=== PATIENT | male | born 1955 | race Caucasian/White ===

== ENCOUNTER 2018-11-25 01:20 | Inpatient (IN) | payer MEDICARE, OTHER ==
[2018-11-25] MEDS ORDERED: LORazepam 1 MG TAB PO STA (02:51)
[2018-11-25 03:05] LABS: Basophils # (A) 0.1 k/uL (0-0.2); Basophils % (A) 1 %; Eosinophils # (A) 0.4 k/uL (0-0.7); Eosinophils % (A) 5 %; HCT 40.2 % (39.0-53.0); HGB 12.8 gm/dL (13.0-17.5); Lymphocytes # (A) 1.9 k/uL (1.0-4.8); Lymphocytes % (A) 24 %; MCH 28.5 pg (25.0-35.0); MCHC 31.9 g/dL (31.0-37.0); MCV 89.5 fL (80.0-100.0); Mean Platelet Volume 6.7; Monocytes # (A) 0.9 k/uL (0-1.0); Monocytes % (A) 11 %; Neutrophils # (A) 4.4 k/uL (1.3-7.7); Neutrophils % (A) 56 %; Platelet Count 305 k/uL (150-450); WBC 7.8 k/uL (3.8-10.6)
[2018-11-25 03:10] LABS: African American GFR (CKD) >90 (>60 ml/min/1.73 sqM); Alcohol <10 mg/dL; Anion Gap 10 mmol/L; Blood Urea Nitrogen 13 mg/dL (9-20); Calcium 9.6 mg/dL (8.4-10.2); Carbon Dioxide 25 mmol/L (22-30); Chloride 86 mmol/L (98-107); Glucose 84 mg/dL (74-99); Potassium 4.3 mmol/L (3.5-5.1); Sodium 121 mmol/L (137-145)
[2018-11-25] MEDS ORDERED: HALOPERIDOL LACTATE 5 MG/ML 1 ML VIAL IM STA (03:24)
--- NOTE | 2018-11-25 04:11 | ED ---
General Adult HPI - General Chief complaint: Psychiatric Symptoms Stated complaint: Petit[place] Time Seen by Provider: 11/25/18 02:22 Source: patient, police, RN notes reviewed, old records reviewed Mode of arrival: ambulatory Limitations: altered mental status - History of Present Illness Initial comments: 63-year-old male patient past history of schizophrenia brought in by [place] [employer] [facility]. They report that patient was knocking on his neighbor's car window getting her breathing which. Patient reports he is not taking his psychiatric medications. Denies any suicidal or homicidal ideations at this time. Denies all other complaints. Systemic: Pt denies fatigue, fever/chills, rash. Pt denies weakness, night sweats, weight loss. Neuro: Pt denies headache, visual disturbances, syncope or pre-syncope. HEENT: Pt denies ocular discharge or irritation, otalgia, rhinorrhea, pharyngitis or notable lymphadenopathy. Cardiopulmonary: Pt denies chest pain, SOB, heart palpitations, dyspnea on exertion. Abdominal/GI: Pt denies abdominal pain, n/v/d. : Pt denies dysuria, burning w/ urination, frequency/urgency. Denies new onset urinary or bowel incontinence. MSK: Pt denies myalgia, loss of strength or function in extremities. Neuro: Pt denies new onset weakness, paresthesias. - Related Data Home Medications Medication Instructions Recorded Confirmed ARIPiprazole [Abilify Maintena] 300 mg IM Q30D 11/25/18 11/25/18 Atorvastatin [Lipitor] 10 mg PO DAILY 11/25/18 11/25/18 Divalproex Sodium [Depakote] 125 mg PO DAILY 11/25/18 11/25/18 Docusate Sodium [Dok] 100 mg PO BID 11/25/18 11/25/18 FLUoxetine HCL [PROzac] 20 mg PO DAILY 11/25/18 11/25/18 Lactulose [Cephulac] 20 gm PO TID 11/25/18 11/25/18 Nicotine 14Mg/24Hr Patch [Habitrol] 1 patch TRANSDERM DAILY 11/25/18 11/25/18 Polyethylene Glycol 3350 [Clearlax] 17 gram PO DAILY 11/25/18 11/25/18 QUEtiapine [SEROquel] 200 mg PO HS 11/25/18 11/25/18 Tamsulosin [Flomax] 0.4 mg PO DAILY 11/25/18 11/25/18 metFORMIN HCL [metFORMIN HCL ER 1,000 mg PO BID 11/25/18 11/25/18 Osmotic] Allergies Allergy/AdvReac Type Severity Reaction Status Date / Time No Known Allergies Allergy Verified 11/25/18 07:34 Review of Systems ROS Statement: Those systems with pertinent positive or pertinent negative responses have been documented in the HPI. ROS Other: All systems not noted in ROS Statement are negative. Past Medical History Past Medical History: Diabetes Mellitus History of Any Multi-Drug Resistant Organisms: None Reported Additional Past Surgical History / Comment(s): SCHIZOPHRENIA Past Psychological History: Bipolar, Schizophrenia Smoking Status: Current every day smoker Past Alcohol Use History: None Reported Past Drug Use History: None Reported General Exam - General Exam Comments Initial Comments: Constitutional: NAD, AOX3, Pt has pleasant affect. HEENT: NC/AT, trachea midline, neck supple, no lymphadenopathy. Posterior p harynx non erythematous, without exudates. External ears appear normal, without discharge. Mucous membranes moist. Eyes PERRLA, EOM intact. There is no scleral icterus. No pallor noted. Cardiopulmonary: RRR, no murmurs, rubs or gallops, no JVD noted. Lungs CTAB in anterior and posterior hui. No peripheral edema. Abdominal exam: Abdomen soft and non-distended. Abdomen non-tender to palpation in all 4 quadrants. Bowel sounds active in LLQ. No hepatosplenomegaly. No ecchymosis Neuro: CN II-XII grossly intact. No nuchal rigidity. No raccon eyes, no arenas sign, no hemotympanum. No cervical spinal tenderness. MSK: No posterior calf tenderness bilaterally, homans sign negative bilaterally. Posterior tibialis and radial pulse +2 bilaterally. Sensation intact in upper and lower extremities. Full active ROM in upper and lower extremities, 5/5 stregnth. Limitations: altered mental status Course Vital Signs 11/25/18 11/25/18 11/25/18 01:39 06:25 08:17 Temperature 98.1 F Pulse Rate 78 69 Respiratory 18 18 16 Rate Blood Pressure 123/82 106/58 O2 Sat by Pulse 99 100 97 Oximetry 11/25/18 11/25/18 11/25/18 08:20 09:00 09:30 Temperature Pulse Rate Respiratory 17 Rate Blood Pressure 123/69 116/70 132/71 O2 Sat by Pulse 98 98 Oximetry 11/25/18 11/25/18 11/25/18 10:00 10:30 13:14 Temperature Pulse Rate 70 77 Respiratory 18 18 Rate Blood Pressure 140/73 119/68 126/67 O2 Sat by Pulse 98 97 Oximetry 11/25/18 11/25/18 13:46 16:22 Temperature 98.1 F 97.9 F Pulse Rate 77 Respiratory 16 Rate Blood Pressure 122/74 O2 Sat by Pulse 97 Oximetry Medical Decision Making - Medical Decision Making 63-year-old male patient past history of schizophrenia brought in by [place] [employer] [facility]. They report that patient was knocking on his neighbor's car window accusing her of being a witch. Patient reports he is not taking his psychiatric medications. Denies any suicidal or homicidal ideations at this time. Denies all other complaints. Pt VSS, afebrile. Physical exam did not display acute pathology. Pt signed out to Dr. Muñiz pending EPS evaluation. - Lab Data Result diagrams: 11/25/18 02:04 11/25/18 02:04 Lab Results 11/25/18 11/25/18 11/25/18 Range/Units 02:04 02:04 02:04 WBC 7.8 (3.8-10.6) k/uL RBC 4.50 (4.30-5.90) m/uL Hgb 12.8 L (13.0-17.5) gm/dL Hct 40.2 (39.0-53.0) % MCV 89.5 (80.0-100.0) fL MCH 28.5 (25.0-35.0) pg MCHC 31.9 (31.0-37.0) g/dL RDW 15.0 (11.5-15.5) % Plt Count 305 (150-450) k/uL Neutrophils % 56 % Lymphocytes % 24 % Monocytes % 11 % Eosinophils % 5 % Basophils % 1 % Neutrophils # 4.4 (1.3-7.7) k/uL Lymphocytes # 1.9 (1.0-4.8) k/uL Monocytes # 0.9 (0-1.0) k/uL Eosinophils # 0.4 (0-0.7) k/uL Basophils # 0.1 (0-0.2) k/uL Sodium 121 L (137-145) mmol/L Potassium 4.3 (3.5-5.1) mmol/L Chloride 86 L (98-107) mmol/L Carbon Dioxide 25 (22-30) mmol/L Anion Gap 10 mmol/L BUN 13 (9-20) mg/dL Creatinine 0.42 L (0.66-1.25) mg/dL Est GFR (CKD-EPI)AfAm >90 (>60 ml/min/1.73 sqM) Est GFR (CKD-EPI)NonAf >90 (>60 ml/min/1.73 sqM) Glucose 84 (74-99) mg/dL Calcium 9.6 (8.4-10.2) mg/dL Urine Color Urine Appearance (Clear) Urine pH (5.0-8.0) Ur Specific [place] (1.001-1.035) Urine Protein (Negative) Urine Glucose (UA) (Negative) Urine Ketones (Negative) Urine Blood (Negative) Urine Nitrite (Negative) Urine Bilirubin (Negative) Urine Urobilinogen (<2.0) mg/dL Ur Leukocyte Esterase (Negative) Urine Opiates Screen (NotDetected) Ur Oxycodone Screen (NotDetected) Urine Methadone Screen (NotDetected) Ur Propoxyphene Screen (NotDetected) Ur Barbiturates Screen (NotDetected) Valproic Acid 79.9 ug/mL U Tricyclic Antidepress (NotDetected) Ur Phencyclidine Scrn (NotDetected) Ur Amphetamines Screen (NotDetected) U Methamphetamines Scrn (NotDetected) U Benzodiazepines Scrn (NotDetected) Urine Cocaine Screen (NotDetected) U Marijuana (THC) Screen (NotDetected) Serum Alcohol <10 mg/dL 11/25/18 11/25/18 Range/Units 06:25 06:25 WBC (3.8-10.6) k/uL RBC (4.30-5.90) m/uL Hgb (13.0-17.5) gm/dL Hct (39.0-53.0) % MCV (80.0-100.0) fL MCH (25.0-35.0) pg MCHC (31.0-37.0) g/dL RDW (11.5-15.5) % Plt Count (150-450) k/uL Neutrophils % % Lymphocytes % % Monocytes % % Eosinophils % % Basophils % % Neutrophils # (1.3-7.7) k/uL Lymphocytes # (1.0-4.8) k/uL Monocytes # (0-1.0) k/uL Eosinophils # (0-0.7) k/uL Basophils # (0-0.2) k/uL Sodium (137-145) mmol/L Potassium (3.5-5.1) mmol/L Chloride (98-107) mmol/L Carbon Dioxide (22-30) mmol/L Anion Gap mmol/L BUN (9-20) mg/dL Creatinine (0.66-1.25) mg/dL Est GFR (CKD-EPI)AfAm (>60 ml/min/1.73 sqM) Est GFR (CKD-EPI)NonAf (>60 ml/min/1.73 sqM) Glucose (74-99) mg/dL Calcium (8.4-10.2) mg/dL Urine Color Light Yellow Urine Appearance Clear (Clear) Urine pH 6.5 (5.0-8.0) Ur Specific [place] 1.005 (1.001-1.035) Urine Protein Negative (Negative) Urine Glucose (UA) Negative (Negative) Urine Ketones 1+ H (Negative) Urine Blood Negative (Negative) Urine Nitrite Negative (Negative) Urine Bilirubin Negative (Negative) Urine Urobilinogen <2.0 (<2.0) mg/dL Ur Leukocyte Esterase Negative (Negative) Urine Opiates Screen Not Detected (NotDetected) Ur Oxycodone Screen Not Detected (NotDetected) Urine Methadone Screen Not Detected (NotDetected) Ur Propoxyphene Screen Not Detected (NotDetected) Ur Barbiturates Screen Not Detected (NotDetected) Valproic Acid ug/mL U Tricyclic Antidepress Not Detected (NotDetected) Ur Phencyclidine Scrn Not Detected (NotDetected) Ur Amphetamines Screen Not Detected (NotDetected) U Methamphetamines Scrn Not Detected (NotDetected) U Benzodiazepines Scrn Not Detected (NotDetected) Urine Cocaine Screen Not Detected (NotDetected) U Marijuana (THC) Screen Not Detected (NotDetected) Serum Alcohol mg/dL Disposition Clinical Impression: Psychiatric disorder Disposition: ADMITTED IP TO THIS HOSP Condition: Serious Is patient prescribed a controlled substance at d/c from ED?: No
[2018-11-25 06:37] LABS: Appearance,Urine Clear (Clear); Bilirubin,Urine Negative (Negative); Blood,Urine Negative (Negative); Color,Urine Light Yellow; Glucose,Urine (UA) Negative (Negative); Ketones,Urine 1+ (Negative); Leukocyte Esterase,Urine Negative (Negative); Nitrite,Urine Negative (Negative); PH, Urine 6.5 (5.0-8.0); Protein,Urine Negative (Negative); Specific Gravity,Urine 1.005 (1.001-1.035); Urobilinogen,Urine <2.0 mg/dL (<2.0)
[2018-11-25 06:48] LABS: Amphetamine Screen,Urine Not Detected (NotDetected); Barbiturate Screen,Urine Not Detected (NotDetected); Benzodiazepines Screen,Urine Not Detected (NotDetected); Cocaine Screen,Urine Not Detected (NotDetected); Methadone Screen, Urine Not Detected (NotDetected); Opiate Screen,Urine Not Detected (NotDetected); Oxycodone Screen, Urine Not Detected (NotDetected); Phencyclidine Screen,Urine Not Detected (NotDetected); Tricyclic Antidepressant,Urine Not Detected (NotDetected); Urn Cannabinoid Scrn Not Detected (NotDetected)
[2018-11-25] MEDS ORDERED: SODIUM CHLORIDE 0.9% 500 ML 500 ML IV STA (08:23)
[2018-11-25] MEDS ORDERED: SODIUM CHLORIDE 0.9% 1,000 ML IV STA (08:23)
--- NOTE | 2018-11-25 09:00 | CT ---
EXAMINATION TYPE: CT brain wo con DATE OF EXAM: 11/25/2018 COMPARISON: None HISTORY: 63-year-old male confusion, Altered mental status TECHNIQUE: Examination was done in axial plane without intravenous contrast. Coronal and sagittal r econstructions performed. CT DLP: 1106.4 mGycm Automated exposure control for dose reduction was used. FINDINGS: There is no evidence of acute intracranial hemorrhage, acute ischemic changes, mass, mass-effect, or extra-axial fluid collection. There is no effacement of cerebral sulci or basal subarachnoid cister ns. There is no hydrocephalus. There is no midline shift. Yanez-white matter distinction is preserv ed. Mild age related cerebral cortical volume loss. Paranasal sinuses and mastoid air cells are pneumatized. IMPRESSION: No acute intracranial abnormality seen.
[2018-11-25] MEDS ORDERED: NALOXONE 0.4 MG/ML 1 ML VIAL IV PRN (10:29)
[2018-11-25] MEDS ORDERED: LORazepam 2 MG/ML INJ IV STA (14:52)
[2018-11-25 17:03] VITALS: BMI 21.1
[2018-11-25] MEDS ORDERED: HYDROcodone/APAP 5-325MG 1 EACH TAB PO PRN (18:05)
[2018-11-25] MEDS ORDERED: ACETAMINOPHEN TAB 325 MG TAB PO PRN (18:05)
[2018-11-25] MEDS ORDERED: HALOPERIDOL LACTATE 5 MG/ML 1 ML VIAL IM PRN (18:06)
--- NOTE | 2018-11-25 18:09 | P.HPIM ---
History of Present Illness H&P Date: 11/25/18 Chief Complaint: Psychotic event 63-year-old male with PMH of schizophrenia is brought in by [place] [employer]. Patient is currently sedated with Ativan that was given in the ED. Patient is not waking up in his unable to provide any history. Report is taken from ED note. Apparently, patient has been not taking his psychiatric medications. He denied any suicidal or homicidal ideations. He denied any headache, chest pain, shortness of breath, palpitations, changes in urination or bowel habits. He was brought to the ED for evaluation by EPS. In the ED, vital signs were stable. CBC was unremarkable. BMP showed a sodium of 121. UDS was negative. Urinalysis was negative as well. Patient is being admitted for hyponatremia, psychiatry consulted. Review of Systems Unable to obtain ROS unobtainable: due to endotracheal tube Past Medical History Past Medical History: Diabetes Mellitus, Hypertension History of Any Multi-Drug Resistant Organisms: None Reported Additional Past Surgical History / Comment(s): SCHIZOPHRENIA Past Anesthesia/Blood Transfusion Reactions: Unable to Obtain Past Psychological History: Bipolar, Schizophrenia Additional Psychological History / Comment(s): Schizophrenia Smoking Status: Current every day smoker Past Alcohol Use History: None Reported Past Drug Use History: None Reported Medications and Allergies Home Medications Medication Instructions Recorded Confirmed Type ARIPiprazole [Abilify Maintena] 300 mg IM Q30D 11/25/18 11/25/18 History Atorvastatin [Lipitor] 10 mg PO DAILY 11/25/18 11/25/18 History Divalproex Sodium [Depakote] 125 mg PO DAILY 11/25/18 11/25/18 History Docusate Sodium [Dok] 100 mg PO BID 11/25/18 11/25/18 History FLUoxetine HCL [PROzac] 20 mg PO DAILY 11/25/18 11/25/18 History Lactulose [Cephulac] 20 gm PO TID 11/25/18 11/25/18 History Nicotine 14Mg/24Hr Patch [Habitrol] 1 patch TRANSDERM DAILY 11/25/18 11/25/18 History Polyethylene Glycol 3350 [Clearlax] 17 gram PO DAILY 11/25/18 11/25/18 History QUEtiapine [SEROquel] 200 mg PO HS 11/25/18 11/25/18 History Tamsulosin [Flomax] 0.4 mg PO DAILY 11/25/18 11/25/18 History metFORMIN HCL [metFORMIN HCL ER 1,000 mg PO BID 11/25/18 11/25/18 History Osmotic] Allergies Allergy/AdvReac Type Severity Reaction Status Date / Time No Known Allergies Allergy Verified 11/25/18 07:34 Physical Exam Vitals: Vital Signs Temp Pulse Resp BP Pulse Ox 11/25/18 16:22 97.9 F 77 16 122/74 97 11/25/18 13:46 98.1 F 11/25/18 13:14 77 18 126/67 97 11/25/18 10:30 70 18 119/68 98 11/25/18 10:00 140/73 11/25/18 09:30 132/71 98 11/25/18 09:00 116/70 11/25/18 08:20 17 123/69 98 11/25/18 08:17 16 97 11/25/18 06:25 69 18 106/58 100 11/25/18 01:39 98.1 F 78 18 123/82 99 Intake and Output 11/25/18 11/25/18 11/25/18 06:59 14:59 22:59 Other: Voiding Method Urinal Weight 72.575 kg Unable to obtain as patient is heavily sedated. Results CBC & Chem 7: 11/25/18 02:04 11/25/18 02:04 Labs: Abnormal Lab Results - Last 24 Hours (Table) 11/25/18 11/25/18 11/25/18 Range/Units 02:04 02:04 06:25 Hgb 12.8 L (13.0-17.5) gm/dL Sodium 121 L (137-145) mmol/L Chloride 86 L (98-107) mmol/L Creatinine 0.42 L (0.66-1.25) mg/dL Urine Ketones 1+ H (Negative) Thrombosis Risk Factor Assmnt - Choose All That Apply Each Factor Represents 1 point: Medical pt on bed rest Each Risk Factor Represents 2 Points: Patient confined to bed Thrombosis Risk Factor Assessment Total Risk Factor Score: 3 Thrombosis Risk Factor Assessment Level: Moderate Risk Assessment and Plan Assessment: Assessment and Plan Hyponatremia Diabetes mellitus Acute psychotic event Sodium 121. Likely secondary to dehydration. Plans: Continue normal saline at 75 mL per hour. Repeat BMP in the morning. [id number] glucose 84. Plans: Insulin sliding scale. Regular Accu-Cheks. Hypoglycemic precautions. Plans: One-to-one sitter. Haldol and Ativan as needed for agitation or anxiety. Follow psychiatry consultation.
[2018-11-25 18:15] LABS: African American GFR (CKD) >90 (>60 ml/min/1.73 sqM); Anion Gap 7 mmol/L; Blood Urea Nitrogen 10 mg/dL (9-20); Carbon Dioxide 24 mmol/L (22-30); Chloride 96 mmol/L (98-107); Glucose 77 mg/dL (74-99); Potassium 4.6 mmol/L (3.5-5.1); Sodium 127 mmol/L (137-145)
[2018-11-25 20:39] LABS: Glucose,Whole Blood 77 mg/dL (75-99)
[2018-11-25] MEDS: LORazepam 2 MG/ML INJ IV PRN (23:25)
[2018-11-26] MEDS: LORazepam 2 MG/ML INJ IV PRN ×3 (05:07→21:21)
[2018-11-26 06:52] LABS: Glucose,Whole Blood 89 mg/dL (75-99)
[2018-11-26] MEDS: INSULIN ASPART (NovoLOG) 100 UNIT/ML VIAL SQ SCH ×3 (07:43→17:51)
--- NOTE | 2018-11-26 08:08 | P.PN ---
Subjective Progress Note Date: 11/26/18 Principal diagnosis: psychosis Patient was seen and examined. No acute events overnight. Patient more awake today and more communicative. Reports no issues. Is enjoying his breakfast. He denies any chest pain, shortness of breath or palpitations. No abdominal pain. No changes in urination or bowel habits. He denies any cough. States that he is ready to go home. Responding appropriately, but slowly, given Ativan around 5 AM. Objective - Vital Signs Vital signs: Vital Signs Temp 97.7 F 11/26/18 05:16 Pulse 76 11/26/18 05:16 Resp 15 11/26/18 05:16 BP 126/74 11/26/18 05:16 Pulse Ox 96 11/26/18 05:16 Intake & Output 11/25/18 11/26/18 11/26/18 18:59 06:59 18:59 Intake Total 600 Output Total 1200 Balance -600 Intake: Intake, IV Titration 600 Amount Sodium Chloride 0.9% 1, 600 000 ml @ 75 mls/hr IV . [id number] STA Rx#:[id number] Output: Urine 1200 Other: Voiding Method Urinal Urinal # Voids 2 - Exam General: [non toxic], [no distress], [appears at stated age] Derm: [warm], [dry] Head: [atraumatic], [normocephalic], [symmetric] Eyes: [EOMI], [no lid lag], [anicteric sclera] Mouth: [no lip lesion], [mucus membranes moist] Cardiovascular: [S1S2 reg], [no murmur], [positive posterior tibial pulse bilateral], Lungs: [CTA bilateral], [no rhonchi, no rales] , [no accessory muscle use] Abdominal: [soft], [ nontender to palpation], [no guarding], [no appreciable organomegaly] Ext: [no gross muscle atrophy], [no edema], [no contractures] Neuro: [ CN II-XI grossly intact], [no focal neuro deficits] Psych: [Alert], [oriented], [appropriate affect] Able to recall that the year 2018 and the president is Vicente Sow and that he is here at [facility] - Labs CBC & Chem 7: 11/25/18 02:04 11/25/18 17:41 Labs: Abnormal Lab Results - Last 24 Hours (Table) 11/25/18 Range/Units 17:41 Sodium 127 L (137-145) mmol/L Chloride 96 L (98-107) mmol/L Creatinine 0.43 L (0.66-1.25) mg/dL Assessment and Plan Assessment: Assessment and Plan Hyponatremia Diabetes mellitus Acute psychotic event Sodium 121-127, improving. Likely secondary to dehydration. Plans: Continue normal saline at 75 mL per hour. Repeat BMP in the morning. [id number]-go-[id number] glucose 89. Plans: Insulin sliding scale. Regular Accu-Cheks. Hypoglycemic precautions. Plans: One-to-one sitter. Haldol and Ativan as needed for agitation or anxiety. Follow psychiatry consultation.
[2018-11-26 10:13] LABS: African American GFR (CKD) >90 (>60 ml/min/1.73 sqM); Anion Gap 6 mmol/L; Blood Urea Nitrogen 11 mg/dL (9-20); Calcium 9.2 mg/dL (8.4-10.2); Carbon Dioxide 28 mmol/L (22-30); Chloride 96 mmol/L (98-107); Glucose 93 mg/dL (74-99); Potassium 4.5 mmol/L (3.5-5.1); Sodium 130 mmol/L (137-145)
[2018-11-26 11:18] LABS: Glucose,Whole Blood 94 mg/dL (75-99)
[2018-11-26] MEDS: NICOTINE 14MG/24HR PATCH TRANSDERM SCH (12:58)
[2018-11-26] MEDS ORDERED: FLUoxetine HCL 20 MG CAP PO SCH (14:45)
--- NOTE | 2018-11-26 15:46 | P.CN ---
Psychiatric Consult - . Consult date: 11/26/18 Consult:: 11/26/18 15:22 Identification: Patient is a 63-year-old male who was brought to the emergency room by the police when he was found knocking on car windows at his neighbors. Reason for Consult: Psychosis with a history of schizophrenia History of Present Illness: Patient's chart was reviewed, patient was seen and interviewed in his room no family members were present. Patient is classification case manager contacted his sister who did provide some historical information, the patient had recently been admitted to [facility] psychiatric unit for 7 weeks and was discharged 3 weeks ago, patient did follow up with his private psychiatrist and was seen once after discharge. Patient apparently 20 years ago walked from here to [place] is unclear to me if he has been hospitalized prior to the hospitalization 3 weeks ago and this 20 year span of time. Patient was a fair to poor historian requiring much verbal redirection to respond to questions. Patient states that he had gotten an injection of long-acting Abilify while he was in the hospital but could not afford to get it as an outpatient and stated that he been given a prescription for oral Abilify but is unclear if he hasn't started taking this or not. Patient states that he had been taking his Prozac 20 mg a day, Seroquel 200 mg at bedtime and Depakote 500 mg twice a day. Patient states that he saw his private psychiatrist once after he was released from [facility]. Patient states that he got enraged yesterday lost track of his emotions and got angry. States this is why he was banging on car windows. Patient states that he is getting messages that are good warnings, he reported that he has had paranoid thoughts in the past and has had manic episodes in the past but was unable to elaborate on this. He then stated that Dov Alexander at called him and they had a good conversation. He then discussed the fact that [facility] was important and at saying the rosary was important. Patient denied that he was currently feeling suicidal or homicidal. Past Psychiatric History: Patient states that he was admitted to [facility] at the age of 17, had 2 prior admissions to [facility], and was also admitted to [facility] one occasion. He thought that there were no admissions for a period of 20 years until his most recent one at [facility] where he was for 7 weeks per his sister and was recently released 3 weeks ago. Patient's home medications were as stated above and he has received and Abilify long-acting injection but states that he could not afford it and did not continue on either that or oral Abilify once he was discharged from the hospital. Patient sees a Dr. Cobos as an outpatient per his sister whose phone number is [phone]. Past Medical/Surgical History: Patient has a medical history diabetes, hypertension per his sister he had one episode of hyponatremia last summer that required hospitalization, patient states he's been treated for chlamydia and also has peripheral vascular disease and states he had a stent placed in one of his legs. He reports knee surgery as well in the past Family History: Per his sister bipolar disorder runs on the father's side of the family and schizophrenia runs on the maternal side Social History: Per patient's sister and her mother 2 years ago, he was 2 years ago but the patient states that he was 5 years ago and has only been once. He states he was born and raised here in [place] and has one brother and one sister. Patient states he has a daughter. 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 Patient is currently not working and lives on his own. Substance Use History: Patient denies any alcohol use for the last 18 years, states he tried cocaine once in the past and denies any other drug use history Mental status: Appearance/Attitude: Patient is dressed in a hospital gown, does not keep himself properly covered with a gown exposing himself during the i nterview, he is wearing adult diaper, patient is constantly moving twisting in the hospital bed, makes intermittent eye contact and was cooperative Behavior: Patient does not exhibit any psychomotor retardation but constantly moves during the interview in his bed Speech/Language: Patient's speech is rambling, tangential and he is coherent Thought Process: Patient is not goal-directed, he needs constant redirection to stay on topic Thought Content: Patient denies any auditory hallucinations but states he is getting messages which are good and warnings that are helpful to him. He says he has paranoid ideation but cannot elaborate further. Patient then told me that Dov Alexander called him and they had a good conversation, he mentioned that saying the rosabernabe was important and that [facility] was important. Patient was unable to report to me if he had been sleeping or eating well at home Suicidal/Homicidal Ideation: Patient denies any current suicidal or homicidal ideation Sensorium/Cognition: Patient required redirection to focus on questions, appeared at times to drift off and oriented to person he knew the date, knew the name of the hospital Mood/Affect: Patient's mood is labile and his affect is appropriate to his mood Insight/Judgment: Patient's insight and judgment are limited Assessment: Patient has a long history of psychiatric treatment with a diagnosis of either schizoaffective disorder bipolar type or manic depressive illness, he was most recently hospitalized at [facility] psychiatric unit for 7 weeks and released 3 weeks ago and apparently was placed on Abilify long-acting injectable which she was not able to afford as an outpatient and so it is questionable whether he received his second injection and he has not been taking any oral Abilify. Patient has been prescribed Prozac 20 mg a day, Seroquel 200 at bedtime and Depakote 500 twice a day and he states that he has been taking these medications, his Depakote level would confirm that the patient has been compliant with his Depakote. Patient states that he got enraged and lost track of his emotions and got angry prior to his admission. Patient was admitted and was discovered to have a low sodium which apparently he has also had last summer by his sister which required hospitalization and it is unclear how much of this is adding to his difficulty giving a accurate history and staying on task. Patient did express some grandiose ideation, stated is receiving messages so there is evidence of a psychotic process as well, patient has also been inappropriate with nursing staff. Diagnosis: Schizoaffective disorder, bipolar type rule out bipolar disorder type I Plan: Patient does require inpatient psychiatric hospitalization once his sodium level has been returned to normal. I would continue his Seroquel 200 mg at bedtime and Depakote 500 mg twice a day but would discontinue the Prozac as this can also cause low sodium and the patient has a history of manic episodes and there is no reason to use an antidepressant in this setting. Haldol and Ativan on an as-needed basis can also be continued for agitation. An ammonia level should also be checked as the patient is on Depakote. Once the patient is medically clear the patient should be admitted for inpatient psychiatric care. I would continue the sitter with the patient. 11/26/18 15:27 11/26/18 15:32 11/26/18 15:38
[2018-11-26] MEDS: DIVALPROEX SPRINKLE 125 MG CAP.SPRINK PO SCH (15:53)
[2018-11-26 17:27] LABS: Glucose,Whole Blood 80 mg/dL (75-99)
[2018-11-26 20:06] LABS: Glucose,Whole Blood 96 mg/dL (75-99)
[2018-11-26] MEDS ORDERED: QUEtiapine 200 MG TAB PO SCH (21:00)
[2018-11-27 07:20] LABS: Glucose,Whole Blood 88 mg/dL (75-99)
[2018-11-27] MEDS: INSULIN ASPART (NovoLOG) 100 UNIT/ML VIAL SQ SCH ×2 (08:39→12:14)
[2018-11-27] MEDS ORDERED: DIVALPROEX 250 MG TABLET.DR PO SCH (09:00)
[2018-11-27] MEDS ORDERED: FLUoxetine HCL 20 MG CAP PO SCH (09:00)
[2018-11-27] MEDS ORDERED: TAMSULOSIN 0.4 MG CAP.ER.24H PO SCH (09:00)
[2018-11-27] MEDS ORDERED: ATORVASTATIN 10 MG TAB PO SCH (09:00)
[2018-11-27 09:42] LABS: African American GFR (CKD) >90 (>60 ml/min/1.73 sqM); Anion Gap 6 mmol/L; Blood Urea Nitrogen 13 mg/dL (9-20); Calcium 9.6 mg/dL (8.4-10.2); Carbon Dioxide 29 mmol/L (22-30); Chloride 97 mmol/L (98-107); Glucose 168 mg/dL (74-99); Potassium 4.4 mmol/L (3.5-5.1); Sodium 132 mmol/L (137-145)
[2018-11-27] MEDS: NICOTINE 14MG/24HR PATCH TRANSDERM SCH (09:50)
[2018-11-27] MEDS: DIVALPROEX SPRINKLE 125 MG CAP.SPRINK PO SCH (09:50)
[2018-11-27] MEDS: LORazepam 2 MG/ML INJ IV PRN (10:21)
[2018-11-27 11:37] LABS: Glucose,Whole Blood 66 mg/dL (75-99)
--- NOTE | 2018-11-27 11:41 | P.PN ---
Subjective Progress Note Date: 11/27/18 Principal diagnosis: hyponatremia Patient was seen and examined. No acute events overnight. Patient reports no complaints today. He denies any chest pain, shortness of breath or palpitations. No nausea or vomiting. No fever or chills. Sitter is at bedside. Objective - Vital Signs Vital signs: Vital Signs Temp 98.1 F 11/27/18 05:00 Pulse 79 11/27/18 05:00 Resp 18 11/27/18 05:00 BP 125/75 11/27/18 05:00 Pulse Ox 97 11/27/18 05:00 Intake & Output 11/26/18 11/27/18 11/27/18 18:59 06:59 18:59 Intake Total 840 480 Balance 840 480 Intake: Intake, IV Titration 600 Amount Sodium Chloride 0.9% 1, 600 000 ml @ 75 mls/hr IV . [id number] STA Rx#:[id number] Oral 240 480 Other: Voiding Method Urinal Toilet Urinal # Voids 5 2 # Bowel Movements 1 - Exam General: [non toxic], [no distress], [appears at stated age] Derm: [warm], [dry] Head: [atraumatic], [normocephalic], [symmetric] Eyes: [EOMI], [no lid lag], [anicteric sclera] Mouth: [no lip lesion], [mucus membranes moist] Cardiovascular: [S1S2 reg], [no murmur], [positive posterior tibial pulse bilateral] Lungs: [CTA bilateral], [no rhonchi, no rales] , [no accessory muscle use] Abdominal: [soft], [ nontender to palpation], [no guarding], [no appreciable organomegaly] Ext: [no gross muscle atrophy], [no edema], [no contractures] Neuro: [no focal neuro deficits] Psych: [Alert], [oriented], [appropriate affect] - Labs CBC & Chem 7: 11/25/18 02:04 11/27/18 09:06 Labs: Abnormal Lab Results - Last 24 Hours (Table) 11/27/18 11/27/18 Range/Units 09:06 11:30 Sodium 132 L (137-145) mmol/L Chloride 97 L (98-107) mmol/L Creatinine 0.56 L (0.66-1.25) mg/dL Glucose 168 H (74-99) mg/dL POC Glucose (mg/dL) 66 L (75-99) mg/dL Assessment and Plan Assessment: Assessment and Plan Hyponatremia Diabetes mellitus Acute psychotic event Sodium 121-127-132, improving. Likely secondary to dehydration. Plans: Continue normal saline at 75 mL per hour. Repeat BMP in the morning. SSRI discontinued. Vlynr-bd-[id number] glucose 66. Plans: Insulin sliding scale. Regular Accu-Cheks. Hypoglycemic precautions. Plans: One-to-one sitter. Haldol and Ativan as needed for agitation or anxiety. Follow psychiatry consultation. Patient is medically cleared at this point. Would encourage hydration by mouth. DC to psych.
[2018-11-27 11:52] LABS: Glucose,Whole Blood 95 mg/dL (75-99)
[2018-11-27 14:33] VITALS: BP 138/66; PULSE 102; RESP 18; TEMP 98
== END 2018-11-27 15:43 | DRG 885 ==
LOC: EC 01:20 → 3NMEDONC 11:47
PROVIDERS: ADMIT Family Medicine; ATTEND Family Medicine
DX: F29 Unspecified psychosis not due to a substance or known physiological condition (principal); E87.1 Hypo-osmolality and hyponatremia; E11.9 Type 2 diabetes mellitus without complications; E86.0 Dehydration; F17.200 Nicotine dependence, unspecified, uncomplicated; F20.9 Schizophrenia, unspecified; F31.9 Bipolar disorder, unspecified; I10 Essential (primary) hypertension; Z79.899 Other long term (current) drug therapy; Z79.84 Long term (current) use of oral hypoglycemic drugs
CPT/HCPCS: 36415; 70450; 80048; 80164; 80306; 80320; 81003; 82140; 85025; 96361; 96372; 96374; 99285

== ENCOUNTER 2018-11-27 15:07 | Inpatient (IN) | payer MEDICARE ==
[2018-11-27] MEDS ORDERED: ARIPIPRAZOLE 300 MG IM SCH (15:30)
[2018-11-27 16:49] LABS: Glucose,Whole Blood 101 mg/dL (75-99)
[2018-11-27] MEDS: metFORMIN 500 MG TAB PO SCH (17:36)
[2018-11-27] MEDS: LORazepam 1 MG TAB PO PRN (17:36)
[2018-11-27] MEDS: QUEtiapine 100 MG TAB PO SCH (21:52)
[2018-11-28] MEDS: LORazepam 1 MG TAB PO PRN ×3 (04:59→20:19)
[2018-11-28 05:51] LABS: Cholesterol 160 mg/dL (<200); HDL Cholesterol 73 mg/dL (40-60); LDL Cholesterol,Calculated 73 mg/dL (0-99); Triglycerides 71 mg/dL (<150)
[2018-11-28] MEDS: ATORVASTATIN 10 MG TAB PO SCH (08:48)
[2018-11-28] MEDS: metFORMIN 500 MG TAB PO SCH ×2 (08:48→17:34)
[2018-11-28] MEDS: NICOTINE 14MG/24HR PATCH TRANSDERM SCH (08:48)
[2018-11-28] MEDS: TAMSULOSIN 0.4 MG CAP.ER.24H PO SCH (08:48)
[2018-11-28] MEDS ORDERED: DIVALPROEX SPRINKLE 125 MG CAP.SPRINK PO SCH (09:00)
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
[2018-11-28 13:21] LABS: Hemoglobin A1C 5.7 % (4.0-6.0)
--- NOTE | 2018-11-28 17:48 | P.MDCNMH ---
History of Present Illness H&P Date: 11/28/18 Chief Complaint: Delusional thoughts 63-year-old male with PMH of schizophrenia, diabetes mellitus and possible hypertension presents to the ED brought in by police for manic and psychotic symptoms. Patient was initially seen on the medical floors for hyponatremia. His sodium on admission was 121 which improved to 132 on discharge. His hyponatremia was thought to be secondary to dehydration and he was continued on normal saline at 75 mL per hour. Psychiatry was consulted at that time and recommended discontinuation of his SSRI. With his improving sodium, patient was discharged for inpatient psychiatry admission. [facility] physicians is being consulted for medical management of this patient. Patient was seen and examined. No acute events overnight. Patient appears to have racing thoughts and jumps from one thought to another. He has difficulty staying on topic. Patient denies any headache, lower extremity edema, nausea, vomiting, fever, cough, chest pain, shortness breath, changes in urination. No changes in appetite or weight. Patient does report that he had a bowel movement unintentionally while trying to shower this morning, states that this is happened in the past. He denies any bladder incontinence or saddle anesthesia. Patient denies any back pain. Review of Systems Pertinent positives and negatives as discussed in HPI, a complete review of systems was performed and all other systems are negative. Past Medical History Past Medical History: Diabetes Mellitus History of Any Multi-Drug Resistant Organisms: None Reported Additional Past Surgical History / Comment(s): SCHIZOPHRENIA Past Anesthesia/Blood Transfusion Reactions: Unable to Obtain Past Psychological History: Bipolar, Schizophrenia Smoking Status: Current every day smoker Past Alcohol Use History: None Reported Past Drug Use History: None Reported Medications and Allergies Home Medications Medication Instructions Recorded Confirmed Type ARIPiprazole [Abilify Maintena] 300 mg IM Q30D 11/25/18 11/27/18 History Atorvastatin [Lipitor] 10 mg PO DAILY 11/25/18 11/27/18 History Divalproex Sodium [Depakote] 125 mg PO DAILY 11/25/18 11/27/18 History Docusate Sodium [Dok] 100 mg PO BID 11/25/18 11/27/18 History Lactulose [Cephulac] 20 gm PO TID 11/25/18 11/27/18 History Nicotine 14Mg/24Hr Patch [Habitrol] 1 patch TRANSDERM DAILY 11/25/18 11/27/18 History Polyethylene Glycol 3350 [Clearlax] 17 gram PO DAILY 11/25/18 11/27/18 History QUEtiapine [SEROquel] 200 mg PO HS 11/25/18 11/27/18 History Tamsulosin [Flomax] 0.4 mg PO DAILY 11/25/18 11/27/18 History metFORMIN HCL [metFORMIN HCL ER 1,000 mg PO BID 11/25/18 11/27/18 History Osmotic] Allergies Allergy/AdvReac Type Severity Reaction Status Date / Time No Known Allergies Allergy Verified 11/27/18 15:14 Physical Exam Vitals: Vital Signs Pulse Resp BP 11/28/18 11:04 92 18 148/67 11/28/18 05:00 84 16 119/72 11/27/18 18:42 100 122/89 General: [non toxic], [no distress], [appears at stated age] Derm: [warm], [dry] Head: [atraumatic], [normocephalic], [symmetric] Eyes: [EOMI], [no lid lag], [anicteric sclera] Mouth: [no lip lesion], [mucus membranes moist] Cardiovascular: [S1S2 reg], [no murmur], [positive DP pulse bilateral] Lungs: [CTA bilateral], [no rhonchi, no rales] , [no accessory muscle use] Abdominal: [soft], [ nontender to palpation], [no guarding], [no appreciable organomegaly] Ext: [no gross muscle atrophy], [no edema], [no contractures] Neuro: [no focal neuro deficits] Psych: [Flight of ideas] Cranial Nerve Examination - Cranial Nerves Cranial Nerve II- Optic: Intact Cranial Nerve III- Oculomotor: Intact Cranial Nerve IV- Trochlear: Intact Cranial Nerve V- Trigeminal: Intact Cranial Nerve - Abducens: Intact Cranial Nerve VII- Facial: Intact Cranial Nerve VIII- Auditory: Intact Cranial Nerve IX- Glossopharyngeal: Intact Cranial Nerve X- Vagus: Intact Cranial Nerve XI- Accessory: Intact Cranial Nerve XII- Hypoglossal: Intact Results Labs: Abnormal Lab Results - Last 24 Hours (Table) 11/27/18 Range/Units 09:06 HDL Cholesterol 73 H (40-60) mg/dL Assessment and Plan Assessment: Assessment and Plan Hyponatremia Diabetes mellitus Acute psychotic event Sodium 121-127-132 on 11/27/2018, improving. Likely secondary to dehydration. Plans: Encourage hydration by mouth. SSRI discontinued. Menrv-yp-bafg glucose 101. Plans: Regular Accu-Cheks. Hypoglycemic precautions. Plans: Management as per psychiatry Thank you for this consult. Please call with any additional questions or concerns.
[2018-11-28] MEDS: DIVALPROEX 500 MG TABLET.DR PO SCH (20:20)
[2018-11-28] MEDS: PALIPERIDONE 3 MG TAB.ER.24 PO SCH (20:20)
[2018-11-28] MEDS: QUEtiapine 100 MG TAB PO SCH (20:20)
[2018-11-28] MEDS: ACETAMINOPHEN TAB 325 MG TAB PO PRN (21:43)
[2018-11-29] MEDS: TAMSULOSIN 0.4 MG CAP.ER.24H PO SCH (07:56)
[2018-11-29] MEDS: metFORMIN 500 MG TAB PO SCH ×2 (07:56→17:32)
[2018-11-29] MEDS: ATORVASTATIN 10 MG TAB PO SCH (07:56)
[2018-11-29] MEDS: DIVALPROEX 500 MG TABLET.DR PO SCH ×2 (07:56→21:21)
[2018-11-29] MEDS: NICOTINE 14MG/24HR PATCH TRANSDERM SCH (07:57)
--- NOTE | 2018-11-29 10:55 | P.PN ---
Progress Note - Text Interval history: The patient is found in the library he follows me to an interview room. He indicates his mood is fine. Staff reports he slept 2 hours he states he slept throughout the night. Appetite is stable. The patient continues to demonstrate ongoing mildly pressured speech. He jumps from topic to topic with little insight. He has to be interrupted several times to progress the session. Mental status exam: The patient is a thin male appearing older than his stated age. He is dressed in his own clothing he has a disheveled appearance. As noted above he continues to appear manic. Thought process includes loose associations and flight of ideas. He makes statements indicating that he is sexually preoccupied. He verbalizes a delusional thought content. Insight into his symptoms is poor judgment and subsequently impaired. He demonstrates no verbal or physical aggressiveness. Several attempts have to be made to have him leave the interview room. He demonstrates no involuntary repetitive movements. Plan: The patient will remain on his current psychotropic medications we will plan to titrate the invega further. We will monitor him for safety. Several days we will draw the Depakote level and recheck his sodium level. We will encourage participation in the milieu. We'll monitor by mouth intake. He requires continued psychiatric hospitalization.
[2018-11-29] MEDS: LORazepam 1 MG TAB PO PRN ×2 (12:21→21:21)
[2018-11-29] MEDS: QUEtiapine 100 MG TAB PO SCH (21:21)
[2018-11-29] MEDS: PALIPERIDONE 3 MG TAB.ER.24 PO SCH (21:21)
[2018-11-30] MEDS: ZIPRASIDONE 20 MG VIAL IM PRN ×2 (00:15→23:13)
[2018-11-30] MEDS: metFORMIN 500 MG TAB PO SCH ×2 (07:48→17:20)
[2018-11-30] MEDS: TAMSULOSIN 0.4 MG CAP.ER.24H PO SCH (09:03)
[2018-11-30] MEDS: ATORVASTATIN 10 MG TAB PO SCH (09:03)
[2018-11-30] MEDS: DIVALPROEX 500 MG TABLET.DR PO SCH ×2 (09:03→21:08)
--- NOTE | 2018-11-30 09:13 | P.PN ---
Progress Note - Text Interval history: The patient is found in the hallway he follows me to an interview room. He reports his mood is okay he states there was an incident last evening which caused him to get a Geodon injection. He speaks of a variety of topics that are unrelated. We reviewed his psychotropic medications he verbalizes no concerns. He is reporting no side effects. Staff report he continues to be hyperverbal and disorganized. Mental status exam: The patient is a male he is dressed in hospital gowns is a disheveled appearance. Eye contact is appropriate. He has constant ongoing speech. He has to be interrupted to ask a question. He struggles with providing direct answers. He demonstrates tangential thinking loose as sociations and flight of ideas at times. He demonstrates some delusional thought content. He is sexually preoccupied. He does not speak loudly he speaks in a quiet tone this morning. He is reporting no thoughts of self-harm or harm to others. He does not provide direct answers when asked about symptoms of psychosis. Insight and judgment are poor. He demonstrates no verbal or physical aggressiveness he demonstrates no involuntary dependent movements. Affect is constricted for this session. Plan: Continued symptoms of louise and psychosis, we will increase the Invega to 6 mg in the evening. Temporarily we are continuing the Seroquel. Continue Depakote as written. We will monitor him for safety and encourage participation in the milieu. Vital signs reviewed. Blood pressure mildly elevated we will follow that further. He requires continued psychiatric hospitalization due to his symptoms of louise and psychosis.
[2018-11-30] MEDS: ACETAMINOPHEN TAB 325 MG TAB PO PRN (09:23)
[2018-11-30] MEDS: LORazepam 1 MG TAB PO PRN ×2 (09:24→21:08)
[2018-11-30] MEDS: MAG HYDROX/AL HYDROX/SIMETH 30 ML CUP PO PRN (10:27)
[2018-11-30 12:53] LABS: Glucose,Whole Blood 91 mg/dL (75-99)
[2018-11-30] MEDS: PALIPERIDONE 6 MG TAB.ER.24 PO SCH (21:08)
[2018-11-30] MEDS: QUEtiapine 100 MG TAB PO SCH (23:13)
[2018-12-01] MEDS: metFORMIN 500 MG TAB PO SCH ×2 (07:38→17:15)
[2018-12-01] MEDS: DIVALPROEX 500 MG TABLET.DR PO SCH ×2 (09:00→20:13)
[2018-12-01] MEDS: ATORVASTATIN 10 MG TAB PO SCH (09:00)
[2018-12-01] MEDS: TAMSULOSIN 0.4 MG CAP.ER.24H PO SCH (09:01)
--- NOTE | 2018-12-01 11:17 | P.PN ---
Progress Note - Text Interval history: The patient is found in his room he follows me to an interview room. He reports that he was upset last evening. He cannot explain why. For the duration of session he speaks quietly but has an ongoing constant stream of speech. He demonstrates loose associations and flight of ideas. He becomes animated during the discussion but not aggressive. He indicates he slept 5 hours staff recorded he slept 3 hours. He remains intrusive on the unit with myself and others. He interrupts conversations he violates personal space. He has no insight into his current medications and subsequently has no questions. Mental status exam the patient is a thin male appearing older than his stated age. He has a disheveled appearance he is dressed in his own clothing. He is ambulating without ataxia. It addition to symptoms noted above he describes delusional thoughts that are paranoid in nature he describes ideas of reference. He described getting messages from music as well as believing helicopters will fly over his home to monitor him. He is demonstrating no verbal or physical aggressiveness during the session. Insight and judgment are poor. He demonstrates no involuntary repetitive movements. Plan: Continued louise and psychosis, we will continue his medications as written we have just titrated the invega. We will draw a comprehensive metabolic panel B12 folate and Depakote level tomorrow morning. We will continue to monitor him for safety he is encouraged to appropriately participate in the milieu. Reality orientation is provided when possible. Vital signs reviewed.
[2018-12-01] MEDS: LORazepam 1 MG TAB PO PRN ×2 (13:48→21:55)
[2018-12-01] MEDS: ACETAMINOPHEN TAB 325 MG TAB PO PRN (17:15)
[2018-12-01] MEDS: QUEtiapine 100 MG TAB PO SCH ×2 (20:13→21:54)
[2018-12-01] MEDS: PALIPERIDONE 6 MG TAB.ER.24 PO SCH (20:13)
[2018-12-02] MEDS: LORazepam 1 MG TAB PO PRN ×2 (06:53→15:07)
[2018-12-02] MEDS: metFORMIN 500 MG TAB PO SCH ×2 (08:26→17:50)
[2018-12-02] MEDS: ATORVASTATIN 10 MG TAB PO SCH (08:26)
[2018-12-02] MEDS: DIVALPROEX 500 MG TABLET.DR PO SCH ×2 (08:26→20:33)
[2018-12-02] MEDS: TAMSULOSIN 0.4 MG CAP.ER.24H PO SCH (08:27)
[2018-12-02 08:34] LABS: ALT 22 U/L (21-72); AST 20 U/L (17-59); African American GFR (CKD) >90 (>60 ml/min/1.73 sqM); Albumin 4.1 g/dL (3.5-5.0); Alkaline Phosphatase 47 U/L (38-126); Anion Gap 8 mmol/L; Blood Urea Nitrogen 20 mg/dL (9-20); Calcium 9.8 mg/dL (8.4-10.2); Carbon Dioxide 29 mmol/L (22-30); Chloride 97 mmol/L (98-107); Glucose 87 mg/dL (74-99); Potassium 4.7 mmol/L (3.5-5.1); Sodium 134 mmol/L (137-145); Total Bilirubin 0.4 mg/dL (0.2-1.3); Total Protein 6.9 g/dL (6.3-8.2)
--- NOTE | 2018-12-02 11:06 | P.PN ---
Progress Note - Text Interval history: The patient is found in the hallway he follows me to an interview room. Staff report that the patient's been more irritable today. He has been compliant with medication. Lab results reveal his Depakote level to be 72.9 his sodium was 134. He does have a history of hyponatremia. The patient continues to demonstrate loose associations flight of ideas. He has a constant stream of speech. He does need to be interrupted in order to ask a question. He is intrusive in terms of personal space and in conversation. Mental status exam: The patient is alert he has a disheveled appearance affect is mildly irritable. To some extent he is redirectable. He continues to demonstrate acute symptoms of louise and psychosis. Speech and thought process as above. He describes paranoid and persecutory delusions as well as grandiose delusions. He states he wants his millions of dollars donated to [facility]. He makes bizarre statements that are difficult to follow. Insight and judgment are poor. He reports no auditory or visual hallucinations. He demonstrates no verbal or physical aggressiveness. During the session he gets up from a seated position walks about the room then leans on the file cabinet. He was redirected back to his chair. He is oriented to person place is hospital and the current date. Plan: Continued louise and psychosis, continue psychotropic medications as written. His sister has shared that with higher doses of Depakote his sodium level would go much lower. He has had complications with lithium in the past. We will likely titrate Invega further when appropriate. We will monitor his vitals reality orientation is provided. We will monitor him for safety.
[2018-12-02] MEDS: ACETAMINOPHEN TAB 325 MG TAB PO PRN (18:09)
[2018-12-02] MEDS: PALIPERIDONE 6 MG TAB.ER.24 PO SCH (20:33)
[2018-12-02] MEDS: QUEtiapine 100 MG TAB PO SCH (20:33)
[2018-12-03] MEDS: LORazepam 1 MG TAB PO PRN ×3 (07:53→22:41)
[2018-12-03] MEDS: metFORMIN 500 MG TAB PO SCH ×2 (07:53→17:56)
[2018-12-03] MEDS: ATORVASTATIN 10 MG TAB PO SCH (09:04)
[2018-12-03] MEDS: DIVALPROEX 500 MG TABLET.DR PO SCH ×2 (09:04→21:14)
[2018-12-03] MEDS: TAMSULOSIN 0.4 MG CAP.ER.24H PO SCH (09:04)
--- NOTE | 2018-12-03 11:04 | P.PN ---
Progress Note - Text Interval history: The patient was found in his room with the light off wandering around with no pants on. He was directed to put pants on and he complied. He preferred to speak in his room today rather than an interview room. He was heard this morning yelling and appeared to be agitated due to a peer on the unit. During our interaction he continues to have constant speech demonstrating tangential thinking loose associations and flight of ideas. Staff report that he will get agitated in the evening and requires redirection. He will attempt some brief group interaction throughout the day. Social work has been in contact with the patient's sister in [place]. Mental status exam: The patient is a thin male appearing older than his stated age. He was wearing his underwear and a longsleeve button down shirt upon entering the room. He could be directed to put his pants on. Eye contact is intermittent. Speech and thought process as above. He endorses feelings of irritation directed at a male peer. Insight and judgment are poor. The patient verbalizes he thinks he is ready to be discharged. So far others been very little improvement in his condition. He demonstrates no involuntary repetitive movements. He demonstrates no verbal or physical aggressiveness during our interaction. Affect was labile during our discussion. Plan: Ongoing symptoms of louise and psychosis with little improvement to date, continue Depakote an invega but we will titrate Invega to 9 mg at bedtime. He requires continued psychiatric hospitalization for safety reasons. Vital signs reviewed. Lab work reviewed. We will provide reality orientation when possible. He has been requesting a snack in the evening hours. We will indulge his request to assist in calming some of his agitation.
[2018-12-03 16:39] LABS: Glucose,Whole Blood 89 mg/dL (75-99)
[2018-12-03] MEDS: PALIPERIDONE 3 MG TAB.ER.24 PO SCH (21:13)
[2018-12-03] MEDS: QUEtiapine 100 MG TAB PO SCH (21:14)
[2018-12-04] MEDS: metFORMIN 500 MG TAB PO SCH ×2 (07:47→17:26)
[2018-12-04] MEDS: TAMSULOSIN 0.4 MG CAP.ER.24H PO SCH (07:47)
[2018-12-04] MEDS: DIVALPROEX 500 MG TABLET.DR PO SCH ×2 (07:47→21:05)
[2018-12-04] MEDS: ATORVASTATIN 10 MG TAB PO SCH (07:47)
[2018-12-04] MEDS: ACETAMINOPHEN TAB 325 MG TAB PO PRN (07:50)
[2018-12-04] MEDS: LORazepam 1 MG TAB PO PRN ×2 (07:50→16:04)
--- NOTE | 2018-12-04 10:59 | P.PN ---
Progress Note - Text Interval history: The patient's found in the frontend engineer he follows me to an interview room. He indicates he slept all night estimating 7 hours. Staff reported he slept 4 hours. He had written a question and a series of statements on a piece of paper that he asked me to read. He indicated being angry with his sister his brother. It indicates his recruiting specialist told him not to sushant anyone. We discussed the patient's thought process and he was encouraged to exert as much control as he could in maintaining some linear thought. He had some insight into the fact that he was becoming tangential. He commented on knowing that he had made some sexually inappropriate comments to female staff. Staff reported he received no injections last evening there was no agitated behavior. Mental status exam: The patient is a tall thin male appearing older than his stated age. He has a disheveled appearance he is ambulating slowly. He is carrying numerous items with him as he walks throughout the hallway. He reports his mood is "great". Affect is constricted. He continues to have a constant stream of speech. Although still challenging it was easier to interrupt him today versus other days. He continues to demonstrate tangential thinking loose association of flight of ideas. When we discussed nonobjective thinking he defended his delusions. He states that the TV and the radio and Pool news listen to him. He described other paranoid persecutory thoughts. Insight and judgment overall are poor. He demonstrates no verbal or physical aggressiveness during our session. He demonstrates no involuntary repetitive movements. Plan: The patient continue on his current medications Invega has just been titrated. He requires continued psychiatric hospitalization for acute symptoms of psychosis and louise. Vital signs reviewed.
[2018-12-04] MEDS: PALIPERIDONE 3 MG TAB.ER.24 PO SCH (21:05)
[2018-12-04] MEDS: QUEtiapine 100 MG TAB PO SCH (21:05)
[2018-12-05] MEDS: LORazepam 1 MG TAB PO PRN ×3 (00:04→22:41)
[2018-12-05] MEDS: metFORMIN 500 MG TAB PO SCH ×2 (07:53→17:02)
[2018-12-05] MEDS: TAMSULOSIN 0.4 MG CAP.ER.24H PO SCH (07:53)
[2018-12-05] MEDS: DIVALPROEX 500 MG TABLET.DR PO SCH ×2 (07:53→20:59)
[2018-12-05] MEDS: ATORVASTATIN 10 MG TAB PO SCH (07:53)
--- NOTE | 2018-12-05 13:06 | P.PN ---
Progress Note - Text Progress Note Date: 12/05/18 Interval History: Patient is a 63-year-old male being seen in coverage over the weekend. Patient states that he fell last evening while going to the bathroom in the middle of the night when he was trying to pull his pants up he sat down hitting his old bowel and back. Patient today states that he did not hit his head. Patient states that he continues to take the Ativan for his panic attacks. Patient states that he wants a snack later at night because he thinks he may have AIDS and needs to eat before he goes to bed. Mental Status: Appearance/Attitude: Patient is dressed in casual clothing, appears disheveled, makes eye contact and is cooperative, he walks with a shuffling gait Behavior: Patient does not exhibit any psychomotor agitation or retardation Speech/Language: Patient's speech is garbled due to the lack of dentition, he is pressured and difficult to interrupt Thought Process: Patient exhibits flight of ideas Thought Content: Patient denies auditory or visual hallucinations, expresses that the cast member from the TV show the office contacted him recently because he watches [employer], he states that he is a pretty funny, when he's really manic, patient then stated that he wishes to have another snack later at night because he thinks he may have a period patient reports no side effects from the medication. Patient is eating, patient states that the Seroquel has helped with his sleep somewhat. Suicidal/Homicidal Ideation: Patient denies any current suicidal or homicidal ideation Sensorium/Cognition: Patient is alert and oriented to person, place and time Mood/Affect: Patient's mood is less irritable, affect is appropriate to his mood Insight/Judgment: Patient's insight and judgment are impaired Assessment: Patient continues to have pressured speech, exhibiting flight of ideas and delusional ideation. Patient slept for 4 hours last night and states he power naps during the day. Patient has been using the Ativan 3 times a day and fell last night we'll going to the bathroom, patient states he sat down hitting his back and elbow but did not hit his head. Patient is less irritable, speech remains garbled due to lack of dentition and he is attending groups and activities. Plan: Patient continue on his current medications of Depakote 500 mg twice a d ay, Invega 9 mg daily Seroquel 100 mg at bedtime. I decreased the patient's when necessary Ativan to 0.5 mg 3 times a day due to his fall last night. Patient continues to require hospitalization to further stabilize his mood.
[2018-12-05] MEDS: PALIPERIDONE 3 MG TAB.ER.24 PO SCH (20:58)
[2018-12-05] MEDS: QUEtiapine 100 MG TAB PO SCH (22:41)
[2018-12-06] MEDS: metFORMIN 500 MG TAB PO SCH ×2 (08:14→17:22)
[2018-12-06] MEDS: TAMSULOSIN 0.4 MG CAP.ER.24H PO SCH (08:14)
[2018-12-06] MEDS: LORazepam 1 MG TAB PO PRN ×2 (08:15→16:12)
[2018-12-06] MEDS: ATORVASTATIN 10 MG TAB PO SCH (08:15)
[2018-12-06] MEDS: DIVALPROEX 500 MG TABLET.DR PO SCH ×2 (08:15→21:01)
--- NOTE | 2018-12-06 13:00 | P.PN ---
Progress Note - Text Progress Note Date: 12/06/18 Interval History: Patient is a 63-year-old male who is being seen in coverage over the weekend. Patient came to the interview room and was carrying rosary. Patient states that he didn't want to discuss his mosque her political views with me and get into that. Patient states that he is always tangential and feels he is doing better and is ready to go home soon. He states he is planning to leave on December 09. Patient complained about his food this morning and not getting enough carbohydrates or protein. Patient states he slept about 4-5 hours last night. Mental Status: Appearance/Attitude: Patient is casually dressed, walks with a wide-based gait, made eye contact and was cooperative Behavior: Patient did not display any psychomotor agitation or retardation Speech/Language: Patient's speech was pressured, slightly garbled due to lack of dentition and he is coherent Thought Process: Patient exhibits flight of ideas and is tangential Thought Content: Patient denies auditory or visual hallucinations, talked about people not giving him things hear correctly and getting irritated with the lack of food that he had for breakfast, complained about not getting his metformin before he ate and stating that he feels he is ready to be discharged from the hospital. Patient remains grandiose, talking about politics and then stating that he wouldn't talk about politics or mu-ism with me. Suicidal/Homicidal Ideation: Patient denied any current suicidal or homicidal ideation Sensorium/Cognition: Patient is alert and oriented to person, place and time Mood/Affect: Patient's mood remains labile although he is less irritable and his affect is appropriate to his mood Insight/Judgment: Patient's insight and judgment are limited Assessment: Patient's speech remains pressured, he is less irritable however his mood does remain labile and at times he does become irritable. Patient is demanding, this morning became upset because he didn't get enough food, not enough carbohydrates or protein and states he ordered a double quantity but is starving. Patient remains grandiose talking about politics and his involvement in them and then stated he didn't want to speak about that with me or about mu-ism. Patient only slept for 3 hours last night and he states that he is always jumping from one topic to another. Patient states that he didn't feel unsteady on his feet when he got up in the middle of the night to use the bathroom. Plan: Patient will continue on his current medications, patient continues to require hospitalization to further stabilize his mood.
[2018-12-06] MEDS: QUEtiapine 100 MG TAB PO SCH (21:00)
[2018-12-06] MEDS: PALIPERIDONE 3 MG TAB.ER.24 PO SCH (21:00)
[2018-12-06] MEDS: MAGNESIUM HYDROXIDE 2,400 MG/10 ML CUP PO PRN (22:09)
[2018-12-06] MEDS: LORazepam 0.5 MG TAB PO PRN (23:55)
[2018-12-07] MEDS: ATORVASTATIN 10 MG TAB PO SCH (08:24)
[2018-12-07] MEDS: TAMSULOSIN 0.4 MG CAP.ER.24H PO SCH (08:24)
[2018-12-07] MEDS: metFORMIN 500 MG TAB PO SCH ×2 (08:24→17:44)
[2018-12-07] MEDS: DIVALPROEX 500 MG TABLET.DR PO SCH ×2 (08:24→21:05)
[2018-12-07] MEDS: LORazepam 0.5 MG TAB PO PRN ×2 (08:25→16:16)
--- NOTE | 2018-12-07 14:18 | P.PN ---
Progress Note - Text Progress Note Date: 12/07/18 Interval History: Patient is a 63-year-old male is being seen in coverage. He states that he got his menu items corrected today. Patient states that he slept well however this document he slept for 3 hours last night he states he slept for another 3 after that. Patient states that typically at home he goes to bed at 4 AM because the police change the curfew for him so that he can leave his apartment with the [place] dollar view and walk around the bean late at night. He states he doesn't want to brag about his apartment and states that he and his buddies go out to see the lights over the bean. Mental Status:Appearance/Attitude: Patient is casually dressed, makes eye contact and is cooperative Behavior: Patient does not exhibit any psychomotor agitation or retardation. Speech/Language: Patient's speech is pressured, he is coherent it is at times slightly garbled although clearer today than it has been on prior visits Thought Process: Patient is tangential Thought Content: Patient denies auditory or visual hallucination and continues to express grandiose ideas, today stating that the police change the curfew in the town he lives in to 4 AM for him so that he can go look at the bean, he talks about contacting [employer] regarding the food at the hospital to complement the [employer] because he has contacts there. Patient slept for 3 hours last night but states that he slept after he was checked on at 5 AM for another 3 hours. Patient states that he has gotten his menu items corrected. Suicidal/Homicidal Ideation: Patient denies any current suicidal or homicidal ideation Sensorium/Cognition: Patient is alert and oriented to person, place and time Mood/Affect: Patient's mood remains labile at times he is irritable and his affect is appropriate to his mood Insight/Judgment: Patient's insight and judgment are limited Assessment: Patient remains labile becoming irritable at times especially when he is making demands, patient continues to verbalize grandiose ideation today talking about the police changing the curfew specifically for him, having contacts at [employer] so that he can complement the Cook here at the hospital. Patient is sleeping about 3 hours a night going to bed very late. Patient has been compliant with his medication and does attend groups and activities. Plan: Patient continues on his current medications and continues to require hospitalization to further stabilize his mood.
[2018-12-07] MEDS: QUEtiapine 100 MG TAB PO SCH (21:05)
[2018-12-07] MEDS: PALIPERIDONE 3 MG TAB.ER.24 PO SCH (21:05)
[2018-12-08] MEDS: LORazepam 0.5 MG TAB PO PRN ×3 (00:01→16:03)
[2018-12-08] MEDS: metFORMIN 500 MG TAB PO SCH ×2 (07:41→17:39)
[2018-12-08] MEDS: DIVALPROEX 500 MG TABLET.DR PO SCH (07:41)
[2018-12-08] MEDS: ATORVASTATIN 10 MG TAB PO SCH (07:41)
[2018-12-08] MEDS: TAMSULOSIN 0.4 MG CAP.ER.24H PO SCH (07:41)
--- NOTE | 2018-12-08 11:19 | P.PN ---
Progress Note - Text Interval history: The patient is found in his room he follows me to an interview room. He indicates his mood is fine he states it's great and he wants to be discharged tomorrow. 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 Staff report that the patient continues to demonstrate symptoms of louise. He continues to be sexually preoccupied his sleep is poor in the evenings. He does seem to have more difficulty with mood symptoms during the day and feels provoked by other patients. Mental status exam: The patient is alert he is dressed in his own clothing is a disheveled appearance he does not have his upper dentures in. Speech is spontaneous mumbled at times and constant. He has to be interrupted in order to ask a question. He will often interrupt when I am speaking. He demonstrates tangential thinking loose associations. He endorses grandiose thinking. He is sexually preoccupied. Insight and judgment are poor. He fails to appreciate his current symptoms and how they impact his decision making. He is reporting no thoughts of harming himself or others. He demonstrates no verbal or physical aggressiveness however his affect does become irritable when discussing his continued hospitalization. Plan: The patient continues to demonstrate symptoms of louise and psychosis. Although there has been some mild improvement since time of admission he is not sufficiently stabilized to be discharged. We will request that the court appointment a temporary public guardian as the patient's only real support, his sister, is in [place]. He will continue on the invega I will titrate the Depakote to 500 mg in the morning 750 mg in the evening. The patient's requires continued psychiatric hospitalization and would be at an increased safety risk if discharged at this time. There is not a lesser level of care that would be appropriate for him currently.
[2018-12-08] MEDS: PALIPERIDONE 3 MG TAB.ER.24 PO SCH (21:02)
[2018-12-08] MEDS: QUEtiapine 100 MG TAB PO SCH (21:02)
[2018-12-08] MEDS: DIVALPROEX 250 MG TABLET.DR PO SCH (21:02)
[2018-12-09] MEDS: LORazepam 0.5 MG TAB PO PRN ×3 (00:02→16:00)
[2018-12-09] MEDS: ACETAMINOPHEN TAB 325 MG TAB PO PRN ×2 (06:44→13:23)
[2018-12-09] MEDS: metFORMIN 500 MG TAB PO SCH ×2 (07:56→17:36)
[2018-12-09] MEDS: ATORVASTATIN 10 MG TAB PO SCH (08:56)
[2018-12-09] MEDS: TAMSULOSIN 0.4 MG CAP.ER.24H PO SCH (08:56)
[2018-12-09] MEDS: DIVALPROEX 500 MG TABLET.DR PO SCH (08:56)
--- NOTE | 2018-12-09 09:52 | P.PN ---
Progress Note - Text Interval history: The patient's found in the hallway he follows me to an interview room. He reports his mood is good. He reports that he slept 6 hours last night. Staff recorded he slept 3-4 hours. He continues to be focused on discharge. He has no questions regarding his medications. He states he feels invega is working well. During team meeting yesterday we decided that he should have at least a temporary guardian appointed. He continues to speak almost nonstop during the session. Mental status exam: The patient is alert he is a thin male appearing older than his stated age. He is dressed in his own clothing. Grooming is improved today.. Speech is less mumbled today. It is difficult for him to speak without his top dentures however. He reports his mood is great. Affect is expansive. He has constant ongoing speech. He demonstrates tangential thinking and loose associations. He has poor insight into his current symptoms. This adversely affects his judgment. He reports no thoughts of harming himself or others. He demonstrates no verbal or physical aggressiveness. His affect appears more irritable when discussing his continued need for hospitalization. He demonstrated no abnormal involuntary movements. Plan: Ongoing symptoms of louise and psychosis. The patient will continue on his current medications as they have been just adjusted. We will draw a Depakote level and sodium level Friday. He does have a history of chronic hyponatremia. The patient requires continued psychiatric hospitalization due to his severe symptoms. We will continue to monitor him for safety and encourage full participation in the milieu. Vital signs reviewed.
[2018-12-09] MEDS: DIVALPROEX 250 MG TABLET.DR PO SCH (21:43)
[2018-12-09] MEDS: PALIPERIDONE 3 MG TAB.ER.24 PO SCH (21:44)
[2018-12-09] MEDS: QUEtiapine 100 MG TAB PO SCH (21:44)
[2018-12-10] MEDS: LORazepam 0.5 MG TAB PO PRN ×3 (00:11→16:35)
[2018-12-10] MEDS: DIVALPROEX 500 MG TABLET.DR PO SCH (08:02)
[2018-12-10] MEDS: TAMSULOSIN 0.4 MG CAP.ER.24H PO SCH (08:02)
[2018-12-10] MEDS: ATORVASTATIN 10 MG TAB PO SCH (08:02)
[2018-12-10] MEDS: metFORMIN 500 MG TAB PO SCH ×2 (08:02→17:42)
[2018-12-10] MEDS: ACETAMINOPHEN TAB 325 MG TAB PO PRN (10:28)
--- NOTE | 2018-12-10 13:07 | PN ---
PROGRESS NOTE DATE OF SERVICE: 12/10/2018. CHIEF COMPLAINT: The patient had manic and psychotic symptoms. He had disorganized thoughts and behavior. INTERVAL HISTORY: The patient has been doing fair. He had a fairly quiet evening last night. The night before he was noted to sleep about 3 hours intermittently, though the patient himself said that he slept 6 hours. Last night it was not documented the length of his sleep. The patient would only say today that he slept fairly well. It was noted that at 4:23 am in the morning, the nurse documented that the patient was uncooperative with completing an admission paperwork. Today, he has been up. He comes out in the day area. He wanders about the unit. He did not attend the 9:30 group though he did attend the 11 o'clock group. It is noted that yesterday he attended the 3:30 group. The following was documented, "patient was asked to stop disrupting group. The patient was unable to follow redirection and was asked to leave." He was noted to be intrusive with garbled, pressured and rapid speech. In today's 11 o'clock group, it was documented that the patient was compliant disorganized, intrusive. It was noted "the patient mumbling to self throughout group. Patient redirectable." Patient reported no problems with his medications. When I asked him about the option of possibly increasing his Seroquel, he said that he wanted to keep it at 100 mg a day as he did not like the higher dose. Noted that his Depakote level on 12/02 was 73. Sodium was 134. The patient tolerates his psychotropic medications. MENTAL STATUS: Patient was quite talkative during the interview. He was restless. He would talk at length sometimes with content that was appropriate, at other times with thoughts that were disorganized and hard to follow his train of thought. If I would ask him to be quiet, he would stop talking for a short period and then start talking again. He attended talking in a somewhat soft almost mumbled voice. He had an intense affect. At times, he would laugh, seemingly for no particular reason. He was cooperative. He pretty much talked continuously during the interview except when I would ask a question or ask him to stop talking. His mood was elevated. There was no indication of thought disorder. Cognition was clear. ASSESSMENT: I will continue the current diagnosis and treatment plan. The patient will continue Depakote 500 mg in the morning, 750 mg in the evening, Invega 9 mg a day and Seroquel 100 mg a day. I will check a BMP and Depakote level in the morning. The patient asked about discharge planning I reviewed behavioral issues that he has had and discussed how we need to monitor more stable behavior over the next several days in order to be clear about a discharge plan. I encouraged him to get to groups and to be conscious of his behavior as a step towards working towards discharge. SANDRA / TOPHER: [id number] /
[2018-12-10] MEDS: DIVALPROEX 250 MG TABLET.DR PO SCH (21:07)
[2018-12-10] MEDS: PALIPERIDONE 3 MG TAB.ER.24 PO SCH (21:07)
[2018-12-10] MEDS: QUEtiapine 100 MG TAB PO SCH (21:07)
[2018-12-11] MEDS: LORazepam 0.5 MG TAB PO PRN (00:37)
[2018-12-11] MEDS: ATORVASTATIN 10 MG TAB PO SCH (07:18)
[2018-12-11] MEDS: metFORMIN 500 MG TAB PO SCH ×2 (07:19→17:18)
[2018-12-11] MEDS: DIVALPROEX 500 MG TABLET.DR PO SCH (07:19)
[2018-12-11] MEDS: TAMSULOSIN 0.4 MG CAP.ER.24H PO SCH (07:19)
--- NOTE | 2018-12-11 10:46 | PN ---
PROGRESS NOTE DATE OF SERVICE: 12/11/2018 CHIEF COMPLAINT: The patient had manic and psychotic symptoms. He had disorganized thoughts and behavior. INTERVAL HISTORY: The patient has been doing fair. He continued to show hypomanic or manic symptoms. Last evening he wandered about the unit. He did attend some groups yesterday, though not others. He can be intense at times. He will have self talk when he interacts with staff. He tends to have pressured speech with disorganized thoughts. It was documented he slept 3 hours last night, today he has been up. He comes out in the day area. He continues with difficulty in communication. He does seem to be connected to issues in his treatment and seems to understand things in a reasonable way. He can tell me some specifics about his medications, though it is difficult to keep him on track in a conversation as he appears often makes various random comments. His mood seems to be a little more subdued today than yesterday. When I asked him about using Seroquel, he was quite opposed to the idea of titrating up on Seroquel. He was not clear of what the reason was. He did talk some about being on Xanax and Ativan in the past and recognizing that the previous physicians had tried taking him off those medications because he suggested that he may have abused them. He would not really provide any details. He appears to tolerate his psychotropic medications. MENTAL STATUS: Patient was restless. He answered questions with brief responses. Often his thoughts became tangential. He had pressured speech, flight of ideas and loose association. His affect was intense, his mood moderately elevated, it was difficult to assess if thought disorder was present. He was oriented and alert. ASSESSMENT: I will continue the current diagnosis and treatment plan. I discussed medication issues with the patient. At this point, I will discontinue Ativan. I will add Zyprexa 5 mg 3 times a day p.r.n. if the patient does feel he needs some additional medications. The purpose for adding Zyprexa is to utilize medications that have specific indication for bipolar louise. In addition, I will discontinue Seroquel and start the patient on Zyprexa 15 mg at bedtime. The purpose of the change is that the patient is willing to give a trial of Zyprexa and he will be started on a more therapeutic dose compared to the Seroquel that he was willing to take. He will continue Invega 9 mg a day and Depakote 1250 mg a day. Lab work was ordered for this morning. We will continue to focus on stabilization and discharge planning. MMMIGUEL / IJN: [id number] /
[2018-12-11] MEDS: OLANZapine 5 MG TAB PO PRN (11:49)
[2018-12-11] MEDS: ACETAMINOPHEN TAB 325 MG TAB PO PRN (11:50)
[2018-12-11] MEDS ORDERED: OLANZapine 5 MG TAB PO SCH (21:00)
[2018-12-11] MEDS: PALIPERIDONE 3 MG TAB.ER.24 PO SCH (21:05)
[2018-12-11] MEDS: DIVALPROEX 250 MG TABLET.DR PO SCH (21:05)
[2018-12-12] MEDS: DIVALPROEX 500 MG TABLET.DR PO SCH (07:27)
[2018-12-12] MEDS: ATORVASTATIN 10 MG TAB PO SCH (07:27)
[2018-12-12] MEDS: metFORMIN 500 MG TAB PO SCH ×2 (07:28→17:27)
[2018-12-12] MEDS: TAMSULOSIN 0.4 MG CAP.ER.24H PO SCH (07:28)
[2018-12-12 08:41] LABS: African American GFR (CKD) >90 (>60 ml/min/1.73 sqM); Anion Gap 9 mmol/L; Blood Urea Nitrogen 13 mg/dL (9-20); Calcium 10.1 mg/dL (8.4-10.2); Carbon Dioxide 27 mmol/L (22-30); Chloride 94 mmol/L (98-107); Glucose 97 mg/dL (74-99); Potassium 4.8 mmol/L (3.5-5.1); Sodium 130 mmol/L (137-145)
[2018-12-12] MEDS: ACETAMINOPHEN TAB 325 MG TAB PO PRN (08:44)
[2018-12-12] MEDS ORDERED: OLANZapine 10 MG TAB PO SCH (09:00)
[2018-12-12] MEDS ORDERED: OLANZapine 5 MG TAB PO ONE (15:15)
--- NOTE | 2018-12-12 17:47 | PN ---
PROGRESS NOTE DATE OF SERVICE: 12/12/2018 CHIEF COMPLAINT: The patient had manic and psychotic symptoms. He had disorganized thoughts and behavior. INTERVAL HISTORY: The patient has been doing fair. He had a quiet evening last night. He comes out on the unit. He wanders about. He will have some self-talk. He will engage with others. At times he makes random comments that do not seem to be connected to anything in his immediate view. Noted that yesterday when he walked about he would talk though on and off. He talked in a whispered voice as opposed to talking in the loud voices he had been. He continued to seem to have pressured speech, even though his style of speaking was quite different. He attended groups yesterday. Staff documented that he slept 3 hours last night as of 7 in the morning. Today the patient has been up. He made a comment early in the day that he felt the Zyprexa was helping him and felt that it seemed to calm him down. He has been out in the day area. He continues to attend groups today. Staff have noted in the groups that he sometimes makes statements and it is difficult to understand what he is saying; at times he will have some pressured speech. Today he will make random comments, though he overall seems to be a little more contained in his level of energy. He tolerates his psychotropic medications. MENTAL STATUS: Patient sat with some restlessness. He answered questions with direct responses. At times he would veer off and make tangential comments. His affect was somewhat intense, though overall it seemed a little more contained than yesterday. His mood was elevated, though again a little less so. He did not show signs of distress. ASSESSMENT: I will continue the current diagnosis and treatment plan. I will increase his Zyprexa to 15 mg twice a day. He will continue on Depakote 500 mg in the morning, 750 mg in the evening. Laboratory work from this morning included a BMP with a low sodium of 130. His Depakote level was 107. I will repeat his Depakote level in the morning. I reviewed medication issues with the patient, including indications for psychotropic medications, metabolic concerns relating to his antipsychotics, and blood levels regarding his Depakote. We will continue to focus on stabilization and discharge planning. MMODL / IJN: [id number] /
[2018-12-12] MEDS: DIVALPROEX 250 MG TABLET.DR PO SCH (21:07)
[2018-12-12] MEDS: PALIPERIDONE 3 MG TAB.ER.24 PO SCH (21:07)
[2018-12-12] MEDS: OLANZapine 5 MG TAB PO SCH (21:07)
[2018-12-13] MEDS: metFORMIN 500 MG TAB PO SCH ×2 (07:41→17:29)
[2018-12-13] MEDS: OLANZapine 5 MG TAB PO SCH ×2 (08:35→20:52)
[2018-12-13] MEDS: DIVALPROEX 500 MG TABLET.DR PO SCH (08:35)
[2018-12-13] MEDS: ATORVASTATIN 10 MG TAB PO SCH (08:35)
[2018-12-13] MEDS: TAMSULOSIN 0.4 MG CAP.ER.24H PO SCH (08:35)
--- NOTE | 2018-12-13 14:59 | PN ---
PROGRESS NOTE DATE OF SERVICE: 12/13/2018. CHIEF COMPLAINT: The patient had manic and psychotic symptoms. He had disorganized thoughts and behavior. INTERVAL HISTORY: The patient continues to do about the same. He was out on the unit yesterday afternoon and evening he can get intense at times. He will be intrusive. He can get loud and have various complaints. It is often difficult to be clear what he is trying to communicate. He does attend groups some of the time. Staff described him at groups as having rapid pressured speech with a bright mood. Staff indicated that he slept poorly last night. At one point, he got angry and was pounding on the desk. He had then returned to his room. He apparently kept coming back to the desk through the night. He was observed to be sleeping with the light off at 0500. Today he has been up. He did take a nap after morning medications though he was out for a while. He wandered about the unit. He did not attend any groups so far today. He had 1 or 2 periods where he got intense and loud though. Otherwise, he has been fairly quiet. He can be quite repetitive such as asking to see the doctor, though he is not clear what concerns he might have. He appears to tolerate his psychotropic medications. MENTAL STATUS: Patient was quite restless. He answered some questions appropriately. At times, he would make rambling statements that were hard to follow. His affect was intense. At times, he could have a calm manner. His mood was somewhat elevated though at times he would get distressed and have a slight angry tone. It is difficult to be clear to what extent he was responding to internal stimuli. He continued to appear manic. ASSESSMENT: I will continue the current diagnosis and treatment plan. We will continue psychotropic medications the same. It is noted that I started the patient on Zyprexa in exchange for the Seroquel which the patient said was not helping him. The patient also had declined going up to any higher dose on Seroquel. He did well with an initial dose of Zyprexa at bedtime and as such, I increased him to 15 mg twice a day in addition to his Invega primarily to address his continued manic symptoms. It is noted this morning that his Depakote level is down to 89.. Yesterday it was 106.9. His sodium continues to be down at 129. We will get a medical consultation. We will continue to focus on stabilization and discharge planning. MMODL / IJN: [id number] /
[2018-12-13] MEDS: OLANZapine 5 MG TAB PO PRN (18:46)
[2018-12-13] MEDS: PALIPERIDONE 3 MG TAB.ER.24 PO SCH (20:53)
[2018-12-13] MEDS: DIVALPROEX 250 MG TABLET.DR PO SCH (20:53)
[2018-12-14] MEDS: ZIPRASIDONE 20 MG VIAL IM PRN (00:54)
[2018-12-14] MEDS: DIVALPROEX 500 MG TABLET.DR PO SCH (07:53)
[2018-12-14] MEDS: TAMSULOSIN 0.4 MG CAP.ER.24H PO SCH (07:53)
[2018-12-14] MEDS: metFORMIN 500 MG TAB PO SCH ×2 (07:53→17:00)
[2018-12-14] MEDS: ATORVASTATIN 10 MG TAB PO SCH (07:53)
[2018-12-14] MEDS: OLANZapine 5 MG TAB PO SCH (07:53)
[2018-12-14 10:07] LABS: African American GFR (CKD) >90 (>60 ml/min/1.73 sqM); Anion Gap 12 mmol/L; Blood Urea Nitrogen 15 mg/dL (9-20); Calcium 9.9 mg/dL (8.4-10.2); Carbon Dioxide 26 mmol/L (22-30); Chloride 93 mmol/L (98-107); Glucose 170 mg/dL (74-99); Potassium 4.5 mmol/L (3.5-5.1); Sodium 131 mmol/L (137-145)
[2018-12-14] MEDS: OLANZapine 5 MG TAB PO PRN ×2 (11:24→15:36)
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
[2018-12-14] MEDS: LORazepam 0.5 MG TAB PO PRN (17:17)
--- NOTE | 2018-12-14 18:24 | CONS ---
CONSULTATION REASON FOR CONSULT: Hyponatremia. HISTORY OF PRESENT ILLNESS: The patient is a 63-year-old male who has a history of bipolar disorder and is currently admitted to the mental health unit. The reason for admission was delusional thoughts. Currently, patient is maintained on Depakote. Patient's serum sodium initially was 121 when he was admitted on 11/25/2018 after which he received normal saline after which his sodium improved to 134. In the mental health unit now his sodium has dropped to 129 yesterday and this morning it is at 131. The patient denied any lightheadedness or dizziness. He does not have any ongoing diarrhea. Random urine osmolality was 219 and random urine sodium was 28. The patient is not maintained on any diuretics. PAST MEDICAL HISTORY: Significant for bipolar disorder, type 2 diabetes and hyperlipidemia. SOCIAL HISTORY: Positive for smoking. No history of drug abuse or alcohol abuse. PAST HISTORY MEDICATIONS: Medications prior to admission included Lipitor, Depakote, nicotine patch, Seroquel, Flomax, metformin. ALLERGIES: None. REVIEW OF SYSTEMS: As per HPI. Other systems negative. PHYSICAL EXAMINATION: On examination, patient is currently comfortable not in any acute distress. Examination of the heart S1, S2. Examination of the lungs, bilateral breath sounds are heard. Abdomen is soft, nontender. Exam of lower extremities shows no evidence of edema. WHEEL TRUING MACHINE TENDER exam shows patient moving all 4 extremities. VITAL SIGNS: Blood pressure 134/90, heart rate 97 per minute. Patient is afebrile. LABS: Show sodium 131, potassium 4.5, BUN 15, serum creatinine 0.67. Urine sodium 28, urine osmolality 290. ASSESSMENT: 1. Hyponatremia, initially hypovolemic and improved with normal saline administration. Currently patient is not maintained on any IV fluids. His sodium had dropped to 129 and is back up to 131. I will maintain him on some degree of free fluid restriction. He is maintained on Depakote, which can cause SIADH. Urine osmolalities currently not significantly high. However, fluid restriction will help with the sodium. The patient is also encouraged to increase his oral protein intake. We will check a TSH level as well. 2. Bipolar disorder, maintained on Depakote. 3. Type 2 diabetes, currently on metformin. PLAN: Maintain patient on fluid restriction of 1.2 L and repeat labs in a.m. Check TSH levels. Encourage increased oral protein intake. MMODL / IJN: [id number] /
[2018-12-14] MEDS: OLANZapine 2.5 MG TAB PO SCH (20:49)
[2018-12-14] MEDS: PALIPERIDONE 3 MG TAB.ER.24 PO SCH (20:49)
[2018-12-14] MEDS: DIVALPROEX 250 MG TABLET.DR PO SCH (20:49)
[2018-12-15] MEDS: LORazepam 0.5 MG TAB PO PRN ×2 (05:23→12:46)
[2018-12-15] MEDS: metFORMIN 500 MG TAB PO SCH ×2 (07:46→17:14)
[2018-12-15] MEDS: OLANZapine 2.5 MG TAB PO SCH (08:24)
[2018-12-15] MEDS: TAMSULOSIN 0.4 MG CAP.ER.24H PO SCH (08:24)
[2018-12-15] MEDS: DIVALPROEX 500 MG TABLET.DR PO SCH ×2 (08:24→20:59)
[2018-12-15] MEDS: ATORVASTATIN 10 MG TAB PO SCH (08:24)
--- NOTE | 2018-12-15 11:21 | P.PN ---
Progress Note - Text Interval history: The patient is found in his room he refuses to speak in an interview room. The patient demands to be discharged upon seeing me. He makes as the man numerous times during our interaction. Indicates that he is calm he feels his medications are perfect and he wants transportation home. Staff report that the patient had been acutely agitated over the weekend and had done quite poorly. He required redirection several times. It appears Zyprexa was added to his medications. Lab results were reviewed. Depakote levels were reviewed his sodium did seem to decrease. This may be due to the increase in Depakote dose. Mental status exam: The patient is a thin male appearing older than his stated age. He is wearing his upper dentures today. He speaks quietly initially and then becomes more loud as he becomes agitated. He has a disheveled appearance. He continues to demonstrate tangential thinking with some loose associations. He appears to be paranoid he has persecutory thoughts. He is quickly agitated and his voice will become loud. He demonstrates psychomotor hyperactivity. He paces about the room he sits down he stands up several times. Insight into his symptoms is poor judgment and subsequently affected. Plan: Continued symptoms of louise and psychosis. We will titrate Invega to 12 mg at bedtime. The Zyprexa will be discontinued. I will reduce the Depakote back down to 500 mg twice daily. We will continue to follow sodium levels. He continues to be acutely symptomatic he is not appropriate for discharge to a lesser level of care at this time. Vital signs reviewed. We will continue to monitor him for safety.
[2018-12-15] MEDS: ZIPRASIDONE 20 MG VIAL IM PRN (13:59)
[2018-12-15] MEDS: PALIPERIDONE 6 MG TAB.ER.24 PO SCH (20:59)
[2018-12-16] MEDS: LORazepam 0.5 MG TAB PO PRN ×2 (03:05→14:55)
[2018-12-16] MEDS: TAMSULOSIN 0.4 MG CAP.ER.24H PO SCH (07:43)
[2018-12-16] MEDS: DIVALPROEX 500 MG TABLET.DR PO SCH ×2 (07:43→21:51)
[2018-12-16] MEDS: ATORVASTATIN 10 MG TAB PO SCH ×2 (07:43→08:08)
[2018-12-16] MEDS: metFORMIN 500 MG TAB PO SCH ×2 (07:43→17:43)
[2018-12-16] MEDS: ACETAMINOPHEN TAB 325 MG TAB PO PRN (10:24)
[2018-12-16 11:59] LABS: African American GFR (CKD) >90 (>60 ml/min/1.73 sqM); Anion Gap 8 mmol/L; Blood Urea Nitrogen 23 mg/dL (9-20); Carbon Dioxide 26 mmol/L (22-30); Chloride 102 mmol/L (98-107); Glucose 80 mg/dL (74-99); Potassium 4.6 mmol/L (3.5-5.1); Sodium 136 mmol/L (137-145)
--- NOTE | 2018-12-16 12:13 | P.PN ---
Progress Note - Text Interval history: The patient's found in his room. He states that he is doing great. He asked numerous times to be discharged. He has ongoing speech and is difficult to interrupt. He was apologetic for her behavior he displayed yesterday. Staff reported the patient has been intrusive with others easily agitated and they feel he demonstrates a disorganized thought process as well. He has no questions or concerns regarding his medications. Mental status exam: The patient is a thin male appearing older than his stated age. He has a disheveled appearance he is observed ambulating in the hallway earlier and about his room while we spoke. He reports feelings of frustration that he is still in the hospital. He lacks insight into why he is here and his judgment is subsequently impacted. Thought process is disorganized he demonstrates tangential thinking loose associations and flight of ideas at times. He describes paranoid persecutory themes. He has concerns about the antichrist he states that other patients and staff are unnecessarily observing him. He demonstrated no verbal or physical aggressiveness during our session. Plan: Ongoing symptoms of louise and psychosis, continue invega is written. We will give that medication more time to demonstrate efficacy as the dosage was just recently increased. We'll consider other augmentation strategies. The patient has demonstrated little to no improvement as his symptoms have been refractory. His sodium level appears improved at 136. Nephrology has offered the opinion that the Depakote could be causing SIADH. Vital signs reviewed.
[2018-12-16] MEDS: PALIPERIDONE 6 MG TAB.ER.24 PO SCH (21:51)
[2018-12-17] MEDS: ZIPRASIDONE 20 MG VIAL IM PRN (01:19)
[2018-12-17] MEDS: LORazepam 0.5 MG TAB PO PRN ×3 (06:31→20:56)
[2018-12-17] MEDS: ATORVASTATIN 10 MG TAB PO SCH (07:21)
[2018-12-17] MEDS: metFORMIN 500 MG TAB PO SCH ×2 (07:21→17:44)
[2018-12-17] MEDS: DIVALPROEX 500 MG TABLET.DR PO SCH ×2 (07:22→20:55)
[2018-12-17] MEDS: TAMSULOSIN 0.4 MG CAP.ER.24H PO SCH (07:22)
--- NOTE | 2018-12-17 16:02 | P.PN ---
Progress Note - Text Progress Note Date: 12/17/18 Interval History: Patient is a 63-year-old male who is being seen in coverage. 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 Patient states that he slept for an hour last night and hour after breakfast and lunch. Mental Status: Appearance/Attitude: Patient is casually dressed, makes intermittent eye contact and was cooperative Behavior: Patient does not exhibit any psychomotor retardation, he was less irritable and agitated today Speech/Language: Patient's speech remains pressured, he is coherent Thought Process: Patient exhibits flight of ideas Thought Content: Patient denies auditory or visual hallucinations, patient talked about being a great comic, that staff here are members of casts from [place] and he is hip to what's going on here, he complained about his brother being a child pedophile and wants nothing to do with them, stated that he needs to be discharged that he is sane, he doesn't want to play the Trampoline game, stated that he's sleeping well and not doesn't need more sleep than 3 hours a day. Patient also complained about a staff member from the evening shift that did something to his room and maintenance needed to be called. Patient discussed being bothered by another peer that is been discharged.Patient is eating well Suicidal/Homicidal Ideation: Patient denies any current suicidal or homicidal ideation Sensorium/Cognition: Patient is alert and oriented to person, place and time Mood/Affect: Patient's mood is labile however he is less irritable than he has been on prior interviews with me and his affect is appropriate to his mood Insight/Judgment: Patient's insight and judgment are limited Assessment: Patient continues with pressured speech although he appears to be less irritable than he has been and he appears tired. Patient has been noted to be sleeping on the unit periodically throughout the day he reports taking naps after meals. Patient slept for 1 hour last night. Patient continues to discuss paranoid thoughts about staff members messing with things in his room, grandiose ideation that he is a great comic, that staff are from [place] and involved in TV shows. Patient continues to request discharge stating that he doesn't need to be here and doesn't want to have to sushant to get out of the hospital. Plan: Patient will continue on his current medications, he required a Geodon injection last evening he is currently on Invega 12 mg which was recently increased and Depakote 500 twice a day. Patient continues to require hospitalization to further stabilize his mood.
[2018-12-17] MEDS: PALIPERIDONE 6 MG TAB.ER.24 PO SCH (20:55)
[2018-12-18] MEDS: LORazepam 0.5 MG TAB PO PRN ×2 (06:31→17:28)
[2018-12-18] MEDS: TAMSULOSIN 0.4 MG CAP.ER.24H PO SCH (07:46)
[2018-12-18] MEDS: metFORMIN 500 MG TAB PO SCH ×2 (07:46→17:28)
[2018-12-18] MEDS: DIVALPROEX 500 MG TABLET.DR PO SCH ×2 (07:47→19:43)
[2018-12-18] MEDS: ATORVASTATIN 10 MG TAB PO SCH (07:47)
--- NOTE | 2018-12-18 10:23 | P.PN ---
Progress Note - Text Interval history: The patient is found in his room he follows me to an interview room. He has been intrusive with me throughout the morning. He has been under the impression that one of the staff have told him he is going home today. He indicates he slept well last night however staff reported she slept 3 hours. He has no questions or concerns regarding medication. He states that he doesn't need a guardian he is able to return home now and live on his own. The patient's sister has requested a call from me again. I did call her as we have a signed consent. She basically just wanted an update regarding his condition and she had some questions regarding guardianship. Mental status exam: The patient is a thin male he is dressed in his own clothing he has a disheveled appearance. He appears tired but maintains his alertness. He reports initially a good mood and then states his heart is breaking because I will discharge him. He continues to demonstrate symptoms of louise. Affect is labile he will demonstrate bizarre inappropriate laughter. He will become agitated and loud verbally. He demonstrates loose associations and flight of ideas at times. Insight into his symptoms is poor and his judgment is subsequently impaired. He is reporting no suicidal or homicidal thoughts. He demonstrates no involuntary repetitive movements. Plan: Continued symptoms of louise and psychosis that have been refractory, we will continue his current psychotropic medications. I will consider alternatives for augmenting the invega. I have spoken with his sister again. A call has been placed to collaborate with his outpatient psychiatrist. We will continue to monitor him for safety and encourage appropriate participation in the milieu. Reality orientation is provided. Vital signs reviewed.
--- NOTE | 2018-12-18 13:01 | PN ---
PROGRESS NOTE Patient is seen for followup for hyponatremia which has been euvolemic and improved with fluid restriction. His serum sodium was as low as 129. It was up to 136 on 12/16/2018. Patient is seen in the psych unit as he is admitted here as inpatient for ongoing bipolar disorder. On examination, blood pressure this morning 127/78, heart rate 84 per minute. He is afebrile. Examination of the heart, S1, S2. Examination of the lungs, bilateral breath sounds are heard. Abdomen is soft, nontender. Examination of the lower extremities shows no evidence of edema. CLAIMS CONSULTANT exam shows patient is talking to himself and there are no motor deficits noted. LABS: Show sodium 136 on 12/16/2018, serum creatinine 0.48. ASSESSMENT: 1. Hyponatremia, euvolemic, improved with fluid restriction. Repeat labs in a.m. and may continue with the Depakote for now. 2. Bipolar disorder, maintained on Depakote, currently inpatient at the psych unit. 3. Dyslipidemia, maintained on Lipitor. 4. Hypertension. Blood pressure is currently controlled without medications. 5. BPH, maintained on Flomax. 6. Type 2 diabetes, currently on the metformin. PLAN: Repeat labs in a.m. Continue with fluid restriction. Monitor electrolytes periodically. MMODL / IJN: [id number] /
[2018-12-18] MEDS: PALIPERIDONE 6 MG TAB.ER.24 PO SCH (19:43)
[2018-12-18] MEDS: clonazePAM 1 MG TAB PO SCH (19:44)
[2018-12-19] MEDS: LORazepam 0.5 MG TAB PO PRN ×2 (05:51→15:00)
[2018-12-19] MEDS: metFORMIN 500 MG TAB PO SCH ×2 (07:46→17:27)
[2018-12-19] MEDS: ATORVASTATIN 10 MG TAB PO SCH (07:46)
[2018-12-19] MEDS: TAMSULOSIN 0.4 MG CAP.ER.24H PO SCH (07:46)
[2018-12-19] MEDS: DIVALPROEX 500 MG TABLET.DR PO SCH ×2 (07:46→20:24)
[2018-12-19 09:12] LABS: African American GFR (CKD) >90 (>60 ml/min/1.73 sqM); Anion Gap 8 mmol/L; Blood Urea Nitrogen 17 mg/dL (9-20); Calcium 9.8 mg/dL (8.4-10.2); Carbon Dioxide 26 mmol/L (22-30); Chloride 100 mmol/L (98-107); Glucose 89 mg/dL (74-99); Potassium 4.5 mmol/L (3.5-5.1); Sodium 134 mmol/L (137-145)
--- NOTE | 2018-12-19 12:28 | P.PN ---
Subjective Progress Note Date: 12/19/18 Principal diagnosis: This is a 63-year-old patient in the psych unit was being followed up because of SIADH. He is on fluid restriction. Sodium has been controlled with fluid res triction alone. Sodium was 136 on 12/16/2018 up from 129 previously. This morning the sodium is slightly low at 134. Patient is on a fluid restricted diet but he does have access to water In his room. He is eating fairly well but not greatly. No other complaints. He remains somewhat confused. No nausea vomiting diarrhea according to the nursing staff. Vital signs are stable Objective - Vital Signs Vital signs: Vital Signs Temp 97.7 F 12/18/18 07:10 Pulse 84 12/18/18 07:10 Resp 14 12/18/18 07:10 BP 127/78 12/18/18 07:10 Pulse Ox 98 12/12/18 11:37 On examination awake alert but talks excessively and sometimes is incomprehensible HEENT exam no JVP neck is supple no facial asymmetry Lungs are clear to auscultation good air entry bilaterally Heart sounds are unremarkable for any murmur rub gallop Abdomen soft nontender no masses felt Extremity exam was no edema Neurologically as stated above. No focal motor deficit. 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 Slight worsening of sodium from 136-134. Recommendations 1. Increased protein intake. 2. Ensure adequate fluid restriction is followed. 3. Repeat labs in 2 days' time
--- NOTE | 2018-12-19 14:34 | P.PN ---
Progress Note - Text Interval history: The patient is found in his room he follows me to an interview room. Staff reports that the patient did sleep throughout the morning. He had some difficulty sleeping last evening. He states he thinks he slept 11 hours. Appetite stable. He is more calm. He does however continue to have a disorganized thought process with ongoing rambling speech. He easily demonstrates loose associations and flight of ideas. He is very stimulus bound. Mental status exam: The patient is alert he is a disheveled appearance he is dressed in his own clothing. Affect is labile. He starts crying almost instantly after laughing. He demonstrated no irritability during this interaction. He does continue to verbalize wanting to go home. He denies having any suicidal or homicidal thoughts. He does continue to have paranoid persecutory thoughts as he discusses a variety of topics including family members. He demonstrates no involuntary repetitive movements. Insight and judgment remain impaired. Plan: The patient continues to demonstrate symptoms of louise and psychosis. We will continue his current medications we will continue the Klonopin at bedtime as that seemed to have some effect for his sleep. Recommendations from internal medicine and nephrology appreciated. Sodium level 134. We will continue to monitor him for safety and encourage participation in the milieu.
[2018-12-19] MEDS: PALIPERIDONE 6 MG TAB.ER.24 PO SCH (20:24)
[2018-12-19] MEDS: clonazePAM 1 MG TAB PO SCH (20:24)
[2018-12-20] MEDS: LORazepam 0.5 MG TAB PO PRN ×2 (04:39→16:40)
[2018-12-20] MEDS: DIVALPROEX 500 MG TABLET.DR PO SCH ×2 (08:05→20:46)
[2018-12-20] MEDS: TAMSULOSIN 0.4 MG CAP.ER.24H PO SCH (08:05)
[2018-12-20] MEDS: metFORMIN 500 MG TAB PO SCH ×2 (08:05→16:40)
[2018-12-20] MEDS: ATORVASTATIN 10 MG TAB PO SCH (08:05)
--- NOTE | 2018-12-20 13:15 | P.PN ---
Progress Note - Text Interval history: The patient is found in the hallway he follows me to an interview room. He continues to focus on when he can be discharged. Lacking insight he states he's stabilized and would be fine to go home and live on his own. In session he was less intrusive verbally but continues to demonstrate a disorganized thought process. There were a few moments where he was able to sit quietly or just speak in a slower tone. He has some awareness of when he becomes tangential. He describes some delusional thought. He states that the TVs have sensors in them to record what we say and do and that feeds back to [place]. He was particularly preoccupied with sabianism thinking during our session. Mental status exam: The patient is alert he is a disheveled appearance. He is dressed in his own clothing. Eye contact is appropriate. Speech is fluent mildly pressured he is verbose. He denies having any thoughts of self injury or harming others. Thought process ranges from tangential to loose associations today. He continues to verbalize paranoid delusional thought. Insight and judgment limited. He demonstrated no verbal or physical aggressiveness. Affect was labile. He would have exaggerated laughter that seemed inappropriate to the conversation. Plan: The patient will continue on his current medications. We will monitor him for safety and encourage participation in the milieu. Reality orientation is provided. Vital signs reviewed.
[2018-12-20] MEDS: ZIPRASIDONE 20 MG VIAL IM PRN (16:59)
[2018-12-20] MEDS: clonazePAM 1 MG TAB PO SCH (20:46)
[2018-12-20] MEDS: PALIPERIDONE 6 MG TAB.ER.24 PO SCH (20:46)
[2018-12-21] MEDS: LORazepam 0.5 MG TAB PO PRN ×2 (05:15→17:13)
[2018-12-21] MEDS: DIVALPROEX 500 MG TABLET.DR PO SCH ×2 (08:00→21:12)
[2018-12-21] MEDS: metFORMIN 500 MG TAB PO SCH ×2 (08:00→17:13)
[2018-12-21] MEDS: TAMSULOSIN 0.4 MG CAP.ER.24H PO SCH (08:00)
[2018-12-21] MEDS: ATORVASTATIN 10 MG TAB PO SCH (08:00)
[2018-12-21 11:02] LABS: African American GFR (CKD) >90 (>60 ml/min/1.73 sqM); Anion Gap 12 mmol/L; Blood Urea Nitrogen 18 mg/dL (9-20); Calcium 10.1 mg/dL (8.4-10.2); Carbon Dioxide 26 mmol/L (22-30); Chloride 98 mmol/L (98-107); Glucose 119 mg/dL (74-99); Potassium 4.8 mmol/L (3.5-5.1); Sodium 136 mmol/L (137-145)
--- NOTE | 2018-12-21 11:30 | P.PN ---
Progress Note - Text Interval history: The patient is found in group he follows me to an interview room. He indicates his mood is better. He states he slept 11 hours total. He continues to be focused on discharge. We reviewed his psychotropic medications. I did have the opportunity speak with his outpatient psychiatrist to discuss the patient's current status past medication trials etc. Staff report that the patient has demonstrated no agitated behavior lately. Mental status exam: The patient is alert he is cooperative. He is dressed in his own clothing. He ambulates slowly in the hallway. He follows me to an interview room in the seated calmly. After just a few questions he does again demonstrate tangential thinking. After several minutes he is able to recognize he has gone on a tangent. He does demonstrate some affect lability still there is some exaggerated bizarre laughter at times. He is reporting no suicidal or homicidal thoughts. He is endorsing no auditory or visual hallucinations. Insight and judgment limited but slowly improving. Plan: Bipolar 1 manic with psychosis, the patient was able to tolerate the interview longer today. He does continue to demonstrate tangential thinking and lability of affect. We will continue the invega as prescribed. There is still is some concern that the Depakote could be causing SIADH. I will reduce the Depakote dose by 250 mg. His outpatient psychiatrist is in agreement. We will continue to monitor the patient's behavior. We will monitor his vital signs. He is encouraged to properly participate in groups.
[2018-12-21] MEDS: clonazePAM 1 MG TAB PO SCH (21:12)
[2018-12-21] MEDS: PALIPERIDONE 6 MG TAB.ER.24 PO SCH (21:12)
[2018-12-22] MEDS: LORazepam 0.5 MG TAB PO PRN ×2 (05:43→17:59)
[2018-12-22] MEDS: DIVALPROEX 250 MG TABLET.DR PO SCH (08:03)
[2018-12-22] MEDS: metFORMIN 500 MG TAB PO SCH ×2 (08:03→17:57)
[2018-12-22] MEDS: ATORVASTATIN 10 MG TAB PO SCH (08:03)
[2018-12-22] MEDS: TAMSULOSIN 0.4 MG CAP.ER.24H PO SCH (08:03)
--- NOTE | 2018-12-22 09:11 | P.PN ---
Progress Note - Text Interval history: The patient is found in the hallway he follows me to an interview room. He states that he did not sleep well last night staff reported he slept 2 hours. He again asked numerous times to be discharged. He states he's been praying that he'll be discharged each day. He states he needs to go home and sleep. He describes feelings of frustration related to a male peer. We reviewed his psychotropic medications. He had some misunderstanding regarding the Depakote that was clarified. Mental status exam: The patient is a thin male appearing older than his stated age. He has a disheveled appearance he is dressed in his own clothing. He appears very tired but maintains alertness. Eye contact is intermittent. He speaks softly he mumbles at times. He reports no thoughts of harming himself or others. Thought process remains disorganized. Speech is fluent spontaneous he is verbose. He continues talking until interrupted. Much of what he says dated was tangential in nature. Insight and judgment are impaired. He demonstrates no verbal or physical aggressiveness. He demonstrates feelings of frustration and irritability when discussing his current status. He reports no auditory or visual hallucinations. He denies any presence of delusional thought but that may persist. Plan: Erika with psychosis, the patient will continue his current medications. We reduced the Depakote in an effort to see if it was contributing to his SIADH. He is on a fluid restriction which she finds very frustrating. We will continue to monitor him for safety. He is encouraged to appropriate participate in the milieu. At this time he remains acutely symptomatic he is not appropriate for transition to a lesser level of care. His guardianship hearing isn't until next month. He is not capable of living on his own in his current state.
[2018-12-22] MEDS: PALIPERIDONE 6 MG TAB.ER.24 PO SCH (21:11)
[2018-12-22] MEDS: clonazePAM 1 MG TAB PO SCH (21:11)
[2018-12-22] MEDS: DIVALPROEX 500 MG TABLET.DR PO SCH (21:11)
[2018-12-23] MEDS: LORazepam 0.5 MG TAB PO PRN ×2 (06:01→17:34)
[2018-12-23] MEDS: metFORMIN 500 MG TAB PO SCH ×2 (07:53→17:21)
[2018-12-23] MEDS: DIVALPROEX 250 MG TABLET.DR PO SCH ×2 (09:04→21:23)
[2018-12-23] MEDS: TAMSULOSIN 0.4 MG CAP.ER.24H PO SCH (09:04)
[2018-12-23] MEDS: ATORVASTATIN 10 MG TAB PO SCH (09:04)
--- NOTE | 2018-12-23 11:15 | P.PN ---
Progress Note - Text Interval history: The patient is found in the hallway wandering he follows me to an interview room. He indicates his mood is okay. Staff report he slept 5 hours last evening. He is very focused on mandaeism believes this morning. He brings in several papers and several books. He states that he can tell if someone is a Alevism by their first name. He opens up to pages in a book show any signatures of people indicating the relatives of famous Catholics. He states he wants his cafe helper to come to the unit and bring him mandaeism materials. He has no questions or concerns regarding his medications. He continues to be frustrated with the fluid restriction. I did inform him that we continue to reduce the Depakote. I'm hoping to limit that medication in case it is contributing to SIADH. Mental status exam: The patient is alert he has a disheveled appearance he is dressed in the same clothing is yesterday. Eye contact is intermittent. He has spontaneous speech. He demonstrates some psychomotor slowing. He is verbose he demonstrates tangential thought process and loose associations. He remains very stimulus bound. He is focused on mandaeism beliefs today. He describes some paranoid thinking. He reports no thoughts of harming himself or others. He continues to have poor insight into his current symptoms and need for continued evaluation and treatment. Judgment is subsequently impaired. He demonstrated no physical aggressiveness. As he exited the room he stated "man I hate you". Plan: Ongoing symptoms of louise and psychosis, rule out component of neurocognitive disorder. The patient will be continued on the invega is written. I will reduce the Depakote to 250 mg twice daily. So far reducing the Depakote has not worsened his condition. He requires continued psychiatric hospitalization. We are awaiting a guardianship hearing. Social work is exploring his exact income so that we can identify possible placement options. Social work has been in contact with the patient's sister who resides in [place]. Vital signs reviewed.
[2018-12-23] MEDS: clonazePAM 1 MG TAB PO SCH (21:23)
[2018-12-23] MEDS: PALIPERIDONE 6 MG TAB.ER.24 PO SCH (21:23)
[2018-12-24] MEDS: LORazepam 0.5 MG TAB PO PRN ×2 (05:03→16:01)
[2018-12-24] MEDS: metFORMIN 500 MG TAB PO SCH ×2 (07:59→17:33)
[2018-12-24] MEDS: DIVALPROEX 250 MG TABLET.DR PO SCH ×2 (07:59→21:05)
[2018-12-24] MEDS: TAMSULOSIN 0.4 MG CAP.ER.24H PO SCH (07:59)
[2018-12-24] MEDS: ATORVASTATIN 10 MG TAB PO SCH (07:59)
--- NOTE | 2018-12-24 14:06 | P.PN ---
Progress Note - Text Progress Note Date: 12/24/18 Interval History: Patient is a 63-year-old male who was seen in coverage for Dr. Maxwell. Patient was extremely sedated this morning when he was getting up for breakfast, and difficulty walking and needed assistance as well as fell sound asleep in the middle of his breakfast. Patient had taken some Ativan at 5 in the morning. Patient slept for 1 hour last night and told me that he was up because he had dreams that he was going to leave and was making plans. He states that his dream to leave at 3 AM because he has a 4 [address] he can get into his apartment without anyone seeing him. He also complained of having very vivid dreams. Patient then went on to complain about several nurses and staff here and went on to ramble about the hospital being a not for profit organization. Patient also continued to request when he would be discharged from the hospital. Mental Status: Appearance/Attitude: Patient is casually dressed, his grooming is fair, he makes eye contact and was cooperative Behavior: Patient did not exhibit any psychomotor agitation or retardation Speech/Language: Patient's speech remains slightly pressured, normal volume and he is coherent Thought Process: Patient is goal-directed but remains focused on leaving the hospital, asking about discharge and at times becomes tangential complaining about staff. Thought Content: Patient denies any auditory or visual hallucinations, patient did not exhibit any paranoid ideation and he was less grandiose than he has been on prior interviews with me. 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 Patient slept for 1 hour last night Suicidal/Homicidal Ideation: Patient denies any current suicidal or homicidal ideation Sensorium/Cognition: Patient is alert and oriented to person, place and time Mood/Affect:. Patient's mood is much less irritable, his affect is appropriate to his mood Insight/Judgment: Patient's insight and judgment are limited Assessment: Patient has been compliant with medication, he is quite sedated this morning after having received Ativan at 5 AM and fell soundly asleep in the middle of eating breakfast. Patient only slept for 1 hour last night and states that he was up planning to leave the hospital because he thought he was being di scharged today. Patient today was much less grandiose only complaining about wanting to leave the hospital, complained about some of the nurses not being that helpful and states that he doesn't understand why he still here. Patient states that his dreams are more vivid lately. Plan: Patient continue on his current medication I recommended to him that he not take Ativan early in the morning as he did this morning as he became overly sedated when he did. Patient stated that the Klonopin does make him feel sleepy at night and I asked him how long it took to be effective he was unable to tell me. Patient was advised to use the Ativan during the day and not at 34 or 5 in the morning. Patient also states that he has been taking 2 or 3 hour naps during the day. Patient continues to require hospitalization to further stabilize his mood.
[2018-12-24] MEDS: clonazePAM 1 MG TAB PO SCH (21:04)
[2018-12-24] MEDS: PALIPERIDONE 6 MG TAB.ER.24 PO SCH (21:04)
[2018-12-25] MEDS: metFORMIN 500 MG TAB PO SCH ×2 (08:23→17:30)
[2018-12-25] MEDS: TAMSULOSIN 0.4 MG CAP.ER.24H PO SCH (08:23)
[2018-12-25] MEDS: DIVALPROEX 250 MG TABLET.DR PO SCH ×2 (08:23→21:11)
[2018-12-25] MEDS: ATORVASTATIN 10 MG TAB PO SCH (08:23)
--- NOTE | 2018-12-25 10:59 | P.PN ---
Progress Note - Text Interval history: The patient is found in his room he follows me to an interview room. He reports his mood is fine. He reports he slept 14 hours last night staff report he slept one hour. There is some concerns that the Ativan during the day is excessively sedating him. He is then sleeping during the day and getting less hours in the evening. Appetite stable. He does continue to feel provoked by some peers. For that reason he will isolate in his room. There are some times when staff feel the patient becomes more agitated but does respond to verbal redirection. He still refuses to speak with his sister. We continue to await a court date for his guardianship hearing. We reviewed his psychotropic medications although he has no questions regarding those. Mental status exam: The patient is alert he has a disheveled appearance he is dressed in his own clothing. He has spontaneous speech he is verbose and pressured at times. He remains calm he demonstrates no agitation during our interaction. Thought process continues to be tangential and sometimes demonstrates loose associations. He continues to lack insight as to why he was admitted to the hospital judgment can be subsequently affected. He reports no suicidal or homicidal thoughts. He demonstrates a constricted to bland affect. He is oriented to person place month and year. He demonstrates some paranoid and persecutory thinking especially when it comes to discussing family members as potential support. Plan: Ongoing symptoms of louise psychosis rule out cognitive deficit, the patient will continue his current psychotropic medication. We will discontinue the Ativan during the day continue the Klonopin in the evening. Continue invega as written. We will draw sodium level tomorrow morning. We have been reducing the Depakote to see if it is contributing to an SIADH. Vital signs reviewed.
[2018-12-25] MEDS: clonazePAM 1 MG TAB PO SCH (21:11)
[2018-12-25] MEDS: PALIPERIDONE 6 MG TAB.ER.24 PO SCH (21:11)
[2018-12-26] MEDS: metFORMIN 500 MG TAB PO SCH ×2 (07:38→17:46)
[2018-12-26] MEDS: DIVALPROEX 250 MG TABLET.DR PO SCH ×2 (07:38→21:00)
[2018-12-26] MEDS: ATORVASTATIN 10 MG TAB PO SCH (07:38)
[2018-12-26] MEDS: TAMSULOSIN 0.4 MG CAP.ER.24H PO SCH (07:38)
--- NOTE | 2018-12-26 12:50 | P.PN ---
Progress Note - Text Progress Note Date: 12/26/18 Interval history: Patient seen in [facility] today. He reports he slept about 6 hours last night. He does not verbalize any significant him psychotropic medication side effects he does make some reference to his sodium. Today sodium was noted to be at 135. He makes reference to taking good care of himself, talks about taking a shower once a week and then giving himself a sponge bath on other days. Mental status exam: He is alert and cooperative with the interview. His speech is fluent, not rapid or pressured. He does have some elements of grandiosity. He makes a reference for me to pray for him. He does not verbalize any thoughts of harm to self or others. He does not show any agitation. He seems to describe that his mood is doing pretty good. Plan: Patient will be maintained on current psychotropic medication regimen. Continue to monitor for any medication side effects and monitor his ongoing response to treatment. We'll continue cover this patient to the weekend.
[2018-12-26] MEDS: clonazePAM 1 MG TAB PO SCH (21:00)
[2018-12-26] MEDS: PALIPERIDONE 6 MG TAB.ER.24 PO SCH (21:00)
[2018-12-27] MEDS: metFORMIN 500 MG TAB PO SCH ×2 (07:43→17:33)
[2018-12-27] MEDS: DIVALPROEX 250 MG TABLET.DR PO SCH ×2 (08:45→21:16)
[2018-12-27] MEDS: ATORVASTATIN 10 MG TAB PO SCH (08:45)
[2018-12-27] MEDS: TAMSULOSIN 0.4 MG CAP.ER.24H PO SCH (08:45)
[2018-12-27] MEDS: MAGNESIUM HYDROXIDE 2,400 MG/10 ML CUP PO PRN (14:05)
--- NOTE | 2018-12-27 15:09 | P.PN ---
Progress Note - Text Progress Note Date: 12/27/18 Interval history: Patient is seen again in cross coverage today. He is cooperative to come to the interview room. He was heard laughing on the unit earlier and seen laughing. When asked about this he begins talking about 2 dogs. He does not seem to voice any adverse psychotropic medication side effects. Mental status exam: He is alert and cooperative with the interview. He describes his mood is fluctuating. He begins laughing significantly during one part of the session when asked about why he was laughing and talks about 2 dogs. His thought processes show some disorganization. At the end of the session he begins talking about the concerns of the outside world and talks about praying. He does not verbalize any thoughts of harm to self or others. He denies any hallucinations. Plan: Patient will be maintained on current psychotropic medication regimen. We'll continue to monitor for any medication side effects and monitor his ongoing response to treatment.
[2018-12-27] MEDS: ACETAMINOPHEN TAB 325 MG TAB PO PRN (20:05)
[2018-12-27] MEDS: PALIPERIDONE 6 MG TAB.ER.24 PO SCH (21:16)
[2018-12-27] MEDS: clonazePAM 1 MG TAB PO SCH (21:16)
[2018-12-28] MEDS: ACETAMINOPHEN TAB 325 MG TAB PO PRN (07:18)
[2018-12-28] MEDS: ATORVASTATIN 10 MG TAB PO SCH (07:44)
[2018-12-28] MEDS: metFORMIN 500 MG TAB PO SCH ×2 (07:44→17:24)
[2018-12-28] MEDS: TAMSULOSIN 0.4 MG CAP.ER.24H PO SCH (07:44)
[2018-12-28] MEDS: DIVALPROEX 250 MG TABLET.DR PO SCH (07:45)
--- NOTE | 2018-12-28 11:22 | P.PN ---
Progress Note - Text Interval history: The patient is found in group he follows me to an interview room. He continues to sleep poorly at night he indicates he sleeps later into the morning. Appetite stable. He continues to request a discharge each day that we meet. Staff report that he is able to tolerate portions of groups. He does continue to feel antagonized by certain peers and by some of the staff. He has no questions regarding his medication. We described coming off of the Depakote to see if it will improve his hyponatremia. Mental status exam: The patient is a thin male he is dressed in his own clothing hygiene is adequate he has a disheveled appearance. Speech is fluent and spontaneous he is verbose. He demonstrated circumstantial thinking tangential thinking. He describes thoughts of paranoia regarding his sister and some other family members. He overestimates his ability to care for himself and requests that he be discharged home. He is reporting no thoughts of harming himself or others. There is still some lability of affect. There are times when he demonstrates exaggerated laughter. He is oriented to person place and date of the week. He demonstrates no verbal or physical aggressiveness. He is demonstrating no involuntary repetitive movements. Plan: Ongoing symptoms of louise and psychosis, hyponatremia, we will discontinue the Depakote to see if it has any bearing on his sodium level. It's questionable as to how effective the Depakote is for her his current symptoms anyhow. We will consider adding a different mood stabilizer. We will check the sodium level again in a few days after discontinuing the Depakote. We are awaiting a hearing to establish guardianship. After that we will await placement options. The patient is not clinically stable for a lesser level of care at this time. Vital signs reviewed.
[2018-12-28] MEDS: ZIPRASIDONE 20 MG VIAL IM PRN (17:03)
[2018-12-28] MEDS: PALIPERIDONE 6 MG TAB.ER.24 PO SCH (21:01)
[2018-12-28] MEDS: clonazePAM 1 MG TAB PO SCH (21:01)
[2018-12-29] MEDS: ATORVASTATIN 10 MG TAB PO SCH (08:04)
[2018-12-29] MEDS: metFORMIN 500 MG TAB PO SCH ×2 (08:04→17:40)
[2018-12-29] MEDS: TAMSULOSIN 0.4 MG CAP.ER.24H PO SCH (08:04)
--- NOTE | 2018-12-29 09:48 | P.PN ---
Progress Note - Text Interval history: The patient's found in the hallway he follows me to an interview room. He indicates he is doing great he states he slept 6 hours last night. Staff report he slept 3. He indicates he is eating well. He states his [employer] is outside running and he would like to leave. He states he knows today's the day to be discharged. He brings in a copy of the book [employer] and states that that was his original book. He showed me where he wrote words inside indicating he did it as a child. Staff report that the patient continues to have a disorganized thought process. Mental status exam: The patient is alert he is a disheveled appearance. He remains calmly seated in the chair. He demonstrates tangential thinking. He indicates his mood is fine as he believes he is being discharged today although we have not had that discussion. He reports no thoughts of harming himself or harming others. He demonstrates no verbal or physical aggressiveness. He demonstrates no involuntary repetitive movements. Insight and judgment are poor. He spontaneously describes paranoid persecutory thoughts regarding family members and staff. He states that we can be seen by other people through the TV and becomes quite animated when describing that believe. He is reporting no auditory or visual hallucinations although they may occur. Plan: Continued symptoms of louise psychosis possible neurocognitive symptoms, the patient will continue on his current medications. We have discontinued the Depakote due to lack of efficacy and it may be a possible cause of his hyponatremia. We will test the sodium in a few days. We will consider a replacement mood stabilizer for Depakote. Vital signs reviewed. The patient requires continued psychiatric hospitalization. I will continue to monitor him for safety.
[2018-12-29] MEDS: clonazePAM 1 MG TAB PO SCH (21:23)
[2018-12-29] MEDS: PALIPERIDONE 6 MG TAB.ER.24 PO SCH (21:23)
[2018-12-29] MEDS: ZIPRASIDONE 20 MG VIAL IM PRN (23:28)
[2018-12-30] MEDS: metFORMIN 500 MG TAB PO SCH ×2 (07:53→18:32)
[2018-12-30] MEDS: ATORVASTATIN 10 MG TAB PO SCH (07:53)
[2018-12-30] MEDS: TAMSULOSIN 0.4 MG CAP.ER.24H PO SCH (07:53)
--- NOTE | 2018-12-30 11:40 | P.PN ---
Progress Note - Text Interval history: The patient is found in his room he follows me to an interview room. He reports feelings of anger that he continues to require hospitalization. Continues to request a discharge each day. Staff report that he has been demonstrating more lability of affect. He has struggled more in groups. He continues to verbalize poor insight into his symptoms and judgment is subsequently impacted. The patient continues to sleep poorly in the evening. Appetite stable. He does attempt to attend groups but requires more redir ection. He did receive an injection of Geodon last evening. Mental status exam: The patient is a thin male presenting with a disheveled appearance he is dressed in the same clothing. Eye contact is staring in nature. He initially is seated in the chair and then he gets up and is more demonstrative in describing his thoughts. He appears hyper restoration this morning. He states he struggles with anger. He denies having thoughts of harming himself or others. As noted insight and judgment are poor. He demonstrates no physical aggressiveness. He does appear to be more verbally ag itated at times. He demonstrates no involuntary repetitive movements. Plan: Ongoing symptoms of louise and psychosis rule out neurocognitive symptoms, we will check the patient's sodium tomorrow morning I have ordered a CMP. We will continue to monitor him for safety. It seems that some of his behavior has decompensated since discontinuing the Depakote. May be in fact it has provided some clinical benefit. We will monitor him for safety. We will continue to use the Geodon for acute agitation. Vital signs reviewed. He requires continued psychiatric hospitalization
[2018-12-30] MEDS: clonazePAM 1 MG TAB PO SCH (20:59)
[2018-12-30] MEDS: PALIPERIDONE 6 MG TAB.ER.24 PO SCH (20:59)
[2018-12-31] MEDS: ZIPRASIDONE 20 MG VIAL IM PRN ×2 (00:11→18:23)
--- NOTE | 2018-12-31 07:49 | P.PN ---
Progress Note - Text Interval history: The patient's found the hallway he follows me to an interview room. Indicates he slept last night 6 hours staff reported he slept for. He did receive a Geodon injection for agitated behavior. He has little insight into why he receive that other than he thought it was a sleep aid. He states that Golden Evans came and visited him last evening and gave him a book. He is carrying around a base and filled with books covered with his shirt. He demonstrates some episcopal material that he has been carrying around as well. He states that he is awaiting discharge and is hoping to sign his papers today. He had no questions or concerns regarding his medication. Mental status exam: The patient is a thin male he is dressed in his own clothing hygiene grooming impaired. Eye contact is appropriate. He speaks in different homes. Most of those are quite quiet this morning. He demonstrates no yelling or loud tone of voice he reports his mood is great. His affect is expansive. There is some lability. He reports no thoughts of harming himself or others. He is endorsing no auditory or visual hallucinations however he may be experiencing those as he believes he saw Golden Evans yesterday. He continues to have grandiose episcopal type and paranoid delusions. Thought process is not well organized. He demonstrates no verbal or physical aggressiveness during our session. He demonstrates no abnormal involuntary movements. Insight and judgment are poor. Plan: Continued symptoms of louise psychosis rule out neurocognitive symptoms, we will continue his medications as written. We are checking the sodium level again today. We will consider re-adding the Depakote or selecting a different m ood stabilizer. Vital signs reviewed. We'll provide reality orientation when possible. We are still awaiting a guardianship hearing. The patient is not appropriate for a lesser level of care at this time as this would increase his safety risk.
[2018-12-31] MEDS: TAMSULOSIN 0.4 MG CAP.ER.24H PO SCH (07:53)
[2018-12-31] MEDS: metFORMIN 500 MG TAB PO SCH ×2 (07:53→17:46)
[2018-12-31] MEDS: ATORVASTATIN 10 MG TAB PO SCH (07:53)
[2018-12-31 10:07] LABS: ALT 21 U/L (21-72); AST 25 U/L (17-59); African American GFR (CKD) >90 (>60 ml/min/1.73 sqM); Albumin 4.4 g/dL (3.5-5.0); Alkaline Phosphatase 50 U/L (38-126); Anion Gap 9 mmol/L; Blood Urea Nitrogen 18 mg/dL (9-20); Calcium 9.9 mg/dL (8.4-10.2); Carbon Dioxide 29 mmol/L (22-30); Chloride 102 mmol/L (98-107); Glucose 92 mg/dL (74-99); Potassium 4.6 mmol/L (3.5-5.1); Sodium 140 mmol/L (137-145); Total Bilirubin 0.5 mg/dL (0.2-1.3); Total Protein 7.3 g/dL (6.3-8.2)
[2018-12-31] MEDS ORDERED: ZIPRASIDONE 20 MG VIAL IM ONE (18:20)
[2018-12-31] MEDS: PALIPERIDONE 6 MG TAB.ER.24 PO SCH (20:13)
[2018-12-31] MEDS: clonazePAM 1 MG TAB PO SCH (20:13)
[2019-01-01] MEDS: metFORMIN 500 MG TAB PO SCH ×2 (08:11→17:03)
[2019-01-01] MEDS: TAMSULOSIN 0.4 MG CAP.ER.24H PO SCH (08:11)
[2019-01-01] MEDS: ATORVASTATIN 10 MG TAB PO SCH (08:11)
[2019-01-01] MEDS ORDERED: LORazepam 2 MG/ML INJ IM STA (10:37)
[2019-01-01] MEDS: ZIPRASIDONE 20 MG VIAL IM PRN (10:38)
[2019-01-01] MEDS ORDERED: LORazepam 2 MG/ML INJ ONE (10:41)
--- NOTE | 2019-01-01 11:07 | P.PN ---
Progress Note - Text Interval history: The patient's is found in the hallway. He is acutely agitated this morning. He approached our staff meeting yelling profanities and making accusations about staff. He received an injection of Geodon prior to that due to agitated behavior. He has been demonstrating a labile affect including inappropriate exaggerated laughter. Sleep at night remains impaired. Mental status exam: The patient is very agitated this morning. He is a disheveled appearance. His upper dentures are not appropriately place and are loose as he yells. He makes inappropriate gestures uses profanity and is making accusations about staff. Clearly he remains psychotic with continued symptoms of louise. Insight and judgment are poor. Thought process is poorly organized. He is demonstrating no involuntary repetitive movements. Overall he appears more decompensated versus last week. Plan: The patient has decompensated in terms of his symptoms. It is likely that the discontinuation of the Depakote contributed. His sodium level however this morning is within the normal range at 140. In reviewing options I will augment the Invega with Clozaril using 25 mg starting this evening. A CBC with differential will be ordered. The patient was still symptomatic with the Depakote but certainly the symptoms have worsened without it. We will hope that the additional Clozaril will reduce symptoms of psychosis and improved oluise. We are still awaiting guardianship hearing and we'll begin discharge planning after that occurs. Clinically he is not appropriate for a lesser level of care at this time.
[2019-01-01 12:35] LABS: Basophils # (A) 0.1 k/uL (0-0.2); Basophils % (A) 2 %; Eosinophils # (A) 0.2 k/uL (0-0.7); Eosinophils % (A) 3 %; HCT 45.5 % (39.0-53.0); HGB 13.7 gm/dL (13.0-17.5); Hypochromasia Marked; Lymphocytes # (A) 1.7 k/uL (1.0-4.8); Lymphocytes % (A) 25 %; MCH 28.6 pg (25.0-35.0); MCHC 30.2 g/dL (31.0-37.0); Mean Platelet Volume 8.2; Monocytes # (A) 0.7 k/uL (0-1.0); Monocytes % (A) 11 %; Neutrophils # (A) 3.8 k/uL (1.3-7.7); Neutrophils % (A) 56 %; Platelet Count 282 k/uL (150-450); RBC 4.81 m/uL (4.30-5.90); RDW 14.9 % (11.5-15.5); WBC 6.8 k/uL (3.8-10.6)
[2019-01-01 12:50] LABS: MCV 94.7 fL (80.0-100.0)
[2019-01-01] MEDS: cloZAPine 25 MG TAB PO SCH (17:03)
--- NOTE | 2019-01-01 19:32 | P.MHFACE ---
Face to Face Eval of Restraint - Evaluation Patient's Immediate Situation: Endangers others' safety, Violent behavior Patient's Reaction to the Intervention: Appropriate, Calm, Relaxed Patient's Medical & Behavioral Condition: Sleeping Need to Continue or Terminate Restraint or Seclusion: Continue Need to Continue or Terminate Restraint/Seclusion - Comment: continue seclusion for now, until patient wakes up and shows calm cooperative behavior
[2019-01-01] MEDS: PALIPERIDONE 6 MG TAB.ER.24 PO SCH (20:28)
[2019-01-01] MEDS: clonazePAM 1 MG TAB PO SCH (20:28)
[2019-01-01] MEDS ORDERED: cloZAPine 25 MG TAB PO STA (20:55)
--- NOTE | 2019-01-01 22:42 | P.MHFACE ---
Face to Face Eval of Restraint - Evaluation Patient's Immediate Situation: Endangers others' safety, Violent behavior Patient's Reaction to the Intervention: Calm, Uncooperative Patient's Medical & Behavioral Condition: Sleeping Need to Continue or Terminate Restraint or Seclusion: Continue
[2019-01-02] MEDS ORDERED: diphenhydrAMINE 25 MG CAP PO STA (03:28)
[2019-01-02] MEDS: metFORMIN 500 MG TAB PO SCH ×2 (08:27→16:46)
[2019-01-02] MEDS: ATORVASTATIN 10 MG TAB PO SCH (09:14)
[2019-01-02] MEDS: cloZAPine 25 MG TAB PO SCH ×2 (09:14→16:46)
[2019-01-02] MEDS: TAMSULOSIN 0.4 MG CAP.ER.24H PO SCH (09:14)
--- NOTE | 2019-01-02 14:54 | P.PN ---
Progress Note - Text Progress Note Date: 01/02/19 Interval History: Patient is a 63-year-old male who is being seen in coverage for Dr. Maxwell. Patient was seen in his room where he is been most of the morning sleeping. Patient continues to have pressured speech and rambles slightly but did report that he slept well and was getting ready to eat stating that he was hungry. Patient was less agitated and had no other concerns at this time. Mental Status: Appearance/Attitude: Patient is sitting in a chair in his room he is dressed in the same clothes makes intermittent eye contact and was cooperative Behavior: Patient does not exhibit any psychomotor agitation or retardation Speech/Language: Patient's speech is slightly garbled, slightly pressured Thought Process: Patient continues to exhibit flight of ideas Thought Content: Patient denied auditory or visual hallucinations patient was rambling on about multiple things about the way I was dressed, his food, but is redirectable. Suicidal/Homicidal Ideation: No current suicidal or homicidal ideation Sensorium/Cognition: Patient is alert and oriented to person situation and place Mood/Affect: Patient's mood is much less irritable and agitated Insight/Judgment: Patient's insight and judgment are limited Assessment: Yesterday the patient received Geodon and Ativan IM in the morning due to agitation, patient received Clozaril 25 mg at 5 PM and at 6:30 PM required being placed in the seclusion room due to increasing agitation. Patient eventually calm down and was let out of the seclusion room but again began to get agitated and was given his evening meds early Invega and Klonopin and needed to be placed back in the seclusion room and given another dose of Clozaril 25 mg. Patient then finally laid down in the seclusion room and fell asleep around 11 PM and slept for about 4 hours. Patient was still in the quiet room at this point and slept on and off for the remainder of the evening. Patient awakened this morning and had his Clozaril 25 mg given this morning he ate breakfast and then went back to his room and has been asleep from sometime before 9 AM until sometime around 2:30 PM. Patient when he was seen this afternoon was ready to eat his lunch, was much less agitated and responding to verbal redirection. Patient continues to ramble, with flight of ideas but is much more directable his mood is much less labile and he is not agitated at this time. Patient required Benadryl 25 mg in the middle of the night as he was complaining of feeling itchy, today on exam there is no evidence of a rash and the patient is no longer reporting any itching. Plan: Patient continue on Invega 12 mg at bedtime and Klonopin 1 mg at bedtime and will continue the Clozaril in the morning and will add an additional Clozaril dose of 25 mg at 5 PM. Patient received 75 mg of Clozaril within a 15 hour period as of his morning dose today, As well as a dose of Benadryl 25 mg at 3:45 in the morning for itching. Patient continues to require hospitalization to stabilize his mood.
[2019-01-02] MEDS: PALIPERIDONE 6 MG TAB.ER.24 PO SCH (20:47)
[2019-01-02] MEDS: clonazePAM 1 MG TAB PO SCH (20:47)
[2019-01-03] MEDS: metFORMIN 500 MG TAB PO SCH ×2 (08:23→17:02)
[2019-01-03] MEDS: cloZAPine 25 MG TAB PO SCH ×2 (08:23→17:02)
[2019-01-03] MEDS: TAMSULOSIN 0.4 MG CAP.ER.24H PO SCH (08:23)
[2019-01-03] MEDS: ATORVASTATIN 10 MG TAB PO SCH (08:23)
--- NOTE | 2019-01-03 11:26 | P.PN ---
Progress Note - Text Progress Note Date: 01/03/19 Interval History: Patient is a 63-year-old male who is being seen in coverage for Dr. Maxwell today. Patient did not sleep much last night, is out on the unit again, has not been as agitated but is redirectable. Patient states that he doesn't like another female patient because she is been making comments about him, he states that he is not feeling tired and doesn't need to sleep. Patient was rambling on about going home, didn't want to take a shower states that he is always just taken sponge baths. Mental Status: Appearance/Attitude: Patient is casually dressed, makes eye contact and is cooperative Behavior: Patient does not exhibit any psychomotor retardation and is less agitated today, however he is back out on the unit, more intrusive with other patients, knocking on my office window Speech/Language: Patient's speech is garbled due to his problems with dentures, rambling, he is coherent Thought Process: Patient is tangential Thought Content: Patient denies auditory or visual hallucinations, patient complaining of other patients, less irritable and no grandiose ideas were el icited today. Patient is out on the unit more today, more intrusive with some of the other patients but is redirectable. Patient slept for about 1 hour last night Suicidal/Homicidal Ideation: Patient denies any current suicidal or homicidal ideation Sensorium/Cognition: Patient is alert and oriented to person, place and situation Mood/Affect: Patient's mood is less irritable, affect appropriate to his mood Insight/Judgment: Patient's insight and judgment are impaired Assessment: Patient slept less last evening, is less irritable and more verbally redirectable. However he is out on the unit, has been more intrusive with other patients today than he was yesterday. Patient complained to me about another female patient and was complaining about her in the hallway earlier. Patient has been knocking on my office window numerous times this morning. Patient's refusing showers stating that he only takes sponge baths. He did not verbalize any grandiose ideation today however complained about being in the hospital, wanting to go home. Plan: Patient will continue on his current medications at this time of Clozaril 25 mg twice a day Invega 12 mg at bedtime and Klonopin 1 mg at bedtime and continues to require hospitalization to stabilize his mood.
[2019-01-03] MEDS ORDERED: cloZAPine 25 MG TAB PO STA (14:12)
[2019-01-03] MEDS: PALIPERIDONE 6 MG TAB.ER.24 PO SCH (20:43)
[2019-01-03] MEDS: clonazePAM 1 MG TAB PO SCH (20:43)
[2019-01-04] MEDS: ACETAMINOPHEN TAB 325 MG TAB PO PRN (03:34)
[2019-01-04] MEDS: metFORMIN 500 MG TAB PO SCH ×2 (08:14→17:43)
[2019-01-04] MEDS: ATORVASTATIN 10 MG TAB PO SCH (08:14)
[2019-01-04] MEDS: cloZAPine 25 MG TAB PO SCH ×3 (08:14→20:18)
[2019-01-04] MEDS: TAMSULOSIN 0.4 MG CAP.ER.24H PO SCH (08:15)
--- NOTE | 2019-01-04 11:14 | P.PN ---
Progress Note - Text Interval history: The patient's found in the hallway he is verbally aggressive upon approach. He yells a number of profanities at me and makes accusations about me. We were not able to sit down and conduct an interview today. I did confer with Dr. Welch who has been caring for the patient over the weekend. We did start claws role and have titrated the dose. He was able to get several hours of sleep over the weekend during the day. He has required much redirection in groups. He remains inappropriate with patients and staff jian gordon. Staff were able to get him to shower over the weekend and washes clothes. Mental status exam: The patient is a thin male appearing older than his stated age. He is dressed in his own clothing he has a disheveled appearance. He has a staring eye contact. Because of his acute agitation we were not able to me in an interview room as he was verbally aggressive. He continues to make delusional statements that are paranoid persecutory in nature. He remains hyper episcopalian. Thought process is quite disorganized demonstrating tangential thinking loose associations and flight of ideas. Insight and judgment are poor. He is demonstrating no involuntary repetitive movements. Impression/plan: Ongoing symptoms of louise and psychosis, we will continue titrating the claws role I will raise the dose by 25 mg this evening. I will reduce invega 9 mg at bedtime. The patient does have a guardianship hearing today. At this time he is acutely symptomatic and requires continued psychiatric hospitalization. We will recheck his sodium to be sure is within normal limits. If so we will consider discontinuing the fluid restriction. Vital signs reviewed. We will continue monitoring him for safety.
[2019-01-04] MEDS: clonazePAM 1 MG TAB PO SCH (20:18)
[2019-01-04] MEDS: PALIPERIDONE 3 MG TAB.ER.24 PO SCH (20:18)
[2019-01-05] MEDS: ZIPRASIDONE 20 MG VIAL IM PRN (01:17)
[2019-01-05] MEDS: cloZAPine 25 MG TAB PO SCH ×3 (08:51→21:46)
[2019-01-05] MEDS: TAMSULOSIN 0.4 MG CAP.ER.24H PO SCH (08:51)
[2019-01-05] MEDS: ATORVASTATIN 10 MG TAB PO SCH (08:51)
[2019-01-05] MEDS: metFORMIN 500 MG TAB PO SCH ×2 (08:51→16:48)
--- NOTE | 2019-01-05 11:53 | P.PN ---
Progress Note - Text Interval history: The patient is found in the hallway he refuses to speak with me to an interview room. In fact the patient is acutely agitated both times I attempt to interact with him. Again he yells profanities and makes accusations. Upon my second attempt to speak with them he indicates I am no longer his doctor and that I am "clueless". Other staff report that he has been verbally aggressive with them as well. The patient reportedly did not sleep yesterday during the day or last night more than one hour. We believe that he is eating adequately. He has been redirectable but it is more difficult at times. Mental status exam: The patient is alert he is dressed in his own clothing he has a disheveled appearance. Upon approach he is irritable and verbally aggressive yelling profanities. He demonstrates paranoid and persecutory thought content with his spontaneous speech. He demonstrates lability of affect. Insight and judgment are poor. I am not able to ask any further specific questions in terms of suicidal thoughts or his cognitive function at this time. He demonstrates no involuntary repetitive movements. Impressions/plan: Ongoing acute symptoms of louise and psychosis. Continue his current medication regimen. I plan to continue titrating the clozapine to therapeutic effect. We will continue to monitor him for safety. We will attempt to provide reality orientation when possible.
[2019-01-05] MEDS: PALIPERIDONE 3 MG TAB.ER.24 PO SCH (20:58)
[2019-01-05] MEDS: clonazePAM 1 MG TAB PO SCH (20:58)
[2019-01-06] MEDS: ACETAMINOPHEN TAB 325 MG TAB PO PRN (01:37)
[2019-01-06] MEDS: ZIPRASIDONE 20 MG VIAL IM PRN (01:47)
[2019-01-06] MEDS ORDERED: LORazepam 2 MG/ML INJ IM STA (01:50)
[2019-01-06] MEDS: cloZAPine 25 MG TAB PO SCH ×3 (08:36→21:18)
[2019-01-06] MEDS: TAMSULOSIN 0.4 MG CAP.ER.24H PO SCH (08:36)
[2019-01-06] MEDS: ATORVASTATIN 10 MG TAB PO SCH (08:36)
[2019-01-06] MEDS: metFORMIN 500 MG TAB PO SCH ×2 (08:36→16:35)
[2019-01-06 10:04] LABS: Basophils # (A) 0.1 k/uL (0-0.2); Basophils % (A) 1 %; Eosinophils # (A) 0.3 k/uL (0-0.7); Eosinophils % (A) 5 %; HCT 41.6 % (39.0-53.0); HGB 13.1 gm/dL (13.0-17.5); Lymphocytes # (A) 0.9 k/uL (1.0-4.8); Lymphocytes % (A) 14 %; MCHC 31.4 g/dL (31.0-37.0); MCV 92.5 fL (80.0-100.0); Mean Platelet Volume 7.5; Monocytes # (A) 0.6 k/uL (0-1.0); Monocytes % (A) 9 %; Neutrophils # (A) 4.7 k/uL (1.3-7.7); Neutrophils % (A) 69 %; Platelet Count 251 k/uL (150-450); RDW 15.3 % (11.5-15.5); WBC 6.9 k/uL (3.8-10.6)
--- NOTE | 2019-01-06 11:10 | P.PN ---
Progress Note - Text Interval history: The patient is found in his room sleeping. He was verbally arousable but is lethargic. Staff report that he did not sleep yesterday or last night. He did receive an injection early this morning for agitation. He demonstrates a disorganized thought process during our interaction this morning. He indicates his mood is great. He indicates he slept last night. Mental status exam: The patient is a male he stressors unclothing hygiene grooming impaired. He is found sleeping in the geriatric chair in his room. He is verbally arousable he makes brief eye contact but appears lethargic. He appears confused thought process is disorganized. He demonstrates no verbal or physical agitation during our interaction this morning. Staff report he was verbally agitated and aggressive earlier which prompted the need for the Geodon injection. He doesn't maintain alertness long enough to continue our conversation to cover more questions. Insight and judgment are still quite impaired. There is no evidence of involuntary repetitive movements. Impression/plan: Ongoing symptoms of louise and psychosis, we will titrate the clozapine a 25 mg in the afternoon and 75 mg in the evening. As we continue to do this I will plan to reduce the invega. His sodium level was 138. He is now had 2 normal sodium levels since removing the Depakote. We will contact nephrology to see if they recommend removing the fluid restriction. We will monitor the patient for safety he requires continued psychiatric hospitalization due to the severe nature of his symptoms and his psychosocial dysfunction at this time. Vital signs reviewed. Most recent CBC with differential reviewed and those numbers remain acceptable to continue using clozapine. He is afebrile.
[2019-01-06] MEDS: PALIPERIDONE 3 MG TAB.ER.24 PO SCH (21:17)
[2019-01-06] MEDS: clonazePAM 1 MG TAB PO SCH (21:19)
[2019-01-07] MEDS: ACETAMINOPHEN TAB 325 MG TAB PO PRN (06:20)
[2019-01-07] MEDS: metFORMIN 500 MG TAB PO SCH ×2 (07:46→17:44)
--- NOTE | 2019-01-07 08:19 | P.PN ---
Progress Note - Text Interval history: The patient is found in the hallway. An effort was made to have him meet with me in one of the lounges. Upon approach he stated "get away from me". The patient continues to state that I am no longer his doctor. Staff report that the patient did sleep 4-5 hours last evening. We believe he is been compliant with his medications orally. He remains manic with symptoms of psychosis he requires frequent redirection. Mental status exam: The patient is alert he is dressed in hospital gowns. Upon approach with me he is irritable agitated and made the above statement. He is observed speaking in the hallway and he continues to demonstrate a disorganized thought process. He continues to verbalize paranoid persecutory and grandiose thoughts. Insight and judgment are significantly impaired. He still becomes verbally agitated quite easily he's not demonstrating any physical aggressiveness. He demonstrates no involuntary repetitive movements. Continues to ambulate without ataxia. Impression/plan: Ongoing severe symptoms of louise and psychosis. Our plan is to continue titrating the Clozaril and we will likely taper off of invega. The patient remains acutely symptomatic despite his lengthy hospitalization. We will continue to monitor him for safety, reality orientation is provided when possible. He does have a guardian appointed at this time. Once he begins to stabilize we will consider placement options.
[2019-01-07] MEDS: cloZAPine 25 MG TAB PO SCH ×3 (09:14→20:55)
[2019-01-07] MEDS: TAMSULOSIN 0.4 MG CAP.ER.24H PO SCH (09:14)
[2019-01-07] MEDS: ATORVASTATIN 10 MG TAB PO SCH (09:14)
[2019-01-07] MEDS: clonazePAM 1 MG TAB PO SCH (20:55)
[2019-01-07] MEDS: PALIPERIDONE 3 MG TAB.ER.24 PO SCH (20:55)
[2019-01-08] MEDS: ACETAMINOPHEN TAB 325 MG TAB PO PRN (05:26)
[2019-01-08] MEDS: TAMSULOSIN 0.4 MG CAP.ER.24H PO SCH (08:50)
[2019-01-08] MEDS: metFORMIN 500 MG TAB PO SCH ×2 (08:50→17:16)
[2019-01-08] MEDS: cloZAPine 25 MG TAB PO SCH ×3 (08:51→21:32)
[2019-01-08] MEDS: ATORVASTATIN 10 MG TAB PO SCH (08:51)
--- NOTE | 2019-01-08 10:20 | P.PN ---
Progress Note - Text Interval history: The patient is found in the [facility] at the conclusion of group. Another attempt was made to speak with the patient in an interview room. He states, "you are not my doctor, please get out of my way, I wish I could banish you from my life". The patient followed that with statements he made out of frustration and anger. It appears that he slept 4 hours last evening. We believe he is been compliant with oral medication. I will confer with the treatment team today regarding his behavior over the last 24 hours. Mental status exam: The patient is alert he is ambulating in the hallway. He is carrying several books. He has a disheveled appearance hygiene is fair. Eye contact is adequate during our brief interaction. As noted he refused to speak with me or answer any questions. He demonstrates no physical agitation during our interaction he demonstrates no involuntary repetitive movements. He contin ues to demonstrate a disorganized thought process. He verbalizes paranoid and persecutory thoughts in the hallway. Insight and judgment remain poor. Impression/plan: The patient demonstrates continued symptoms of louise and psychosis. We will continue to titrate the Clozaril. He requires continued psychiatric hospitalization. Vital signs reviewed. We will continue to monitor him for safety and provide reality orientation when possible.
[2019-01-08] MEDS: PALIPERIDONE 3 MG TAB.ER.24 PO SCH (20:23)
[2019-01-08] MEDS: clonazePAM 1 MG TAB PO SCH (20:24)
[2019-01-09] MEDS: ACETAMINOPHEN TAB 325 MG TAB PO PRN ×2 (04:27→16:21)
[2019-01-09] MEDS: cloZAPine 25 MG TAB PO SCH ×3 (07:55→21:02)
[2019-01-09] MEDS: ATORVASTATIN 10 MG TAB PO SCH (07:55)
[2019-01-09] MEDS: TAMSULOSIN 0.4 MG CAP.ER.24H PO SCH (07:55)
[2019-01-09] MEDS: metFORMIN 500 MG TAB PO SCH ×2 (07:55→16:21)
--- NOTE | 2019-01-09 09:47 | P.PN ---
Progress Note - Text Interval history: The patient is found in the self lounge. An attempt was made to speak with him but again he refuses. He begins to tell me that he lost his eyeglasses. When we started to discuss a plan for finding them he became agitated and began yelling profanities directed towards me. As the patient was verbally escalating the interaction was terminated. The patient is observed ambulating in the hallways talking to peers and staff. He has been complying with medication orally. Mental status exam: The patient is a thin male he is dressed in his own clothing he is a disheveled appearance. He has a staring eye contact. He was very quickly agitated and irritable. As noted he began yelling profanities. He could not be verbally redirected to continue our interaction. He continues to demonstrate symptoms of louise and psychosis. He is observed accusing other peers of being evil. He makes other accusation statements. Insight and judgment are poor. He demonstrates no involuntary repetitive movements. The patient would not cooperate with any questions pertaining to safety risk or cognitive screening. Impression/plan: Ongoing symptoms of louise psychosis rule out neurocognitive symptoms, the patient will continue on his current medications. He plan to titrate the Clozaril further and decrease the invega. Vital signs reviewed. We continue to monitor his by mouth intake. Fortunately he was able to sleep 5 hours straight last evening and we'll track that further. He requires continued psychiatric hospital due to the severe nature to symptoms.
[2019-01-09] MEDS: PALIPERIDONE 3 MG TAB.ER.24 PO SCH (21:01)
[2019-01-09] MEDS: clonazePAM 1 MG TAB PO SCH (21:01)
[2019-01-10] MEDS: metFORMIN 500 MG TAB PO SCH ×2 (07:46→16:58)
[2019-01-10] MEDS: TAMSULOSIN 0.4 MG CAP.ER.24H PO SCH (08:33)
[2019-01-10] MEDS: ATORVASTATIN 10 MG TAB PO SCH (08:33)
[2019-01-10] MEDS: cloZAPine 25 MG TAB PO SCH ×2 (08:33→16:58)
--- NOTE | 2019-01-10 10:02 | P.PN ---
Progress Note - Text Interval history: The patient's found in the hallway. Again he refuses to speak with me in an interview room. He states that he no longer needs glasses he no longer has to be on a fluid restriction. He again proceeds to make derogatory statements directed towards me. It appears he continues to comply with his medications. Staff reported he slept approximate 3 hours last evening. Mental status exam: The patient is observed ambulating in the hallway throughout the morning. He has a disheveled appearance he is carrying some of his belongings with him. He is observed participating in a conversation with a female peer and he appears to be hyper episcopal and he required some redirection. Insight and judgment are poor. He remains to have acute symptoms of psychosis with symptoms of louise. He is demonstrating no physical aggressiveness. Verbally he will get easily agitated and make profane statements. Plan: We will reduce the invega to 6 mg at bedtime claws role be increased to 25 mg twice daily and 100 mg at bedtime. Vital signs reviewed. The patient requires continued psychiatric hospitalization. Into need to monitor him for safety. Reality orientation is provided when possible.
[2019-01-10] MEDS: cloZAPine 100 MG TAB PO SCH (20:01)
[2019-01-10] MEDS: clonazePAM 1 MG TAB PO SCH (20:01)
[2019-01-10] MEDS: PALIPERIDONE 6 MG TAB.ER.24 PO SCH (20:01)
[2019-01-11] MEDS: ACETAMINOPHEN TAB 325 MG TAB PO PRN ×3 (05:27→20:17)
[2019-01-11] MEDS: TAMSULOSIN 0.4 MG CAP.ER.24H PO SCH (08:05)
[2019-01-11] MEDS: metFORMIN 500 MG TAB PO SCH ×2 (08:05→16:46)
[2019-01-11] MEDS: cloZAPine 25 MG TAB PO SCH ×2 (08:05→16:46)
[2019-01-11] MEDS: ATORVASTATIN 10 MG TAB PO SCH (08:05)
--- NOTE | 2019-01-11 11:02 | P.PN ---
Progress Note - Text Interval history: The patient is found the medical front desk specialist. Again upon approach the patient becomes verbally agitated. He makes numerous derogatory statements directed towards me and uses profanity. Unit staff need to be involved in verbally redirecting the patient. Staff continue to note that the patient will be quite disorganized and sometimes verbally agitated. He was asked to leave the therapy group today. Yesterday he tolerated groups better. Staff report he slept 6 hours last evening. He has been eating. Mental status exam: The patient is alert he has a disheveled appearance during our interactions the patient demonstrates an angry irritable affect he is loud and makes derogatory statements. He frequently uses profanity. He is unwilling to participate in a conversation as part of the daily psychiatric interview. Insight and judgment remain poor. He frequently requires redirection. He spontaneously describes a variety of paranoid and persecutory themes. His thoughts are poorly organized. Plan: The patient will continue on his current medication we will continue titrating the Clozaril. Staff report that he is experiencing sialorrhea and we will add 0.5 mg of Cogentin in the evening to try to ameliorate that. The patient is acutely symptomatic and requires continued psychiatric hospitalization. He is not appropriate for transition to a lesser level of care. Vital signs reviewed.
[2019-01-11] MEDS: ZIPRASIDONE 20 MG VIAL IM PRN (17:22)
[2019-01-11] MEDS: cloZAPine 100 MG TAB PO SCH (20:17)
[2019-01-11] MEDS: clonazePAM 1 MG TAB PO SCH (20:17)
[2019-01-11] MEDS: BENZTROPINE MESYLATE 0.5 MG TAB PO SCH (20:17)
[2019-01-11] MEDS: PALIPERIDONE 6 MG TAB.ER.24 PO SCH (20:17)
[2019-01-12] MEDS: ACETAMINOPHEN TAB 325 MG TAB PO PRN (04:38)
[2019-01-12] MEDS ORDERED: HALOPERIDOL 5 MG TAB PO STA (05:23)
[2019-01-12] MEDS: metFORMIN 500 MG TAB PO SCH ×2 (07:43→17:29)
[2019-01-12] MEDS: cloZAPine 25 MG TAB PO SCH ×3 (08:36→20:06)
[2019-01-12] MEDS: TAMSULOSIN 0.4 MG CAP.ER.24H PO SCH (08:36)
[2019-01-12] MEDS: ATORVASTATIN 10 MG TAB PO SCH (08:36)
--- NOTE | 2019-01-12 11:38 | P.PN ---
Progress Note - Text Interval history: The patient's found in his room. He remains agitated he refuses to participate in an interview this morning. He continues to make derogatory comments. Staff report he slept 4 hours. He requires frequent redirection. Mental status exam: The patient is an alert male. He has a disheveled appearance. He is observed ambulating in the hallway this morning. He is observed seated at the phone talking to himself earlier in the day. Currently he is in his room ambulating. He answers no questions. He demonstrates a disorganized thought process. He is irritable he uses derogatory statements. Insight and judgment are poor. He demonstrates no involuntary repetitive movements. Plan: The patient remains irritable with symptoms of louise and psychosis. We will titrate the claws role further increasing the bedtime dose to 125 mg. He will be due for a CBC with differential. Vital signs reviewed. We will monitor him for safety and encourage participation in the milieu appropriately. Reality orientation is provided when possible.
[2019-01-12] MEDS: clonazePAM 1 MG TAB PO SCH (20:06)
[2019-01-12] MEDS: BENZTROPINE MESYLATE 0.5 MG TAB PO SCH (20:06)
[2019-01-12] MEDS: PALIPERIDONE 6 MG TAB.ER.24 PO SCH (20:07)
[2019-01-13] MEDS: metFORMIN 500 MG TAB PO SCH ×2 (07:44→16:00)
[2019-01-13] MEDS: ATORVASTATIN 10 MG TAB PO SCH (07:44)
[2019-01-13] MEDS: cloZAPine 25 MG TAB PO SCH ×3 (07:44→20:27)
[2019-01-13] MEDS: TAMSULOSIN 0.4 MG CAP.ER.24H PO SCH (07:44)
--- NOTE | 2019-01-13 11:09 | P.PN ---
Progress Note - Text Interval history: The patient is found seated at a table in the hallway. He is offered an opportunity to meet with me to discuss his care. He immediately begins making derogatory statements and using profanity. Staff report he continues to demonstrate the same agitated behavior with them. Sleep at night remains impaired the record he slept approximately 3 hours. He is observed earlier in the day seated in the hallway speaking to himself as if he is carrying on a conversation. Mental status exam: The patient is a thin male appearing older than his stated age. He seated in the chair he has a disheveled appearance his upper dentures are not secure and are falling as he speaks. He has an agitated irritable affect. He makes numerous derogatory statements and uses profanity. He cannot be verbally redirected in an effort to try to have her conversation with him. He spontaneously describes paranoid persecutory thoughts. His insight and judgment are poor. Unable to formally assess his cognitive status at this time with questioning. He demonstrates no abnormal involuntary movements. He appears tired but he is not lethargic. Plan: Ongoing acute symptoms of louise and psychosis, we will continue to titrate the Clozaril. He remains acutely symptomatic he is not appropriate for transition to a lesser level of care. Vital signs reviewed. He is due for a CBC with differential today. We will monitor him for safety. We will provide reality orientation when possible.
[2019-01-13 14:03] LABS: Basophils % (A) 0 %; Eosinophils # (A) 0.1 k/uL (0-0.7); Eosinophils % (A) 1 %; HGB 13.8 gm/dL (13.0-17.5); Lymphocytes # (A) 1.1 k/uL (1.0-4.8); Lymphocytes % (A) 10 %; MCH 28.6 pg (25.0-35.0); MCHC 32.1 g/dL (31.0-37.0); Mean Platelet Volume 6.6; Monocytes # (A) 0.9 k/uL (0-1.0); Monocytes % (A) 8 %; Neutrophils # (A) 8.8 k/uL (1.3-7.7); Neutrophils % (A) 79 %; Platelet Count 430 k/uL (150-450); RBC 4.83 m/uL (4.30-5.90); RDW 15.3 % (11.5-15.5); WBC 11.1 k/uL (3.8-10.6)
[2019-01-13 14:17] LABS: ALT 43 U/L (21-72); AST 31 U/L (17-59); African American GFR (CKD) >90 (>60 ml/min/1.73 sqM); Albumin 3.8 g/dL (3.5-5.0); Alkaline Phosphatase 59 U/L (38-126); Anion Gap 10 mmol/L; Blood Urea Nitrogen 19 mg/dL (9-20); Calcium 9.2 mg/dL (8.4-10.2); Carbon Dioxide 28 mmol/L (22-30); Chloride 98 mmol/L (98-107); Glucose 119 mg/dL (74-99); Potassium 4.1 mmol/L (3.5-5.1); Sodium 136 mmol/L (137-145); Total Bilirubin 0.5 mg/dL (0.2-1.3); Total Protein 6.8 g/dL (6.3-8.2)
[2019-01-13] MEDS: ACETAMINOPHEN TAB 325 MG TAB PO PRN (19:48)
[2019-01-13] MEDS: PALIPERIDONE 6 MG TAB.ER.24 PO SCH (20:27)
[2019-01-13] MEDS: clonazePAM 1 MG TAB PO SCH (20:27)
[2019-01-13] MEDS: BENZTROPINE MESYLATE 0.5 MG TAB PO SCH (20:28)
[2019-01-14] MEDS: TAMSULOSIN 0.4 MG CAP.ER.24H PO SCH (07:32)
[2019-01-14] MEDS: cloZAPine 25 MG TAB PO SCH ×3 (07:32→20:14)
[2019-01-14] MEDS: ATORVASTATIN 10 MG TAB PO SCH (07:32)
[2019-01-14] MEDS: metFORMIN 500 MG TAB PO SCH ×2 (07:32→18:41)
[2019-01-14] MEDS: ACETAMINOPHEN TAB 325 MG TAB PO PRN (07:34)
--- NOTE | 2019-01-14 09:13 | P.PN ---
Progress Note - Text Interval history: The patient's found the front desk supervisor he refuses to speak to me in an interview room. Upon approach he states angrily "put somebody else on a fluid restriction you asshole". He goes on to make several other derogatory comments. Patient's labs are reviewed sodium level 136, he has a mild leukocytosis he is afebrile. Staff documented that he slept 5 hours last evening. Mental status exam: The patient is a tall thin male he is a disheveled appearance he is dressed in his own clothing. He standing at the desk talking to himself. As noted he continues to be irritable and agitated upon approach. He makes derogatory statements directed towards myself staff and other peers. He does not cooperate in answering questions. He frequently requires verbal redirection. Insight and judgment remain poor. He continues to ambulate in the same fashion without ataxia. He demonstrates no involuntary repetitive movements. Plan: The patient remains acutely psychotic and manic. Rule out neurocognitive symptoms. We'll plan to continue titrating the Clozaril. We will continue to monitor his adherence to his ADLs his by mouth intake. We will monitor for any sedation that is excessive or hypotension. He requires psychiatric hospitalization for acute safety reasons. We will continue to provide reality o rientation when possible.
[2019-01-14] MEDS: MAGNESIUM HYDROXIDE 2,400 MG/10 ML CUP PO PRN (18:32)
[2019-01-14] MEDS: PALIPERIDONE 6 MG TAB.ER.24 PO SCH (20:13)
[2019-01-14] MEDS: BENZTROPINE MESYLATE 0.5 MG TAB PO SCH (20:13)
[2019-01-14] MEDS: clonazePAM 1 MG TAB PO SCH (20:13)
[2019-01-15] MEDS: ACETAMINOPHEN TAB 325 MG TAB PO PRN (02:35)
[2019-01-15] MEDS: ZIPRASIDONE 20 MG VIAL IM PRN (02:39)
[2019-01-15] MEDS: metFORMIN 500 MG TAB PO SCH ×2 (07:57→16:46)
[2019-01-15] MEDS: TAMSULOSIN 0.4 MG CAP.ER.24H PO SCH (08:16)
[2019-01-15] MEDS: ATORVASTATIN 10 MG TAB PO SCH (08:16)
[2019-01-15] MEDS: cloZAPine 25 MG TAB PO SCH ×3 (08:16→20:50)
--- NOTE | 2019-01-15 11:57 | P.PN ---
Progress Note - Text Interval history: The patient is found in the hallway. Again an effort was made to interview him. He refuses interview and again begins yelling derogatory statements. Later in the morning he tries to prevent another patient from seeing me as he is yelling profanities. He frequently requires redirection from staff. Staff report that he did take a long nap yesterday he is getting sleep during parts of the day. Sleep can still be impaired at night. Mental status exam: The patient is a male appearing older than his stated age. He has a disheveled appearance. He is observed ambulating in the hallway slowly throughout the morning. He is observed eating breakfast alone in the hallway talking himself as well. Whenever he notices my presence he against making derogatory statements and uses profanity. He approached my office looking to the window gesturing and yelling. He continues to spontaneously describe paranoid persecutory thinking. Thought process is poorly organized. Insight and judgment are poor. Again he tolerates no questions from me in an attempt to interview him. Plan: The patient remains acutely psychotic and manic and is agitated. As a recap, Prior to coming to our facility he was hospitalized for 7 weeks on an inpatient psychiatric unit recently. He had failed Abilify and was concurrently on Depakote. We continued the Depakote for a portion of this hospitalization and added invega titrating the Invega dose. 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 The Depakote was discontinued. There was some regression in the patient's behavior after discontinuing the Depakote. It was decided that the invega was providing suboptimal benefit and clozapine was initiated. We are currently in the process of titrating clozapine to a therapeutic dose. The invega has been lowered as we plan to taper off of it as we increased clozapine. The patient has failed several other psychotropics in the past including lithium. Tegretol and Trileptal would be of concern due to their possible side effect of hyponatremia as well. I have been in contact with the patient's sister who resides in [place]. I have contacted the patient's outpatient psychiatrist who has worked with him for the last 5 years. His outpatient psychiatrist felt that the mood stabilizers alone seemed to be ineffective and he recommended pursuing the most appropriate antipsychotic during this hospitalization. The patient had been independently living prior to his hospitalizations but at this time of course we feel that is inappropriate given his current state. We have asked that a guardian be appointed by the court.
--- NOTE | 2019-01-15 12:38 | XR ---
KUB HISTORY: Abdominal pain Frontal KUB and 2 images Lung bases are clear. There is a spinal curvature. Retained fecal debris present throughout the distr ibution of the colon. Degenerative disc changes in the visualized spine. Bone mineralization is rubina l. No evident pneumoperitoneum or bowel obstruction. No evident pathologic calcification although the exam is limited technically. impression: Correlate for fecal stasis. Scoliosis and degenerative disc disease.
[2019-01-15] MEDS: PALIPERIDONE 6 MG TAB.ER.24 PO SCH (20:50)
[2019-01-15] MEDS: clonazePAM 1 MG TAB PO SCH (20:50)
[2019-01-15] MEDS: BENZTROPINE MESYLATE 0.5 MG TAB PO SCH (20:50)
[2019-01-16] MEDS: ACETAMINOPHEN TAB 325 MG TAB PO PRN (01:31)
[2019-01-16] MEDS: ZIPRASIDONE 20 MG VIAL IM PRN ×2 (04:00→13:50)
[2019-01-16] MEDS: TAMSULOSIN 0.4 MG CAP.ER.24H PO SCH (06:19)
[2019-01-16] MEDS: ATORVASTATIN 10 MG TAB PO SCH (06:19)
[2019-01-16] MEDS: cloZAPine 25 MG TAB PO SCH ×3 (06:19→19:55)
[2019-01-16] MEDS: metFORMIN 500 MG TAB PO SCH ×2 (06:19→17:02)
--- NOTE | 2019-01-16 12:27 | P.PN ---
Progress Note - Text Progress Note Date: 01/16/19 Interval history: Patient is seen in cross coverage today. He reports that he didn't eat that well the past couple days because he felt like he had the flu but it seems to be better today. He does not verbalize any adverse psychotropic medication side effects. Mental status exam: He is alert and cooperative with the interview. He does not show any current agitation. His thought processes show some disorganization. His mood he described as up and down and then "great." He denies any thoughts of harm to self or others. He makes reference to his physician as being "sent from hell" and "evil." There is some grandiose elements. Plan: Patient will be maintained on current psychotropic medication regimen. Continue to monitor for any medication side effects and monitor for mood and psychosis symptoms. We'll continue to cover this patient through the weekend.
[2019-01-16] MEDS: LACTULOSE 20 GM/30 ML CUP PO SCH ×2 (15:52→23:05)
[2019-01-16] MEDS: PALIPERIDONE 6 MG TAB.ER.24 PO SCH (19:55)
[2019-01-16] MEDS: BENZTROPINE MESYLATE 0.5 MG TAB PO SCH (19:55)
[2019-01-16] MEDS: clonazePAM 1 MG TAB PO SCH (19:55)
[2019-01-17] MEDS: ACETAMINOPHEN TAB 325 MG TAB PO PRN (06:09)
[2019-01-17] MEDS: ZIPRASIDONE 20 MG VIAL IM PRN (06:55)
[2019-01-17] MEDS: ATORVASTATIN 10 MG TAB PO SCH (07:46)
[2019-01-17] MEDS: TAMSULOSIN 0.4 MG CAP.ER.24H PO SCH (07:46)
[2019-01-17] MEDS: cloZAPine 25 MG TAB PO SCH ×3 (07:46→20:28)
[2019-01-17] MEDS: LACTULOSE 20 GM/30 ML CUP PO SCH ×3 (07:46→21:22)
[2019-01-17] MEDS: metFORMIN 500 MG TAB PO SCH ×2 (07:46→16:55)
[2019-01-17] MEDS ORDERED: NA PHOS,M-B/NA PHOS,DI-BA 133 ML ENEMA RECTAL ONE (11:35)
[2019-01-17] MEDS ORDERED: clonazePAM 0.5 MG TAB PO STA ×2 (11:39→18:25)
--- NOTE | 2019-01-17 11:39 | P.PN ---
Progress Note - Text Progress Note Date: 01/17/19 Interval history: Patient is seen again in cross coverage today. Per staff patient escalating this morning and focused on some peers. He is agreeable to come to the interview room. He seems to relay that he sleeping and eating okay. He has not verbalize any adverse psychotropic medication side effects. Mental status exam: He is alert and cooperative with the interview. His thought processes are showing some disorganization. His mood he describes as "excellent." He does not report any hallucinations. He denies any thoughts of harm to self or others. He does not show any agitation. He is oriented to month and year. He says the date as the ninth or 10th. He is oriented to place . He is noted to have some drooling. Plan: We'll maintain current psychotropic medication regimen. Continue to monitor for medication side effects and monitor his ongoing response to treatment. Continue to monitor for psychosis symptoms or any agitation.
[2019-01-17] MEDS: PALIPERIDONE 6 MG TAB.ER.24 PO SCH (20:27)
[2019-01-17] MEDS: clonazePAM 0.5 MG TAB PO SCH (20:28)
[2019-01-17] MEDS: BENZTROPINE MESYLATE 0.5 MG TAB PO SCH (20:28)
[2019-01-18] MEDS: metFORMIN 500 MG TAB PO SCH ×2 (08:08→16:29)
[2019-01-18] MEDS: ATORVASTATIN 10 MG TAB PO SCH (08:09)
[2019-01-18] MEDS: cloZAPine 25 MG TAB PO SCH (08:09)
[2019-01-18] MEDS: LACTULOSE 20 GM/30 ML CUP PO SCH ×3 (08:09→21:36)
[2019-01-18] MEDS: TAMSULOSIN 0.4 MG CAP.ER.24H PO SCH (08:09)
--- NOTE | 2019-01-18 16:16 | PN ---
PROGRESS NOTE DATE OF SERVICE: 01/18/2019. CHIEF COMPLAINT: The patient had manic and psychotic symptoms. He had disorganized thoughts and behavior. INTERVAL HISTORY: Patient has been doing fair. The patient has been doing fair. He had a quiet evening last night. Staff documented that he slept 3 hours last night. Today he has been up. He comes out in the day area. Earlier in the day, he has been on 1 on 1 due to impulsive behavior. At times he can get intense. He makes express some paranoid thoughts about others on the unit. At that time, he can have some pressured speech, though will be somewhat disorganized in his thoughts. At other times, his thinking is clear and he relates appropriately. He has been cooperative with care. He tolerates his psychotropic medications. MENTAL STATUS: Patient was restless. He answered questions with brief responses. Some of the times, he murmured and it was hard to understand what he was saying. At other times, he could communicate appropriately. His affect was somewhat intense, though not significantly so. His mood was even. He did not appear to be significantly distressed. Whether or not he was experiencing any internal stimuli was hard to say. ASSESSMENT: I will continue the current diagnosis and treatment plan. I will continue to titrate up on his clozapine. I will increase his dose to 50 mg in the morning, 50 mg at 5:00 pm and 200 mg at bedtime. I will discontinue Klonopin. I will reduce Invega to 3 mg a day. Cogentin will be discontinued. I reviewed medication issues with the patient. We will continue to focus on stabilization and discharge planning. SANDRA / TOPHER: [id number] /
[2019-01-18] MEDS ORDERED: cloZAPine 25 MG TAB PO SCH (17:00)
[2019-01-18] MEDS ORDERED: clonazePAM 0.5 MG TAB PO STA ×2 (17:41)
[2019-01-18] MEDS: ACETAMINOPHEN TAB 325 MG TAB PO PRN (17:51)
[2019-01-18] MEDS: clonazePAM 0.5 MG TAB PO SCH (20:14)
[2019-01-18] MEDS ORDERED: PALIPERIDONE 3 MG TAB.ER.24 PO SCH (21:00)
[2019-01-18] MEDS ORDERED: cloZAPine 100 MG TAB PO SCH ×2 (21:00)
[2019-01-19] MEDS: ACETAMINOPHEN TAB 325 MG TAB PO PRN ×3 (06:16→16:16)
[2019-01-19] MEDS: TAMSULOSIN 0.4 MG CAP.ER.24H PO SCH (08:03)
[2019-01-19] MEDS: cloZAPine 25 MG TAB PO SCH (08:04)
[2019-01-19] MEDS: ATORVASTATIN 10 MG TAB PO SCH (08:04)
[2019-01-19] MEDS: LACTULOSE 20 GM/30 ML CUP PO SCH ×3 (08:04→20:06)
[2019-01-19] MEDS: metFORMIN 500 MG TAB PO SCH ×2 (08:04→16:08)
--- NOTE | 2019-01-19 10:38 | PN ---
PROGRESS NOTE DATE OF SERVICE: 01/19/2019 CHIEF COMPLAINT: The patient had manic and psychotic symptoms. He had disorganized thoughts and behavior. INTERVAL HISTORY: The patient has been doing fair. He continues with disorganized thoughts and behavior. For the most part, he can maintain some level of calmness. His periods of getting distressed, seem to be a little more contained. He had a situation last evening around 6 p.m. where he became anxious and distressed. He was hitting his hand on the desk saying he needed something for anxiety. The on-call doctor was called and he received Klonopin 0.5 mg one time. He is cooperative with taking his medications. It was documented that he slept 5 hours last night. Today he has been up. He wonders about. He was able to be coaxed into attending a group where he sat for about 10 minutes before leaving. Today he has had a fairly quiet manner. Sometimes he talks clearly and appropriately and will respond to questions then he may make remarks that are disconnected. He tolerates his psychotropic medications. MENTAL STATUS: Patient gave fair eye contact. He answered some questions appropriately with clear thoughts. He made some disorganized statements. His affect was a little more contained compared to previous days. His mood was even. He may have showed some signs of elevated mood. It is difficult to assess whether or not thought disorder is present. He is oriented and alert. ASSESSMENT: I will continue the current diagnosis and treatment plan. We will continue to make efforts to engage the patient in individual and group therapeutic activities. I will continue to titrate up on his clozapine. He will receive clozapine 50 mg in the morning and 325 mg at bedtime. Invega will be discontinued. I will add Klonopin 0.5 mg twice a day p.r.n. for agitation. We will continue to focus on stabilization and discharge planning. MMODL / IJN: [id number] /
[2019-01-19] MEDS: BENZTROPINE MESYLATE 1 MG TAB PO SCH ×2 (10:57→20:06)
[2019-01-19] MEDS: clonazePAM 0.5 MG TAB PO PRN (11:56)
[2019-01-19] MEDS ORDERED: cloZAPine 100 MG TAB PO SCH (21:00)
[2019-01-19] MEDS ORDERED: cloZAPine 25 MG TAB PO SCH (21:00)
[2019-01-20] MEDS: clonazePAM 0.5 MG TAB PO PRN ×3 (00:55→19:44)
--- NOTE | 2019-01-20 07:17 | P.PN ---
Subjective Progress Note Date: 01/20/19 Principal diagnosis: I was called by RN to evaluate pain in the right foot Patient has been on the mental health unit for 1.5 months, today he was complaining of pain in his right foot when the nurse evaluated the patient she noticed superficial ulcer and swelling with deformity of the right second toe. Patient has component of mild cognitive impairment and he didn't complain of that toenail. No reports of fevers. No active bleeding or drainage. Patient is not aware when this started. Patient reports uncomfortable shoes that he got from donation. Objective - Vital Signs Vital signs: Vital Signs Temp 98 F 01/20/19 06:00 Pulse 97 01/20/19 06:00 Resp 18 01/20/19 06:00 BP 127/66 01/20/19 06:00 Pulse Ox 98 01/15/19 06:57 - Exam Examination of the feet Bilateral feet got hammertoes. Left foot otherwise is unremarkable. Right foot has deformity of the second toe with superficial ulceration and mild swelling with erythema and no induration no active drainage or bleeding mild to moderate tenderness to palpation no swelling otherwise of the right foot, capillary refill is immediate bilaterally - Labs CBC & Chem 7: 01/13/19 13:45 01/13/19 13:45 Assessment and Plan Plan: right 2nd toe cellulitis , r/o osteomyelitis hammer toes check ESR, CRP check right foot xray follow CBC keflex PO recommend to wear open shoes recommend to follow up with podiatry signed off to morning team, for follow up if osteomyelitis , patient will need transfer to medical
[2019-01-20] MEDS: metFORMIN 500 MG TAB PO SCH ×2 (08:28→17:46)
[2019-01-20] MEDS: BENZTROPINE MESYLATE 1 MG TAB PO SCH ×2 (08:28→21:03)
[2019-01-20] MEDS: LACTULOSE 20 GM/30 ML CUP PO SCH ×3 (08:28→23:00)
[2019-01-20] MEDS: TAMSULOSIN 0.4 MG CAP.ER.24H PO SCH (08:28)
[2019-01-20] MEDS: CEPHALEXIN 500 MG CAP PO SCH ×4 (08:29→21:03)
[2019-01-20] MEDS: cloZAPine 25 MG TAB PO SCH (08:29)
[2019-01-20] MEDS: ATORVASTATIN 10 MG TAB PO SCH (08:29)
--- NOTE | 2019-01-20 09:47 | XR ---
EXAMINATION TYPE: XR foot complete RT DATE OF EXAM: 01/20/2019 COMPARISON: NONE HISTORY: Pain TECHNIQUE: Three views are submitted. FINDINGS: The osseous structures are intact. There is no acute fracture or dislocation. Severe arthropathy o f the first MTP. Chronic deformities of the DIP joints. IMPRESSION: 1. No acute fracture or dislocation. If symptoms persist, follow-up exam in 7 to 10 days could be ob tained. 2. Severe arthropathy first MTP joint. Chronic deformities involving the DIP joints of the second thr ough fourth digits.
[2019-01-20 09:48] LABS: Basophils # (A) 0.1 k/uL (0-0.2); Basophils % (A) 1 %; Eosinophils # (A) 0.2 k/uL (0-0.7); Eosinophils % (A) 2 %; HCT 40.2 % (39.0-53.0); HGB 12.8 gm/dL (13.0-17.5); Lymphocytes % (A) 11 %; MCH 28.4 pg (25.0-35.0); MCHC 31.7 g/dL (31.0-37.0); MCV 89.4 fL (80.0-100.0); Mean Platelet Volume 7.1; Monocytes # (A) 0.5 k/uL (0-1.0); Monocytes % (A) 6 %; Neutrophils # (A) 7.3 k/uL (1.3-7.7); Neutrophils % (A) 79 %; Platelet Count 431 k/uL (150-450); RDW 15.9 % (11.5-15.5); WBC 9.2 k/uL (3.8-10.6)
[2019-01-20 10:04] LABS: African American GFR (CKD) >90 (>60 ml/min/1.73 sqM); Anion Gap 10 mmol/L; Blood Urea Nitrogen 16 mg/dL (9-20); C Reactive Protein 17.8 mg/L (<10.0); Calcium 9.6 mg/dL (8.4-10.2); Carbon Dioxide 29 mmol/L (22-30); Chloride 100 mmol/L (98-107); Glucose 184 mg/dL (74-99); Potassium 4.2 mmol/L (3.5-5.1); Sodium 139 mmol/L (137-145)
[2019-01-20 11:01] LABS: Erythrocyte Sedimentation Rate 30 mm/hr (0-15)
--- NOTE | 2019-01-20 16:09 | PN ---
PROGRESS NOTE DATE OF SERVICE: 01/20/2019. CHIEF COMPLAINT: The patient had manic and psychotic symptoms. He had disorganized thoughts and behavior. INTERVAL HISTORY: Patient has been doing fair. He had a quiet evening last night. He wondered about the unit. He will interact with staff and peers. Sometimes he gets irritable. He can be repetitive in things he talks about. He slept 4 hours last night. Today he has been up. It is noteworthy that he attended 1 group today where the therapist noted him to be fairly on track in the group. He was focused on some appropriate concerns and issues. He would make some random comments that were tangential, though overall he seemed to be more contained in his thoughts. This afternoon, he has been wandering quite a bit. He can get somewhat intense about the idea of wanting to leave. Still he is much more contained in how he has been functioning. Nursing did note that this morning first thing he was up pounding on the medication window asking for his medications. Other than that, he has not had any intense behavior. He tolerates his psychotropic medications. MENTAL STATUS: Patient has been wandering quite a bit. When I talked to him, he would be restless. He gave fair eye contact. He approached me several different times to talk. Most of what he asked about was discharged and going home. His affect was somewhat intense. His mood was elevated. He did not appear to be significantly distressed, though he did present with some anxiety about the idea of feeling that he should be discharged by now. He was oriented to his circumstances and surroundings. ASSESSMENT: I will continue the current diagnosis and treatment plan. I will increase his Clozaril up to a total of 450 mg a day. He will receive 50 mg in the morning, 400 at bedtime. There does seem to be some indication that he is showing a little progress with treatment. I will order a clozapine level. We will continue to focus on stabilization and discharge planning. MMMIGUEL / IJN: [id number] /
[2019-01-20] MEDS: ACETAMINOPHEN TAB 325 MG TAB PO PRN (19:44)
[2019-01-20] MEDS ORDERED: cloZAPine 100 MG TAB PO SCH (21:00)
[2019-01-20] MEDS ORDERED: NA PHOS,M-B/NA PHOS,DI-BA 133 ML ENEMA RECTAL ONE (22:44)
[2019-01-21] MEDS: ACETAMINOPHEN TAB 325 MG TAB PO PRN (05:15)
[2019-01-21 06:54] LABS: Clozapine (Clozaril) 189 ng/mL (200-700); Norclozapine 128 ng/mL (200-700)
--- NOTE | 2019-01-21 07:40 | XR ---
EXAMINATION TYPE: XR KUB DATE OF EXAM: 01/21/2019 COMPARISON: NONE HISTORY: Abdominal distention TECHNIQUE: One view abdominal series FINDINGS: The osseous structures are intact. The bowel gas pattern is nonspecific. Retained fecal debris throu ghout the colon. Correlate for constipation. Curvature and degenerative change spine. IMPRESSION: 1. Nonspecific abdomen correlate for constipation.
[2019-01-21] MEDS: CEPHALEXIN 500 MG CAP PO SCH ×4 (07:53→21:10)
[2019-01-21] MEDS: ATORVASTATIN 10 MG TAB PO SCH (07:53)
[2019-01-21] MEDS: TAMSULOSIN 0.4 MG CAP.ER.24H PO SCH (07:53)
[2019-01-21] MEDS: LACTULOSE 20 GM/30 ML CUP PO SCH ×3 (07:54→21:11)
[2019-01-21] MEDS: BENZTROPINE MESYLATE 1 MG TAB PO SCH ×2 (07:54→21:10)
[2019-01-21] MEDS: cloZAPine 25 MG TAB PO SCH (07:54)
[2019-01-21] MEDS: metFORMIN 500 MG TAB PO SCH ×2 (07:54→18:08)
[2019-01-21] MEDS: clonazePAM 0.5 MG TAB PO PRN ×2 (09:22→16:39)
[2019-01-21] MEDS: MAG HYDROX/AL HYDROX/SIMETH 30 ML CUP PO PRN (11:08)
--- NOTE | 2019-01-21 12:01 | PN ---
PROGRESS NOTE DATE OF SERVICE: 01/21/2019 CHIEF COMPLAINT: The patient had manic and psychotic symptoms. He had disorganized thoughts and behavior. INTERVAL HISTORY: Patient has been doing fair. He had a quiet evening last night. He wanders about the unit. He will talk quite a bit. Sometimes he just mumbles to himself at other times he will talk to staff. Much of the time when he talks, he talks in a soft voice in a mumbling manner and it is hard to really understand what he is saying. He slept fair. Today he has been up. He comes out in the day area. He mostly keeps to himself. He will come to the desk. He will interact with staff. Generally he has a calm manner. He has not had too many episodes of getting intense. One of tech staff noted that she felt yesterday was the best stay that he has had where he had a fairly calm manner. He was reasonably organized in his thoughts. When he tried to communicate, he had a calm manner. Today he is doing about the same. He makes comments about being discharged, though he also seems to accept the fact that he does not have a place to live at this point. He is encouraged to come to groups, though mostly he chooses not to. He did spend a short period of time in a group yesterday. He tolerates his psychotropic medications. MENTAL STATUS: Patient was in the day area. He also came into my office a couple different times. He would respond to some questions appropriately. He also talked quite a bit in a soft mumbling voice that was difficult to understand what he was saying. He followed directions when he would be redirected to alternative activities. He had a calm manner. His affect was in a reasonable range. He did not appear to be distressed. His mood was even. ASSESSMENT: I will continue the current diagnosis and treatment plan. His clozapine level yesterday at 1600 hours was 189. I will increase his clozapine dose to 50 mg in the morning, 500 mg in the evening. I will add Haldol 5 mg 3 times a day. I reviewed medication issues with the patient. We noted that his clozapine level which would have been about 300 mg a day is in the lower range. Would aim to have his clozapine level above 400. We will continue to focus on stabilization and discharge planning. MMODL / IJN: [id number] /
[2019-01-21] MEDS: HALOPERIDOL 5 MG TAB PO SCH ×3 (12:42→21:11)
[2019-01-21] MEDS: cloZAPine 100 MG TAB PO SCH (21:10)
[2019-01-21] MEDS ORDERED: POLYETHYLENE GLYCOL LYTES SOLN 4,000 ML SOLN.RECON PO ONE (22:20)
[2019-01-22] MEDS: ATORVASTATIN 10 MG TAB PO SCH (07:53)
[2019-01-22] MEDS: HALOPERIDOL 5 MG TAB PO SCH ×3 (07:53→20:11)
[2019-01-22] MEDS: BENZTROPINE MESYLATE 1 MG TAB PO SCH ×2 (07:53→20:07)
[2019-01-22] MEDS: CEPHALEXIN 500 MG CAP PO SCH ×4 (07:53→20:08)
[2019-01-22] MEDS: metFORMIN 500 MG TAB PO SCH ×2 (07:53→16:20)
[2019-01-22] MEDS: cloZAPine 25 MG TAB PO SCH (07:53)
[2019-01-22] MEDS: TAMSULOSIN 0.4 MG CAP.ER.24H PO SCH (07:54)
[2019-01-22] MEDS: LACTULOSE 20 GM/30 ML CUP PO SCH ×3 (07:54→20:11)
[2019-01-22] MEDS ORDERED: BISACODYL 5 MG TABLET.DR PO STA (08:01)
--- NOTE | 2019-01-22 08:15 | P.CONS ---
History of Present Illness - Reason for Consult Consult date: 01/22/19 constipation Requesting physician: Christina Alan - Chief Complaint constipation - History of Present Illness 63-year-old gentleman admitted 50+ days ago with manic psychotic symptoms disorganized thoughts and behavior underlying history of bipolar, schizophrenia, diabetes, HTN. Request for constipation evaluation. According to the staff patient hasn't had a witnessed bowel movement for some time. Patient keeps telling staff he is having bowel movements. Patient refuses oral laxatives as well as suppositories and enemas. KUB retained fecal debris throughout the colon. Patient's abdomen is distended and firm. No emesis or fever. When asked patient denies significant abdominal pain. White count 9.2. Hemoglobin 12.8. Sodium 139. Potassium 4.2. Review of Systems Patient is wondering on unit will not provide review of systems. Medical record review. Constitutional: Denies fever, chills, sweats, weight gain, or loss. HEENT: Negative for migraines, blurred vision or loss, earaches, drainage, tinnitus, oral mucosal lesions, dysphagia, or odynophagia. Cardiac: Negative for chest pain, arrhythmias, or palpitation. Respiratory: Negative for shortness of breath, hemoptysis, cough, or sputum production. Gastrointestinal: See HPI for pertinent findings. Genitourinary: Negative for hematuria, urgency, frequency, polyuria, dysuria, or penile discharge. Musculoskeletal: Negative for muscle aches, swelling, arthritis, and arthralgias. Neurologic: Negative for stroke or TIA. Endocrine: Negative for thyroid problems. Skin: Negative for rash or itching. Psychiatric: Admitted with psychotic reticulocyte symptoms. History of schizophrenia. Past Medical History Past Medical History: Diabetes Mellitus, Hyperlipidemia History of Any Multi-Drug Resistant Organisms: None Reported Past Surgical History: Orthopedic Surgery Additional Past Surgical History / Comment(s): Bilateral knees Past Anesthesia/Blood Transfusion Reactions: No Reported Reaction Past Psychological History: Bipolar, Schizophrenia Additional Psychological History / Comment(s): Schizophrenia Smoking Status: Current every day smoker Past Alcohol Use History: None Reported Past Drug Use History: None Reported Medications and Allergies Home Medications Medication Instructions Recorded Confirmed Type ARIPiprazole [Abilify Maintena] 300 mg IM Q30D 11/25/18 11/27/18 History Atorvastatin [Lipitor] 10 mg PO DAILY 11/25/18 11/27/18 History Divalproex Sodium [Depakote] 125 mg PO DAILY 11/25/18 11/27/18 History Docusate Sodium [Dok] 100 mg PO BID 11/25/18 11/27/18 History Lactulose [Cephulac] 20 gm PO TID 11/25/18 11/27/18 History Nicotine 14Mg/24Hr Patch [Habitrol] 1 patch TRANSDERM DAILY 11/25/18 11/27/18 History Polyethylene Glycol 3350 [Clearlax] 17 gram PO DAILY 11/25/18 11/27/18 History QUEtiapine [SEROquel] 200 mg PO HS 11/25/18 11/27/18 History Tamsulosin [Flomax] 0.4 mg PO DAILY 11/25/18 11/27/18 History metFORMIN HCL [metFORMIN HCL ER 1,000 mg PO BID 11/25/18 11/27/18 History Osmotic] Allergies Allergy/AdvReac Type Severity Reaction Status Date / Time No Known Allergies Allergy Verified 11/27/18 15:14 Physical Exam Vitals: Vital Signs Temp Pulse Resp BP Pulse Ox 01/22/19 06:59 98.4 F 92 16 112/71 96 General appearance: The patient is alert, thoughts or disorganized. HET: Head is normocephalic and atraumatic. Pupils are equal and reactive. Oropharynx is clear without lesions. Neck: Supple without lymphadenopathy. Trachea midline. Heart: S1 S2. Regular rate and rhythm. Lungs: No crackles or wheezes are heard. Abdomen: Soft, distended palpable firmness consistent with constipation hypoactive bowel sounds. No peritoneal signs. No palpable organomegaly or masses. Extremities: Normal skin color and turgor. No cyanosis, rash, ulceration, c lubbing, or edema. Radial and pedal pulses are 2/4 bilaterally. Neurological: No focal deficits. Strength and sensation are grossly intact. Results CBC & Chem 7: 01/20/19 09:22 01/20/19 09:22 Labs: Microbiology - Last 24 Hours (Table) 01/20/19 09:22 Blood Culture - Preliminary Blood No Growth after 24 hours 01/20/19 09:28 Blood Culture - Preliminary Blood No Growth after 24 hours Abdominal x-ray: report reviewed (Dr. Dent) Assessment and Plan (1) Constipation Narrative/Plan: Severe constipation with underlying psychiatric manic behavior unwilling to take oral laxatives and enemas. Risk for bowel obstruction perforation and or ischemia. Current Visit: Yes Status: Acute Code(s): K59.00 - CONSTIPATION, UNSPECIFIED SNOMED Code(s): 61151128 (2) Psychiatric disorder Current Visit: No Status: Acute Code(s): F99 - MENTAL DISORDER, NOT OTHERWISE SPECIFIED SNOMED Code(s): 72612642 Plan: 1. Presently patient is walking around the unit with disorganized thoughts without symptoms of discomfort or severe abdominal pain. Multiple laxatives have been ordered however patient refuses. We will try MiraLAX mixed with patient's choice of drink every hour until bowel movement is induced considering he will not drink the GoLYTELY. Dulcolax 20 mg 1 now. Soapsuds enemas advised however patient is uncooperative at this time. 2. Dr. Bradley recommends general surgical consult. Thank you for this kind referral and the opportunity to participate in the care of your patient. This consultation was discussed with Dr. Bradley. The impression and plan of care have been directed as dictated.
[2019-01-22] MEDS: POLYETHYLENE GLYCOL 3350 17 GM POWD.PACK PO SCH ×4 (08:42→11:31)
[2019-01-22] MEDS: ACETAMINOPHEN TAB 325 MG TAB PO PRN (10:01)
[2019-01-22] MEDS: clonazePAM 0.5 MG TAB PO PRN ×2 (10:03→15:43)
--- NOTE | 2019-01-22 11:44 | PN ---
PROGRESS NOTE DATE OF SERVICE: 01/22/2019 CHIEF COMPLAINT: The patient had manic and psychotic symptoms. He had disorganized thoughts and behavior. INTERVAL HISTORY: Patient has been doing fair. He continues to have some ups and downs in how he functions. He will have periods where he can get intense, at other times he can be quite calm and cooperative. He has not had significant negative behaviors. Staff note that from a cognitive standpoint, he seems quite well aware of everything that is going on. He makes comments about his being in the hospital for 52 days. He describes specifics of his treatment. A major problem he is having right now his constipation with concern for possible bowel obstruction. He was seen this morning by EMILY Brewer, who provided recommendations including a surgical consult due to risk for bowel perforation. The patient slept fairly well last night. Today he has been up, he comes out in the day area. He wanders about. He has had trouble being in groups. Typically, there may be one thing that he might be uncomfortable with. He had a problem yesterday in 1 group relating to another patient he had started making some derogatory statements. He did not respond to staff support and was asked to leave the room, which he did. He continues to have fairly disorganized thoughts. He does have quite a bit of drooling, though otherwise appears to tolerate his psychotropic medications fairly well. MENTAL STATUS: Patient sat with some restlessness. He gave fair eye contact. He talked in a soft almost mumbling voice at times. He said quite a bit though, it was hard to understand much of what he said. When I asked him specific questions he would respond appropriately. He had a somewhat intense affect. His mood was mildly elevated. He did not appear to be significantly distressed. ASSESSMENT: I will continue the current diagnosis and treatment plan. I will continue psychotropic medications the same. I will order another clozapine level for Friday. We will get further support for his bowel issues including ordering a surgical consult. I anticipate that he would receive an enema this afternoon, though he has been resisting that. It is noted that his guardian was in agreement with the enema and that it may be medically necessary, if he does not show some improved bowel function through the early course of the day. Will continue to focus on stabilization and discharge planning. AMAURIL / GARFIELDN: [id number] /
[2019-01-22] MEDS ORDERED: NA PHOS,M-B/NA PHOS,DI-BA 133 ML ENEMA RECTAL STA (14:24)
[2019-01-22] MEDS ORDERED: OLANZapine 5 MG TAB PO ONE (17:15)
[2019-01-22] MEDS: cloZAPine 100 MG TAB PO SCH (20:07)
--- NOTE | 2019-01-22 21:19 | P.GSCN ---
History of Present Illness Consult date: 01/22/19 History of present illness: This 63-year-old male surgery was asked to consult for abdominal distention and constipation. Patient denies any nausea vomiting. He states his small bowel movement today he passed gas in our ago. He initially was not cooperating with the medications however she did take the enema and the MiraLAX and has apparently agreed to the GoLYTELY. Patient states she is chronically constipated. He has abdominal distention after every time he eats. He denies any abdominal pain. He has no other complaints at this time Past Medical History Past Medical History: Diabetes Mellitus, Hyperlipidemia History of Any Multi-Drug Resistant Organisms: None Reported Past Surgical History: Orthopedic Surgery Additional Past Surgical History / Comment(s): Bilateral knees Past Anesthesia/Blood Transfusion Reactions: No Reported Reaction Past Psychological History: Bipolar, Schizophrenia Additional Psychological History / Comment(s): Schizophrenia Smoking Status: Current every day smoker Past Alcohol Use History: None Reported Past Drug Use History: None Reported Medications and Allergies Home Medications Medication Instructions Recorded Confirmed Type ARIPiprazole [Abilify Maintena] 300 mg IM Q30D 11/25/18 11/27/18 History Atorvastatin [Lipitor] 10 mg PO DAILY 11/25/18 11/27/18 History Divalproex Sodium [Depakote] 125 mg PO DAILY 11/25/18 11/27/18 History Docusate Sodium [Dok] 100 mg PO BID 11/25/18 11/27/18 History Lactulose [Cephulac] 20 gm PO TID 11/25/18 11/27/18 History Nicotine 14Mg/24Hr Patch [Habitrol] 1 patch TRANSDERM DAILY 11/25/18 11/27/18 History Polyethylene Glycol 3350 [Clearlax] 17 gram PO DAILY 11/25/18 11/27/18 History QUEtiapine [SEROquel] 200 mg PO HS 11/25/18 11/27/18 History Tamsulosin [Flomax] 0.4 mg PO DAILY 11/25/18 11/27/18 History metFORMIN HCL [metFORMIN HCL ER 1,000 mg PO BID 11/25/18 11/27/18 History Osmotic] Allergies Allergy/AdvReac Type Severity Reaction Status Date / Time No Known Allergies Allergy Verified 11/27/18 15:14 Surgical - Exam Osteopathic Statement: *. No significant issues noted on an osteopathic structural exam other than those noted in the History and Physical/Consult. Vital Signs Temp Pulse Resp BP Pulse Ox 98.2 F 88 16 132/81 98 11/27/18 16:34 11/27/18 16:34 11/27/18 16:34 11/27/18 16:34 11/27/18 16:34 - General no distress - Respiratory normal expansion, normal respiratory effort - Cardiovascular Rhythm: regular - Abdomen distended nontender to palpation Abdomen: soft - Neurologic normal coordination, normal sensation - Psychiatric oriented to time, oriented to person, oriented to place Results - Labs 01/20/19 09:22 01/20/19 09:22 Microbiology - Last 24 Hours (Table) 01/20/19 09:22 Blood Culture - Preliminary Blood No Growth after 48 hours 01/20/19 09:28 Blood Culture - Preliminary Blood No Growth after 48 hours Assessment and Plan Assessment: Constipation, abdominal distention Plan: I agree with aggressive bowel movement regimen. Continue with enemas and suppositories lactulose GoLYTELY and MiraLAX. I discussed with the patient and he needs to follow this regimen and have some bowel movements. He likely has chronic constipation and dilatation of his colon secondary to the many psych meds that he takes. Patient has no pain at this time and is passing gas and having small bowel movements there is no plans or indication for acute surgical intervention. Continue to follow with GI. Thank you for consultation me on this patient
[2019-01-23] MEDS: clonazePAM 0.5 MG TAB PO PRN ×2 (02:43→10:18)
[2019-01-23] MEDS: cloZAPine 25 MG TAB PO SCH (08:22)
[2019-01-23] MEDS: CEPHALEXIN 500 MG CAP PO SCH ×4 (08:22→20:11)
[2019-01-23] MEDS: HALOPERIDOL 5 MG TAB PO SCH ×2 (08:22→15:33)
[2019-01-23] MEDS: BENZTROPINE MESYLATE 1 MG TAB PO SCH (08:22)
[2019-01-23] MEDS: metFORMIN 500 MG TAB PO SCH (08:22)
[2019-01-23] MEDS: ATORVASTATIN 10 MG TAB PO SCH (08:22)
[2019-01-23] MEDS: LACTULOSE 20 GM/30 ML CUP PO SCH ×3 (08:26→20:11)
[2019-01-23] MEDS: TAMSULOSIN 0.4 MG CAP.ER.24H PO SCH (10:13)
[2019-01-23] MEDS ORDERED: NA PHOS,M-B/NA PHOS,DI-BA 133 ML ENEMA RECTAL STA (11:13)
[2019-01-23] MEDS ORDERED: METOCLOPRAMIDE 5 MG TAB PO STA (11:17)
[2019-01-23] MEDS: POLYETHYLENE GLYCOL 3350 17 GM POWD.PACK PO SCH ×4 (12:09→14:21)
--- NOTE | 2019-01-23 15:20 | P.PN ---
Subjective Progress Note Date: 01/23/19 Principal diagnosis: Constipation Patient is a 63-year-old male known to the mental health unit was been having issues with severe abdominal distention and constipation. He was seen by GI and surgery yesterday. He had undergone one fleets enema, GoLYTELY, lactulose, and MiraLAX. On 01/21 he had undergone a KUB which showed retained fecal debris throughout the colon as well as nonspecific bowel gas pattern consistent with constipation. KUB reviewed by myself which shows diffuse fecal retention as well as dilated loops of bowel. This morning prior to seeing the patient had ordered additional doses of MiraLAX, Fleet enema, and Rezulin 1. We have to limit Reglan in this patient due to his multiple antipsychotic medications which could lead to extraparametal side effects. However due to his gross distention and worsening of his abdominal pain benefits were considered to out weigh risks in this situation. Patient seen and examined. He reports that he is having some abdominal cramping. He had a bowel movement 1 per staff. He has been passing gas. He denies any nausea or vomiting. He has been tolerating a clear liquid diet. He is not feeling hungry. Objective - Vital Signs Vital signs: Vital Signs Temp 97.7 F 01/23/19 02:30 Pulse 99 01/23/19 02:30 Resp 18 01/23/19 02:30 BP 109/68 01/23/19 02:30 Pulse Ox 96 01/22/19 06:59 Intake & Output 01/22/19 01/23/19 01/23/19 18:59 06:59 18:59 Other: # Bowel Movements 1 - Exam General: non toxic, no distress, appears at stated age, disheveled Derm: warm, dry Head: atraumatic, normocephalic, symmetric Eyes: EOMI, no lid lag, anicteric sclera Mouth: no lip lesion, mucus membranes moist Cardiovascular: S1S2 reg, no murmur, positive posterior tibial pulse bilateral, Lungs: decreased breath sounds bilateral, no rhonchi, no rales , no accessory muscle use Abdominal: soft, + tender to palpation RLQ and LLQ, no guarding, no appreciable organomegaly Ext: no gross muscle atrophy, no edema, no contractures Neuro: CN II-XI grossly intact, no focal neuro deficits Psych: Alert, not following all of conversation, easily angered - Labs CBC & Chem 7: 01/20/19 09:22 01/20/19 09:22 Labs: Microbiology - Last 24 Hours (Table) 01/20/19 09:22 Blood Culture - Preliminary Blood No Growth after 72 hours 01/20/19 09:28 Blood Culture - Preliminary Blood No Growth after 72 hours Assessment and Plan Assessment: 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 to assist with output -Continue to maintain clear liquid diet -GI and general surgery recommendations appreciated -repeat CBC, CMP, mg in AM -monitor closely -low threshold for transfer if no improvement shortly. Diabetes mellitus type 2 -Hold metformin in patient who has had poor oral intake -Sliding-scale insulin if able -Hemoglobin A1c 5.7 in November 2018 and likely would be okay to go without coverage for diabetes Schizoaffective disorder, bipolar type with psychosis -Your psych management Do not hesitate to call regarding questions or concerns at this patient.
[2019-01-23] MEDS: SIMETHICONE 80 MG CHEWABLE PO PRN (17:06)
[2019-01-23] MEDS ORDERED: OLANZapine 5 MG TAB PO ONE (17:24)
[2019-01-23] MEDS: INSULIN ASPART (NovoLOG) 100 UNIT/ML VIAL SQ SCH ×2 (17:45→20:36)
--- NOTE | 2019-01-23 17:50 | P.PN ---
Subjective Progress Note Date: 01/23/19 Principal diagnosis: Constipation, retained fecal debris and colon Patient seen in room. One small formed bowel movement after enema yesterday. Still feeling abdominal distention and some abdominal cramping. Patient is passing flatus. Objective - Vital Signs Vital signs: Vital Signs Temp 97.7 F 01/23/19 02:30 Pulse 99 01/23/19 02:30 Resp 18 01/23/19 02:30 BP 109/68 01/23/19 02:30 Pulse Ox 96 01/22/19 06:59 - Exam On physical examination, patient appears comfortable in no apparent distress. HEAD: Normocephalic, atraumatic. EYES: No scleral icterus. No conjunctival injection. MOUTH: No lesions, tongue midline. NECK: Trachea midline, no gross abnormalities. CHEST: Clear to auscultation with no wheezing or rhonchi appreciated. ABDOMEN: Soft, distended. Bowel sounds are positive. No organomegaly. No guarding or rigidity. EXTREMITIES: No pedal edema. SKIN: No rashes, no jaundice. - Labs CBC & Chem 7: 01/20/19 09:22 01/20/19 09:22 Labs: Microbiology - Last 24 Hours (Table) 01/20/19 09:22 Blood Culture - Preliminary Blood No Growth after 48 hours 01/20/19 09:28 Blood Culture - Preliminary Blood No Growth after 48 hours Assessment and Plan (1) Constipation Narrative/Plan: 63-year-old currently admitted on the psychiatric floor and receiving treatment with consult placed for constipation and abdominal distention with x-ray showing a large amount of fecal debris in the colon. Small bowel movement after enema yesterday. Patient did not tolerate GoLYTELY. Current Visit: Yes Status: Acute Code(s): K59.00 - CONSTIPATION, UNSPECIFIED SNOMED Code(s): 31193460 (2) Psychiatric disorder Current Visit: No Status: Acute Code(s): F99 - MENTAL DISORDER, NOT OTHERWISE SPECIFIED SNOMED Code(s): 74292988 Plan: Supportive care Encourage ambulation Repeat enema ordered today Continue lactulose, with addition of MiraLAX today as patient did not tolerate GoLYTELY Can consider Dulcolax rectal twice a day if no improvement today Thank you for allowing us to dissipate in the care of the patient we will continue to follow
[2019-01-23 17:52] LABS: Glucose,Whole Blood 117 mg/dL (75-99)
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
[2019-01-23] MEDS: BENZTROPINE MESYLATE 0.5 MG TAB PO SCH (20:11)
[2019-01-23] MEDS: cloZAPine 100 MG TAB PO SCH (20:11)
[2019-01-23 20:18] LABS: Glucose,Whole Blood 111 mg/dL (75-99)
[2019-01-24] MEDS: clonazePAM 0.5 MG TAB PO PRN ×2 (01:22→15:54)
[2019-01-24] MEDS: ZIPRASIDONE 20 MG VIAL IM PRN (01:45)
[2019-01-24] MEDS: INSULIN ASPART (NovoLOG) 100 UNIT/ML VIAL SQ SCH ×4 (07:50→20:10)
[2019-01-24 08:00] LABS: Glucose,Whole Blood 86 mg/dL (75-99)
[2019-01-24 08:09] LABS: Anisocytosis Slight; HCT 43.9 % (39.0-53.0); HGB 14.5 gm/dL (13.0-17.5); MCH 28.6 pg (25.0-35.0); MCHC 32.9 g/dL (31.0-37.0); MCV 86.8 fL (80.0-100.0); Mean Platelet Volume 6.6; Platelet Count 397 k/uL (150-450); RBC 5.06 m/uL (4.30-5.90); RDW 16.4 % (11.5-15.5); WBC 6.5 k/uL (3.8-10.6)
[2019-01-24 08:45] LABS: ALT 49 U/L (21-72); AST 28 U/L (17-59); African American GFR (CKD) >90 (>60 ml/min/1.73 sqM); Albumin 3.9 g/dL (3.5-5.0); Alkaline Phosphatase 90 U/L (38-126); Anion Gap 9 mmol/L; Blood Urea Nitrogen 11 mg/dL (9-20); Calcium 9.8 mg/dL (8.4-10.2); Carbon Dioxide 31 mmol/L (22-30); Chloride 99 mmol/L (98-107); Glucose 100 mg/dL (74-99); Magnesium 2.1 mg/dL (1.6-2.3); Potassium 4.6 mmol/L (3.5-5.1); Sodium 139 mmol/L (137-145); Total Bilirubin 0.7 mg/dL (0.2-1.3); Total Protein 6.9 g/dL (6.3-8.2)
[2019-01-24] MEDS: LACTULOSE 20 GM/30 ML CUP PO SCH (08:52)
[2019-01-24] MEDS: BENZTROPINE MESYLATE 0.5 MG TAB PO SCH ×2 (08:52→20:08)
[2019-01-24] MEDS: TAMSULOSIN 0.4 MG CAP.ER.24H PO SCH (08:52)
[2019-01-24] MEDS: cloZAPine 25 MG TAB PO SCH (08:52)
[2019-01-24] MEDS: ATORVASTATIN 10 MG TAB PO SCH (08:52)
[2019-01-24] MEDS: CEPHALEXIN 500 MG CAP PO SCH ×4 (08:53→20:08)
[2019-01-24] MEDS ORDERED: POLYETHYLENE GLYCOL 3350 17 GM POWD.PACK PO SCH (09:00)
--- NOTE | 2019-01-24 11:47 | PN ---
PROGRESS NOTE DATE OF SERVICE: 01/24/2019. CHIEF COMPLAINT: The patient had manic and psychotic symptoms. He had disorganized thoughts and behavior. INTERVAL HISTORY: Patient has been doing fair. He continues to be rather restless. He talks quite a bit. Overall, he seems to be doing better compared to a week or 2 ago from the standpoint of bowel issues. He has passed a considerable amount of stool and is saying that he feels quite relieved with that. It was documented that he slept 4 hours last night. He did have a period of restlessness in the middle of the night where he was in a somewhat agitated state. He received p.r.n. Geodon at 1:45 am. Today he has been up. He was a little restless this morning, though redirectable. He wanders about. He will talk at times incessantly. Overall, he is a little clear in his thoughts. He appears to tolerate his psychotropic medications, though there is concern about his bowel issues. MENTAL STATUS: Patient gave fair eye contact. Psychomotor activity was slowed. Speech was somewhat monotone and soft. At times, he almost seemed to have garbled speech. He makes clear statements, though much of what he says is disconnected from things at hand. His affect was a little constricted. He seemed to show a more comfortable manner. He generally was calm. His mood was quiet. He did not appear to be significantly distressed. ASSESSMENT: I will continue the current diagnoses and treatment plan. I will continue psychotropic medications the same. I have made efforts to minimize potential risks relating to his bowels, though continuing him on what hopefully is a therapeutic dose of clozapine. His blood level is pending. We will continue to focus on stabilization and discharge planning. MMODL / IJN: [id number] /
[2019-01-24 12:46] LABS: Glucose,Whole Blood 88 mg/dL (75-99)
--- NOTE | 2019-01-24 13:17 | P.PN ---
Subjective Progress Note Date: 01/24/19 Principal diagnosis: Constipation Patient is a 63-year-old male known to the mental health unit was been having issues with severe abdominal distention and constipation. He was seen by GI and surgery yesterday. He had undergone one fleets enema, GoLYTELY, lactulose, and MiraLAX. On 01/21 he had undergone a KUB which showed retained fecal debris throughout the colon as well as nonspecific bowel gas pattern consistent with constipation. KUB reviewed by myself which shows diffuse fecal retention as well as dilated loops of bowel. Patient now with multiple bowel movements. Feeling hungry, less cramping than yesterday. No chest pain. No shortness of breath. Objective - Vital Signs Vital signs: Vital Signs Temp 97.7 F 01/23/19 02:30 Pulse 91 01/24/19 07:00 Resp 18 01/24/19 07:00 BP 118/61 01/24/19 07:00 Pulse Ox 96 01/22/19 06:59 Intake & Output 01/23/19 01/24/19 01/24/19 18:59 06:59 18:59 Weight 68.9 kg Other: # Bowel Movements 1 - Exam General: non toxic, no distress, appears at stated age, disheveled Derm: warm, dry Head: atraumatic, normocephalic, symmetric Eyes: EOMI, no lid lag, anicteric sclera Mouth: no lip lesion, mucus membranes moist Cardiovascular: S1S2 reg, no murmur, positive posterior tibial pulse bilateral, Lungs: decreased breath sounds bilateral, no rhonchi, no rales , no accessory muscle use Abdominal: soft, non tender to palpation RLQ and LLQ, no guarding, no appreciable organomegaly Ext: no gross muscle atrophy, no edema, no contractures Neuro: CN II-XI grossly intact, no focal neuro deficits Psych: Alert, not following all of conversation, easily angered - Labs CBC & Chem 7: 01/24/19 07:34 01/24/19 07:34 Labs: Abnormal Lab Results - Last 24 Hours (Table) 01/23/19 01/23/19 01/24/19 Range/Units 17:33 20:17 07:34 RDW 16.4 H (11.5-15.5) % Carbon Dioxide (22-30) mmol/L Creatinine (0.66-1.25) mg/dL Glucose (74-99) mg/dL POC Glucose (mg/dL) 117 H 111 H (75-99) mg/dL 01/24/19 Range/Units 07:34 RDW (11.5-15.5) % Carbon Dioxide 31 H (22-30) mmol/L Creatinine 0.57 L (0.66-1.25) mg/dL Glucose 100 H (74-99) mg/dL POC Glucose (mg/dL) (75-99) mg/dL Microbiology - Last 24 Hours (Table) 01/20/19 09:22 Blood Culture - Preliminary Blood No Growth after 96 hours 01/20/19 09:28 Blood Culture - Preliminary Blood No Growth after 96 hours Assessment and Plan Assessment: 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
[2019-01-24 17:40] LABS: Glucose,Whole Blood 101 mg/dL (75-99)
[2019-01-24] MEDS: LACTULOSE 20 GM/30 ML CUP PO PRN (18:00)
[2019-01-24 19:47] LABS: Glucose,Whole Blood 133 mg/dL (75-99)
[2019-01-24] MEDS: cloZAPine 100 MG TAB PO SCH (20:11)
[2019-01-25] MEDS: clonazePAM 0.5 MG TAB PO PRN ×2 (02:56→11:10)
[2019-01-25 07:40] LABS: Glucose,Whole Blood 168 mg/dL (75-99)
[2019-01-25] MEDS: ATORVASTATIN 10 MG TAB PO SCH (07:47)
[2019-01-25] MEDS: TAMSULOSIN 0.4 MG CAP.ER.24H PO SCH (07:47)
[2019-01-25] MEDS: cloZAPine 25 MG TAB PO SCH (07:47)
[2019-01-25] MEDS: BENZTROPINE MESYLATE 0.5 MG TAB PO SCH ×2 (07:47→19:55)
[2019-01-25] MEDS: INSULIN ASPART (NovoLOG) 100 UNIT/ML VIAL SQ SCH ×4 (07:47→20:20)
[2019-01-25] MEDS: CEPHALEXIN 500 MG CAP PO SCH ×4 (07:47→21:03)
[2019-01-25] MEDS: POLYETHYLENE GLYCOL 3350 17 GM POWD.PACK PO SCH (07:48)
--- NOTE | 2019-01-25 09:09 | P.PN ---
Subjective Progress Note Date: 01/25/19 Principal diagnosis: constipation Passed several BMs over the weekend. Feels better. Tolerating diet. Objective - Vital Signs Vital signs: Vital Signs Temp 97.9 F 01/25/19 02:55 Pulse 101 H 01/25/19 02:55 Resp 18 01/25/19 02:55 BP 135/79 01/25/19 02:55 Pulse Ox 96 01/22/19 06:59 Intake & Output 01/24/19 01/25/19 01/25/19 18:59 06:59 18:59 Weight 68.9 kg - Exam General appearance: The patient is alert, oriented, in no acute distress. HET: Head is normocephalic and atraumatic. Pupils are equal and reactive. Oropharynx is clear without lesions. Neck: Supple without lymphadenopathy. Trachea midline. Heart: S1 S2. Regular rate and rhythm. Lungs: No crackles or wheezes are heard. Abdomen: Soft, nontender, nondistended with bowel sounds. No peritoneal signs. No palpable organomegaly or masses. Extremities: Normal skin color and turgor. No cyanosis, rash, ulceration, clubbing, or edema. Radial and pedal pulses are 2/4 bilaterally. Neurological: No focal deficits. Strength and sensation are grossly intact. - Labs CBC & Chem 7: 01/24/19 07:34 01/24/19 07:34 Labs: Abnormal Lab Results - Last 24 Hours (Table) 01/24/19 01/24/19 01/25/19 Range/Units 17:38 19:45 07:37 POC Glucose (mg/dL) 101 H 133 H 168 H (75-99) mg/dL Microbiology - Last 24 Hours (Table) 01/20/19 09:22 Blood Culture - Preliminary Blood No Growth after 96 hours 01/20/19 09:28 Blood Culture - Preliminary Blood No Growth after 96 hours Assessment and Plan (1) Constipation Narrative/Plan: Resolving Current Visit: Yes Status: Acute Code(s): K59.00 - CONSTIPATION, UNSPECIFIED SNOMED Code(s): 93302621 (2) Psychiatric disorder Current Visit: No Status: Acute Code(s): F99 - MENTAL DISORDER, NOT OTHERWISE SPECIFIED SNOMED Code(s): 63047734 Plan: 1. Continue with present medical therapy. 2. Daily stool softeners. Will sign off. Assessment and plan of care discussed with Dr. Dent.
--- NOTE | 2019-01-25 10:09 | PN ---
PROGRESS NOTE DATE OF SERVICE: 01/25/2019. CHIEF COMPLAINT: The patient had manic and psychotic symptoms. He had disorganized thoughts and behavior. INTERVAL HISTORY: The patient has been doing fair. He continues about the same. He wanders about the unit. Mostly he stays around the nursing desk. He will talk to himself. Sometimes he will make comments to others, though much of what he says is somewhat disorganized. It is noteworthy that his sister called him yesterday evening. I refer the reader to nursing note of [phone] last evening for details. She did communicate with staff that he was quite vulgar in the things he said. Nursing documented that he slept 4 hours as of 6 in the morning. Today he has been up. He continues to do the same. He wanders. He has some mumbling speech. Generally his thoughts are coherent, though pretty disconnected from most things going on around him. He generally seems to be in a fairly good mood if not having a somewhat elevated mood. He has not had any significant behavioral outbursts last evening or this morning. It is noteworthy that from a GI standpoint, he has made significant progress. He no longer is showing a distended abdomen. He has been eating. He has been having frequent bowel movements. He tolerates his psychotropic medications. MENTAL STATUS: Patient gave fair eye contact. He was restless. He said quite a bit in a somewhat mumbling voice. Sometimes the meaning was discernible at other times not. His affect was somewhat intense. His mood elevated. He did not appear to be distressed. ASSESSMENT: I will continue the current diagnosis and treatment plan. I will continue psychotropic medications the same. In review, I note that he had a significant distended abdomen due to acute megacolon, which may have been impacted by his medications. Of particular concern would be anticholinergic medications. We had increased his Cogentin due to hypersalivation, though I cut that back in half to a 0.5 mg twice a day. I had added Haldol to his regimen because of continued psychotic and manic symptoms. While Haldol has a fairly low anticholinergic affects, I discontinued Haldol to reduce any issues in that regard. The main concern is to try to maximize benefits from his clozapine. I ordered a stat clozapine level yesterday, though results are not in the chart. I will have staff contact the lab on this. We will continue to focus on stabilization and discharge planning. SANDRA / GARFIELDN: [id number] /
[2019-01-25 12:16] LABS: Glucose,Whole Blood 116 mg/dL (75-99)
[2019-01-25] MEDS: cloZAPine 100 MG TAB PO SCH ×2 (14:44→19:55)
[2019-01-25 17:34] LABS: Glucose,Whole Blood 101 mg/dL (75-99)
[2019-01-25 19:54] LABS: Glucose,Whole Blood 174 mg/dL (75-99)
[2019-01-26] MEDS: clonazePAM 0.5 MG TAB PO PRN (02:50)
[2019-01-26 07:42] LABS: Glucose,Whole Blood 172 mg/dL (75-99)
[2019-01-26] MEDS: INSULIN ASPART (NovoLOG) 100 UNIT/ML VIAL SQ SCH ×4 (08:16→21:50)
[2019-01-26] MEDS: cloZAPine 25 MG TAB PO SCH (08:29)
[2019-01-26] MEDS: BENZTROPINE MESYLATE 0.5 MG TAB PO SCH ×2 (08:29→20:30)
[2019-01-26] MEDS: ATORVASTATIN 10 MG TAB PO SCH (08:29)
[2019-01-26] MEDS: CEPHALEXIN 500 MG CAP PO SCH ×4 (08:29→20:32)
[2019-01-26] MEDS: POLYETHYLENE GLYCOL 3350 17 GM POWD.PACK PO SCH (08:30)
[2019-01-26] MEDS: TAMSULOSIN 0.4 MG CAP.ER.24H PO SCH (08:30)
[2019-01-26] MEDS: ACETAMINOPHEN TAB 325 MG TAB PO PRN (10:20)
--- NOTE | 2019-01-26 10:26 | P.PN ---
Progress Note - Text Progress Note Date: 01/26/19 Interval history: The patient is found in the hallway at attempt was made to interact with him. Upon approach she begins yelling at me calling me a "witch doctor" he then began following me making more derogatory statements and becoming louder. Staff intervened and redirected the patient. Progress notes during my absence were reviewed. The patient's clozapine dose was titrated and we are awaiting a clozapine level. It appears the patient experienced some significant constipation and stomach distention. After stool softeners and enemas he was able to have bowel movements and that condition is much improved. It appears in my absence the Cogentin was increased Haldol was added both of those measures were reversed. Mental status exam: The patient is alert he has a disheveled appearance. He is found in the hallway. He is observed ambulating the hallway throughout the morning. With me he remains agitated he makes derogatory statements. He demonstrates disorganization of thought and continued paranoid persecutory thoughts. Staff report at other times he is more redirectable and quiet. Insight and judgment remain poor. He is demonstrating no involuntary repetitive movements. Impression/plan: Ongoing symptoms of louise and psychosis, clozapine has been titrated to 75 mg twice daily and 400 mg at bedtime a clozapine level is pending. I will confer with the treatment team to see if there have been any beneficial changes during my absence. Vital signs reviewed. I will continue to monitor his by mouth intake.
[2019-01-26 10:34] LABS: Clozapine (Clozaril) 980 ng/mL (200-700); Norclozapine 378 ng/mL (200-700)
[2019-01-26] MEDS: ZIPRASIDONE 20 MG VIAL IM PRN (11:41)
[2019-01-26] MEDS: MAG HYDROX/AL HYDROX/SIMETH 30 ML CUP PO PRN (12:03)
[2019-01-26 12:56] LABS: Glucose,Whole Blood 126 mg/dL (75-99)
[2019-01-26] MEDS: cloZAPine 100 MG TAB PO SCH ×2 (16:31→20:29)
[2019-01-26 17:51] LABS: Glucose,Whole Blood 140 mg/dL (75-99)
[2019-01-26 20:12] LABS: Glucose,Whole Blood 173 mg/dL (75-99)
[2019-01-26 21:51] LABS: Glucose,Whole Blood 153 mg/dL (75-99)
[2019-01-26] MEDS: INSULIN DETEMIR (LEVEMIR) 100 UNIT/ML SYR SQ SCH (21:51)
[2019-01-27] MEDS: clonazePAM 0.5 MG TAB PO PRN ×3 (05:10→20:57)
[2019-01-27 08:09] LABS: Basophils # (A) 0.1 k/uL (0-0.2); Basophils % (A) 0 %; Eosinophils # (A) 0.3 k/uL (0-0.7); Eosinophils % (A) 2 %; HCT 38.8 % (39.0-53.0); HGB 12.6 gm/dL (13.0-17.5); Lymphocytes # (A) 1.4 k/uL (1.0-4.8); Lymphocytes % (A) 10 %; MCH 28.5 pg (25.0-35.0); MCHC 32.4 g/dL (31.0-37.0); Mean Platelet Volume 6.4; Monocytes # (A) 0.8 k/uL (0-1.0); Monocytes % (A) 6 %; Neutrophils % (A) 80 %; Platelet Count 441 k/uL (150-450); RDW 15.3 % (11.5-15.5); WBC 13.8 k/uL (3.8-10.6)
[2019-01-27] MEDS: POLYETHYLENE GLYCOL 3350 17 GM POWD.PACK PO SCH (08:16)
[2019-01-27] MEDS: ATORVASTATIN 10 MG TAB PO SCH (08:17)
[2019-01-27] MEDS: CEPHALEXIN 500 MG CAP PO SCH (08:17)
[2019-01-27] MEDS: BENZTROPINE MESYLATE 0.5 MG TAB PO SCH ×2 (08:17→20:57)
[2019-01-27] MEDS: cloZAPine 25 MG TAB PO SCH (08:17)
[2019-01-27] MEDS: TAMSULOSIN 0.4 MG CAP.ER.24H PO SCH (08:17)
[2019-01-27] MEDS: INSULIN ASPART (NovoLOG) 100 UNIT/ML VIAL SQ SCH ×4 (08:20→21:11)
[2019-01-27 08:21] LABS: Glucose,Whole Blood 108 mg/dL (75-99)
--- NOTE | 2019-01-27 10:09 | P.PN ---
Progress Note - Text Progress Note Date: 01/27/19 Interval history: The patient is found in the hallway he refuses to speak with me. Despite two attempts he simply walks by. He is observed ambulating in the hallway throughout the morning. Vital signs reviewed they're within normal limits. Recent lab work reviewed. We are awaiting the results of the clozapine level. He continues to participate in meals. He sleeps only a few hours at night. Mental status exam: The patient is a thin male he is a disheveled appearance he is dressed in his own clothing. He is tired appearing but not lethargic. He continues to have disorganization of his thoughts and a psychotic thought content. He continues to require redirection. Insight and judgment are poor. He will impulsively demonstrate verbal aggression. He demonstrates no involuntary repetitive movements. He does not cooperate with an interview to further assess cognitive ability. Impression plan: Continued symptoms of psychosis louise rule out neurocognitive disorder, we will continue his medications as written. We are allowing the clozapine time to demonstrate efficacy. We are awaiting the results of the clozapine level that was drawn. We will monitor him for safety monitor his by mouth intake. We will provide reality orientation when possible. He requires continued psychiatric hospitalization.
[2019-01-27] MEDS: ACETAMINOPHEN TAB 325 MG TAB PO PRN (12:28)
[2019-01-27 12:34] LABS: Glucose,Whole Blood 150 mg/dL (75-99)
[2019-01-27] MEDS: cloZAPine 100 MG TAB PO SCH ×2 (15:18→20:56)
[2019-01-27 17:33] LABS: Glucose,Whole Blood 209 mg/dL (75-99)
[2019-01-27] MEDS: MAG HYDROX/AL HYDROX/SIMETH 30 ML CUP PO PRN (19:33)
[2019-01-27 20:10] LABS: Glucose,Whole Blood 124 mg/dL (75-99)
[2019-01-27] MEDS: INSULIN DETEMIR (LEVEMIR) 100 UNIT/ML SYR SQ SCH (20:57)
[2019-01-28 07:47] LABS: Glucose,Whole Blood 134 mg/dL (75-99)
[2019-01-28] MEDS: INSULIN ASPART (NovoLOG) 100 UNIT/ML VIAL SQ SCH ×4 (07:48→20:11)
[2019-01-28] MEDS: TAMSULOSIN 0.4 MG CAP.ER.24H PO SCH (08:32)
[2019-01-28] MEDS: ATORVASTATIN 10 MG TAB PO SCH (08:32)
[2019-01-28] MEDS: BENZTROPINE MESYLATE 0.5 MG TAB PO SCH ×2 (08:32→20:10)
[2019-01-28] MEDS: cloZAPine 25 MG TAB PO SCH (08:32)
[2019-01-28] MEDS: POLYETHYLENE GLYCOL 3350 17 GM POWD.PACK PO SCH (08:35)
[2019-01-28] MEDS: clonazePAM 0.5 MG TAB PO PRN ×2 (09:38→20:10)
--- NOTE | 2019-01-28 11:23 | P.PN ---
Progress Note - Text Progress Note Date: 01/28/19 Interval history: The patient is found in the hallway ambulating. On 2 occasions this morning he was offered an opportunity to meet to discuss his care. On both occasions he made no eye contact and walked past me. Staff report that the patient has been more successful in controlling some of his behavior. He was able to sit through some group activity for 20 minute blocks of time without any agitation. This morning he responded to verbal redirection in group. Overnight staff felt that he had better behavior during the evening. The clozapine level is back at 980 which is higher than the normal range. We will reduce his dose. Vital signs reviewed they're within normal limits. Mental status exam: The patient is alert he is dressed in his own clothing he has a disheveled appearance hygiene impaired. He is observed ambulating in the hallway he is observed in group briefly. Again he ignores me when I attempt to speak with him. Previously this would have elicited a loud and derogatory response. He demonstrates no involuntary repetitive movements. He demonstrates no physical aggressiveness. Insight and judgment remain impaired. I did not directly observe any spontaneous speech today to assess thought organization. I suspect it is still disorganized however. Affect is blunted. Impression/plan: Ongoing symptoms of psychosis louise rule out neurocognitive symptoms. We will continue the clozapine I will reduce the evening dose to 350 mg. We may be starting to see some improvement behaviorally. If this continues over the next several days we will begin to look at discharge options. The patient's guardian will need to be involved in a meeting regarding his current treatment and discharge planning. We will encourage appropriate participation in the milieu. We will continue to attempt to provide reality orientation when possible. We will validate his efforts when he is demonstrating appropriate behavior.
[2019-01-28 12:38] LABS: Glucose,Whole Blood 101 mg/dL (75-99)
[2019-01-28] MEDS: cloZAPine 100 MG TAB PO SCH ×2 (16:03→20:10)
[2019-01-28 17:30] LABS: Glucose,Whole Blood 124 mg/dL (75-99)
[2019-01-28 20:11] LABS: Glucose,Whole Blood 130 mg/dL (75-99)
[2019-01-28] MEDS: INSULIN DETEMIR (LEVEMIR) 100 UNIT/ML SYR SQ SCH (20:11)
[2019-01-29] MEDS: ACETAMINOPHEN TAB 325 MG TAB PO PRN (02:36)
[2019-01-29] MEDS: clonazePAM 0.5 MG TAB PO PRN ×2 (05:48→20:54)
[2019-01-29 07:41] LABS: Glucose,Whole Blood 160 mg/dL (75-99)
[2019-01-29] MEDS: cloZAPine 25 MG TAB PO SCH (08:10)
[2019-01-29] MEDS: TAMSULOSIN 0.4 MG CAP.ER.24H PO SCH (08:10)
[2019-01-29] MEDS: ATORVASTATIN 10 MG TAB PO SCH (08:10)
[2019-01-29] MEDS: BENZTROPINE MESYLATE 0.5 MG TAB PO SCH ×2 (08:10→20:08)
[2019-01-29] MEDS: INSULIN ASPART (NovoLOG) 100 UNIT/ML VIAL SQ SCH ×4 (08:12→20:29)
[2019-01-29] MEDS: POLYETHYLENE GLYCOL 3350 17 GM POWD.PACK PO SCH (08:12)
[2019-01-29 12:17] LABS: Glucose,Whole Blood 105 mg/dL (75-99)
--- NOTE | 2019-01-29 13:32 | P.PN ---
Progress Note - Text Progress Note Date: 01/29/19 Interval history: The patient is found in his room and effort was made to speak with him and he refused. Staff report that he has been controlling behavior better up until this morning. Poorly he attended the social work group and became verbally agitated spontaneously. He was directed out of the group. Staff reported he only slept 3 hours last evening. Yesterday he was noted to be calm her and was able to sit through groups without agitation. Mental status exam: The patient is alert he is a disheveled male is dressed in his own clothing. He again refuses to interact with me today. Reportedly he made derogatory statements towards social work in an agitated fashion. Speech is observed to be spontaneous at times. He is observed ambulating in the hallway. He continues to have a paranoid and persecutory thought content. He can demonstrate some lability of affect as observed out on the mental health unit. Insight and judgment are poor. Impression/plan: Continued symptoms of psychosis and louise, rule out neurocognitive symptoms, continue medications as written. We are allowing him time to demonstrate improvement on the current dose of clozapine. We have lowered the dose due to most recent lab results we will redraw labs in the next few days. The patient requires hospitalization as he is not appropriate for a lesser level of care at this time. Available vital signs reviewed. We're monitoring his by mouth intake were encouraging participation in his activities of daily living.
[2019-01-29] MEDS: cloZAPine 100 MG TAB PO SCH ×2 (15:57→20:08)
[2019-01-29 17:23] LABS: Glucose,Whole Blood 118 mg/dL (75-99)
[2019-01-29 20:09] LABS: Glucose,Whole Blood 156 mg/dL (75-99)
[2019-01-29] MEDS: INSULIN DETEMIR (LEVEMIR) 100 UNIT/ML SYR SQ SCH (21:10)
[2019-01-30 07:42] LABS: Glucose,Whole Blood 105 mg/dL (75-99)
[2019-01-30] MEDS: INSULIN ASPART (NovoLOG) 100 UNIT/ML VIAL SQ SCH ×4 (08:07→20:24)
[2019-01-30] MEDS: POLYETHYLENE GLYCOL 3350 17 GM POWD.PACK PO SCH (08:08)
[2019-01-30] MEDS: TAMSULOSIN 0.4 MG CAP.ER.24H PO SCH (08:08)
[2019-01-30] MEDS: cloZAPine 25 MG TAB PO SCH (08:08)
[2019-01-30] MEDS: BENZTROPINE MESYLATE 0.5 MG TAB PO SCH ×2 (08:08→20:26)
[2019-01-30] MEDS: ATORVASTATIN 10 MG TAB PO SCH (08:08)
[2019-01-30] MEDS: clonazePAM 0.5 MG TAB PO PRN ×2 (08:11→20:27)
[2019-01-30] MEDS: ACETAMINOPHEN TAB 325 MG TAB PO PRN (10:18)
--- NOTE | 2019-01-30 10:27 | P.PN ---
Progress Note - Text Progress Note Date: 01/30/19 Interval history: Patient was seen wandering the hallways and was agreeable to speak to policy writer sales. Patient was calm and directable and appeared to be somewhat tangential and illogical at times. Patient was pleasant however and did complement policy writer sales on his jacket and close. Patient stays up poor insight and judgment and wanders the hallways frequently. He states that he slept well last night and has been eating fairly. He denies any side effects from his clozapine at this time. At this time patient denies any suicidal or homicidal ideations intent or plan. Denies any Auditory or visual hallucinations. Mental status exam: General Appearance: [Patient appears to be stated age is alert, pleasant, and cooperative.] Behavior: [No agitated behavior. Patient is calm and directable] Speech: Patient's speech is tangential and incomprehensible at times. Mood/Affect: Mood is improving, affect is congruent and constricted. Suicidality/Homicidality: Patient denies having any suicidal or homicidal ideation intent or plan. Perceptions: Patient denies any auditory or visual hallucinations. Though content/process: Patient is tangential and illogical at times. Memory and concentration: AOX3, grossly intact for the purposes of this session Judgment and insight: Poor Assessment/Plan: Continue with current diagnosis. Patient continues to meet criteria for inpatient psychiatric admission for symptom stabilization and safety.[Patient will be maintained on current psychotropic medication regimen.] At this time patient denies any side effects from his medications. Vitals are stable and previous absolute neutrophil count was elevated at 11.0. Monitor for medication compliance and for any psychotropic medication side effects. Will continue to monitor ongoing response to treatment.
[2019-01-30 12:27] LABS: Glucose,Whole Blood 127 mg/dL (75-99)
[2019-01-30] MEDS: cloZAPine 100 MG TAB PO SCH ×2 (15:27→20:25)
[2019-01-30 17:17] LABS: Glucose,Whole Blood 108 mg/dL (75-99)
[2019-01-30 20:15] LABS: Glucose,Whole Blood 138 mg/dL (75-99)
[2019-01-30] MEDS: INSULIN DETEMIR (LEVEMIR) 100 UNIT/ML SYR SQ SCH (21:13)
[2019-01-31 07:29] LABS: Glucose,Whole Blood 119 mg/dL (75-99)
[2019-01-31] MEDS: POLYETHYLENE GLYCOL 3350 17 GM POWD.PACK PO SCH (07:38)
[2019-01-31] MEDS: TAMSULOSIN 0.4 MG CAP.ER.24H PO SCH (07:39)
[2019-01-31] MEDS: cloZAPine 25 MG TAB PO SCH (07:39)
[2019-01-31] MEDS: BENZTROPINE MESYLATE 0.5 MG TAB PO SCH ×2 (07:39→20:35)
[2019-01-31] MEDS: ATORVASTATIN 10 MG TAB PO SCH (07:39)
[2019-01-31] MEDS: INSULIN ASPART (NovoLOG) 100 UNIT/ML VIAL SQ SCH ×4 (07:39→20:34)
--- NOTE | 2019-01-31 11:05 | P.PN ---
Progress Note - Text Progress Note Date: 01/31/19 Interval history: Patient was seen wandering the hallways and was agreeable to speak to tag writer in the day room. Patient appeared to be brighter this morning and was more agreeable to share the events of his day yesterday. He spoke of going to group however being frustrated and leaving. He continues to be tangential and illogical at times. Patient was pleasant again today and complemented her tag writer on his shirt. Patient continues to have poor insight and judgment and wanders the hallways frequently. He states that he slept well last night and has been eating fairly. He denies any side effects from his clozapine at this time. At this time patient denies any suicidal or homicidal id eations intent or plan. Denies any Auditory or visual hallucinations. Mental status exam: General Appearance: Patient appears to be stated age is alert, pleasant, and cooperative. Behavior: No agitated behavior. Patient is calm and directable Speech: Patient's speech is tangential and incomprehensible at times. Mood/Affect: Mood is improving, affect is congruent and constricted. Suicidality/Homicidality: Patient denies having any suicidal or homicidal ideation intent or plan. Perceptions: Patient denies any auditory or visual hallucinations. Though content/process: Patient is tangential and illogical at times. Memory and concentration: AOX3, grossly intact for the purposes of this session Judgment and insight: Poor, improving mildly Assessment/Plan: Continue with current diagnosis. Patient continues to meet criteria for inpatient psychiatric admission for symptom stabilization and safety. Patient will be maintained on current psychotropic medication regimen. At this time patient denies any side effects from his medications. Vitals are stable today. Monitor for medication compliance and for any psychotropic medication side effects. Will continue to monitor ongoing response to treatment.
[2019-01-31 12:21] LABS: Glucose,Whole Blood 96 mg/dL (75-99)
[2019-01-31] MEDS: cloZAPine 100 MG TAB PO SCH ×2 (15:21→20:35)
[2019-01-31] MEDS: clonazePAM 0.5 MG TAB PO PRN (16:19)
[2019-01-31 17:19] LABS: Glucose,Whole Blood 159 mg/dL (75-99)
[2019-01-31 20:06] LABS: Glucose,Whole Blood 173 mg/dL (75-99)
[2019-01-31] MEDS: INSULIN DETEMIR (LEVEMIR) 100 UNIT/ML SYR SQ SCH (20:34)
[2019-02-01 07:49] LABS: Glucose,Whole Blood 161 mg/dL (75-99)
[2019-02-01] MEDS: POLYETHYLENE GLYCOL 3350 17 GM POWD.PACK PO SCH (08:04)
[2019-02-01] MEDS: BENZTROPINE MESYLATE 0.5 MG TAB PO SCH ×2 (08:04→20:11)
[2019-02-01] MEDS: INSULIN ASPART (NovoLOG) 100 UNIT/ML VIAL SQ SCH ×4 (08:04→20:14)
[2019-02-01] MEDS: ATORVASTATIN 10 MG TAB PO SCH (08:04)
[2019-02-01] MEDS: TAMSULOSIN 0.4 MG CAP.ER.24H PO SCH (08:04)
[2019-02-01] MEDS: cloZAPine 25 MG TAB PO SCH (08:04)
[2019-02-01] MEDS: clonazePAM 0.5 MG TAB PO PRN ×2 (10:17→17:22)
--- NOTE | 2019-02-01 11:24 | P.PN ---
Progress Note - Text Interval history: The patient is found in his room he seated in a chair looking out the window. Upon me approaching the room he turns and looks at me. When I request to speak with him he provides no verbal response and stares back at me for several seconds and then returns back to looking out the window. Staff report that the patient's behavior over the weekend was much improved. He has been following redirection. He attended group this morning and demonstrated no agitated behavior. He's been compliant with his psychotropic medication. Social work has arranged for the patient's guardian to come today for a meeting so we can begin discussing discharge plans. The patient has been attending meals he slept approximate 4 hours last evening. Mental status exam: The patient is observed ambulating in the hallway prior to our attempted interaction. He made only brief eye contact with me as noted above he provided no verbal response. He is demonstrating no verbal or physical aggressiveness this morning that I have observed. He demonstrates no involuntary repetitive movements. Insight and judgment impaired but improving as he is demonstrating more behavioral control. It's likely he continues to experience symptoms of psychosis. During our interaction his affect was blunted. Impression/plan: The patient is demonstrating better control of his behavior and is following more verbal redirection. Although he is not meeting with me and providing a verbal responses he is now deciding to no longer yell and make dero gatory statements. Social work will meet with the patient's guardian today to discuss discharge planning. Vital signs reviewed they're within normal limits. He requires continued psychiatric hospitalization at this time.
[2019-02-01 12:36] LABS: Glucose,Whole Blood 97 mg/dL (75-99)
[2019-02-01] MEDS: cloZAPine 100 MG TAB PO SCH ×2 (16:07→20:11)
[2019-02-01 17:28] LABS: Glucose,Whole Blood 154 mg/dL (75-99)
[2019-02-01 20:06] LABS: Glucose,Whole Blood 136 mg/dL (75-99)
[2019-02-01] MEDS: INSULIN DETEMIR (LEVEMIR) 100 UNIT/ML SYR SQ SCH (20:11)
[2019-02-02] MEDS: clonazePAM 0.5 MG TAB PO PRN ×2 (04:41→15:20)
[2019-02-02 07:41] LABS: Glucose,Whole Blood 128 mg/dL (75-99)
[2019-02-02] MEDS: INSULIN ASPART (NovoLOG) 100 UNIT/ML VIAL SQ SCH ×4 (07:59→20:54)
[2019-02-02] MEDS: cloZAPine 25 MG TAB PO SCH (08:09)
[2019-02-02] MEDS: TAMSULOSIN 0.4 MG CAP.ER.24H PO SCH (08:09)
[2019-02-02] MEDS: ATORVASTATIN 10 MG TAB PO SCH (08:09)
[2019-02-02] MEDS: BENZTROPINE MESYLATE 0.5 MG TAB PO SCH ×2 (08:09→20:53)
[2019-02-02] MEDS: POLYETHYLENE GLYCOL 3350 17 GM POWD.PACK PO SCH (08:48)
--- NOTE | 2019-02-02 10:29 | P.PN ---
Progress Note - Text Interval history: The patient is found in his room. Upon opening the door he states "I can't understand you I'm saying my rosary don't come here again". He continues to yell after I left the doorway. I did review social work notes. It appears his new regarding attempted to meet with him. It's documented that he was agitated and did not recognize that he had a guardian and was insisting that he would return home to his own apartment. The patient was observed out on the unit this morning. He was seated in group this morning he was observed ambulating as well. Vital signs reviewed they're within normal limits. Mental status exam: The patient is alert he has a disheveled appearance. He is dressed in his own clothing. He begins yelling as soon as he makes eye contact. He demonstrates an agitated affect. Prior to me interacting with him he was observed to be calm in group and while ambulating. Insight and judgment c ontinue to be poor. He continues to spontaneously verbalize paranoid persecutory thoughts. Thought process was disorganized during our brief interaction this morning. He demonstrates no involuntary repetitive movements. Impression/plan: Continued symptoms of psychosis and agitation, continue current medications. We will draw another clozapine level later this week. Vital signs reviewed. The patient's has been demonstrating some behavioral improvement over the past several days. He will demonstrate some agitated behavior and response to interacting with certain individuals. He continues to have poor insight into his symptoms but this may not change. We will explore available placement options for him. At this time there is no lesser level of care that would be appropriate in terms of safety risk and he requires continued hospitalization.
[2019-02-02 12:50] LABS: Glucose,Whole Blood 136 mg/dL (75-99)
[2019-02-02] MEDS: cloZAPine 100 MG TAB PO SCH ×2 (15:42→20:52)
[2019-02-02 17:51] LABS: Glucose,Whole Blood 149 mg/dL (75-99)
[2019-02-02 20:14] LABS: Glucose,Whole Blood 144 mg/dL (75-99)
[2019-02-02] MEDS: INSULIN DETEMIR (LEVEMIR) 100 UNIT/ML SYR SQ SCH (20:53)
[2019-02-03] MEDS: clonazePAM 0.5 MG TAB PO PRN ×2 (06:47→21:42)
[2019-02-03 07:44] LABS: Glucose,Whole Blood 114 mg/dL (75-99)
[2019-02-03] MEDS: INSULIN ASPART (NovoLOG) 100 UNIT/ML VIAL SQ SCH ×4 (08:12→20:57)
[2019-02-03 08:55] LABS: Anisocytosis Slight; Basophils # (A) 0.1 k/uL (0-0.2); Basophils % (A) 1 %; Eosinophils # (A) 0.6 k/uL (0-0.7); Eosinophils % (A) 5 %; HCT 39.6 % (39.0-53.0); HGB 12.9 gm/dL (13.0-17.5); Lymphocytes # (A) 1.3 k/uL (1.0-4.8); Lymphocytes % (A) 11 %; MCH 28.4 pg (25.0-35.0); MCHC 32.6 g/dL (31.0-37.0); Mean Platelet Volume 6.9; Monocytes % (A) 8 %; Neutrophils # (A) 9.1 k/uL (1.3-7.7); Neutrophils % (A) 74 %; Platelet Count 383 k/uL (150-450); RBC 4.55 m/uL (4.30-5.90); RDW 16.2 % (11.5-15.5); WBC 12.4 k/uL (3.8-10.6)
[2019-02-03] MEDS: BENZTROPINE MESYLATE 0.5 MG TAB PO SCH ×2 (08:57→20:57)
[2019-02-03] MEDS: TAMSULOSIN 0.4 MG CAP.ER.24H PO SCH (08:57)
[2019-02-03] MEDS: cloZAPine 25 MG TAB PO SCH (08:57)
[2019-02-03] MEDS: ATORVASTATIN 10 MG TAB PO SCH (08:57)
[2019-02-03] MEDS: POLYETHYLENE GLYCOL 3350 17 GM POWD.PACK PO SCH (08:57)
[2019-02-03] MEDS: ACETAMINOPHEN TAB 325 MG TAB PO PRN (09:36)
--- NOTE | 2019-02-03 09:52 | P.PN ---
Progress Note - Text Progress Note Date: 02/03/19 Interval history: The patient is found in the hallway ambulating. Upon approach when asked to speak he states several times "I can't understand you". He then turns to a nurse passing by and states "I can understand him when he talks" he then walks away. The patient was observed ambulating in the hallway approaching the desk in the medication window. He is demonstrating no agitated behavior so far. Staff recorded he slept 4 hours. He continues to participate in meals. Mental status exam: The patient is alert he is a male appearing older than his stated age. He is dressed in his own clothing but has a disheveled appearance. Eye contact is brief. He refuses to speak with me. Insight and judgment remain poor. He continues to have paranoid and persecutory thoughts as part of his thought content. He appears to be in no acute physical distress. He is experiencing some sialorrhea due to the clozapine. Affect is blunted. He demonstrates no verbal or physical aggressiveness this morning. He demonstrates no involuntary repetitive movements. No other mental status exam evaluation information is available due to his lack of cooperation. Impression/plan: The patient's will continue on his current medication. Tomorrow we will draw another clozapine level and complete metabolic panel. We will continue to monitor his progress. He is following verbal redirection from some staff. He feels antagonized by other staff members including myself but seems to be doing better in not engaging in an aggressive fashion. Vital signs reviewed. We will continue to monitor him for safety including his ability to ambulate and his by mouth intake. We will continue to await recommendations from his guardian regarding placement options.
[2019-02-03 12:46] LABS: Glucose,Whole Blood 150 mg/dL (75-99)
[2019-02-03] MEDS: cloZAPine 100 MG TAB PO SCH ×2 (15:48→20:57)
[2019-02-03 17:09] LABS: Glucose,Whole Blood 116 mg/dL (75-99)
[2019-02-03 20:24] LABS: Glucose,Whole Blood 127 mg/dL (75-99)
[2019-02-03] MEDS: INSULIN DETEMIR (LEVEMIR) 100 UNIT/ML SYR SQ SCH (20:57)
[2019-02-04] MEDS: LACTULOSE 20 GM/30 ML CUP PO PRN ×2 (03:17→15:06)
[2019-02-04] MEDS: SIMETHICONE 80 MG CHEWABLE PO PRN ×2 (04:00→18:53)
[2019-02-04 07:47] LABS: Glucose,Whole Blood 340 mg/dL (75-99)
[2019-02-04 07:47] LABS: Glucose,Whole Blood 196 mg/dL (75-99)
[2019-02-04] MEDS: INSULIN ASPART (NovoLOG) 100 UNIT/ML VIAL SQ SCH ×4 (08:10→20:28)
[2019-02-04] MEDS: BENZTROPINE MESYLATE 0.5 MG TAB PO SCH ×2 (08:47→21:17)
[2019-02-04] MEDS: cloZAPine 25 MG TAB PO SCH (08:47)
[2019-02-04] MEDS: POLYETHYLENE GLYCOL 3350 17 GM POWD.PACK PO SCH (08:47)
[2019-02-04] MEDS: TAMSULOSIN 0.4 MG CAP.ER.24H PO SCH (08:47)
[2019-02-04] MEDS: ATORVASTATIN 10 MG TAB PO SCH (08:47)
[2019-02-04 09:45] LABS: ALT 42 U/L (21-72); AST 28 U/L (17-59); African American GFR (CKD) >90 (>60 ml/min/1.73 sqM); Albumin 3.9 g/dL (3.5-5.0); Alkaline Phosphatase 81 U/L (38-126); Anion Gap 11 mmol/L; Blood Urea Nitrogen 17 mg/dL (9-20); Calcium 9.5 mg/dL (8.4-10.2); Carbon Dioxide 28 mmol/L (22-30); Chloride 99 mmol/L (98-107); Glucose 205 mg/dL (74-99); Potassium 4.3 mmol/L (3.5-5.1); Sodium 138 mmol/L (137-145); Total Bilirubin 0.4 mg/dL (0.2-1.3); Total Protein 6.9 g/dL (6.3-8.2)
--- NOTE | 2019-02-04 11:47 | P.PN ---
Progress Note - Text Interval history: The patient is found at the doorway of his room. I attempted to speak with him. The patient made no eye contact and provided no verbal response. At this point he is refusing to speak with me. Staff report that he has been attending more groups appropriately. He was asked to leave the social work group as he was making some inappropriate statements. Staff report that he is verbalizing he is more agreeable to attending an [facility] home as a means of transitioning out of the mental health unit. He has been compliant with medication. Lab results reviewed his sodium has been stable at 138. The clozapine level will take several days to come back. Mental status exam: The patient is alert he is dressed in his own clothing grooming is improved. With me he makes no eye contact he provides no verbal response. He is observed talking with staff at the desk calmly he is observed ambulating without difficulty. He is interacting with peers appropriately this morning. He does continue to possess a delusional thought content. Insight and judgment remain impaired but there is some mild improvement. He demonstrates no physical aggressiveness. He demonstrates no involuntary repetitive movements. Impressions/plan: Continued symptoms of louise and psychosis with some improvement, we're hoping the patient will continue to control behavior which will allow us to discharge him to a [facility] home setting. His guardian is looking for available options. We will continue his medication as written. We will await the clozapine level results. Vital signs reviewed. He is encouraged to appropriately attend groups.
[2019-02-04 12:38] LABS: Glucose,Whole Blood 106 mg/dL (75-99)
[2019-02-04] MEDS: clonazePAM 0.5 MG TAB PO PRN (15:04)
[2019-02-04] MEDS: cloZAPine 100 MG TAB PO SCH ×2 (16:42→21:16)
[2019-02-04 17:42] LABS: Glucose,Whole Blood 137 mg/dL (75-99)
[2019-02-04] MEDS: ACETAMINOPHEN TAB 325 MG TAB PO PRN (18:55)
[2019-02-04 20:02] LABS: Glucose,Whole Blood 146 mg/dL (75-99)
[2019-02-04] MEDS: INSULIN DETEMIR (LEVEMIR) 100 UNIT/ML SYR SQ SCH (20:29)
[2019-02-05] MEDS: clonazePAM 0.5 MG TAB PO PRN ×2 (05:48→15:04)
[2019-02-05 07:26] LABS: Glucose,Whole Blood 113 mg/dL (75-99)
[2019-02-05] MEDS: INSULIN ASPART (NovoLOG) 100 UNIT/ML VIAL SQ SCH ×4 (07:46→20:36)
[2019-02-05 08:18] LABS: Clozapine (Clozaril) 552 ng/mL (200-700); Norclozapine 291 ng/mL (200-700)
[2019-02-05] MEDS: POLYETHYLENE GLYCOL 3350 17 GM POWD.PACK PO SCH (08:18)
[2019-02-05] MEDS: cloZAPine 25 MG TAB PO SCH (08:19)
[2019-02-05] MEDS: BENZTROPINE MESYLATE 0.5 MG TAB PO SCH ×2 (08:19→21:11)
[2019-02-05] MEDS: ATORVASTATIN 10 MG TAB PO SCH (08:19)
[2019-02-05] MEDS: TAMSULOSIN 0.4 MG CAP.ER.24H PO SCH (08:19)
--- NOTE | 2019-02-05 10:54 | P.PN ---
Progress Note - Text Interval history: The patient is found in his room he seated in a chair looking out the window. Upon me entering the room he turned around made eye contact and then turned away. He made no further eye contact and provided no verbal response to questions. The patient was observed interacting with peers and staff earlier in the day appropriately. Staff report that he has been demonstrating more appropriate behavior in groups. Continues to verbalize his willingness to go to an [facility] home upon discharge. His clozapine level is back in the normal range at 552. Recent sodium level was 138. He has been compliant with oral medication. Mental status exam: The patient is alert he seated in his chair eye contact was brief he provided no verbal response. He demonstrates no signs of any physical distress. He demonstrates no involuntary repetitive movements. Insight and judgment limited but slowly improving. He demonstrates no verbal or physical aggressiveness. He is observed demonstrating some appropriate range of affect when interacting with peers and attempts to use humor at times. Impression/plan: The patient will continue on his current medications. It appears that he is slowly stabilizing. He is demonstrating more times when he is appropriate in groups. We will monitor him for safety vital signs reviewed. He requires continued psychiatric hospitalization as he is not yet ready for a lesser level of care.
[2019-02-05 12:44] LABS: Glucose,Whole Blood 107 mg/dL (75-99)
[2019-02-05] MEDS: cloZAPine 100 MG TAB PO SCH ×2 (17:06→21:11)
[2019-02-05 17:52] LABS: Glucose,Whole Blood 108 mg/dL (75-99)
[2019-02-05 20:16] LABS: Glucose,Whole Blood 214 mg/dL (75-99)
[2019-02-05] MEDS: INSULIN DETEMIR (LEVEMIR) 100 UNIT/ML SYR SQ SCH (20:36)
[2019-02-06] MEDS: clonazePAM 0.5 MG TAB PO PRN ×2 (00:05→17:25)
[2019-02-06 07:36] LABS: Glucose,Whole Blood 172 mg/dL (75-99)
[2019-02-06] MEDS: POLYETHYLENE GLYCOL 3350 17 GM POWD.PACK PO SCH (07:44)
[2019-02-06] MEDS: INSULIN ASPART (NovoLOG) 100 UNIT/ML VIAL SQ SCH ×4 (07:45→21:08)
[2019-02-06] MEDS: ATORVASTATIN 10 MG TAB PO SCH (07:45)
[2019-02-06] MEDS: cloZAPine 25 MG TAB PO SCH (07:45)
[2019-02-06] MEDS: BENZTROPINE MESYLATE 0.5 MG TAB PO SCH ×2 (07:45→21:08)
[2019-02-06] MEDS: TAMSULOSIN 0.4 MG CAP.ER.24H PO SCH (07:45)
[2019-02-06] MEDS: LACTULOSE 20 GM/30 ML CUP PO PRN (10:41)
[2019-02-06] MEDS: SIMETHICONE 80 MG CHEWABLE PO PRN (10:54)
[2019-02-06 12:29] LABS: Glucose,Whole Blood 123 mg/dL (75-99)
--- NOTE | 2019-02-06 14:43 | P.PN ---
Progress Note - Text Progress Note Date: 02/06/19 IDENTIFICATION DATA: 63-year-old male admitted to the mental health unit due to worsening of manic and psychotic symptoms. INTERVAL HISTORY: Patient was seen today. He was carrying a book in his hand and stated he likes to read books. He stated his mood have stable with clozaril. He was proud to say it has been twenty years since he drank alcohol. He was religiously preoccupied and talked a lot about God and being a yazidi. He stated if you dont give up on god, god will not give up on you. He claims his sister who lives in [place] has changed for good and was happy to say that she is not evil any more. He satetd his sister has praised glen Cole when he talked to her. He reports good sleep and appetite. He claims over the past two days he hanst attened all groups as he wanted to spend time alone. He claims to have learned to control his temper. MENTAL STATUS EXAMINATION: The patient is alert and oriented 4 and in no apparent distress. Motor and speech behaviors are within normal limits. Mood is "okay" and affect is full range. thought processes is tangential . thought content is negative for suicidal or homicidal ideation. Reports feeling suspicious at times. Denies current adutory or visual hallucinations. insight and judgment are limited. ASSESSMENT Schizoaffective disorder bipolar type PLAN: Continue current treatment.
[2019-02-06] MEDS: cloZAPine 100 MG TAB PO SCH ×2 (15:06→21:08)
[2019-02-06 17:22] LABS: Glucose,Whole Blood 131 mg/dL (75-99)
[2019-02-06 20:12] LABS: Glucose,Whole Blood 103 mg/dL (75-99)
[2019-02-06] MEDS: INSULIN DETEMIR (LEVEMIR) 100 UNIT/ML SYR SQ SCH (20:59)
[2019-02-07] MEDS: clonazePAM 0.5 MG TAB PO PRN ×3 (05:21→17:40)
[2019-02-07 08:11] LABS: Glucose,Whole Blood 136 mg/dL (75-99)
[2019-02-07] MEDS: INSULIN ASPART (NovoLOG) 100 UNIT/ML VIAL SQ SCH ×4 (08:13→20:25)
[2019-02-07] MEDS: POLYETHYLENE GLYCOL 3350 17 GM POWD.PACK PO SCH (08:56)
[2019-02-07] MEDS: ATORVASTATIN 10 MG TAB PO SCH (08:57)
[2019-02-07] MEDS: cloZAPine 25 MG TAB PO SCH (08:57)
[2019-02-07] MEDS: BENZTROPINE MESYLATE 0.5 MG TAB PO SCH ×2 (08:57→21:33)
[2019-02-07] MEDS: TAMSULOSIN 0.4 MG CAP.ER.24H PO SCH (08:57)
[2019-02-07 12:56] LABS: Glucose,Whole Blood 150 mg/dL (75-99)
[2019-02-07] MEDS: cloZAPine 100 MG TAB PO SCH ×2 (15:00→21:33)
--- NOTE | 2019-02-07 16:17 | P.PN ---
Progress Note - Text Progress Note Date: 02/07/19 IDENTIFICATION DATA: 63-year-old male admitted to the mental health unit due to worsening of manic and psychotic symptoms. INTERVAL HISTORY: Patient was seen today. He stated his sister loves him and wants patient to live with her in [place]. Patient sates he has to learn to forget his past and move forward with his life. He stated all he can do for his brother is to pray for him. He reports good sleep and appetite. He follows unit routine. He reports being compliant with his medications. No side effects reported. MENTAL STATUS EXAMINATION: 63 year old male. Appears his stated age in fair grooming and hygeine. The patient is alert and oriented 4 and in no apparent distress. Motor and speech behaviors are within normal limits. Mood is GREAT and affect is full range. thought processes is tangential . thought content is negative for suicidal or homicidal ideation. Denies current adutory or visual hallucinations. insight and judgment are limited. ASSESSMENT Schizoaffective disorder bipolar type PLAN: Continue current treatment.
[2019-02-07 17:40] LABS: Glucose,Whole Blood 115 mg/dL (75-99)
[2019-02-07 20:13] LABS: Glucose,Whole Blood 193 mg/dL (75-99)
[2019-02-07] MEDS: INSULIN DETEMIR (LEVEMIR) 100 UNIT/ML SYR SQ SCH (20:27)
[2019-02-08] MEDS: clonazePAM 0.5 MG TAB PO PRN ×3 (00:49→20:16)
[2019-02-08 07:41] LABS: Glucose,Whole Blood 137 mg/dL (75-99)
[2019-02-08] MEDS: INSULIN ASPART (NovoLOG) 100 UNIT/ML VIAL SQ SCH ×4 (09:01→21:31)
[2019-02-08] MEDS: cloZAPine 25 MG TAB PO SCH (09:01)
[2019-02-08] MEDS: TAMSULOSIN 0.4 MG CAP.ER.24H PO SCH (09:01)
[2019-02-08] MEDS: POLYETHYLENE GLYCOL 3350 17 GM POWD.PACK PO SCH (09:01)
[2019-02-08] MEDS: ATORVASTATIN 10 MG TAB PO SCH (09:01)
[2019-02-08] MEDS: BENZTROPINE MESYLATE 0.5 MG TAB PO SCH ×2 (09:01→20:15)
--- NOTE | 2019-02-08 10:27 | P.PN ---
Progress Note - Text Interval history: The patient is found in the hallway upon approach she refuses to look at me or speak. He continues to ambulate past me. Staff report no agitated behavior recently. He has been compliant with his medication. He is observed speaking with staff at the desk and interacting with peers. Mental status exam: The patient is a tall male appearing older than his stated age. He dresses own clothing he has a disheveled appearance. Eye contact with me is absent he provides no verbal response to my inquiries. There has been a reduction in verbal agitation over the past week. Insight and judgment continue to be impaired. He demonstrates no physical aggressiveness. He demonstrates no involuntary repetitive movements. He appears to be in no physical distress. He is able to ambulate without ataxia. He continues to appear alert. Impression/plan: The patient will continue on his current psychotropic med ications. His behavior has improved over the last week. We continued to explore options for placement. We encouraged appropriate participation in group. We are monitoring his by mouth intake. He requires continued psychiatric hospitalization until he further stabilizes and we identifying appropriate placement.
[2019-02-08 12:38] LABS: Glucose,Whole Blood 79 mg/dL (75-99)
[2019-02-08] MEDS: cloZAPine 100 MG TAB PO SCH ×2 (15:38→20:16)
[2019-02-08 17:44] LABS: Glucose,Whole Blood 103 mg/dL (75-99)
[2019-02-08 20:10] LABS: Glucose,Whole Blood 205 mg/dL (75-99)
[2019-02-08] MEDS: INSULIN DETEMIR (LEVEMIR) 100 UNIT/ML SYR SQ SCH (21:32)
[2019-02-09] MEDS: clonazePAM 0.5 MG TAB PO PRN ×2 (06:28→17:44)
[2019-02-09 08:03] LABS: Glucose,Whole Blood 141 mg/dL (75-99)
[2019-02-09] MEDS: INSULIN ASPART (NovoLOG) 100 UNIT/ML VIAL SQ SCH ×4 (08:04→21:19)
[2019-02-09] MEDS: POLYETHYLENE GLYCOL 3350 17 GM POWD.PACK PO SCH (08:05)
[2019-02-09] MEDS: LACTULOSE 20 GM/30 ML CUP PO PRN (08:05)
[2019-02-09] MEDS: cloZAPine 25 MG TAB PO SCH (08:05)
[2019-02-09] MEDS: BENZTROPINE MESYLATE 0.5 MG TAB PO SCH ×2 (08:05→21:22)
[2019-02-09] MEDS: TAMSULOSIN 0.4 MG CAP.ER.24H PO SCH (08:05)
[2019-02-09] MEDS: ATORVASTATIN 10 MG TAB PO SCH (08:05)
--- NOTE | 2019-02-09 11:25 | P.PN ---
Progress Note - Text Interval history: The patient is observed in the hallway. He continues to provide no verbal response when I approach him. Staff recorded he slept 6 hours last night. He does intermittently attend some groups. He has been following redirection when needed. He has been eating he has been showering. His guardian may have identified an appropriate [facility] home. He has been compliant with his medication. Nursing states he may be experiencing constipation again and that will be addressed. Mental status exam: The patient is alert he is a disheveled appearance he is wearing hospital gowns as he is preparing to shower. He makes brief eye contact but provides no verbal response when I approach him. He will continue to tell others that I don't exist. He is ambulating without difficulty. He is in no physical distress. He demonstrates no involuntary repetitive movements. He is observed engaging conversation with staff and other patients at times. Insight and judgment impaired. Impression/plan: The patient will continue on his current medications, we will address his constipation again today, we will await the visit from the [facility] home regarding placement. Vital signs reviewed. He requires continued psychiatric hospitalization until sufficiently stabilized and then he will transition to an [facility] home. I expect that he will be appropriate for discharge once the home is identified and they are ready for his placement.
[2019-02-09 12:50] LABS: Glucose,Whole Blood 107 mg/dL (75-99)
[2019-02-09] MEDS: SIMETHICONE 80 MG CHEWABLE PO PRN (13:50)
[2019-02-09] MEDS: cloZAPine 100 MG TAB PO SCH ×2 (15:38→21:22)
[2019-02-09 17:40] LABS: Glucose,Whole Blood 102 mg/dL (75-99)
[2019-02-09 20:20] LABS: Glucose,Whole Blood 163 mg/dL (75-99)
[2019-02-09] MEDS: INSULIN DETEMIR (LEVEMIR) 100 UNIT/ML SYR SQ SCH (21:22)
[2019-02-10 05:45] LABS: Glucose,Whole Blood 126 mg/dL (75-99)
[2019-02-10] MEDS: clonazePAM 0.5 MG TAB PO PRN ×2 (05:46→16:37)
[2019-02-10 07:44] LABS: Glucose,Whole Blood 193 mg/dL (75-99)
[2019-02-10] MEDS: INSULIN ASPART (NovoLOG) 100 UNIT/ML VIAL SQ SCH ×4 (07:52→20:25)
[2019-02-10] MEDS: ATORVASTATIN 10 MG TAB PO SCH (08:00)
[2019-02-10] MEDS: TAMSULOSIN 0.4 MG CAP.ER.24H PO SCH (08:00)
[2019-02-10] MEDS: BENZTROPINE MESYLATE 0.5 MG TAB PO SCH ×2 (08:00→20:22)
[2019-02-10] MEDS: cloZAPine 25 MG TAB PO SCH (08:00)
[2019-02-10] MEDS: POLYETHYLENE GLYCOL 3350 17 GM POWD.PACK PO SCH (08:02)
[2019-02-10] MEDS: MAG HYDROX/AL HYDROX/SIMETH 30 ML CUP PO PRN (08:57)
[2019-02-10] MEDS: SIMETHICONE 80 MG CHEWABLE PO PRN (09:10)
[2019-02-10 10:31] LABS: Anisocytosis Slight; Basophils # (A) 0.2 k/uL (0-0.2); Basophils % (A) 2 %; Eosinophils # (A) 0.4 k/uL (0-0.7); Eosinophils % (A) 4 %; HCT 40.8 % (39.0-53.0); HGB 13.2 gm/dL (13.0-17.5); Lymphocytes # (A) 1.1 k/uL (1.0-4.8); Lymphocytes % (A) 11 %; MCH 28.2 pg (25.0-35.0); MCHC 32.4 g/dL (31.0-37.0); MCV 87.1 fL (80.0-100.0); Mean Platelet Volume 6.7; Monocytes # (A) 0.7 k/uL (0-1.0); Monocytes % (A) 8 %; Neutrophils # (A) 7.2 k/uL (1.3-7.7); Neutrophils % (A) 74 %; Platelet Count 321 k/uL (150-450); RBC 4.68 m/uL (4.30-5.90); RDW 16.1 % (11.5-15.5); WBC 9.7 k/uL (3.8-10.6)
--- NOTE | 2019-02-10 10:59 | P.PN ---
Progress Note - Text Interval history: The patient is found in his room lying in a chair facing the window. Upon approach he indicates he will not speak with me and he turns away. Staff reported he slept 6 hours. Appetite stable. Nursing states that the patient was able to have a bowel movement yesterday as he has been struggling with some constipation. He is observed ambulating in the hallway earlier in the day interacting with staff and peers. Social work states that we are still awaiting a visit from an [facility] home provider to determine his eligibility for that location. Mental status exam: The patient is an alert male he is lying in the reclining chair comfortably. He makes brief eye contact he indicates he will not speak with me. He is in no physical distress. He demonstrates no abnormal involuntary movements. He demonstrates no verbal or physical aggressiveness during the brief interaction. Insight and judgment remain impaired. He is dressed in his own clothing hygiene adequate area Impression/plan: The patient will continue on his current psychotropic medication. He is slowly stabilizing. Although he refuses to speak with me he does interact with staff and peers. His behavior is much improved. We are awaiting a visit from the [facility] home provider. Vital signs reviewed. The patient has a court hearing today regarding his involuntary hospitalization. He requires this level of care at this time and we do not have an available safe alternative currently.
[2019-02-10 12:45] LABS: Glucose,Whole Blood 128 mg/dL (75-99)
--- NOTE | 2019-02-10 14:15 | XR ---
EXAMINATION TYPE: XR abdomen 2V DATE OF EXAM: 02/10/2019 COMPARISON: 01/21/2019 HISTORY: Pain TECHNIQUE: One view abdominal series FINDINGS: The osseous structures are intact. The bowel gas pattern is nonspecific. Lung bases are clear. Curv ature of the spine. Arthropathy of the hips. Degenerative change of the lumbar spine. Retained fecal debris throughout the colon. IMPRESSION: 1. Nonspecific abdomen. There are prominent small bowel loops which appear dilated. Retained fecal d ebris throughout the colon. Findings could been the basis of constipation. Enteritis, ileus or obstru ctive pattern not entirely excluded recommend CT of the abdomen and pelvis.
[2019-02-10] MEDS ORDERED: POLYETHYLENE GLYCOL 3350 17 GM POWD.PACK PO STA (14:31)
[2019-02-10] MEDS ORDERED: METOCLOPRAMIDE 5 MG TAB PO STA (14:33)
--- NOTE | 2019-02-10 14:59 | P.PN ---
Subjective Progress Note Date: 02/10/19 Principal diagnosis: Constipation Patient is a 63-year-old male known to the mental health unit was been having issues with severe abdominal distention and constipation. He had possible [place]'s syndrome diagnosed in January 2019. This improved with an aggressive bowel regiment. Patient again noted to have abdominal distention and pain today by mental health unit staff. Apparently he was complaining of abdominal pain earlier today. On exam he is focused on missing his Wanting to see him and needing to leave. He believes he's been in the mental health unit for 67 days. He states his belly does not hurt unless she presses on it. He states he had a bowel movement yesterday. Stat x-ray was ordered which revealed a nonspecific abdomen with small bowel loo ps which are dilated and retained fecal debris throughout the colon. Objective - Vital Signs Vital signs: Vital Signs Temp 98.6 F 02/10/19 12:30 Pulse 99 02/10/19 11:00 Resp 16 02/10/19 11:00 BP 136/71 02/10/19 11:00 Pulse Ox 96 01/22/19 06:59 - Exam General: non toxic, no distress, appears at stated age, Derm: warm, dry Head: atraumatic, normocephalic, symmetric Eyes: EOMI, no lid lag, anicteric sclera Mouth: no lip lesion, mucus membranes moist Cardiovascular: S1S2 reg, no murmur, positive posterior tibial pulse bilateral, Lungs: decreased breath sounds bilateral, no rhonchi, no rales , no accessory muscle use Abdominal: soft, distended, +2 tympanic, tender to palpation right lower quadrant, no guarding, no appreciable organomegaly Ext: no gross muscle atrophy, no edema, no contractures Neuro: CN II-XI grossly intact, no focal neuro deficits Psych: Alert, upset and crying - Labs CBC & Chem 7: 02/10/19 08:50 02/04/19 08:57 Labs: Abnormal Lab Results - Last 24 Hours (Table) 02/09/19 02/09/19 02/10/19 Range/Units 17:38 20:19 05:44 RDW (11.5-15.5) % POC Glucose (mg/dL) 102 H 163 H 126 H (75-99) mg/dL 09/09/2502/10/19 02/10/19 Range/Units 07:43 08:50 12:43 RDW 16.1 H (11.5-15.5) % POC Glucose (mg/dL) 193 H 128 H (75-99) mg/dL Assessment and Plan Assessment: 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 -Check stat CBC and CMP -Suspect this is secondary to the anticholinergic properties which are additive with clozapine and benztropine Diabetes mellitus type 2 -Patient has had normalized blood sugars but sliding scale and Levemir has been added. We'll discontinue Levemir as he is on clear liquid diet. If his sugars elevate then would add back in metformin and avoid insulin use in a patient with an A1c of 5.7. -Hemoglobin A1c 5.7 in November 2018 and likely would be okay to go without coverage for diabetes Schizoaffective disorder, bipolar type with psychosis -Your psych management Do not hesitate to call regarding questions or concerns at this patient.
[2019-02-10] MEDS: cloZAPine 100 MG TAB PO SCH ×2 (15:31→20:22)
[2019-02-10 15:43] LABS: Anisocytosis Slight; HCT 37.6 % (39.0-53.0); HGB 12.5 gm/dL (13.0-17.5); MCH 28.3 pg (25.0-35.0); MCHC 33.3 g/dL (31.0-37.0); Mean Platelet Volume 6.2; Platelet Count 338 k/uL (150-450); RBC 4.42 m/uL (4.30-5.90); RDW 16.2 % (11.5-15.5); WBC 15.2 k/uL (3.8-10.6)
[2019-02-10 15:54] LABS: ALT 41 U/L (21-72); AST 28 U/L (17-59); African American GFR (CKD) >90 (>60 ml/min/1.73 sqM); Alkaline Phosphatase 78 U/L (38-126); Anion Gap 10 mmol/L; Blood Urea Nitrogen 15 mg/dL (9-20); Calcium 9.4 mg/dL (8.4-10.2); Carbon Dioxide 27 mmol/L (22-30); Chloride 98 mmol/L (98-107); Glucose 113 mg/dL (74-99); Potassium 4.3 mmol/L (3.5-5.1); Sodium 135 mmol/L (137-145); Total Bilirubin 0.5 mg/dL (0.2-1.3); Total Protein 7.1 g/dL (6.3-8.2)
[2019-02-10 17:50] LABS: Glucose,Whole Blood 126 mg/dL (75-99)
[2019-02-10 20:22] LABS: Glucose,Whole Blood 151 mg/dL (75-99)
[2019-02-10] MEDS: INSULIN DETEMIR (LEVEMIR) 100 UNIT/ML SYR SQ SCH (20:22)
[2019-02-10] MEDS: LACTULOSE 20 GM/30 ML CUP PO SCH (23:00)
[2019-02-11] MEDS: LACTULOSE 20 GM/30 ML CUP PO PRN (05:15)
[2019-02-11] MEDS: clonazePAM 0.5 MG TAB PO PRN ×3 (05:18→17:57)
[2019-02-11] MEDS: SIMETHICONE 80 MG CHEWABLE PO PRN ×2 (05:27→12:26)
[2019-02-11 07:44] LABS: Glucose,Whole Blood 161 mg/dL (75-99)
[2019-02-11] MEDS: INSULIN ASPART (NovoLOG) 100 UNIT/ML VIAL SQ SCH ×4 (07:54→19:56)
[2019-02-11] MEDS: LACTULOSE 20 GM/30 ML CUP PO SCH ×2 (07:56→19:58)
[2019-02-11] MEDS: BENZTROPINE MESYLATE 0.5 MG TAB PO SCH ×2 (07:56→19:59)
[2019-02-11] MEDS: POLYETHYLENE GLYCOL 3350 17 GM POWD.PACK PO SCH (07:56)
[2019-02-11] MEDS: cloZAPine 25 MG TAB PO SCH (07:56)
[2019-02-11] MEDS: TAMSULOSIN 0.4 MG CAP.ER.24H PO SCH (07:56)
[2019-02-11] MEDS: ATORVASTATIN 10 MG TAB PO SCH (07:57)
--- NOTE | 2019-02-11 11:38 | P.PN ---
Progress Note - Text Interval history: The patient's found in his room he again refuses to interact with me. He provides no verbal response to questions asked. Staff report that the patient remains directable. He is demonstrating no agitated behavior. He is experiencing significant constipation. Internal medicine is evaluating the patient. A GI consult has been ordered. His symptoms could be due to the concurrent use of clozapine and Cogentin. The clozapine is necessary for his psychiatric stabilization. We have been using the Cogentin for the sialorrhea secondary to clozapine. We were informed that the patient may have been accepted to an adult foster half-way we are awaiting a placement date. Mental status exam: The patient is alert he is uncooperative with me. He is a thin male with abdominal distention. He is a disheveled appearance. He is observed interacting with staff and other peers on the mental health unit. He appears to be in no physical distress. He demonstrates no verbal or physical aggressiveness. he demonstrates no involuntary repetitive movements. Insight and judgment limited. Impression/plan: Continued slow improvement of manic symptoms with psychosis, continue medications as written, we will await input from gastroenterology and internal medicine. If necessary we could discontinue the Cogentin but the clozapine is a necessity in terms of his psychiatric treatment. Vital signs reviewed. We'll continue to monitor him for safety. It appears we are getting closer to an appropriate placement option.
[2019-02-11 12:26] LABS: Glucose,Whole Blood 80 mg/dL (75-99)
[2019-02-11] MEDS: IOPAMIDOL-300 CONTRAST 30 ML VIAL (ORAL USE) PO PRN ×2 (14:03→15:04)
--- NOTE | 2019-02-11 15:56 | CT ---
EXAMINATION TYPE: CT abdomen pelvis wo con DATE OF EXAM: 02/11/2019 COMPARISON: None HISTORY: Severe abdominal pain CT DLP: 500 mGycm Examination of the solid and hollow viscera is limited given the lack of contrast. FINDINGS: LUNG BASES: No evidence for nodule. No evidence for infiltrate. LIVER/GB: The gallbladder is unremarkable. No space-occupying hepatic lesion. PANCREAS: No pancreatic mass identified. No inflammatory process seen. SPLEEN: No evidence for splenomegaly. No intrasplenic lesions seen. ADRENALS: No adrenal nodules identified. No evidence for thickening. KIDNEYS: Probable simple cyst lower pole left kidney measuring 4.9 cm. No nephrolithiasis. No hydrone phrosis. BOWEL: There is severe constipation noted. Impaction is difficult to exclude. The appendix is not wel l visualized. No evidence of bowel obstruction. No inflammatory process. Lymph nodes: No evidence for adenopathy greater than 1 cm. Abdominal aorta: Atheromatous changes seen. No evidence for aneurysm. Genital organs: No significant abnormality. Other: No significant abnormality. IMPRESSION: There is severe constipation noted. Impaction is difficult to exclude.
[2019-02-11] MEDS: cloZAPine 100 MG TAB PO SCH ×2 (16:11→19:57)
--- NOTE | 2019-02-11 17:43 | P.PN ---
Subjective Progress Note Date: 02/11/19 (delayed charting seen at 1315) Principal diagnosis: Constipation Patient is a 63-year-old male known to the mental health unit was been having issues with severe abdominal distention and constipation. 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 This improved with an aggressive bowel regiment. Patient again noted to have abdominal distention and pain on 02/10 by mental health unit staff. Stat x-ray was ordered which revealed a nonspecific abdomen with small bowel loops which are dilated and retained fecal debris throughout the colon. Started on aggressive bowel regiment and had 2 small bowel movements Patient seen and examined at bedside. He reports that his abdominal pain is much improved from yesterday. Last night he reports was a 15 out of 10 and he was crying out in pain. He then had 2 small bowel movements since it seemed improved. He is feeling hungry. No nausea or vomiting. Passing gas today but still no bowel movements. Had some abdominal pain earlier but simethicone seemed to help. Agreeable to proceed with CT scan to rule out obstruction. Objective - Vital Signs Vital signs: Vital Signs Temp 97.5 F L 02/11/19 05:38 Pulse 93 02/11/19 05:38 Resp 18 02/11/19 05:38 BP 113/73 02/11/19 05:38 Pulse Ox 96 01/22/19 06:59 - Exam General: non toxic, no distress, appears at stated age, Derm: warm, dry Head: atraumatic, normocephalic, symmetric Eyes: EOMI, no lid lag, anicteric sclera Mouth: no lip lesion, mucus membranes moist Cardiovascular: S1S2 reg, no murmur, positive posterior tibial pulse bilateral, Lungs: decreased breath sounds bilateral, no rhonchi, no rales , no accessory muscle use Abdominal: soft, distended, +2 tympanic, nontender to palpation right lower quadrant, no guarding, no appreciable organomegaly Ext: no gross muscle atrophy, no edema, no contractures Neuro: CN II-XI grossly intact, no focal neuro deficits Psych: Alert, pleasant - Labs CBC & Chem 7: 02/10/19 15:12 02/10/19 15:12 Labs: Abnormal Lab Results - Last 24 Hours (Table) 02/10/19 02/10/19 02/11/19 Range/Units 17:48 20:21 07:42 POC Glucose (mg/dL) 126 H 151 H 161 H (75-99) mg/dL Assessment and Plan Assessment: 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 -Repeat CBC in AM -Suspect this is secondary to the anticholinergic properties which are additive with clozapine and benztropine Diabetes mellitus type 2 -Resume metformin. Continue slidiing scale. If his sugars elevate then would add back in metformin and avoid insulin use in a patient with an A1c of 5.7. -Hemoglobin A1c 5.7 in November 2018 and likely would be okay to go without coverage for diabetes Schizoaffective disorder, bipolar type with psychosis -Your psych management Do not hesitate to call regarding questions or concerns at this patient.
[2019-02-11] MEDS ORDERED: metFORMIN 850 MG TAB PO SCH (17:45)
[2019-02-11 17:54] LABS: Glucose,Whole Blood 87 mg/dL (75-99)
[2019-02-11 19:47] LABS: Glucose,Whole Blood 211 mg/dL (75-99)
[2019-02-11] MEDS: INSULIN DETEMIR (LEVEMIR) 100 UNIT/ML SYR SQ SCH (21:09)
[2019-02-12 07:38] LABS: Glucose,Whole Blood 143 mg/dL (75-99)
[2019-02-12] MEDS: metFORMIN 500 MG TAB PO SCH ×2 (07:53→17:39)
[2019-02-12] MEDS: cloZAPine 25 MG TAB PO SCH (07:53)
[2019-02-12] MEDS: TAMSULOSIN 0.4 MG CAP.ER.24H PO SCH (07:53)
[2019-02-12] MEDS: ATORVASTATIN 10 MG TAB PO SCH (07:53)
[2019-02-12] MEDS: BENZTROPINE MESYLATE 0.5 MG TAB PO SCH (07:54)
[2019-02-12] MEDS: POLYETHYLENE GLYCOL 3350 17 GM POWD.PACK PO SCH (07:54)
[2019-02-12] MEDS: INSULIN ASPART (NovoLOG) 100 UNIT/ML VIAL SQ SCH ×4 (07:54→20:13)
[2019-02-12] MEDS: LACTULOSE 20 GM/30 ML CUP PO SCH ×2 (09:21→20:16)
[2019-02-12] MEDS: clonazePAM 0.5 MG TAB PO PRN (10:54)
--- NOTE | 2019-02-12 11:35 | P.PN ---
Progress Note - Text Interval history: The patient is found in the hallway. Again he refuses to speak with me. He is observed interacting with peers and staff during the morning without any agitation. Results of computed tomography scan reviewed. He is noted to have severe constipation without any clear evidence of obstruction. He is receiving lactulose. He is describing no significant abdominal pain to nursing staff. The patient will intermittently participate in groups. Staff find that he continues to be directable. Mental status exam: The patient is alert he is a thin male with some abdominal distention. He has a disheveled appearance. Hygiene fair. Eye contact is poor he provides no verbal responses during our brief interaction. Insight and judgment limited. He is demonstrating no verbal or physical aggressiveness. He demonstrates no involuntary movements. He ambulates without ataxia. Plan: The patient will continue on the clozapine as written. We will discontinue the Cogentin. We will continue to provide treatment for his constipation and look for additional recommendations from internal medicine. We continue to await the placement date for the adult foster senior care that has accepted him. Vital signs reviewed.
[2019-02-12 12:27] LABS: Anisocytosis Slight; HCT 36.7 % (39.0-53.0); HGB 12.3 gm/dL (13.0-17.5); MCH 28.7 pg (25.0-35.0); MCHC 33.4 g/dL (31.0-37.0); MCV 85.8 fL (80.0-100.0); Mean Platelet Volume 7.1; Platelet Count 363 k/uL (150-450); RBC 4.28 m/uL (4.30-5.90); WBC 10.1 k/uL (3.8-10.6)
[2019-02-12 12:45] LABS: Glucose,Whole Blood 123 mg/dL (75-99)
[2019-02-12] MEDS: cloZAPine 100 MG TAB PO SCH ×2 (15:07→20:16)
--- NOTE | 2019-02-12 17:32 | P.PN ---
Subjective Progress Note Date: 02/12/19 Principal diagnosis: Constipation Patient is a 63-year-old male known to the mental health unit was been having issues with severe abdominal distention and constipation. He had possible [place]'s syndrome diagnosed in January 2019. This improved with an aggressive bowel regiment. Patient again noted to have abdominal distention and pain on 02/10 by mental health unit staff. CT scan 02/11 showed no obstruction but severe constipation with possible impaction. Patient having bowel movements after isoview. Patient seen and examined at bedside. 3 bowel movements in the last 24 hours. Patient hungry, no nausea, no vomiting, no abdominal cramping. Feeling good. Lots of bowel movements and passing gas Objective - Vital Signs Vital signs: Vital Signs Temp 97.9 F 02/12/19 15:03 Pulse 107 H 02/12/19 06:42 Resp 18 02/12/19 06:42 BP 157/78 02/12/19 06:42 Pulse Ox 96 01/22/19 06:59 - Exam General: non toxic, no distress, appears at stated age, Derm: warm, dry Head: atraumatic, normocephalic, symmetric Eyes: EOMI, no lid lag, anicteric sclera Mouth: no lip lesion, mucus membranes moist Cardiovascular: S1S2 reg, no murmur, positive posterior tibial pulse bilateral, Lungs: CTA bilateral, no rhonchi, no rales , no accessory muscle use Abdominal: soft, not distended, + tympanic RUQ only, nontender to palpation right lower quadrant, no guarding, no appreciable organomegaly Ext: no gross muscle atrophy, no edema, no contractures Neuro: CN II-XI grossly intact, no focal neuro deficits, drooling Psych: Alert, pleasant - Labs CBC & Chem 7: 02/12/19 11:27 02/10/19 15:12 Labs: Abnormal Lab Results - Last 24 Hours (Table) 02/11/19 02/12/19 02/12/19 Range/Units 19:47 07:35 11:27 RBC 4.28 L (4.30-5.90) m/uL Hgb 12.3 L (13.0-17.5) gm/dL Hct 36.7 L (39.0-53.0) % RDW 17.0 H (11.5-15.5) % POC Glucose (mg/dL) 211 H 143 H (75-99) mg/dL 02/12/19 Range/Units 12:42 RBC (4.30-5.90) m/uL Hgb (13.0-17.5) gm/dL Hct (39.0-53.0) % RDW (11.5-15.5) % POC Glucose (mg/dL) 123 H (75-99) mg/dL Assessment and Plan Assessment: Severe constipation with suspicion for [place]'s syndrome, recurrent - as been taked on cogentin which should help significantly. - CT with severe constipation no obstruction - Advance to Regular diet -Continue MiraLAX once daily -Lactulose twice a day scheduled -Plan on seeing patient again 02/15 Diabetes mellitus type 2 -Metformin. Continue slidiing scale. -Hemoglobin A1c 5.7 in November 2018 Schizoaffective disorder, bipolar type with psychosis -Your psych management Do not hesitate to call regarding questions or concerns at this patient.
[2019-02-12 17:34] LABS: Glucose,Whole Blood 100 mg/dL (75-99)
[2019-02-12 20:02] LABS: Glucose,Whole Blood 163 mg/dL (75-99)
[2019-02-12] MEDS: INSULIN DETEMIR (LEVEMIR) 100 UNIT/ML SYR SQ SCH (20:14)
[2019-02-13] MEDS: clonazePAM 0.5 MG TAB PO PRN ×2 (00:59→14:08)
[2019-02-13 07:41] LABS: Glucose,Whole Blood 170 mg/dL (75-99)
[2019-02-13] MEDS: INSULIN ASPART (NovoLOG) 100 UNIT/ML VIAL SQ SCH ×4 (07:44→20:23)
[2019-02-13] MEDS: metFORMIN 500 MG TAB PO SCH ×2 (07:45→17:51)
[2019-02-13] MEDS: cloZAPine 25 MG TAB PO SCH (08:52)
[2019-02-13] MEDS: LACTULOSE 20 GM/30 ML CUP PO SCH ×2 (08:52→20:21)
[2019-02-13] MEDS: TAMSULOSIN 0.4 MG CAP.ER.24H PO SCH (08:52)
[2019-02-13] MEDS: ATORVASTATIN 10 MG TAB PO SCH (08:52)
[2019-02-13] MEDS: POLYETHYLENE GLYCOL 3350 17 GM POWD.PACK PO SCH (08:53)
[2019-02-13 12:29] LABS: Glucose,Whole Blood 114 mg/dL (75-99)
[2019-02-13] MEDS: cloZAPine 100 MG TAB PO SCH ×3 (17:36→20:21)
[2019-02-13 17:56] LABS: Glucose,Whole Blood 110 mg/dL (75-99)
--- NOTE | 2019-02-13 18:49 | P.PN ---
Progress Note - Text Progress Note Date: 02/13/19 Interval history: A she has seen in [facility] today. He reports he slept about 7 hours last night and he seems to be eating well. He does not voice any adverse psychotropic medication side effects. He talks about the importance of his cat to him. He states he felt a low bit depressed after eating but currently his mood is doing better. Mental status exam: He is alert and cooperative with the interview. His speech is fluent, not rapid or pressured. His mood he describes was depressed after eating but currently doing better. He denies any thoughts of harm to self or others. He does not verbalize any hallucinations. He does not show any agitation. Plan: Patient will be maintained on current psychotropic medication regimen. Continue to monitor for any adverse psychotropic medication side effects and monitor his ongoing response to treatment.
[2019-02-13 20:10] LABS: Glucose,Whole Blood 105 mg/dL (75-99)
[2019-02-13] MEDS: INSULIN DETEMIR (LEVEMIR) 100 UNIT/ML SYR SQ SCH (21:07)
[2019-02-13] MEDS: ACETAMINOPHEN TAB 325 MG TAB PO PRN (21:20)
[2019-02-14] MEDS: clonazePAM 0.5 MG TAB PO PRN (00:13)
[2019-02-14 08:05] LABS: Glucose,Whole Blood 117 mg/dL (75-99)
[2019-02-14] MEDS: TAMSULOSIN 0.4 MG CAP.ER.24H PO SCH (08:07)
[2019-02-14] MEDS: cloZAPine 25 MG TAB PO SCH (08:07)
[2019-02-14] MEDS: metFORMIN 500 MG TAB PO SCH ×2 (08:07→17:33)
[2019-02-14] MEDS: ATORVASTATIN 10 MG TAB PO SCH (08:07)
[2019-02-14] MEDS: LACTULOSE 20 GM/30 ML CUP PO SCH ×2 (08:08→20:55)
[2019-02-14] MEDS: POLYETHYLENE GLYCOL 3350 17 GM POWD.PACK PO SCH (08:08)
[2019-02-14] MEDS: INSULIN ASPART (NovoLOG) 100 UNIT/ML VIAL SQ SCH ×4 (08:11→20:21)
[2019-02-14] MEDS: ACETAMINOPHEN TAB 325 MG TAB PO PRN (10:49)
[2019-02-14 12:44] LABS: Glucose,Whole Blood 97 mg/dL (75-99)
[2019-02-14] MEDS: cloZAPine 100 MG TAB PO SCH ×2 (15:52→20:54)
--- NOTE | 2019-02-14 15:52 | P.PN ---
Progress Note - Text Progress Note Date: 02/14/19 Over history: Patient is seen in [facility] today again. He talks about how important his cat is to him. He talks about feeling scared. Towards the end of the session he becomes tearful, talks about concerns of being here a long time. He does not verbalize any adverse psychotropic medication side effects. He is trying to attend some groups. Mental status exam: He is alert and cooperative with the interview he becomes tearful at the end of the session. He reports feeling scared. He denies any thoughts of harm to self or others. He does not verbalize any hallucinations. He seems to insist that Dr. Maxwell is not his doctor. Mood overall seems to be feeling better but he does report feeling scared and becomes tearful towards the end of the session. There is some zoroastrianism theme towards the end of the session. Plan: Patient will be maintained on current psychotropic medication regimen. Continue to monitor for any medication side effects and monitor his ongoing response to treatment.
[2019-02-14 17:30] LABS: Glucose,Whole Blood 94 mg/dL (75-99)
[2019-02-14 20:07] LABS: Glucose,Whole Blood 193 mg/dL (75-99)
[2019-02-14] MEDS: INSULIN DETEMIR (LEVEMIR) 100 UNIT/ML SYR SQ SCH (20:22)
[2019-02-15] MEDS: clonazePAM 0.5 MG TAB PO PRN (05:33)
[2019-02-15 07:35] LABS: Glucose,Whole Blood 126 mg/dL (75-99)
[2019-02-15] MEDS: INSULIN ASPART (NovoLOG) 100 UNIT/ML VIAL SQ SCH ×2 (07:35→13:02)
[2019-02-15] MEDS: LACTULOSE 20 GM/30 ML CUP PO SCH ×2 (08:55→20:40)
[2019-02-15] MEDS: POLYETHYLENE GLYCOL 3350 17 GM POWD.PACK PO SCH (08:55)
[2019-02-15] MEDS: TAMSULOSIN 0.4 MG CAP.ER.24H PO SCH (08:57)
[2019-02-15] MEDS: cloZAPine 25 MG TAB PO SCH (08:57)
[2019-02-15] MEDS: ATORVASTATIN 10 MG TAB PO SCH (08:57)
[2019-02-15] MEDS: metFORMIN 500 MG TAB PO SCH ×2 (08:57→16:18)
--- NOTE | 2019-02-15 11:32 | P.PN ---
Progress Note - Text Interval history: The patient is found in the hallway he continues to refuse to speak with me. Staff report that he has been relatively stable. No reports of agitated behavior. He is observed interacting with staff and peers. Vital signs reviewed. He is reportedly having bowel movements and he continues to be followed by internal medicine. Social work has received information that the patient could be discharged sometime this week as her may be an available bed. The patient has been compliant with the clozapine. Mental status exam: The patient is alert he is dressed in his own clothing hygiene adequate grooming fair. He makes no eye contact he provides no verbal response when I approach him to speak. He is demonstrating no verbal or physical aggressiveness he is demonstrating no involuntary repetitive movements. He is ambulating without difficulty. He appears to be in no physical distress. Impression/plan: Erika with psychosis, the patient continues to clinically stabilized. We'll continue with the medication as written. Constipation improved patient is having bowel movements. Vital signs reviewed. We are awaiting a placement date at the adult foster [facility]. He requires continued psychiatric hospitalization until a bed is available. It would not be appropriate or safe for him to be discharged to a lesser level of care.
[2019-02-15 12:48] LABS: Glucose,Whole Blood 68 mg/dL (75-99)
[2019-02-15 13:02] LABS: Glucose,Whole Blood 89 mg/dL (75-99)
--- NOTE | 2019-02-15 14:41 | XR ---
EXAMINATION TYPE: XR abdomen 2V DATE OF EXAM: 02/15/2019 COMPARISON: NONE HISTORY: 02/10/2019 TECHNIQUE: One view abdominal series FINDINGS: The osseous structures are intact. The bowel gas pattern is nonspecific. Stents retained debris thro ughout the colon. Lung bases are clear. Scoliotic curvature the spine with hypertrophic and degenera tive change. Arthropathy IMPRESSION: 1. Nonspecific abdomen. Correlate for constipation.
--- NOTE | 2019-02-15 16:03 | P.PN ---
Subjective Progress Note Date: 02/15/19 Principal diagnosis: Constipation Patient is a 63-year-old male known to the mental health unit was been having issues with severe abdominal distention and constipation. 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 This improved with an aggressive bowel regiment. Patient again noted to have abdominal distention and pain on 02/10 by mental health unit staff. CT scan 02/11 showed no obstruction but severe constipation with possible impaction. Patient having bowel movements after isoview. Continue multiple large bowel movements over the last 2 days. Reports he continues to have large bowel movements. Repeat abdominal x-ray shows continued fecal stasis and constipation Patient seen and examined at bedside. Patient reports he is continuing to have large bowel movements. He denies any abdominal pain but does report some gas. His appetite has been good. No nausea or vomiting. Anxious to be discharged. Objective - Vital Signs Vital signs: Vital Signs Temp 98.3 F 02/14/19 21:19 Pulse 99 02/15/19 05:35 Resp 18 02/15/19 05:35 BP 129/72 02/15/19 05:35 Pulse Ox 96 01/22/19 06:59 Intake & Output 02/14/19 02/15/19 02/15/19 18:59 06:59 18:59 Weight 74.3 kg - Exam General: non toxic, no distress, appears at stated age, Derm: warm, dry Head: atraumatic, normocephalic, symmetric Eyes: EOMI, no lid lag, anicteric sclera Mouth: no lip lesion, mucus membranes moist Cardiovascular: S1S2 reg, no murmur, positive posterior tibial pulse bilateral, Lungs: CTA bilateral, no rhonchi, no rales , no accessory muscle use Abdominal: soft, not distended, not tympanic, nontender to palpation right lower quadrant, no guarding, no appreciable organomegaly Ext: no gross muscle atrophy, no edema, no contractures Neuro: CN II-XI grossly intact, no focal neuro deficits, no drooling Psych: Alert, pleasant - Labs CBC & Chem 7: 02/12/19 11:27 02/10/19 15:12 Labs: Abnormal Lab Results - Last 24 Hours (Table) 02/14/19 02/15/19 02/15/19 Range/Units 20:06 07:34 12:47 POC Glucose (mg/dL) 193 H 126 H 68 L (75-99) mg/dL Assessment and Plan Assessment: Severe constipation with suspicion for [place]'s syndrome, recurrent - as been taken off cogentin which should help significantly. - Repeat CXR still with significant stool burden, Patient having large bowel movements typically twice daily per staff - Regular diet -Continue MiraLAX once daily Lactulose twice a day scheduled and additional doses prn, this should be continued on discharge Diabetes mellitus type 2, hypoglycemia asymptomatic X 1 -Metformin. Continue sliding scale. Stop Levemir -Hemoglobin A1c 5.7 in November 2018 Schizoaffective disorder, bipolar type with psychosis -Your psych management Do not hesitate to call regarding questions or concerns at this patient.
[2019-02-15] MEDS: cloZAPine 100 MG TAB PO SCH ×2 (16:18→20:40)
[2019-02-15 17:35] LABS: Glucose,Whole Blood 96 mg/dL (75-99)
[2019-02-15 20:43] LABS: Glucose,Whole Blood 209 mg/dL (75-99)
[2019-02-16] MEDS: clonazePAM 0.5 MG TAB PO PRN ×2 (03:57→14:47)
[2019-02-16 03:58] VITALS: BP 134/82; PULSE 94; RESP 16; TEMP 98.2
[2019-02-16 07:55] LABS: Glucose,Whole Blood 113 mg/dL (75-99)
[2019-02-16] MEDS: cloZAPine 25 MG TAB PO SCH (09:00)
[2019-02-16] MEDS: ATORVASTATIN 10 MG TAB PO SCH (09:00)
[2019-02-16] MEDS: metFORMIN 500 MG TAB PO SCH ×2 (09:00→17:22)
[2019-02-16] MEDS: TAMSULOSIN 0.4 MG CAP.ER.24H PO SCH (09:00)
[2019-02-16] MEDS: POLYETHYLENE GLYCOL 3350 17 GM POWD.PACK PO SCH (09:00)
[2019-02-16] MEDS: LACTULOSE 20 GM/30 ML CUP PO SCH (09:00)
--- NOTE | 2019-02-16 09:42 | P.DS ---
Providers Date of admission: 11/27/18 15:07 Expected date of discharge: 02/16/19 Attending physician: Navi Maxwell Consults: 11/27/18 15:24 Consult Physician Routine Consulting Provider: Iman Low Consult Reason/Comments: MEDICAL MANAGEMENT Do you want consulting provider notified?: Yes 12/13/18 19:55 Consult Physician Routine Consulting Provider: Zbigniew Medrano Consult Reason/Comments: hyponatremia Do you want consulting provider notified?: Yes, Notify in am 01/22/19 08:55 Consult Physician Urgent Consulting Provider: Robbie Gutierrez Consult Reason/Comments: constipation with severe distention. Do you want consulting provider notified?: Yes Primary care physician: Wade Harrison Diagnosis(es) (1) Schizoaffective disorder, bipolar type Current Visit: Yes Status: Acute Priority: High Hospital Course: Brief summary of admission note: This patient is a 63-year-old male who was admitted to the mental health unit on a petition that he was demonstrating manic and psychotic symptoms. The patient was petition by his brother and was noted to pound on the neighbor's car stating the neighbor was a which demonstrating disorganized thoughts. The patient's place of residence was known to be "trashed". The patient had been on the medical floor as he was diagnosed with hyponatremia. For full details please refer to the psychiatric evaluation dated 11/28/2018. Summary of hospital course: The patient was admitted to the mental health unit in voluntarily. He participated in a deferral conference and did sign a deferral agreement. The patient presented with acute symptoms of louise and psychosis. I was able to speak to the patient's sister early into the admission. She had informed me that the patient had a history of schizoaffective disorder and that he had decompensated over the last year. Just prior to this admission he had spent 7 weeks at another psychiatric hospital and had just been released 3 weeks ago. He had most recently been on Abilify maintena and Depakote. The patient was seen by internal medicine initially for routine history and physical exam and he was seen several times by internal medicine for the complain of constipation and abdominal distention. The patient had a very lengthy hospitalization on this mental health unit please refer to specific progress notes for full detail. I was able to reach the patient's outpatient psychiatrist to discuss the case. The patient was taken off of Abilify Depakote was continued on a lower dose an invega was started. The invega was titrated to a full therapeutic dose however the patient did not appropriately respond to it. During the hospitalization it was decided that the Depakote was in fact causing hyponatremia. He was seen by nephrology. He was taken off of the Depakote and the patient experienced a regression of symptoms. Fortunately however the sodium level normalized and we were able to take him off of the fluid restriction. After a few strategies were trialed we decided to initiate Clozaril and the dose was slowly titrated over the last several weeks. Fortunately he has shown response to the Clozaril. During the last several weeks the patient had decided not to speak with me any longer but he would interact with other staff and peers. His behavior in groups improved. He was demonstrating much less agitated behavior and he was becoming more directable. He was experiencing hypersalivation with the Clozaril so Cogentin was added. This did seem to help that symptom but also cause more constipation due to the additive anticholinergic effects. Because of the severity of the constipation we decided to discontinue the Cogentin. Internal medicine has provided recommendations for treating the constipation and the patient is now again having bowel movements. The patient has a guardian appointed he is on a full court order as he exceeded the 60 inpatient days as part of the deferral agreement. He will be residing at an adult foster senior care. The patient's last clozapine level was 02/04/2019 with a level being 552. His level was abnormally high with an increased dose of the clozapine. Mental status exam: The patient is alert he was willing to speak with me today. He states that he so happy that he is leaving. He describes a good mood affect is congruent. He reports no suicidal ideation intent or plan he reports no homicidal ideation intent or plan. He is reporting no auditory or visual hallucinations. He denies having any specific delusions but there is likely still some residual delusional thought content. Thought process is more linear but he does demonstrate some circumstantial thinking and tangential thinking at times. He demonstrates no verbal or physical aggressiveness he is demonstrating no involuntary repetitive movements. He demonstrates future oriented thinking. He is alert he is aware of the current day month and year. Hygiene is adequate. He's mildly disheveled he is dressed in his own clothing. Eye contact is appropriate. Speech is fluent and spontaneous. Impressions: 1. Schizoaffective disorder bipolar type Plan: The patient will be discharged today from the mental health unit and he will reside an adult foster senior care setting. He will continue on clozapine 75 mg twice daily and 350 mg at bedtime. Social work will arrange his outpatient mental health follow-up. At this time there is no imminent safety risk the patient is appropriate for transition outpatient care. He remains on an existing court order for mental health treatment. Patient Condition at Discharge: Stable Plan - Discharge Summary New Discharge Prescriptions: New Lactulose [Cephulac] 20 gm PO BID #180 ml cloZAPine [Clozapine Odt] 75 mg PO BID #180 tab cloZAPine [Clozaril] 350 mg PO HS #105 tab metFORMIN HCL [Glucophage] 500 mg PO BID-W/MEALS #60 tab clonazePAM [KlonoPIN] 0.5 mg PO BID PRN #60 tab PRN Reason: Agitation Or Acute Psychosis Polyethylene Glycol 3350 [Miralax] 17 gm PO DAILY #30 powd.pack Simethicone Chew [Mylicon Chew] 40 mg PO QID PRN #60 chew PRN Reason: Bloating Continue Atorvastatin [Lipitor] 10 mg PO DAILY Tamsulosin [Flomax] 0.4 mg PO DAILY #30 cap Discontinued Docusate Sodium [Dok] 100 mg PO BID QUEtiapine [SEROquel] 200 mg PO HS Polyethylene Glycol 3350 [Clearlax] 17 gram PO DAILY Nicotine 14Mg/24Hr Patch [Habitrol] 1 patch TRANSDERM DAILY Divalproex Sodium [Depakote] 125 mg PO DAILY metFORMIN HCL [metFORMIN HCL ER Osmotic] 1,000 mg PO BID Lactulose [Cephulac] 20 gm PO TID ARIPiprazole [Abilify Maintena] 300 mg IM Q30D Discharge Medication List Atorvastatin [Lipitor] 10 mg PO DAILY 11/25/18 [History] Lactulose [Cephulac] 20 gm PO BID #180 ml 02/16/19 [Rx] Polyethylene Glycol 3350 [Miralax] 17 gm PO DAILY #30 powd.pack 02/16/19 [Rx] Simethicone Chew [Mylicon Chew] 40 mg PO QID PRN #60 chew 02/16/19 [Rx] Tamsulosin [Flomax] 0.4 mg PO DAILY #30 cap 02/16/19 [Rx] cloZAPine [Clozapine Odt] 75 mg PO BID #180 tab 02/16/19 [Rx] cloZAPine [Clozaril] 350 mg PO HS #105 tab 02/16/19 [Rx] clonazePAM [KlonoPIN] 0.5 mg PO BID PRN #60 tab 02/16/19 [Rx] metFORMIN HCL [Glucophage] 500 mg PO BID-W/MEALS #60 tab 02/16/19 [Rx] Patient Instructions/Handouts: How to Stop Smoking (GEN) Activity/Diet/Wound Care/Special Instructions: Activity and diet as tolerated. No guns or weapons in the home. No drugs or alcohol not prescribed by your primary care physician, or your out patient psychiatric provider. Attend follow up appointments, and take medications as prescribed. If in need of medication refills, please go to primary care physician, or your out patient psychiatric provider. If in crisis, please call , or go the nearest ER, for an evaluation.
[2019-02-16 09:56] VITALS: BMI 21.6
[2019-02-16] MEDS: ACETAMINOPHEN TAB 325 MG TAB PO PRN (10:28)
[2019-02-16 12:34] LABS: Glucose,Whole Blood 89 mg/dL (75-99)
[2019-02-16] MEDS: cloZAPine 100 MG TAB PO SCH (16:22)
[2019-02-16 17:42] LABS: Glucose,Whole Blood 127 mg/dL (75-99)
== END 2019-02-16 19:20 | disposition home or self-care (01) | DRG 885 ==
LOC: 3MHU 15:07
PROVIDERS: ADMIT Psychiatry & Neurology Psychiatry; ATTEND Psychiatry & Neurology Psychiatry
DX: F25.0 Schizoaffective disorder, bipolar type (principal); E22.2 Syndrome of inappropriate secretion of antidiuretic hormone; K59.39 Other megacolon; E11.9 Type 2 diabetes mellitus without complications; D72.829 Elevated white blood cell count, unspecified; L03.031 Cellulitis of right toe; T42.6X5A Adverse effect of other antiepileptic and sedative-hypnotic drugs, initial encounter; T43.505A Adverse effect of unspecified antipsychotics and neuroleptics, initial encounter; R45.86 Emotional lability; R45.87 Impulsiveness; M20.42 Other hammer toe(s) (acquired), left foot; M20.41 Other hammer toe(s) (acquired), right foot; E78.5 Hyperlipidemia, unspecified; E86.1 Hypovolemia; F17.200 Nicotine dependence, unspecified, uncomplicated; F41.0 Panic disorder [episodic paroxysmal anxiety]; F60.0 Paranoid personality disorder; G31.84 Mild cognitive impairment of uncertain or unknown etiology; I10 Essential (primary) hypertension; K11.7 Disturbances of salivary secretion; K59.09 Other constipation; N40.0 Benign prostatic hyperplasia without lower urinary tract symptoms; R45.1 Restlessness and agitation; Z79.899 Other long term (current) drug therapy; Z79.84 Long term (current) use of oral hypoglycemic drugs; Z91.83 Wandering in diseases classified elsewhere; Z81.8 Family history of other mental and behavioral disorders; W18.30XA Fall on same level, unspecified, initial encounter; Y92.239 Unspecified place in hospital as the place of occurrence of the external cause
CPT/HCPCS: 74018; 74019; 74176; 80048; 80053; 80061; 80159; 80164; 80165; 82607; 82747; 83036; 83735; 83930; 83935; 84295; 84300; 84443; 85025; 85027; 85652; 86140; 87040

== ENCOUNTER 2019-03-19 16:05 | Emergency (ER) | payer MEDICARE ==
[2019-03-19 17:04] LABS: ALT 26 U/L (21-72); AST 23 U/L (17-59); African American GFR (CKD) >90 (>60 ml/min/1.73 sqM); Albumin 4.4 g/dL (3.5-5.0); Alkaline Phosphatase 87 U/L (38-126); Anion Gap 14 mmol/L; Blood Urea Nitrogen 10 mg/dL (9-20); Calcium 9.5 mg/dL (8.4-10.2); Carbon Dioxide 25 mmol/L (22-30); Chloride 98 mmol/L (98-107); Glucose 84 mg/dL (74-99); Potassium 4.7 mmol/L (3.5-5.1); Sodium 137 mmol/L (137-145); Total Bilirubin 0.7 mg/dL (0.2-1.3); Total Protein 7.5 g/dL (6.3-8.2)
[2019-03-19 17:06] LABS: HCT 40.9 % (39.0-53.0); HGB 13.2 gm/dL (13.0-17.5); Hypochromasia Slight; MCH 27.3 pg (25.0-35.0); MCHC 32.4 g/dL (31.0-37.0); MCV 84.4 fL (80.0-100.0); Mean Platelet Volume 6.1; Platelet Count 559 k/uL (150-450); RBC 4.85 m/uL (4.30-5.90); RDW 14.3 % (11.5-15.5); WBC 1.5 k/uL (3.8-10.6)
[2019-03-19 17:55] LABS: Neutrophils % (M) 10 %
[2019-03-19 17:56] LABS: Band Neutrophils % 1 %; Eosinophils # (M) 0.12 k/uL (0-0.7); Lymphocytes # (M) 1.11 k/uL (1.0-4.8); Monocytes # (M) 0.11 k/uL (0-1.0); Nucleated Red Blood Cells 0 /100 WBC (0-0); Total Cells Counted 100
[2019-03-19 17:59] LABS: Reactive Lymphocytes Present
[2019-03-19 18:07] VITALS: RESP 18
--- NOTE | 2019-03-19 18:50 | ED ---
Recheck HPI - General Chief Complaint: Recheck/Abnormal Lab/Rx Stated Complaint: Abnormal Labs Time Seen by Provider: 03/19/19 16:10 Source: patient Mode of arrival: ambulatory Limitations: no limitations - History of Present Illness Initial Comments: The patient is a 63-year-old male who presents to the emergency department after he was sent in by [facility]. The patient had blood work done today which demonstrated that his white blood cell count was very low. The patient is on Clozaril. States he has been off medications since the eighth. He was previously on this medication and did experience a drop in his white blood cell count. Medication was stopped. It was restarted in February. Recent blood work demonstrated that his white blood cell count did start to fall, approximately 4 days ago. The patient is asymptomatic. He denies any fevers or chills. No nausea or vomiting. No signs of infection. [facility] nurse does present to bedside with information that they wanted the patient admitted to the hospital for this low white blood cell count. The remainder of the HPI is limited as the patient is a poor historian. - Related Data Home Medications Medication Instructions Recorded Confirmed Atorvastatin [Lipitor] 10 mg PO HS 11/25/18 03/19/19 hydrOXYzine PAMOATE [Vistaril] 25 mg PO HS 03/19/19 03/19/19 Previous Rx's Medication Instructions Recorded Lactulose [Cephulac] 20 gm PO BID #180 ml 02/16/19 Polyethylene Glycol 3350 [Miralax] 17 gm PO DAILY #30 powd.pack 02/16/19 Simethicone Chew [Mylicon Chew] 40 mg PO QID PRN #60 chew 02/16/19 Tamsulosin [Flomax] 0.4 mg PO DAILY #30 cap 02/16/19 clonazePAM [KlonoPIN] 0.5 mg PO BID PRN #60 tab 02/16/19 metFORMIN HCL [Glucophage] 500 mg PO BID-W/MEALS #60 tab 02/16/19 Allergies Allergy/AdvReac Type Severity Reaction Status Date / Time chlorpromazine AdvReac seizure Verified 03/19/19 16:29 [From Thorazine] Review of Systems ROS Statement: Those systems with pertinent positive or pertinent negative responses have been documented in the HPI. ROS Other: All systems not noted in ROS Statement are negative. Past Medical History Past Medical History: Diabetes Mellitus, Hyperlipidemia History of Any Multi-Drug Resistant Organisms: None Reported Past Surgical History: Orthopedic Surgery Additional Past Surgical History / Comment(s): Bilateral knees Past Anesthesia/Blood Transfusion Reactions: No Reported Reaction Past Psychological History: Bipolar, Schizophrenia Smoking Status: Current every day smoker Past Alcohol Use History: None Reported Past Drug Use History: None Reported General Exam Limitations: no limitations General appearance: alert, in no apparent distress Head exam: Present: atraumatic, normocephalic, normal inspection Eye exam: Present: normal appearance, PERRL, EOMI. Absent: scleral icterus, conjunctival injection, periorbital swelling ENT exam: Present: normal exam, mucous membranes moist Neck exam: Present: normal inspection. Absent: tenderness, meningismus, lymphadenopathy Respiratory exam: Present: normal lung sounds bilaterally. Absent: respiratory distress, wheezes, rales, rhonchi, stridor Cardiovascular Exam: Present: regular rate, normal rhythm, normal heart sounds. Absent: systolic murmur, diastolic murmur, rubs, gallop, clicks GI/Abdominal exam: Present: soft, normal bowel sounds. Absent: distended, tenderness, guarding, rebound, rigid Extremities exam: Present: normal inspection, full ROM, normal capillary refill. Absent: tenderness, pedal edema, joint swelling, calf tenderness Back exam: Present: normal inspection Neurological exam: Present: alert, oriented X3, CN II-XII intact Psychiatric exam: Present: normal affect, normal mood Skin exam: Present: warm, dry, intact, normal color. Absent: rash Course Vital Signs 03/19/19 03/19/19 03/19/19 16:07 18:06 19:55 Temperature 97.9 F 97.7 F Pulse Rate 85 78 84 Respiratory 20 18 18 Rate Blood Pressure 117/72 116/62 121/79 O2 Sat by Pulse 98 97 98 Oximetry Medical Decision Making - Medical Decision Making Upon arrival the patient was placed into room 15. A thorough history is attempted. I did perform a complete physical exam. I did obtain a history from the [facility] nurse. I did recommend repeating laboratory st [facility]. White blood cell count is 1.5. Absolute neutrophils is 0.1. CMP is unremarkable. I did discuss these results with the patient. I called and discussed the case with Dr. Cabrera. He states that the patient must have daily laboratory studies drawn until his white blood cell count shows improvement. He states that this may take some time. The patient is to remain off of the Clozaril. He states the patient does not need to be admitted to the hospital and may follow up outpatient. The patient has any new or worsening symptoms to include fevers or signs of infection he should return to the emergency department. I informed the [facility] nurse of this. She states she can facilitate the daily blood work. He called and discussed this with the patient's foster home so therefore he can have the proper follow-up. They're also made aware of the return parameters. The patient was then discharged home in stable condition - Lab Data Result diagrams: 03/19/19 16:17 03/19/19 16:17 Lab Results 03/19/19 03/19/19 Range/Units 16:17 16:17 WBC 1.5 L (3.8-10.6) k/uL RBC 4.85 (4.30-5.90) m/uL Hgb 13.2 (13.0-17.5) gm/dL Hct 40.9 (39.0-53.0) % MCV 84.4 (80.0-100.0) fL MCH 27.3 (25.0-35.0) pg MCHC 32.4 (31.0-37.0) g/dL RDW 14.3 (11.5-15.5) % Plt Count 559 H (150-450) k/uL Neutrophils % Not Reportable Neutrophils % (Manual) 10 % Band Neutrophils % 1 % Lymphocytes % Not Reportable Lymphocytes % (Manual) 74 % Monocytes % Not Reportable Monocytes % (Manual) 7 % Eosinophils % Not Reportable Eosinophils % (Manual) 8 % Basophils % Not Reportable Neutrophils # Not Reportable Neutrophils # (Manual) 0.10 L* (1.3-7.7) k/uL Lymphocytes # Not Reportable Lymphocytes # (Manual) 1.11 (1.0-4.8) k/uL Monocytes # Not Reportable Monocytes # (Manual) 0.11 (0-1.0) k/uL Eosinophils # Not Reportable Eosinophils # (Manual) 0.12 (0-0.7) k/uL Basophils # Not Reportable Nucleated RBCs 0 (0-0) /100 WBC Reactive Lymphocytes Present Hypochromasia Slight Sodium 137 (137-145) mmol/L Potassium 4.7 (3.5-5.1) mmol/L Chloride 98 (98-107) mmol/L Carbon Dioxide 25 (22-30) mmol/L Anion Gap 14 mmol/L BUN 10 (9-20) mg/dL Creatinine 0.51 L (0.66-1.25) mg/dL Est GFR (CKD-EPI)AfAm >90 (>60 ml/min/1.73 sqM) Est GFR (CKD-EPI)NonAf >90 (>60 ml/min/1.73 sqM) Glucose 84 (74-99) mg/dL Calcium 9.5 (8.4-10.2) mg/dL Total Bilirubin 0.7 (0.2-1.3) mg/dL AST 23 (17-59) U/L ALT 26 (21-72) U/L Alkaline Phosphatase 87 (38-126) U/L Total Protein 7.5 (6.3-8.2) g/dL Albumin 4.4 (3.5-5.0) g/dL Disposition Clinical Impression: Other drug-induced agranulocytosis Disposition: HOME SELF-CARE Condition: Stable Additional Instructions: You must have repeat blood draws done daily to ensure that your white blood cell count is improving. Remain off of the Clozaril. Return to the emergency room for any new or worsening symptoms Is patient prescribed a controlled substance at d/c from ED?: No Referrals: Sudarshan Cabrales MD [Primary Care Provider] - 1-2 days Time of Disposition: 18:49
[2019-03-19 19:57] VITALS: BP 121/79; PULSE 84; TEMP 97.7
== END 2019-03-19 19:55 | disposition home or self-care (01) ==
LOC: EC 16:05 → EEVIPCON 16:05 → EC 19:55
DX: D70.2 Other drug-induced agranulocytosis (principal); F17.200 Nicotine dependence, unspecified, uncomplicated; E78.5 Hyperlipidemia, unspecified; Z79.899 Other long term (current) drug therapy
CPT/HCPCS: 36415; 80053; 85025; 99283

== ENCOUNTER 2019-03-21 13:39 | Emergency (ER) | payer MEDICARE ==
--- NOTE | 2019-03-21 14:01 | ED ---
General Adult HPI - General Chief complaint: Psychiatric Symptoms Stated complaint: Mental Health Time Seen by Provider: 03/21/19 13:51 Source: patient, EMS, RN notes reviewed Mode of arrival: EMS Limitations: no limitations - History of Present Illness Initial comments: Patient is a pleasant 5 he 3-year-old male presenting to the emergency department for mental health evaluation. Patient was being evaluated at the [facility] and was writhing around on the floor with odd behavior. Patient was taken off his Clozaril several days ago secondary to leukopenia. Patient states he is here because they thought he may be delusional however he is not. Patient states she will not talk about this because I would think that he was crazy. Patient has no physical complaints. Patient denies hallucinations. Patient states he is taking his medications as directed. Patient states he is drinking normally and mostly eating normally. Patient states he does like to smoke and occasionally smokes a "Kahn." Patient denies suicidal or homicidal thoughts. - Related Data Home Medications Medication Instructions Recorded Confirmed Atorvastatin [Lipitor] 10 mg PO HS 11/25/18 03/21/19 hydrOXYzine PAMOATE [Vistaril] 25 mg PO HS 03/19/19 03/21/19 Previous Rx's Medication Instructions Recorded Lactulose [Cephulac] 20 gm PO BID #180 ml 02/16/19 Polyethylene Glycol 3350 [Miralax] 17 gm PO DAILY #30 powd.pack 02/16/19 Simethicone Chew [Mylicon Chew] 40 mg PO QID PRN #60 chew 02/16/19 Tamsulosin [Flomax] 0.4 mg PO DAILY #30 cap 02/16/19 clonazePAM [KlonoPIN] 0.5 mg PO BID PRN #60 tab 02/16/19 metFORMIN HCL [Glucophage] 500 mg PO BID-W/MEALS #60 tab 02/16/19 Allergies Allergy/AdvReac Type Severity Reaction Status Date / Time chlorpromazine AdvReac seizure Verified 03/21/19 13:52 [From Thorazine] Review of Systems ROS Statement: Those systems with pertinent positive or pertinent negative responses have been documented in the HPI. ROS Other: All systems not noted in ROS Statement are negative. Constitutional: Denies: fever Eyes: Denies: eye pain ENT: Denies: ear pain Respiratory: Denies: cough Cardiovascular: Denies: chest pain Endocrine: Denies: fatigue Gastrointestinal: Denies: abdominal pain Genitourinary: Denies: dysuria Musculoskeletal: Denies: back pain Skin: Denies: rash Neurological: Denies: weakness Psychiatric: Reports: as per HPI Past Medical History Past Medical History: Diabetes Mellitus, Hyperlipidemia History of Any Multi-Drug Resistant Organisms: None Reported Past Surgical History: Orthopedic Surgery Additional Past Surgical History / Comment(s): Bilateral knees Past Anesthesia/Blood Transfusion Reactions: No Reported Reaction Past Psychological History: Bipolar, Schizophrenia Smoking Status: Current every day smoker Past Alcohol Use History: None Reported Past Drug Use History: None Reported General Exam Limitations: no limitations General appearance: alert, in no apparent distress Head exam: Present: atraumatic Eye exam: Present: normal appearance Neck exam: Present: normal inspection. Absent: tenderness, meningismus Respiratory exam: Present: normal lung sounds bilaterally Cardiovascular Exam: Present: regular rate, normal rhythm GI/Abdominal exam: Present: soft. Absent: tenderness Extremities exam: Present: normal inspection Neurological exam: Present: alert Psychiatric exam: Present: anxious Skin exam: Present: normal color Course Vital Signs 03/21/19 13:47 Temperature 98.6 F Pulse Rate 80 Respiratory 16 Rate Blood Pressure 114/74 O2 Sat by Pulse 100 Oximetry - Reevaluation(s) Reevaluation #1: 03/21/19 15:14 Case was discussed with hematology Dr. Cabrera who states there is nothing further to do regarding white blood cell count and absolute neutrophil count. Medical Decision Making - Medical Decision Making Patient was seen by mental health services with plan for admission - Lab Data Result diagrams: 03/21/19 14:10 03/21/19 14:10 Lab Results 03/21/19 03/21/19 03/21/19 Range/Units 13:48 13:48 14:10 WBC (3.8-10.6) k/uL RBC (4.30-5.90) m/uL Hgb (13.0-17.5) gm/dL Hct (39.0-53.0) % MCV (80.0-100.0) fL MCH (25.0-35.0) pg MCHC (31.0-37.0) g/dL RDW (11.5-15.5) % Plt Count (150-450) k/uL Neutrophils % (Manual) % Lymphocytes % (Manual) % Monocytes % (Manual) % Eosinophils % (Manual) % Basophils % (Manual) % Neutrophils # (Manual) (1.3-7.7) k/uL Lymphocytes # (Manual) (1.0-4.8) k/uL Monocytes # (Manual) (0-1.0) k/uL Eosinophils # (Manual) (0-0.7) k/uL Basophils # (Manual) (0-0.2) k/uL Nucleated RBCs (0-0) /100 WBC Manual Slide Review RBC Morphology Sodium 130 L (137-145) mmol/L Potassium 4.5 (3.5-5.1) mmol/L Chloride 96 L (98-107) mmol/L Carbon Dioxide 25 (22-30) mmol/L Anion Gap 9 mmol/L BUN 7 L (9-20) mg/dL Creatinine 0.42 L (0.66-1.25) mg/dL Est GFR (CKD-EPI)AfAm >90 (>60 ml/min/1.73 sqM) Est GFR (CKD-EPI)NonAf >90 (>60 ml/min/1.73 sqM) Glucose 83 (74-99) mg/dL Calcium 9.3 (8.4-10.2) mg/dL Urine Color Light Yellow Urine Appearance Clear (Clear) Urine pH 6.5 (5.0-8.0) Ur Specific Perry 1.005 (1.001-1.035) Urine Protein Negative (Negative) Urine Glucose (UA) Negative (Negative) Urine Ketones Negative (Negative) Urine Blood Negative (Negative) Urine Nitrite Negative (Negative) Urine Bilirubin Negative (Negative) Urine Urobilinogen <2.0 (<2.0) mg/dL Ur Leukocyte Esterase Negative (Negative) Urine Opiates Screen Not Detected (NotDetected) Ur Oxycodone Screen Not Detected (NotDetected) Urine Methadone Screen Not Detected (NotDetected) Ur Propoxyphene Screen Not Detected (NotDetected) Ur Barbiturates Screen Not Detected (NotDetected) U Tricyclic Antidepress Not Detected (NotDetected) Ur Phencyclidine Scrn Not Detected (NotDetected) Ur Amphetamines Screen Not Detected (NotDetected) U Methamphetamines Scrn Not Detected (NotDetected) U Benzodiazepines Scrn Not Detected (NotDetected) Urine Cocaine Screen Not Detected (NotDetected) U Marijuana (THC) Screen Not Detected (NotDetected) Serum Alcohol <10 mg/dL 03/21/19 Range/Units 14:10 WBC 1.3 L* (3.8-10.6) k/uL RBC 4.35 (4.30-5.90) m/uL Hgb 12.0 L (13.0-17.5) gm/dL Hct 35.7 L (39.0-53.0) % MCV 82.0 (80.0-100.0) fL MCH 27.6 (25.0-35.0) pg MCHC 33.6 (31.0-37.0) g/dL RDW 14.1 (11.5-15.5) % Plt Count 480 H (150-450) k/uL Neutrophils % (Manual) 2 % Lymphocytes % (Manual) 84 % Monocytes % (Manual) 7 % Eosinophils % (Manual) 6 % Basophils % (Manual) 1 % Neutrophils # (Manual) 0.03 L* (1.3-7.7) k/uL Lymphocytes # (Manual) 1.09 (1.0-4.8) k/uL Monocytes # (Manual) 0.09 (0-1.0) k/uL Eosinophils # (Manual) 0.08 (0-0.7) k/uL Basophils # (Manual) 0.01 (0-0.2) k/uL Nucleated RBCs 0 (0-0) /100 WBC Manual Slide Review Performed RBC Morphology Normal Sodium (137-145) mmol/L Potassium (3.5-5.1) mmol/L Chloride (98-107) mmol/L Carbon Dioxide (22-30) mmol/L Anion Gap mmol/L BUN (9-20) mg/dL Creatinine (0.66-1.25) mg/dL Est GFR (CKD-EPI)AfAm (>60 ml/min/1.73 sqM) Est GFR (CKD-EPI)NonAf (>60 ml/min/1.73 sqM) Glucose (74-99) mg/dL Calcium (8.4-10.2) mg/dL Urine Color Urine Appearance (Clear) Urine pH (5.0-8.0) Ur Specific Perry (1.001-1.035) Urine Protein (Negative) Urine Glucose (UA) (Negative) Urine Ketones (Negative) Urine Blood (Negative) Urine Nitrite (Negative) Urine Bilirubin (Negative) Urine Urobilinogen (<2.0) mg/dL Ur Leukocyte Esterase (Negative) Urine Opiates Screen (NotDetected) Ur Oxycodone Screen (NotDetected) Urine Methadone Screen (NotDetected) Ur Propoxyphene Screen (NotDetected) Ur Barbiturates Screen (NotDetected) U Tricyclic Antidepress (NotDetected) Ur Phencyclidine Scrn (NotDetected) Ur Amphetamines Screen (NotDetected) U Methamphetamines Scrn (NotDetected) U Benzodiazepines Scrn (NotDetected) Urine Cocaine Screen (NotDetected) U Marijuana (THC) Screen (NotDetected) Serum Alcohol mg/dL Disposition Clinical Impression: Schizoaffective disorder, bipolar type Disposition: TRANSFER TO PSYCH HOSP/UNIT Is patient prescribed a controlled substance at d/c from ED?: No Referrals: Sudarshan Cabrales MD [Primary Care Provider] - 1-2 days Decision Time: 19:21
[2019-03-21 14:08] LABS: Appearance,Urine Clear (Clear); Bilirubin,Urine Negative (Negative); Blood,Urine Negative (Negative); Color,Urine Light Yellow; Glucose,Urine (UA) Negative (Negative); Ketones,Urine Negative (Negative); Leukocyte Esterase,Urine Negative (Negative); Nitrite,Urine Negative (Negative); PH, Urine 6.5 (5.0-8.0); Protein,Urine Negative (Negative); Specific Gravity,Urine 1.005 (1.001-1.035); Urobilinogen,Urine <2.0 mg/dL (<2.0)
[2019-03-21 14:16] LABS: Amphetamine Screen,Urine Not Detected (NotDetected); Barbiturate Screen,Urine Not Detected (NotDetected); Benzodiazepines Screen,Urine Not Detected (NotDetected); Cocaine Screen,Urine Not Detected (NotDetected); Methadone Screen, Urine Not Detected (NotDetected); Opiate Screen,Urine Not Detected (NotDetected); Oxycodone Screen, Urine Not Detected (NotDetected); Phencyclidine Screen,Urine Not Detected (NotDetected); Tricyclic Antidepressant,Urine Not Detected (NotDetected); Urn Cannabinoid Scrn Not Detected (NotDetected)
[2019-03-21 14:19] LABS: HCT 35.7 % (39.0-53.0); MCH 27.6 pg (25.0-35.0); MCHC 33.6 g/dL (31.0-37.0); Mean Platelet Volume 5.7; Platelet Count 480 k/uL (150-450); RBC 4.35 m/uL (4.30-5.90); RDW 14.1 % (11.5-15.5)
[2019-03-21 14:30] LABS: WBC 1.3 k/uL (3.8-10.6)
[2019-03-21 14:32] LABS: African American GFR (CKD) >90 (>60 ml/min/1.73 sqM); Alcohol <10 mg/dL; Anion Gap 9 mmol/L; Blood Urea Nitrogen 7 mg/dL (9-20); Calcium 9.3 mg/dL (8.4-10.2); Carbon Dioxide 25 mmol/L (22-30); Chloride 96 mmol/L (98-107); Glucose 83 mg/dL (74-99); Sodium 130 mmol/L (137-145)
[2019-03-21 14:33] LABS: Potassium 4.5 mmol/L (3.5-5.1)
[2019-03-21 14:45] LABS: Neutrophils % (M) 2 %
[2019-03-21 14:46] LABS: Basophils # (M) 0.01 k/uL (0-0.2); Eosinophils # (M) 0.08 k/uL (0-0.7); Lymphocytes # (M) 1.09 k/uL (1.0-4.8); Monocytes # (M) 0.09 k/uL (0-1.0); Nucleated Red Blood Cells 0 /100 WBC (0-0); Total Cells Counted 100
[2019-03-21] MEDS ORDERED: NICOTINE 21MG/24HR PATCH TRANSDERM STA (19:39)
[2019-03-22] MEDS ORDERED: LORazepam 2 MG/ML INJ IM STA ×2 (08:39→20:05)
[2019-03-23] MEDS ORDERED: LORazepam 2 MG/ML INJ IM STA (02:00)
[2019-03-23 02:33] VITALS: BP 107/69; PULSE 82; RESP 18; TEMP 98.1
== END 2019-03-23 02:48 ==
LOC: EC 13:39
DX: F25.0 Schizoaffective disorder, bipolar type (principal); E78.5 Hyperlipidemia, unspecified; F17.200 Nicotine dependence, unspecified, uncomplicated; Z88.8 Allergy status to other drugs, medicaments and biological substances; Z79.899 Other long term (current) drug therapy
CPT/HCPCS: 82075; 36415; 80048; 85025; 81003; 80306; 99285; 96372 ×3; G0480; S4990; J2060 ×2; 80320

== ENCOUNTER 2019-05-07 13:48 | Observation (INO) | payer MEDICARE ==
[2019-05-07] MEDS ORDERED: SODIUM CHLORIDE 0.9% 1,000 ML IV STA (14:17)
[2019-05-07] MEDS ORDERED: LORazepam 2 MG/ML INJ IV STA (14:18)
--- NOTE | 2019-05-07 14:20 | ED ---
General Adult HPI - General Chief complaint: Anxiety Stated complaint: Anxiety Time Seen by Provider: 05/07/19 13:53 Source: patient, EMS, RN notes reviewed Mode of arrival: EMS Limitations: altered mental status - History of Present Illness Initial comments: Patient is a pleasant 63-year-old male presenting to the emergency Department with complaints of worried about drinking too much water. Patient does have history of drinking too much water and abnormal sodium levels previously. Patient states today he just felt thirsty and was junk more water than normal. Patient states he did feel lightheaded and shaky as well. Patient states he feels much better at this point although still does feel a little bit thirsty. No suicidal or homicidal thoughts. - Related Data Home Medications Medication Instructions Recorded Confirmed Atorvastatin [Lipitor] 10 mg PO HS 11/25/18 03/21/19 hydrOXYzine PAMOATE [Vistaril] 25 mg PO HS 03/19/19 03/21/19 Previous Rx's Medication Instructions Recorded Lactulose [Cephulac] 20 gm PO BID #180 ml 02/16/19 Polyethylene Glycol 3350 [Miralax] 17 gm PO DAILY #30 powd.pack 02/16/19 Simethicone Chew [Mylicon Chew] 40 mg PO QID PRN #60 chew 02/16/19 Tamsulosin [Flomax] 0.4 mg PO DAILY #30 cap 02/16/19 clonazePAM [KlonoPIN] 0.5 mg PO BID PRN #60 tab 02/16/19 metFORMIN HCL [Glucophage] 500 mg PO BID-W/MEALS #60 tab 02/16/19 Allergies Allergy/AdvReac Type Severity Reaction Status Date / Time chlorpromazine AdvReac seizure Verified 05/07/19 14:44 [From Thorazine] Review of Systems ROS Statement: Those systems with pertinent positive or pertinent negative responses have been documented in the HPI. ROS Other: All systems not noted in ROS Statement are negative. Constitutional: Denies: fever Eyes: Denies: eye pain ENT: Denies: ear pain Respiratory: Denies: cough, dyspnea Cardiovascular: Denies: chest pain Endocrine: Denies: fatigue Gastrointestinal: Denies: vomiting Genitourinary: Denies: dysuria Musculoskeletal: Denies: back pain Skin: Denies: rash Neurological: Denies: weakness Psychiatric: Reports: as per HPI Past Medical History Past Medical History: Diabetes Mellitus, Hyperlipidemia Additional Past Medical History / Comment(s): type 2 diabetes History of Any Multi-Drug Resistant Organisms: None Reported Past Surgical History: Orthopedic Surgery Additional Past Surgical History / Comment(s): Bilateral knees, right elbow surgery for osteomyelitis Past Anesthesia/Blood Transfusion Reactions: No Reported Reaction Past Psychological History: Bipolar, Schizoaffective Disorder Smoking Status: Current every day smoker Past Alcohol Use History: None Reported Past Drug Use History: Marijuana General Exam Limitations: altered mental status General appearance: alert, in no apparent distress Head exam: Present: normocephalic Eye exam: Present: normal appearance, PERRL ENT exam: Present: normal oropharynx Neck exam: Present: normal inspection Respiratory exam: Present: normal lung sounds bilaterally Cardiovascular Exam: Present: regular rate, normal rhythm GI/Abdominal exam: Present: soft. Absent: tenderness Extremities exam: Present: normal inspection Neurological exam: Present: alert, oriented X3, CN II-XII intact. Absent: motor sensory deficit Expanded Cranial nerves: EOM's Intact: Normal Motor strength exam: RUE: 5, LUE: 5, RLE: 5, LLE: 5 Eye Response: (4) open spontaneously Motor Response: (6) obeys commands Verbal Response: (5) oriented Psychiatric exam: Present: normal affect, normal mood Skin exam: Present: normal color Course Vital Signs 05/07/19 05/07/19 05/07/19 14:04 14:53 16:41 Temperature 98 F Pulse Rate 72 71 69 Respiratory 18 18 18 Rate Blood Pressure 121/66 107/57 110/60 O2 Sat by Pulse 99 99 98 Oximetry Medical Decision Making - Medical Decision Making Patient reevaluated and resting comfortably in bed. Patient updated on results and plan. Case was discussed earlier with Dr. Okeefe who feels patient can be discharged with repeat blood work in the beginning of the week. He recommends fluid restrictions 1500 mL per day. Patient remains drowsy. 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 Case was again discussed with Dr. Okeefe, who will admit for observation covering for Dr. Cabrales - Lab Data Result diagrams: 05/07/19 14:45 05/07/19 14:45 Lab Results 05/07/19 05/07/19 05/07/19 Range/Units 14:13 14:45 14:45 WBC 12.7 H (3.8-10.6) k/uL RBC 4.82 (4.30-5.90) m/uL Hgb 13.3 (13.0-17.5) gm/dL Hct 41.2 (39.0-53.0) % MCV 85.5 (80.0-100.0) fL MCH 27.7 (25.0-35.0) pg MCHC 32.4 (31.0-37.0) g/dL RDW 17.0 H (11.5-15.5) % Plt Count 242 (150-450) k/uL Neutrophils % 64 % Lymphocytes % 17 % Monocytes % 8 % Eosinophils % 7 % Basophils % 1 % Neutrophils # 8.2 H (1.3-7.7) k/uL Lymphocytes # 2.2 (1.0-4.8) k/uL Monocytes # 1.0 (0-1.0) k/uL Eosinophils # 0.9 H (0-0.7) k/uL Basophils # 0.1 (0-0.2) k/uL Anisocytosis Slight Sodium 127 L (137-145) mmol/L Potassium 4.8 (3.5-5.1) mmol/L Chloride 92 L (98-107) mmol/L Carbon Dioxide 25 (22-30) mmol/L Anion Gap 10 mmol/L BUN 22 H (9-20) mg/dL Creatinine 0.65 L (0.66-1.25) mg/dL Est GFR (CKD-EPI)AfAm >90 (>60 ml/min/1.73 sqM) Est GFR (CKD-EPI)NonAf >90 (>60 ml/min/1.73 sqM) Glucose 72 L (74-99) mg/dL POC Glucose (mg/dL) 81 (75-99) mg/dL POC Glu Cloth Coverer ID Townsend, [place] Calcium 9.7 (8.4-10.2) mg/dL Magnesium 1.6 (1.6-2.3) mg/dL Total Bilirubin 0.7 (0.2-1.3) mg/dL AST 28 (17-59) U/L ALT 20 L (21-72) U/L Alkaline Phosphatase 52 (38-126) U/L Total Protein 7.3 (6.3-8.2) g/dL Albumin 4.3 (3.5-5.0) g/dL Urine Color Urine Appearance (Clear) Urine pH (5.0-8.0) Ur Specific [place] (1.001-1.035) Urine Protein (Negative) Urine Glucose (UA) (Negative) Urine Ketones (Negative) Urine Blood (Negative) Urine Nitrite (Negative) Urine Bilirubin (Negative) Urine Urobilinogen (<2.0) mg/dL Ur Leukocyte Esterase (Negative) Valproic Acid 40.7 ug/mL 05/07/19 05/07/19 Range/Units 17:15 17:21 WBC (3.8-10.6) k/uL RBC (4.30-5.90) m/uL Hgb (13.0-17.5) gm/dL Hct (39.0-53.0) % MCV (80.0-100.0) fL MCH (25.0-35.0) pg MCHC (31.0-37.0) g/dL RDW (11.5-15.5) % Plt Count (150-450) k/uL Neutrophils % % Lymphocytes % % Monocytes % % Eosinophils % % Basophils % % Neutrophils # (1.3-7.7) k/uL Lymphocytes # (1.0-4.8) k/uL Monocytes # (0-1.0) k/uL Eosinophils # (0-0.7) k/uL Basophils # (0-0.2) k/uL Anisocytosis Sodium (137-145) mmol/L Potassium (3.5-5.1) mmol/L Chloride (98-107) mmol/L Carbon Dioxide (22-30) mmol/L Anion Gap mmol/L BUN (9-20) mg/dL Creatinine (0.66-1.25) mg/dL Est GFR (CKD-EPI)AfAm (>60 ml/min/1.73 sqM) Est GFR (CKD-EPI)NonAf (>60 ml/min/1.73 sqM) Glucose (74-99) mg/dL POC Glucose (mg/dL) 106 H (75-99) mg/dL POC Glu Cloth Coverer ID Kristian, [place] Calcium (8.4-10.2) mg/dL Magnesium (1.6-2.3) mg/dL Total Bilirubin (0.2-1.3) mg/dL AST (17-59) U/L ALT (21-72) U/L Alkaline Phosphatase (38-126) U/L Total Protein (6.3-8.2) g/dL Albumin (3.5-5.0) g/dL Urine Color Light Yellow Urine Appearance Clear (Clear) Urine pH 6.5 (5.0-8.0) Ur Specific [place] 1.007 (1.001-1.035) Urine Protein Negative (Negative) Urine Glucose (UA) Negative (Negative) Urine Ketones Negative (Negative) Urine Blood Negative (Negative) Urine Nitrite Negative (Negative) Urine Bilirubin Negative (Negative) Urine Urobilinogen <2.0 (<2.0) mg/dL Ur Leukocyte Esterase Negative (Negative) Valproic Acid ug/mL Disposition Clinical Impression: Psychogenic polydipsia, Hyponatremia Disposition: ADMITTED IP TO THIS [facility] Condition: Stable Instructions (If sedation given, give patient instructions): Hyponatremia (ED), Generalized Anxiety Disorder (ED) Additional Instructions: Please follow-up with primary care physician on Friday. He will need to have her sodium level rechecked. Limit clear fluids to 1500 mL per day until advised by your doctor. Return for weakness, shaking, confusion, worsening or change in symptoms or other concerns. Is patient prescribed a controlled substance at d/c from ED?: No Referrals: Sudarshan Cabrales MD [Primary Care Provider] - 1-2 days Time of Disposition: 15:59
[2019-05-07 14:23] LABS: Glucose,Whole Blood 81 mg/dL (75-99)
[2019-05-07 14:56] LABS: Anisocytosis Slight; Basophils # (A) 0.1 k/uL (0-0.2); Basophils % (A) 1 %; Eosinophils # (A) 0.9 k/uL (0-0.7); Eosinophils % (A) 7 %; HCT 41.2 % (39.0-53.0); HGB 13.3 gm/dL (13.0-17.5); Lymphocytes # (A) 2.2 k/uL (1.0-4.8); Lymphocytes % (A) 17 %; MCH 27.7 pg (25.0-35.0); MCHC 32.4 g/dL (31.0-37.0); MCV 85.5 fL (80.0-100.0); Mean Platelet Volume 6.3; Monocytes % (A) 8 %; Neutrophils # (A) 8.2 k/uL (1.3-7.7); Neutrophils % (A) 64 %; Platelet Count 242 k/uL (150-450); RBC 4.82 m/uL (4.30-5.90); WBC 12.7 k/uL (3.8-10.6)
[2019-05-07 15:06] LABS: ALT 20 U/L (21-72); AST 28 U/L (17-59); African American GFR (CKD) >90 (>60 ml/min/1.73 sqM); Albumin 4.3 g/dL (3.5-5.0); Alkaline Phosphatase 52 U/L (38-126); Anion Gap 10 mmol/L; Blood Urea Nitrogen 22 mg/dL (9-20); Calcium 9.7 mg/dL (8.4-10.2); Carbon Dioxide 25 mmol/L (22-30); Chloride 92 mmol/L (98-107); Glucose 72 mg/dL (74-99); Magnesium 1.6 mg/dL (1.6-2.3); Non-African American GFR(CKD) >90 (>60 ml/min/1.73 sqM); Potassium 4.8 mmol/L (3.5-5.1); Sodium 127 mmol/L (137-145); Total Bilirubin 0.7 mg/dL (0.2-1.3); Total Protein 7.3 g/dL (6.3-8.2)
[2019-05-07 15:12] LABS: Valproic Acid (Depakene) 40.7 ug/mL
[2019-05-07 17:17] LABS: Glucose,Whole Blood 106 mg/dL (75-99)
[2019-05-07 17:45] LABS: Appearance,Urine Clear (Clear); Bilirubin,Urine Negative (Negative); Blood,Urine Negative (Negative); Color,Urine Light Yellow; Glucose,Urine (UA) Negative (Negative); Ketones,Urine Negative (Negative); Leukocyte Esterase,Urine Negative (Negative); Nitrite,Urine Negative (Negative); PH, Urine 6.5 (5.0-8.0); Protein,Urine Negative (Negative); Specific Gravity,Urine 1.007 (1.001-1.035); Urobilinogen,Urine <2.0 mg/dL (<2.0)
[2019-05-07] MEDS ORDERED: NALOXONE 0.4 MG/ML 1 ML VIAL IV PRN (20:28)
[2019-05-07] MEDS: SODIUM CHLORIDE 0.9% 1,000 ML IV SCH (21:41)
[2019-05-08 04:28] LABS: Glucose,Whole Blood 99 mg/dL (75-99)
[2019-05-08 06:52] LABS: Glucose,Whole Blood 129 mg/dL (75-99)
[2019-05-08] MEDS: SODIUM CHLORIDE 0.9% 1,000 ML IV SCH (06:57)
[2019-05-08] MEDS: INSULIN ASPART (NovoLOG) 100 UNIT/ML VIAL SQ SCH ×2 (06:57→14:04)
[2019-05-08 07:40] LABS: African American GFR (CKD) >90 (>60 ml/min/1.73 sqM); Anion Gap 10 mmol/L; Blood Urea Nitrogen 18 mg/dL (9-20); Carbon Dioxide 25 mmol/L (22-30); Chloride 102 mmol/L (98-107); Glucose 137 mg/dL (74-99); Non-African American GFR(CKD) >90 (>60 ml/min/1.73 sqM); Potassium 4.5 mmol/L (3.5-5.1); Sodium 137 mmol/L (137-145)
[2019-05-08 11:54] LABS: Glucose,Whole Blood 99 mg/dL (75-99)
[2019-05-08] MEDS ORDERED: SIMETHICONE 80 MG CHEWABLE PO PRN (11:59)
[2019-05-08] MEDS ORDERED: clonazePAM 0.5 MG TAB PO PRN (11:59)
[2019-05-08] MEDS ORDERED: ENOXAPARIN 40 MG/0.4 ML SYRINGE SQ SCH (12:00)
[2019-05-08] MEDS ORDERED: metFORMIN 500 MG TAB PO SCH (12:00)
[2019-05-08] MEDS ORDERED: POLYETHYLENE GLYCOL 3350 17 GM POWD.PACK PO SCH (12:00)
[2019-05-08] MEDS ORDERED: LACTULOSE 20 GM/30 ML CUP PO SCH (12:00)
[2019-05-08] MEDS ORDERED: TAMSULOSIN 0.4 MG CAP.ER.24H PO SCH (12:00)
[2019-05-08 13:03] VITALS: BP 120/68; PULSE 76; RESP 15; TEMP 96.9
--- NOTE | 2019-05-08 16:08 | P.HPIM ---
History of Present Illness H&P Date: 05/08/19 Chief Complaint: Drinking too much water History of presenting complaint: This is a pleasant 63-year-old patient of visiting physicians Dr. Cabrales. Patient has known schizophrenia. Chronic stable medical conditions include schizophrenia, diabetes mellitus type 2, hyperlipidemia. Patient also smoker. Patient presented to ER concerned about drinking too much water. He simply lost her drink water. He was somewhat anxious in the ER asking some Ativan. Became very sleepy. Patient's sodium was 127. Had not been eating too well. Glucose was 72. Admitted for observation. Put on fluid restriction. Review of systems: GEN.: Tired EYES: None HEENT: None NECK: None RESPIRATORY: None CARDIOVASCULAR: None GASTROINTESTINAL: None GENITOURINARY: None MUSCULOSKELETAL: None LYMPHATICS: None HEMATOLOGICAL: None PSYCHIATRY: [Anxious NEUROLOGICAL: None Past medical history to include: Schizophrenia, diabetes mellitus type 2, hyperlipidemia Social history: Smoker. Done marijuana in the past. [facility] Family history: Reviewed, noncontributory to presentation Physical examination: VITAL SIGNS: 98.2, 69, 17, 130/73, 100% on room air GENERAL: BMI 23.1 sitting up but slightly anxious. EYES: Pupils equal. Conjunctiva normal. HEENT: External appearance of nose and ears normal, oral cavity grossly normal. NECK: JVD not raised; masses not palpable. HEART: First and second heart sounds are normal; no edema. LUNGS: Respiratory rate normal; clear to auscultation. ABDOMEN: Soft, nontender, liver spleen not palpable, no masses palpable. PSYCH: [Alert and oriented x3; mood and affect slightly anxious l. NEUROLOGICAL: Cranial nerves grossly intact; no facial asymmetry, power and sensation grossly intact. LYMPHATICS: No lymph nodes palpable in the axilla and neck. INVESTIGATIONS, reviewed in the clinical context: White count 12.7 hemoglobin 13.3 platelets 242 sodium 127 progression 4.8 bun 22 creatinine 0.65 glucose 72 UA negative Valproic acid 40.7 Assessment: -Hyponatremia suspect hypoosmolar from excessive fluid intake. -Schizophrenia -Diabetes mellitus type 2 -Hyperlipidemia Plan: Patient's prognosis would restriction. Patient instructed about the importance of keeping his fluid intake corrected. Repeat sodium this morning was 137 L, nicely. Nurse Mike is making sure that the patient's home medications are corrected. Patient can be discharged home later today. Patient is to follow-up with [facility]. Past Medical History Past Medical History: Diabetes Mellitus, Hyperlipidemia Additional Past Medical History / Comment(s): type 2 diabetes History of Any Multi-Drug Resistant Organisms: None Reported Past Surgical History: Orthopedic Surgery Additional Past Surgical History / Comment(s): Bilateral knees, right elbow surgery for osteomyelitis Past Anesthesia/Blood Transfusion Reactions: No Reported Reaction Past Psychological History: Bipolar, Schizoaffective Disorder Additional Psychological History / Comment(s): Schizophrenia Smoking Status: Current every day smoker Past Alcohol Use History: None Reported Past Drug Use History: Marijuana Medications and Allergies Home Medications Medication Instructions Recorded Confirmed Type Atorvastatin [Lipitor] 10 mg PO HS 11/25/18 05/08/19 History Tamsulosin [Flomax] 0.4 mg PO DAILY #30 cap 02/16/19 05/08/19 Rx metFORMIN HCL [Glucophage] 500 mg PO BID-W/MEALS #60 tab 02/16/19 05/08/19 Rx Benztropine Mesylate 0.5 mg PO BID 05/08/19 05/08/19 History Divalproex [Depakote] 125 mg PO DAILY 05/08/19 05/08/19 History Divalproex [Depakote] 250 mg PO HS 05/08/19 05/08/19 History Haloperidol [Haldol] 2 mg PO BID 05/08/19 05/08/19 History [place] Carbonate [[place] 450 mg PO BID 05/08/19 05/08/19 History Carbonate ER] Allergies Allergy/AdvReac Type Severity Reaction Status Date / Time chlorpromazine AdvReac seizure Verified 05/07/19 14:44 [From Thorazine] Physical Exam Vitals: Vital Signs Temp Pulse Pulse Resp BP BP Pulse Ox 05/08/19 13:03 96.9 F L 76 15 120/68 97 05/08/19 04:00 98.2 F 69 17 130/73 100 05/07/19 23:00 98.3 F 64 16 122/67 97 05/07/19 16:41 69 18 110/60 98 Intake and Output 05/08/19 05/08/19 05/08/19 06:59 14:59 22:59 Intake Total 440 Balance 440 Intake: Oral 440 Other: # Voids 3 2 # Bowel Movements 1 Results CBC & Chem 7: 05/07/19 14:45 05/08/19 06:50 Labs: Abnormal Lab Results - Last 24 Hours (Table) 05/07/19 05/08/19 05/08/19 Range/Units 17:15 06:50 06:50 Creatinine 0.55 L (0.66-1.25) mg/dL Glucose 137 H (74-99) mg/dL POC Glucose (mg/dL) 106 H 129 H (75-99) mg/dL Thrombosis Risk Factor Assmnt - Choose All That Apply Any of the Below Risk Factors Present?: No Other Risk Factors: Yes Each Risk Factor Represents 2 Points: Age 61-74 years Other congenital or acquired thrombophilia - If yes, enter type in comment: No Thrombosis Risk Factor Assessment Total Risk Factor Score: 2 Thrombosis Risk Factor Assessment Level: Low Risk
[2019-05-08] MEDS ORDERED: LITHIUM CARBONATE ER 450 MG TABLET.ER PO SCH (21:00)
[2019-05-08] MEDS ORDERED: HALOPERIDOL 2 MG TAB PO SCH (21:00)
[2019-05-08] MEDS ORDERED: ATORVASTATIN 10 MG TAB PO SCH (21:00)
[2019-05-08] MEDS ORDERED: hydrOXYzine PAMOATE 25 MG CAP PO SCH (21:00)
[2019-05-08] MEDS ORDERED: DIVALPROEX 250 MG TABLET.DR PO SCH (21:00)
[2019-05-08] MEDS ORDERED: BENZTROPINE MESYLATE 0.5 MG TAB PO SCH (21:00)
--- NOTE | 2019-05-08 21:39 | P.DS ---
Providers Date of admission: 05/07/19 20:29 Expected date of discharge: 05/08/19 Attending physician: Pacheco Okeefe Primary care physician: Sudarshan Cabrales [facility] Course: Chief Complaint: Drinking too much water History of presenting complaint: This is a pleasant 63-year-old patient of visiting physicians Dr. Cabrales. Patient has known schizophrenia. Chronic stable medical conditions include schizophrenia, diabetes mellitus type 2, hyperlipidemia. Patient also smoker. Patient presented to ER concerned about drinking too much water. He simply lost her drink water. He was somewhat anxious in the ER asking some Ativan. Became very sleepy. Patient's sodium was 127. Had not been eating too well. Glucose was 72. Admitted for observation. Put on fluid restriction.eating better.sodium came up to 137. Patient to follow up at the [facility].instructions given. fluid Restriction of 1800 mL a day. Physical examination: VITAL SIGNS: medicines 0.9, 76, 15, 120/68, 97% room air GENERAL: BMI 23.1 sitting up but slightly anxious. EYES: Pupils equal. Conjunctiva normal. HEENT: External appearance of nose and ears normal, oral cavity grossly normal. NECK: JVD not raised; masses not palpable. HEART: First and second heart sounds are normal; no edema. LUNGS: Respiratory rate normal; clear to auscultation. ABDOMEN: Soft, nontender, liver spleen not palpable, no masses palpable. PSYCH: [Alert and oriented x3; mood and affect slightly anxious l. INVESTIGATIONS, reviewed in the clinical context: Sodium 137 Previous testing White count 12.7 hemoglobin 13.3 platelets 242 sodium 127 progression 4.8 bun 22 creatinine 0.65 glucose 72 UA negative Valproic acid 40.7 Assessment: -Hyponatremia suspect hypoosmolar from excessive fluid intake. -Schizophrenia -Diabetes mellitus type 2 -Hyperlipidemia disposition: long term Patient Condition at Discharge: Stable Plan - Discharge Summary New Discharge Prescriptions: Continue Atorvastatin [Lipitor] 10 mg PO HS metFORMIN HCL [Glucophage] 500 mg PO BID-W/MEALS #60 tab Tamsulosin [Flomax] 0.4 mg PO DAILY #30 cap No Action Divalproex [Depakote] 250 mg PO HS Divalproex [Depakote] 125 mg PO DAILY [place] Carbonate [[place] Carbonate ER] 450 mg PO BID Haloperidol [Haldol] 2 mg PO BID Benztropine Mesylate 0.5 mg PO BID Discharge Medication List Atorvastatin [Lipitor] 10 mg PO HS 11/25/18 [History] Tamsulosin [Flomax] 0.4 mg PO DAILY #30 cap 02/16/19 [Rx] metFORMIN HCL [Glucophage] 500 mg PO BID-W/MEALS #60 tab 02/16/19 [Rx] Benztropine Mesylate 0.5 mg PO BID 05/08/19 [History] Divalproex [Depakote] 125 mg PO DAILY 05/08/19 [History] Divalproex [Depakote] 250 mg PO HS 05/08/19 [History] Haloperidol [Haldol] 2 mg PO BID 05/08/19 [History] [place] Carbonate [[place] Carbonate ER] 450 mg PO BID 05/08/19 [History] Follow up Appointment(s)/Referral(s): dr SURI [Other] - 1 Week Sudarshan Cabrales MD [Primary Care Provider] - 1-2 days Patient Instructions/Handouts: Hyponatremia (ED), Generalized Anxiety Disorder (ED) Activity/Diet/Wound Care/Special Instructions: Please follow-up with primary care physician on Friday. He will need to have her sodium level rechecked. Limit clear fluids to 1800 mL per day until advised by your doctor. Return for weakness, shaking, confusion, worsening or change in symptoms or other concerns. dc with styrophoam cups indicating quantity Discharge Disposition: HOME SELF-CARE
[2019-05-09] MEDS ORDERED: DIVALPROEX SPRINKLE 125 MG CAP.SPRINK PO SCH (09:00)
== END 2019-05-08 16:00 | disposition home or self-care (01) ==
LOC: EC 13:48 → 3NMEDONC 20:29
PROVIDERS: ADMIT Hospitalist; ATTEND Hospitalist
DX: E87.1 Hypo-osmolality and hyponatremia (principal); F20.9 Schizophrenia, unspecified; E11.9 Type 2 diabetes mellitus without complications; E78.5 Hyperlipidemia, unspecified; R63.1 Polydipsia; F41.9 Anxiety disorder, unspecified; F31.9 Bipolar disorder, unspecified; F17.200 Nicotine dependence, unspecified, uncomplicated; Z79.899 Other long term (current) drug therapy; Z88.8 Allergy status to other drugs, medicaments and biological substances; Z86.19 Personal history of other infectious and parasitic diseases; Z79.84 Long term (current) use of oral hypoglycemic drugs
CPT/HCPCS: 96372; 82075; 96361; 96374; 99284; 36415; 80164; 80053; 80048; 83735; 85025; 81003; G0378 ×2; J2060; J1650

== ENCOUNTER 2019-05-09 19:51 | Emergency (ER) | payer MEDICARE ==
--- NOTE | 2019-05-09 20:27 | ED ---
General Adult HPI - General Source: patient, EMS, RN notes reviewed Mode of arrival: EMS Limitations: no limitations <Juanpablo Monae - Last Filed: 05/09/19 21:02> <Enoch Hylton - Last Filed: 05/13/19 07:01> - General Chief complaint: Recheck/Abnormal Lab/Rx Stated complaint: Mental Health Time Seen by Provider: 05/09/19 19:51 - History of Present Illness Initial comments: Is a 63-year-old male history of schizophrenia type 2 diabetes hyperlipidemia who was just discharged yesterday after being admitted for evaluation for hyponatremia and drinking too much fluids. He states that he was eating tonight and he told paramedics that he was told that he last saw he became very thirsty started drinking copious amounts of water. He did throw up once in route in the ambulance. He states is very anxious. He denies any thoughts of hurting himself however he denies any fevers chills or sweats he does state he feels shaky however. No palpitations. No trauma reported no other modifying factors at this time (Juanpablo Monae) - Related Data Home Medications Medication Instructions Recorded Confirmed Atorvastatin [Lipitor] 10 mg PO HS 11/25/18 05/12/19 Benztropine Mesylate 0.5 mg PO BID 05/08/19 05/12/19 Divalproex [Depakote] 125 mg PO DAILY 05/08/19 05/12/19 Divalproex [Depakote] 250 mg PO HS 05/08/19 05/12/19 Haloperidol [Haldol] 2 mg PO BID 05/08/19 05/12/19 [place] Carbonate [[place] 450 mg PO BID 05/08/19 05/12/19 Carbonate ER] Previous Rx's Medication Instructions Recorded Tamsulosin [Flomax] 0.4 mg PO DAILY #30 cap 02/16/19 metFORMIN HCL [Glucophage] 500 mg PO BID-W/MEALS #60 tab 02/16/19 Doxycycline [Vibramycin] 100 mg PO BID #14 cap 05/09/19 Acetaminophen Tab [Tylenol Tab] 500 mg PO Q6H #30 tablet 05/12/19 Allergies Allergy/AdvReac Type Severity Reaction Status Date / Time chlorpromazine AdvReac seizure Verified 05/12/19 20:02 [From Thorazine] Review of Systems ROS Other: All systems not noted in ROS Statement are negative. <Juanpablo Monae - Last Filed: 05/09/19 21:02> ROS Other: All systems not noted in ROS Statement are negative. <Enoch Hylton - Last Filed: 05/13/19 07:01> ROS Statement: Those systems with pertinent positive or pertinent negative responses have been documented in the HPI. Past Medical History Past Medical History: Diabetes Mellitus, Hyperlipidemia Additional Past Medical History / Comment(s): type 2 diabetes History of Any Multi-Drug Resistant Organisms: None Reported Past Surgical History: Orthopedic Surgery Additional Past Surgical History / Comment(s): Bilateral knees, right elbow surgery for osteomyelitis Past Anesthesia/Blood Transfusion Reactions: No Reported Reaction Past Psychological History: Bipolar, Schizoaffective Disorder Smoking Status: Current every day smoker Past Alcohol Use History: None Reported Past Drug Use History: Marijuana <Juanpablo Monae - Last Filed: 05/09/19 21:02> General Exam Limitations: no limitations General appearance: alert, anxious, in distress Head exam: Present: atraumatic, normocephalic, normal inspection Eye exam: Present: normal appearance, PERRL, EOMI. Absent: scleral icterus, conjunctival injection, periorbital swelling ENT exam: Present: normal exam, mucous membranes moist Neck exam: Present: normal inspection, full ROM, other (No stridor JVD or bruits). Absent: tenderness, meningismus, lymphadenopathy Respiratory exam: Present: normal lung sounds bilaterally, other (A Nap). Absent: respiratory distress, wheezes, rales, rhonchi, stridor Cardiovascular Exam: Present: regular rate, normal rhythm, normal heart sounds. Absent: systolic murmur, diastolic murmur, rubs, gallop, clicks GI/Abdominal exam: Present: soft, normal bowel sounds. Absent: distended, tenderness, guarding, rebound, rigid Extremities exam: Present: normal inspection, full ROM, normal capillary refill. Absent: tenderness, pedal edema, joint swelling, calf tenderness Back exam: Present: normal inspection Neurological exam: Present: alert, oriented X3, CN II-XII intact. Absent: motor sensory deficit Psychiatric exam: Present: agitated, anxious Skin exam: Present: warm, dry, intact, normal color. Absent: rash <Juanpablo Monae - Last Filed: 05/09/19 21:02> - General Exam Comments Initial Comments: Is a well-developed well-nourished awake alert anxious appearing male he does demonstrate tremors (DovJuanpablo) Course <Juanpablo Monae - Last Filed: 05/09/19 21:02> Vital Signs 05/09/19 05/09/19 05/09/19 19:56 21:51 22:12 Temperature 97.9 F 98.7 F Pulse Rate 78 67 Respiratory 24 18 16 Rate Blood Pressure 90/77 116/71 O2 Sat by Pulse 100 96 Oximetry 05/09/19 23:40 Temperature 98.0 F Pulse Rate 71 Respiratory 20 Rate Blood Pressure 152/89 O2 Sat by Pulse 99 Oximetry - Reevaluation(s) Reevaluation #1: 05/09/19 20:28 The patient's care will be endorsed to Dr. Hylton at our shift change at 9 PM (Juanpablo Monae) EKG Findings - EKG Results: EKG: interpreted by ERMD, sinus rhythm (Vent rate 69, IA interval 164, QRS 100, QT/QTC 382/409 ) <Juanpablo Monae - Last Filed: 05/09/19 21:02> Medical Decision Making - Lab Data Result diagrams: 05/09/19 20:36 <Juanpablo Monae - Last Filed: 05/09/19 21:02> - Lab Data Result diagrams: 05/09/19 20:36 05/09/19 20:36 <Enoch Hylton - Last Filed: 05/13/19 07:01> - Medical Decision Making Patient's 63-year-old man signed out to me pending the lab results. As the patient's valproic acid level was low he was given additional dose here. Patient family member subsequent called angry that he had been given valproic acid. Nowhere in the chart hadn't been noted that they were wanting him weaned from the valproic acid on the chance that this was contributing to the patient's hyponatremia. I directed nursing staff to enter this in the patient's ALLERGY/adverse effect field so that this would not occur in any future encounters. (Enoch Hylton) - Lab Data Lab Results 05/09/19 05/09/19 05/09/19 Range/Units 19:57 20:36 20:36 WBC 9.7 (3.8-10.6) k/uL RBC 4.74 (4.30-5.90) m/uL Hgb 13.3 (13.0-17.5) gm/dL Hct 40.7 (39.0-53.0) % MCV 85.8 (80.0-100.0) fL MCH 28.1 (25.0-35.0) pg MCHC 32.7 (31.0-37.0) g/dL RDW 16.7 H (11.5-15.5) % Plt Count 270 (150-450) k/uL Neutrophils % 59 % Lymphocytes % 23 % Monocytes % 7 % Eosinophils % 7 % Basophils % 1 % Neutrophils # 5.8 (1.3-7.7) k/uL Lymphocytes # 2.2 (1.0-4.8) k/uL Monocytes # 0.7 (0-1.0) k/uL Eosinophils # 0.7 (0-0.7) k/uL Basophils # 0.1 (0-0.2) k/uL Anisocytosis Slight Sodium 131 L (137-145) mmol/L Potassium 4.4 (3.5-5.1) mmol/L Chloride 98 (98-107) mmol/L Carbon Dioxide 23 (22-30) mmol/L Anion Gap 10 mmol/L BUN 18 (9-20) mg/dL Creatinine 0.48 L (0.66-1.25) mg/dL Est GFR (CKD-EPI)AfAm >90 (>60 ml/min/1.73 sqM) Est GFR (CKD-EPI)NonAf >90 (>60 ml/min/1.73 sqM) Glucose 98 (74-99) mg/dL Osmolality 271 L (280-301) mosm/kg Calcium 9.4 (8.4-10.2) mg/dL Magnesium 1.8 (1.6-2.3) mg/dL Total Bilirubin 0.6 (0.2-1.3) mg/dL AST 27 (17-59) U/L ALT 28 (21-72) U/L Alkaline Phosphatase 63 (38-126) U/L Total Protein 7.3 (6.3-8.2) g/dL Albumin 4.5 (3.5-5.0) g/dL Urine Color Yellow Urine Appearance Clear (Clear) Urine pH 7.5 (5.0-8.0) Ur Specific [place] 1.019 (1.001-1.035) Urine Protein Trace H (Negative) Urine Glucose (UA) Negative (Negative) Urine Ketones Negative (Negative) Urine Blood Negative (Negative) Urine Nitrite Negative (Negative) Urine Bilirubin Negative (Negative) Urine Urobilinogen <2.0 (<2.0) mg/dL Ur Leukocyte Esterase Small H (Negative) Urine RBC 1 (0-5) /hpf Urine WBC 23 H (0-5) /hpf Urine Mucus Rare H (None) /hpf Urine Opiates Screen Not Detected (NotDetected) Ur Oxycodone Screen Not Detected (NotDetected) Urine Methadone Screen Not Detected (NotDetected) Ur Propoxyphene Screen Not Detected (NotDetected) Ur Barbiturates Screen Not Detected (NotDetected) Valproic Acid 27.5 ug/mL U Tricyclic Antidepress Not Detected (NotDetected) Ur Phencyclidine Scrn Not Detected (NotDetected) Ur Amphetamines Screen Not Detected (NotDetected) U Methamphetamines Scrn Not Detected (NotDetected) U Benzodiazepines Scrn Not Detected (NotDetected) [place] 0.4 mmol/L Urine Cocaine Screen Not Detected (NotDetected) U Marijuana (THC) Screen Not Detected (NotDetected) Serum Alcohol <10 mg/dL Disposition <Juanpablo Monae - Last Filed: 05/09/19 21:02> Is patient prescribed a controlled substance at d/c from ED?: No <Enoch Hylton - Last Filed: 05/13/19 07:01> Clinical Impression: Urinary tract infection, Hyponatremia Disposition: HOME SELF-CARE Condition: Fair Prescriptions: Doxycycline [Vibramycin] 100 mg PO BID #14 cap Referrals: None,Stated [Primary Care Provider] - 1-2 days
[2019-05-09 20:28] LABS: Appearance,Urine Clear (Clear); Bilirubin,Urine Negative (Negative); Blood,Urine Negative (Negative); Color,Urine Yellow; Glucose,Urine (UA) Negative (Negative); Ketones,Urine Negative (Negative); Leukocyte Esterase,Urine Small (Negative); Mucus,Urine Rare /hpf; Nitrite,Urine Negative (Negative); PH, Urine 7.5 (5.0-8.0); Protein,Urine Trace (Negative); RBC,Urine 1 /hpf (0-5); Specific Gravity,Urine 1.019 (1.001-1.035); Urobilinogen,Urine <2.0 mg/dL (<2.0); WBC,Urine 23 /hpf (0-5)
[2019-05-09 20:34] LABS: Amphetamine Screen,Urine Not Detected (NotDetected); Barbiturate Screen,Urine Not Detected (NotDetected); Benzodiazepines Screen,Urine Not Detected (NotDetected); Cocaine Screen,Urine Not Detected (NotDetected); Methadone Screen, Urine Not Detected (NotDetected); Opiate Screen,Urine Not Detected (NotDetected); Oxycodone Screen, Urine Not Detected (NotDetected); Phencyclidine Screen,Urine Not Detected (NotDetected); Tricyclic Antidepressant,Urine Not Detected (NotDetected); Urn Cannabinoid Scrn Not Detected (NotDetected)
[2019-05-09 20:48] LABS: Anisocytosis Slight; Basophils # (A) 0.1 k/uL (0-0.2); Basophils % (A) 1 %; Eosinophils # (A) 0.7 k/uL (0-0.7); Eosinophils % (A) 7 %; HCT 40.7 % (39.0-53.0); HGB 13.3 gm/dL (13.0-17.5); Lymphocytes # (A) 2.2 k/uL (1.0-4.8); Lymphocytes % (A) 23 %; MCH 28.1 pg (25.0-35.0); MCHC 32.7 g/dL (31.0-37.0); MCV 85.8 fL (80.0-100.0); Mean Platelet Volume 5.5; Monocytes # (A) 0.7 k/uL (0-1.0); Monocytes % (A) 7 %; Neutrophils # (A) 5.8 k/uL (1.3-7.7); Neutrophils % (A) 59 %; Platelet Count 270 k/uL (150-450); RBC 4.74 m/uL (4.30-5.90); RDW 16.7 % (11.5-15.5); WBC 9.7 k/uL (3.8-10.6)
--- NOTE | 2019-05-09 20:58 | XR ---
EXAMINATION TYPE: XR chest 2V DATE OF EXAM: 05/09/2019 COMPARISON: None HISTORY: Short of breath TECHNIQUE: Frontal and lateral views of the chest are obtained. FINDINGS: Heart is normal. Lungs are clear of infiltrate. There is no pleural effusion. There are no hilar masses. Costophrenic angles are clear. Bony thorax is intact. IMPRESSION: No active cardiopulmonary disease.
[2019-05-09 21:15] LABS: ALT 28 U/L (21-72); AST 27 U/L (17-59); African American GFR (CKD) >90 (>60 ml/min/1.73 sqM); Albumin 4.5 g/dL (3.5-5.0); Alcohol <10 mg/dL; Alkaline Phosphatase 63 U/L (38-126); Anion Gap 10 mmol/L; Blood Urea Nitrogen 18 mg/dL (9-20); Calcium 9.4 mg/dL (8.4-10.2); Carbon Dioxide 23 mmol/L (22-30); Chloride 98 mmol/L (98-107); Glucose 98 mg/dL (74-99); Lithium 0.4 mmol/L; Magnesium 1.8 mg/dL (1.6-2.3); Non-African American GFR(CKD) >90 (>60 ml/min/1.73 sqM); Potassium 4.4 mmol/L (3.5-5.1); Sodium 131 mmol/L (137-145); Total Bilirubin 0.6 mg/dL (0.2-1.3); Total Protein 7.3 g/dL (6.3-8.2)
[2019-05-09 21:20] LABS: Valproic Acid (Depakene) 27.5 ug/mL
[2019-05-09] MEDS ORDERED: DOXYCYCLINE 100 MG CAP PO STA (21:32)
[2019-05-09] MEDS ORDERED: DIVALPROEX 500 MG TABLET.DR PO STA (21:32)
[2019-05-09 23:49] VITALS: BP 152/89; PULSE 71; RESP 20; TEMP 98
== END 2019-05-09 23:45 | disposition home or self-care (01) ==
LOC: EC 19:51
DX: N39.0 Urinary tract infection, site not specified (principal); E87.1 Hypo-osmolality and hyponatremia; R45.1 Restlessness and agitation; E78.5 Hyperlipidemia, unspecified; F31.9 Bipolar disorder, unspecified; F20.9 Schizophrenia, unspecified; F17.200 Nicotine dependence, unspecified, uncomplicated; Z88.8 Allergy status to other drugs, medicaments and biological substances; Z79.899 Other long term (current) drug therapy
CPT/HCPCS: 36415; 93005; 80164; 83930; 80053; 80178; 83735; 85025; 81001; 80306; 87086; 71046; 99284; G0480; 80320; 87077; 87186

== ENCOUNTER 2019-05-11 22:05 | Emergency (ER) | payer MEDICARE ==
[2019-05-11 22:18] VITALS: RESP 18; TEMP 98.7
[2019-05-11 23:11] LABS: Anisocytosis Slight; Basophils # (A) 0.1 k/uL (0-0.2); Basophils % (A) 1 %; Eosinophils # (A) 0.5 k/uL (0-0.7); Eosinophils % (A) 5 %; HCT 42.2 % (39.0-53.0); HGB 14.1 gm/dL (13.0-17.5); Lymphocytes # (A) 2.3 k/uL (1.0-4.8); Lymphocytes % (A) 23 %; MCH 28.4 pg (25.0-35.0); MCHC 33.4 g/dL (31.0-37.0); MCV 85.2 fL (80.0-100.0); Mean Platelet Volume 5.6; Monocytes # (A) 0.7 k/uL (0-1.0); Monocytes % (A) 7 %; Neutrophils # (A) 6.3 k/uL (1.3-7.7); Neutrophils % (A) 63 %; Platelet Count 302 k/uL (150-450); RBC 4.95 m/uL (4.30-5.90); RDW 16.9 % (11.5-15.5); WBC 10.1 k/uL (3.8-10.6)
[2019-05-11 23:23] LABS: ALT 26 U/L (21-72); AST 21 U/L (17-59); African American GFR (CKD) >90 (>60 ml/min/1.73 sqM); Albumin 4.5 g/dL (3.5-5.0); Alkaline Phosphatase 58 U/L (38-126); Anion Gap 11 mmol/L; Blood Urea Nitrogen 20 mg/dL (9-20); Calcium 9.6 mg/dL (8.4-10.2); Carbon Dioxide 23 mmol/L (22-30); Chloride 98 mmol/L (98-107); Glucose 88 mg/dL (74-99); Magnesium 1.7 mg/dL (1.6-2.3); Non-African American GFR(CKD) >90 (>60 ml/min/1.73 sqM); Potassium 4.5 mmol/L (3.5-5.1); Sodium 132 mmol/L (137-145); Total Bilirubin 0.4 mg/dL (0.2-1.3); Total Protein 7.3 g/dL (6.3-8.2)
[2019-05-11 23:57] LABS: Amphetamine Screen,Urine Not Detected (NotDetected); Barbiturate Screen,Urine Not Detected (NotDetected); Benzodiazepines Screen,Urine Not Detected (NotDetected); Cocaine Screen,Urine Not Detected (NotDetected); Opiate Screen,Urine Not Detected (NotDetected); Oxycodone Screen, Urine Not Detected (NotDetected); Phencyclidine Screen,Urine Not Detected (NotDetected); Tricyclic Antidepressant,Urine Not Detected (NotDetected); Urn Cannabinoid Scrn Not Detected (NotDetected)
[2019-05-11 23:58] LABS: Methadone Screen, Urine Not Detected (NotDetected)
[2019-05-12 00:10] VITALS: BP 122/66; PULSE 66
--- NOTE | 2019-05-12 00:29 | ED ---
Psych HPI - General Source: patient, EMS, RN notes reviewed Mode of arrival: EMS - History of Present Illness MD Complaint: other <Juanpablo Monae - Last Filed: 05/12/19 00:35> <Yusra Perez - Last Filed: 05/12/19 02:41> - General Chief Complaint: Psychiatric Symptoms Stated Complaint: Mental Health Time Seen by Provider: 05/11/19 22:05 - History of Present Illness Initial Comments: This is a 63-year-old male who is here by EMS tonight at the request of his [facility] with apparently for psychiatric evaluation. Patient has had recent episodes of polydipsia with lower sodiums. He states tonight that he's craving fruit but denies any thoughts of hurting himself or anyone else. He does state he was recently at [facility] he had a workup done which included evaluation for a head injury. He denies any fevers chills nausea vomiting sweats he does state he has occasional left sided forehead discomfort no overt blurry vision at this time no focal weakness no other modifying factors. (Juanpablo Monae) - Related Data Home Medications Medication Instructions Recorded Confirmed Atorvastatin [Lipitor] 10 mg PO HS 11/25/18 05/11/19 Benztropine Mesylate 0.5 mg PO BID 05/08/19 05/11/19 Divalproex [Depakote] 125 mg PO DAILY 05/08/19 05/11/19 Divalproex [Depakote] 250 mg PO HS 05/08/19 05/11/19 Haloperidol [Haldol] 2 mg PO BID 05/08/19 05/11/19 [place] Carbonate [[place] 450 mg PO BID 05/08/19 05/11/19 Carbonate ER] Previous Rx's Medication Instructions Recorded Tamsulosin [Flomax] 0.4 mg PO DAILY #30 cap 02/16/19 metFORMIN HCL [Glucophage] 500 mg PO BID-W/MEALS #60 tab 02/16/19 Doxycycline [Vibramycin] 100 mg PO BID #14 cap 05/09/19 Acetaminophen Tab [Tylenol Tab] 500 mg PO Q6H #30 tablet 05/12/19 Allergies Allergy/AdvReac Type Severity Reaction Status Date / Time chlorpromazine AdvReac seizure Verified 05/11/19 22:28 [From Thorazine] Review of Systems ROS Other: All systems not noted in ROS Statement are negative. <DovJuanpablo - Last Filed: 05/12/19 00:35> ROS Other: All systems not noted in ROS Statement are negative. <Jarocho Perezssbarron Randall - Last Filed: 05/12/19 02:41> ROS Statement: Those systems with pertinent positive or pertinent negative responses have been documented in the HPI. Past Medical History Past Medical History: Diabetes Mellitus, Hyperlipidemia Additional Past Medical History / Comment(s): type 2 diabetes History of Any Multi-Drug Resistant Organisms: None Reported Past Surgical History: Orthopedic Surgery Additional Past Surgical History / Comment(s): Bilateral knees, right elbow surgery for osteomyelitis Past Anesthesia/Blood Transfusion Reactions: No Reported Reaction Past Psychological History: Bipolar, Schizoaffective Disorder Smoking Status: Current every day smoker Past Alcohol Use History: None Reported Past Drug Use History: Marijuana <Juanpablo Monae - Last Filed: 05/12/19 00:35> General Exam Limitations: no limitations General appearance: alert, anxious Head exam: Present: atraumatic, normocephalic, normal inspection Eye exam: Present: normal appearance, PERRL, EOMI. Absent: scleral icterus, conjunctival injection, periorbital swelling ENT exam: Present: normal exam, mucous membranes moist Neck exam: Present: normal inspection. Absent: tenderness, meningismus, lymphadenopathy Respiratory exam: Present: normal lung sounds bilaterally. Absent: respiratory distress, wheezes, rales, rhonchi, stridor Cardiovascular Exam: Present: regular rate, normal rhythm, normal heart sounds. Absent: systolic murmur, diastolic murmur, rubs, gallop, clicks GI/Abdominal exam: Present: soft, normal bowel sounds. Absent: distended, tenderness, guarding, rebound, rigid Extremities exam: Present: normal inspection, full ROM, normal capillary refill. Absent: tenderness, pedal edema, joint swelling, calf tenderness Back exam: Present: normal inspection Neurological exam: Present: alert, oriented X3, CN II-XII intact Psychiatric exam: Present: normal affect, normal mood Skin exam: Present: warm, dry, intact, normal color. Absent: rash <Juanpablo Monae - Last Filed: 05/12/19 00:35> - General Exam Comments Initial Comments: This is a well-developed well-nourished awake alert male (Juanpablo Monae) Course <Juanpablo Monae - Last Filed: 05/12/19 00:35> Vital Signs 05/11/19 05/12/19 22:13 00:07 Temperature 98.7 F Pulse Rate 73 66 Respiratory 18 18 Rate Blood Pressure 139/72 122/66 O2 Sat by Pulse 99 98 Oximetry - Reevaluation(s) Reevaluation #1: 05/12/19 00:29 The patient medically cleared for a psychiatric evaluation (Juanpablo Monae) Medical Decision Making - Lab Data Result diagrams: 05/11/19 22:57 05/11/19 22:57 - EKG Data -: EKG Interpreted by Me EKG shows normal: sinus rhythm (There was sinus rhythm a 66. Interval 160 QRS duration 100 QT since QTC 394/413 is a normal-appearing EKG) <Juanpablo Monae - Last Filed: 05/12/19 00:35> - Lab Data Result diagrams: 05/11/19 22:57 05/11/19 22:57 <Yusra Perez - Last Filed: 05/12/19 02:41> - Medical Decision Making She is care was signed out to me by Dr. Monae. Patient presented from the [facility] for a psychiatric evaluation, at the time of sign out patient was pending evaluation by the EPS nurse. Patient was seen and evaluated by the EPS nurse. Patient with no suicidal or homicidal ideation. Patient was willing to contract for safety. Patient care was discussed with the [facility] who are in agreement with plan for discharge back to there. Upon discharge patient requested to speak with her doctor, patient reporting chronic headaches and myalgias for which he is not given any Tylenol or Motrin if [facility] home. Patient was given a single dose of Tylenol here and a prescription for regular [id number] Tylenol advised he can take one pill every 6 hours at the custodial. This prescription will be provided to the custodial. Stable for discharge home (Yusra Perez) - Lab Data Lab Results 05/11/19 05/11/19 05/11/19 Range/Units 22:57 22:57 23:41 WBC 10.1 (3.8-10.6) k/uL RBC 4.95 (4.30-5.90) m/uL Hgb 14.1 (13.0-17.5) gm/dL Hct 42.2 (39.0-53.0) % MCV 85.2 (80.0-100.0) fL MCH 28.4 (25.0-35.0) pg MCHC 33.4 (31.0-37.0) g/dL RDW 16.9 H (11.5-15.5) % Plt Count 302 (150-450) k/uL Neutrophils % 63 % Lymphocytes % 23 % Monocytes % 7 % Eosinophils % 5 % Basophils % 1 % Neutrophils # 6.3 (1.3-7.7) k/uL Lymphocytes # 2.3 (1.0-4.8) k/uL Monocytes # 0.7 (0-1.0) k/uL Eosinophils # 0.5 (0-0.7) k/uL Basophils # 0.1 (0-0.2) k/uL Anisocytosis Slight Sodium 132 L (137-145) mmol/L Potassium 4.5 (3.5-5.1) mmol/L Chloride 98 (98-107) mmol/L Carbon Dioxide 23 (22-30) mmol/L Anion Gap 11 mmol/L BUN 20 (9-20) mg/dL Creatinine 0.52 L (0.66-1.25) mg/dL Est GFR (CKD-EPI)AfAm >90 (>60 ml/min/1.73 sqM) Est GFR (CKD-EPI)NonAf >90 (>60 ml/min/1.73 sqM) Glucose 88 (74-99) mg/dL Calcium 9.6 (8.4-10.2) mg/dL Magnesium 1.7 (1.6-2.3) mg/dL Total Bilirubin 0.4 (0.2-1.3) mg/dL AST 21 (17-59) U/L ALT 26 (21-72) U/L Alkaline Phosphatase 58 (38-126) U/L Total Protein 7.3 (6.3-8.2) g/dL Albumin 4.5 (3.5-5.0) g/dL Urine Opiates Screen Not Detected (NotDetected) Ur Oxycodone Screen Not Detected (NotDetected) Urine Methadone Screen Not Detected (NotDetected) Ur Propoxyphene Screen Not Detected (NotDetected) Ur Barbiturates Screen Not Detected (NotDetected) U Tricyclic Antidepress Not Detected (NotDetected) Ur Phencyclidine Scrn Not Detected (NotDetected) Ur Amphetamines Screen Not Detected (NotDetected) U Methamphetamines Scrn Not Detected (NotDetected) U Benzodiazepines Scrn Not Detected (NotDetected) Urine Cocaine Screen Not Detected (NotDetected) U Marijuana (THC) Screen Not Detected (NotDetected) Disposition <Juanpablo Monae - Last Filed: 05/12/19 00:35> Is patient prescribed a controlled substance at d/c from ED?: No <Yusra Perez - Last Filed: 05/12/19 02:41> Clinical Impression: Psychiatric disorder Disposition: HOME SELF-CARE Condition: Stable Additional Instructions: Follow your crisis plan, return to the ER for any new or concerning symptoms Prescriptions: Acetaminophen Tab [Tylenol Tab] 500 mg PO Q6H #30 tablet Referrals: None,Stated [Primary Care Provider] - 1-2 days
[2019-05-12] MEDS ORDERED: ACETAMINOPHEN TAB 325 MG TAB PO STA (02:34)
== END 2019-05-12 02:40 | disposition home or self-care (01) ==
LOC: EC 22:05
DX: F99 Mental disorder, not otherwise specified (principal); R51 Headache; M79.10 Myalgia, unspecified site; E78.5 Hyperlipidemia, unspecified; F25.0 Schizoaffective disorder, bipolar type; F17.200 Nicotine dependence, unspecified, uncomplicated; Z79.899 Other long term (current) drug therapy; Z88.8 Allergy status to other drugs, medicaments and biological substances
CPT/HCPCS: 36415; 80053; 80306; 82075; 83735; 85025; 93005; 99284

== ENCOUNTER 2019-05-12 10:33 | Inpatient (IN) | payer MEDICARE ==
[2019-05-12 10:48] LABS: Glucose,Whole Blood 82 mg/dL (75-99)
--- NOTE | 2019-05-12 11:24 | ED ---
General Adult HPI - General Chief complaint: Anxiety Stated complaint: ANXIETY, THIRSTY Time Seen by Provider: 05/12/19 10:51 Source: EMS Mode of arrival: EMS Limitations: no limitations - History of Present Illness Initial comments: Patient is a 63-year-old male presenting to the emergency department via EMS from his [facility] with complaints of excessive thirst in anxiety. Patient was just seen in the ER yesterday. This is patient's fourth visit in the last 6 days for similar complaints. Patient had a full medical workup yesterday which was normal. The fpc states he has been coming and increasingly aggressive and has been drinking a large amount of water. They state today he has already drank a gallon of water at only 11 AM. Patient continues to ask for water every few minutes. Patient is denying pain anywhere. Patient denies any homicidal or suicidal thoughts at this time. Patient was evaluated by EPS yesterday and patient was willing to sign a contract for safety. Patient was then discharged back to his [facility]. Patient has no other complaints at this time. Upon arrival to the ER, his vital signs are stable. - Related Data Home Medications Medication Instructions Recorded Confirmed Atorvastatin [Lipitor] 10 mg PO HS 11/25/18 05/12/19 Benztropine Mesylate 0.5 mg PO BID 05/08/19 05/12/19 Divalproex [Depakote] 125 mg PO DAILY 05/08/19 05/12/19 Divalproex [Depakote] 250 mg PO HS 05/08/19 05/12/19 Haloperidol [Haldol] 2 mg PO BID 05/08/19 05/12/19 [place] Carbonate [[place] 450 mg PO BID 05/08/19 05/12/19 Carbonate ER] Previous Rx's Medication Instructions Recorded Tamsulosin [Flomax] 0.4 mg PO DAILY #30 cap 02/16/19 metFORMIN HCL [Glucophage] 500 mg PO BID-W/MEALS #60 tab 02/16/19 Doxycycline [Vibramycin] 100 mg PO BID #14 cap 05/09/19 Acetaminophen Tab [Tylenol Tab] 500 mg PO Q6H #30 tablet 05/12/19 Allergies Allergy/AdvReac Type Severity Reaction Status Date / Time chlorpromazine AdvReac seizure Verified 05/11/19 22:28 [From Thorazine] Review of Systems ROS Statement: Those systems with pertinent positive or pertinent negative responses have been documented in the HPI. ROS Other: All systems not noted in ROS Statement are negative. Past Medical History Past Medical History: Diabetes Mellitus, Hyperlipidemia Additional Past Medical History / Comment(s): type 2 diabetes History of Any Multi-Drug Resistant Organisms: None Reported Past Surgical History: Orthopedic Surgery Additional Past Surgical History / Comment(s): Bilateral knees, right elbow surgery for osteomyelitis Past Anesthesia/Blood Transfusion Reactions: No Reported Reaction Past Psychological History: Bipolar, Schizoaffective Disorder Smoking Status: Current every day smoker Past Alcohol Use History: None Reported Past Drug Use History: Marijuana General Exam - General Exam Comments Initial Comments: GENERAL: Disheveled appearance, continuously asking for water. HEAD: Atraumatic, normocephalic. EYES: Pupils equal round and reactive to light, extraocular movements intact, sclera anicteric, conjunctiva are normal. ENT: TMs normal, nares patent, oropharynx clear without exudates. Moist mucous membranes. NECK: Normal range of motion, supple without lymphadenopathy or JVD. LUNGS: Breath sounds clear to auscultation bilaterally and equal. No wheezes rales or rhonchi. HEART: Regular rate and rhythm without murmurs, rubs or gallops. ABDOMEN: Soft, nontender, normoactive bowel sounds. No guarding, no rebound. No masses appreciated. : Deferred EXTREMITIES: Normal range of motion, no pitting or edema. No clubbing or cyanosis. NEUROLOGICAL: Cranial nerves II through XII grossly intact. Normal speech, normal gait. PSYCH: Appears anxious SKIN: Warm, Dry, normal turgor, no rashes or lesions noted. Limitations: no limitations Course Vital Signs 05/12/19 10:39 Temperature 98.0 F Pulse Rate 76 Respiratory 16 Rate Blood Pressure 131/80 O2 Sat by Pulse 99 Oximetry Medical Decision Making - Medical Decision Making Patient is a 63-year-old male presenting for psychiatric evaluation. This is patient's fourth visit in approximately one week. Patient denies any homicidal or suicidal thoughts at this time. Patient is only complaint is been excessiv kelton thirsty. Patient has psychiatric history. Vital signs are stable. Patient had full blood workup yesterday which shows no acute findings. Urine is clear today. Patient was evaluated by psych nurseLucretia. Patient will be admitted to psych unit. - Lab Data Lab Results 05/12/19 05/12/19 Range/Units 10:37 11:50 POC Glucose (mg/dL) 82 (75-99) mg/dL POC Glu [employer] Operator ID Katlin Plasencia Urine Color Light Yellow Urine Appearance Clear (Clear) Urine pH 6.0 (5.0-8.0) Ur Specific [place] 1.008 (1.001-1.035) Urine Protein Negative (Negative) Urine Glucose (UA) Negative (Negative) Urine Ketones Negative (Negative) Urine Blood Negative (Negative) Urine Nitrite Negative (Negative) Urine Bilirubin Negative (Negative) Urine Urobilinogen <2.0 (<2.0) mg/dL Ur Leukocyte Esterase Negative (Negative) Urine Opiates Screen Not Detected (NotDetected) Ur Oxycodone Screen Not Detected (NotDetected) Urine Methadone Screen Not Detected (NotDetected) Ur Propoxyphene Screen Not Detected (NotDetected) Ur Barbiturates Screen Not Detected (NotDetected) U Tricyclic Antidepress Not Detected (NotDetected) Ur Phencyclidine Scrn Not Detected (NotDetected) Ur Amphetamines Screen Not Detected (NotDetected) U Methamphetamines Scrn Not Detected (NotDetected) U Benzodiazepines Scrn Not Detected (NotDetected) Urine Cocaine Screen Not Detected (NotDetected) U Marijuana (THC) Screen Not Detected (NotDetected) Disposition Clinical Impression: Psychiatric disorder Disposition: TRANSFER TO PSYCH HOSP/UNIT Condition: Stable Is patient prescribed a controlled substance at d/c from ED?: No Referrals: None,Stated [Primary Care Provider] - 1-2 days Decision Date: 05/12/19 Decision Time: 14:45
[2019-05-12 12:09] LABS: Appearance,Urine Clear (Clear); Bilirubin,Urine Negative (Negative); Blood,Urine Negative (Negative); Color,Urine Light Yellow; Glucose,Urine (UA) Negative (Negative); Ketones,Urine Negative (Negative); Leukocyte Esterase,Urine Negative (Negative); Nitrite,Urine Negative (Negative); Protein,Urine Negative (Negative); Specific Gravity,Urine 1.008 (1.001-1.035); Urobilinogen,Urine <2.0 mg/dL (<2.0)
[2019-05-12 12:21] LABS: Amphetamine Screen,Urine Not Detected (NotDetected); Barbiturate Screen,Urine Not Detected (NotDetected); Benzodiazepines Screen,Urine Not Detected (NotDetected); Cocaine Screen,Urine Not Detected (NotDetected); Methadone Screen, Urine Not Detected (NotDetected); Opiate Screen,Urine Not Detected (NotDetected); Oxycodone Screen, Urine Not Detected (NotDetected); Phencyclidine Screen,Urine Not Detected (NotDetected); Tricyclic Antidepressant,Urine Not Detected (NotDetected); Urn Cannabinoid Scrn Not Detected (NotDetected)
[2019-05-12] MEDS ORDERED: MAG HYDROX/AL HYDROX/SIMETH 30 ML CUP PO PRN (16:29)
[2019-05-12] MEDS ORDERED: MAGNESIUM HYDROXIDE 2,400 MG/10 ML CUP PO PRN (16:29)
[2019-05-12] MEDS ORDERED: ZIPRASIDONE 20 MG VIAL IM PRN (16:29)
[2019-05-12] MEDS: metFORMIN 500 MG TAB PO SCH (17:43)
[2019-05-12] MEDS: NICOTINE 14MG/24HR PATCH TRANSDERM SCH (17:43)
[2019-05-12] MEDS: ACETAMINOPHEN TAB 325 MG TAB PO PRN (17:47)
[2019-05-12 18:53] LABS: Lithium 0.3 mmol/L
[2019-05-12] MEDS: DOXYCYCLINE 100 MG CAP PO SCH (20:16)
[2019-05-12] MEDS: DIVALPROEX 250 MG TABLET.DR PO SCH (20:16)
[2019-05-12] MEDS: LITHIUM CARBONATE ER 450 MG TABLET.ER PO SCH (20:17)
[2019-05-12] MEDS: BENZTROPINE MESYLATE 0.5 MG TAB PO SCH (20:17)
[2019-05-12] MEDS: ATORVASTATIN 10 MG TAB PO SCH (20:17)
[2019-05-12] MEDS: HALOPERIDOL 2 MG TAB PO SCH (20:17)
[2019-05-12] MEDS: LORazepam 1 MG TAB PO PRN (21:37)
[2019-05-13 05:32] LABS: Glucose,Whole Blood 96 mg/dL (75-99)
[2019-05-13 06:43] LABS: Anisocytosis Slight; Basophils # (A) 0.1 k/uL (0-0.2); Basophils % (A) 1 %; Eosinophils # (A) 0.5 k/uL (0-0.7); Eosinophils % (A) 7 %; HCT 40.9 % (39.0-53.0); HGB 13.4 gm/dL (13.0-17.5); Lymphocytes # (A) 1.9 k/uL (1.0-4.8); Lymphocytes % (A) 26 %; MCHC 32.7 g/dL (31.0-37.0); MCV 85.5 fL (80.0-100.0); Mean Platelet Volume 5.6; Monocytes # (A) 0.6 k/uL (0-1.0); Monocytes % (A) 8 %; Neutrophils % (A) 55 %; Platelet Count 258 k/uL (150-450); RBC 4.78 m/uL (4.30-5.90); RDW 16.7 % (11.5-15.5); WBC 7.2 k/uL (3.8-10.6)
[2019-05-13 06:52] LABS: African American GFR (CKD) >90 (>60 ml/min/1.73 sqM); Albumin 4.1 g/dL (3.5-5.0); Anion Gap 7 mmol/L; Blood Urea Nitrogen 14 mg/dL (9-20); Calcium 9.6 mg/dL (8.4-10.2); Carbon Dioxide 27 mmol/L (22-30); Chloride 96 mmol/L (98-107); Glucose 102 mg/dL (74-99); Non-African American GFR(CKD) >90 (>60 ml/min/1.73 sqM); Sodium 130 mmol/L (137-145); Total Bilirubin 0.5 mg/dL (0.2-1.3); Total Protein 6.8 g/dL (6.3-8.2)
[2019-05-13 06:53] LABS: ALT 20 U/L (21-72); AST 19 U/L (17-59); Alkaline Phosphatase 55 U/L (38-126); Cholesterol 122 mg/dL (<200); HDL Cholesterol 67 mg/dL (40-60); LDL Cholesterol,Calculated 46 mg/dL (0-99); Potassium 4.4 mmol/L (3.5-5.1); Triglycerides 43 mg/dL (<150)
[2019-05-13] MEDS: BENZTROPINE MESYLATE 0.5 MG TAB PO SCH ×2 (08:47→21:10)
[2019-05-13] MEDS: metFORMIN 500 MG TAB PO SCH ×2 (08:47→17:40)
[2019-05-13] MEDS: DOXYCYCLINE 100 MG CAP PO SCH ×2 (08:48→21:10)
[2019-05-13] MEDS: NICOTINE 14MG/24HR PATCH TRANSDERM SCH (08:48)
[2019-05-13] MEDS: LITHIUM CARBONATE ER 450 MG TABLET.ER PO SCH ×2 (08:48→21:10)
[2019-05-13] MEDS: HALOPERIDOL 2 MG TAB PO SCH ×2 (08:48→21:10)
[2019-05-13] MEDS: TAMSULOSIN 0.4 MG CAP.ER.24H PO SCH (08:48)
[2019-05-13] MEDS: ACETAMINOPHEN TAB 325 MG TAB PO PRN ×2 (08:51→21:20)
[2019-05-13] MEDS ORDERED: DIVALPROEX SPRINKLE 125 MG CAP.SPRINK PO SCH (09:00)
[2019-05-13 14:48] LABS: Glucose,Whole Blood 148 mg/dL (75-99)
[2019-05-13 14:56] LABS: Hemoglobin A1C 5.6 % (4.0-6.0)
--- NOTE | 2019-05-13 16:02 | P.HP ---
Psychiatric H&P - . H&P Date: 05/13/19 History & Physical: IDENTIFYING DATA: The patient is 63-year-old male who has a history of a persistent and severe chronic mental illness. He is on an involuntary treatment order until August 2019. HISTORY OF PRESENT ILLNESS: He is well known to our service from his last and lengthy admission. He was admitted in November 2018 and discharged in February 2019. Apparently he was rehospitalized at [facility] in [facility] from approximately March 13 through April 30. He complained that he did not like the [facility] home where he was placed after he left [facility]. He stated that he is not used to living with so many people and complained about confrontation with other residents and staff at the home. According to the information obtained by the EPS nurse, [facility]. [facility] was aggressive at the [facility]. He was drinking water excessively to the point where he was vomiting. He told the EPS nurse to he came in hospital because she couldn't stop drinking water. He was talking as though he were responding to internal stimuli. His thinking was disorganized and he was unable to provide a coherent history or explanation as to the reason for this hospitalization. It is very difficult for me to describe the flow of his thinking because of the level of disorganization. However, he was pleasant and controlled and displayed no agitation or aggression. The one recurrent theme was related to his unhappiness with placement at the [facility]. His serum valproic acid level on admission was 34.5 and his lithium level was 0.3. His WBC was 7.2, sodium was 1:30, potassium was 96 and creatinine was 0.55. PAST PSYCHIATRIC HISTORY: He has a history of mental illness diagnosed as schizophrenia, schizoaffective disorder or bipolar illness. He was admitted to our unit in 11/27/2018 and discharged on 02/16/2019 with the diagnosis of schizoaffective disorder bipolar type. This was a lengthy hospitalization due to the severity of his disorganization, agitation, polydipsia and poor response to treatment. During that hospitalization his psychiatrist, Dr. Maxwell, determined that the polydipsia and hyponatremia was related to the medication Depakote. After he discontinued Depakote the issue with polydipsia and hyponatremia resolved. The patient's psychosis and agitation eventually responded to clozapine and he was discharged on a combination of clozapine 75 mg twice a day and 300 mg at bedtime, Klonopin 0.5 mg twice a day and lactulose 20 mg by mouth twice a day. On 03/19/2019 his WBC dropped to 1.5 with an absolute neutrophil count of 0.10. On 03/21/2019 the WBC was 1.3 and the absolute neutrophil count was 0.03. According to the ED notes the psychiatrist at [facility] discontinue the clozapine on 03/16/2019. On 03/21/2019 the [facility] brought him to the emergency room with increasing agitation and bizarre behavior. The progress note indicate that he was writhing on the floor odd behavior." The on-call psychiatrist recommended a referral to a geropsychiatric unit and he was transferred to [facility] in [facility]. He was discharged with combination of Cogentin 0.5 mg twice a day, Depakote sprinkle 125 mg daily and Depakote 250 mg at bedtime, Haldol 2 mg by mouth twice a day and the Lithobid 400 mg by mouth twice a day. PAST MEDICAL HISTORY: Diabetes mellitus type 2, hyperlipidemia. ALLERGIES: Chlorpromazine. SUBSTANCE USE HISTORY: He denied a history of use of alcohol, cannabis or other drugs of abuse.. FAMILY PSYCHIATRIC/SUBSTANCE USE HISTORY: He has a family history of bipolar illness and schizophrenia.. LEGAL HISTORY: He has a legal guardian. SOCIAL HISTORY: Was born and raised in [place]. He has 1 brother and 1 sister. He was for 5 years. He has a daughter who is 27 years old. He has no contact with her daughter. He is unemployed and receives disability. He was living in his own apartment prior to his first admission to our psychiatric unit. He graduated from high school.. MENTAL STATUS EXAM: He presented as a thin elderly male who was pleasant on approach. He made eye contact and attended to the interview. He had no distinguishing features or prominent physical abnormalities. He had a blunted but bright facial expression. He was alert to person, place and time. He was not agitated or restless. He showed no abnormal involuntary movements. He has slow but steady gait. His speech was spontaneous with normal rate, volume and rhythm. He was dysarthric. His affect was stable and appropriate. He denied suicidal ideation or wishes. He denied homicidal ideation. She denied feeling hopeless, helpless or worthless. He ruminated about past events and frequently talked about a cat. It was very difficult to understand and follow his conversation but he did not appear to express ideas of reference. Similarly, he did not express clear paranoid ideation or clear delusional thoughts. His thinking was disorganized and illogical and at times incoherent. He perseverated on general things most common was his dissatisfaction with his living situation. He denied hallucinations and did not appear to be responding to internal stimuli. Global impression of intellect is average. He is aware of his mental illness and need for mental health treatment.. STRENGTHS: Good physical health, stable income, stable housing. WEAKNESSES: Chronic and severe mental illness, polydipsia with hyponatremia. IMPRESSION: He is a 63-year-old male with a chronic, persistent and severe mental illness. He has had multiple psychiatric hospitalizations including a 3 month hospitalization to our unit this year. He presents with history of increasing agitation and polydipsia. He has a history of polydipsia that may be related to Depakote. He had a positive response to clozapine but developed neutropenia. He should be treated inpatient basis with cognition psychopharmacology and multimodal therapy. 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 Continue Haldol 2 mg by mouth twice a day and Cogentin 0.5 mg twice a day. Continue lithium 450 mg by mouth twice a day, repeat the lithium level in 2-3 days and if the level is below 0.6 titrate titrate to therapeutic lithium level. 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 Continue atorvastatin for hyperlipidemia, Glucophage forward diabetes and tamsulosin for BPH. Ativan 1 mg by mouth 3 times a day when necessary for agitation or restlessness and Geodon 20 mg IM twice a day when necessary for agitation or aggression. Obtain clinical records from [facility] and records from [facility]. Encourage participation in therapeutic groups and activities as tolerated. Evaluate clinical status response to treatment on a daily basis. Allergies Allergy/AdvReac Type Severity Reaction Status Date / Time chlorpromazine AdvReac seizure Verified 05/12/19 20:02 [From Thorazine] Vital Signs Temp 97.4 F L 05/12/19 16:35 Pulse 77 05/13/19 06:54 Resp 20 05/13/19 06:54 BP 140/86 05/13/19 06:54 Pulse Ox 99 05/13/19 05:51 Intake & Output 05/12/19 05/13/19 05/13/19 18:59 06:59 18:59 Weight 77.564 kg Laboratory Last Values WBC 7.2 k/uL (3.8-10.6) 05/13/19 06:26 RBC 4.78 m/uL (4.30-5.90) 05/13/19 06:26 Hgb 13.4 gm/dL (13.0-17.5) 05/13/19 06:26 Hct 40.9 % (39.0-53.0) 05/13/19 06:26 MCV 85.5 fL (80.0-100.0) 05/13/19 06:26 MCH 28.0 pg (25.0-35.0) 05/13/19 06:26 MCHC 32.7 g/dL (31.0-37.0) 05/13/19 06:26 RDW 16.7 % (11.5-15.5) H 05/13/19 06:26 Plt Count 258 k/uL (150-450) 05/13/19 06:26 Neutrophils % 55 % 05/13/19 06:26 Lymphocytes % 26 % 05/13/19 06:26 Monocytes % 8 % 05/13/19 06:26 Eosinophils % 7 % 05/13/19 06:26 Basophils % 1 % 05/13/19 06:26 Neutrophils # 4.0 k/uL (1.3-7.7) 05/13/19 06:26 Lymphocytes # 1.9 k/uL (1.0-4.8) 05/13/19 06:26 Monocytes # 0.6 k/uL (0-1.0) 05/13/19 06:26 Eosinophils # 0.5 k/uL (0-0.7) 05/13/19 06:26 Basophils # 0.1 k/uL (0-0.2) 05/13/19 06:26 Anisocytosis Slight 05/13/19 06:26 Sodium 130 mmol/L (137-145) L 05/13/19 06:26 Potassium 4.4 mmol/L (3.5-5.1) 05/13/19 06:26 Chloride 96 mmol/L (98-107) L 05/13/19 06:26 Carbon Dioxide 27 mmol/L (22-30) 05/13/19 06:26 Anion Gap 7 mmol/L 05/13/19 06:26 BUN 14 mg/dL (9-20) 05/13/19 06:26 Creatinine 0.55 mg/dL (0.66-1.25) L 05/13/19 06:26 Est GFR (CKD-EPI)AfAm >90 (>60 ml/min/1.73 sqM) 05/13/19 06:26 Est GFR (CKD-EPI)NonAf >90 (>60 ml/min/1.73 sqM) 05/13/19 06:26 Glucose 102 mg/dL (74-99) H 05/13/19 06:26 POC Glucose (mg/dL) 96 mg/dL (75-99) 05/13/19 05:27 POC Glu Project Superintendent ID Ashley Lopez 05/13/19 05:27 Calcium 9.6 mg/dL (8.4-10.2) 05/13/19 06:26 Total Bilirubin 0.5 mg/dL (0.2-1.3) 05/13/19 06:26 AST 19 U/L (17-59) 05/13/19 06:26 ALT 20 U/L (21-72) L 05/13/19 06:26 Alkaline Phosphatase 55 U/L (38-126) 05/13/19 06:26 Total Protein 6.8 g/dL (6.3-8.2) 05/13/19 06:26 Albumin 4.1 g/dL (3.5-5.0) 05/13/19 06:26 Triglycerides 43 mg/dL (<150) 05/13/19 06:26 Cholesterol 122 mg/dL (<200) 05/13/19 06:26 LDL Cholesterol, Calc 46 mg/dL (0-99) 05/13/19 06:26 HDL Cholesterol 67 mg/dL (40-60) H 05/13/19 06:26 TSH 2.860 mIU/L (0.465-4.680) 05/13/19 06:26 Urine Color Light Yellow 05/12/19 11:50 Urine Appearance Clear (Clear) 05/12/19 11:50 Urine pH 6.0 (5.0-8.0) 05/12/19 11:50 Ur Specific [place] 1.008 (1.001-1.035) 05/12/19 11:50 Urine Protein Negative (Negative) 05/12/19 11:50 Urine Glucose (UA) Negative (Negative) 05/12/19 11:50 Urine Ketones Negative (Negative) 05/12/19 11:50 Urine Blood Negative (Negative) 05/12/19 11:50 Urine Nitrite Negative (Negative) 05/12/19 11:50 Urine Bilirubin Negative (Negative) 05/12/19 11:50 Urine Urobilinogen <2.0 mg/dL (<2.0) 05/12/19 11:50 Ur Leukocyte Esterase Negative (Negative) 05/12/19 11:50 Urine Opiates Screen Not Detected (NotDetected) 05/12/19 11:50 Ur Oxycodone Screen Not Detected (NotDetected) 05/12/19 11:50 Urine Methadone Screen Not Detected (NotDetected) 05/12/19 11:50 Ur Propoxyphene Screen Not Detected (NotDetected) 05/12/19 11:50 Ur Barbiturates Screen Not Detected (NotDetected) 05/12/19 11:50 Valproic Acid 34.5 ug/mL 05/12/19 18:14 U Tricyclic Antidepress Not Detected (NotDetected) 05/12/19 11:50 Ur Phencyclidine Scrn Not Detected (NotDetected) 05/12/19 11:50 Ur Amphetamines Screen Not Detected (NotDetected) 05/12/19 11:50 U Methamphetamines Scrn Not Detected (NotDetected) 05/12/19 11:50 U Benzodiazepines Scrn Not Detected (NotDetected) 05/12/19 11:50 [place] 0.3 mmol/L 05/12/19 18:14 Urine Cocaine Screen Not Detected (NotDetected) 05/12/19 11:50 U Marijuana (THC) Screen Not Detected (NotDetected) 05/12/19 11:50 05/13/19 11:40 05/13/19 15:56
[2019-05-13 17:46] LABS: Glucose,Whole Blood 87 mg/dL (75-99)
[2019-05-13] MEDS: ATORVASTATIN 10 MG TAB PO SCH (21:10)
[2019-05-13] MEDS: DIVALPROEX 250 MG TABLET.DR PO SCH (21:10)
[2019-05-13] MEDS: LORazepam 1 MG TAB PO PRN (22:58)
--- NOTE | 2019-05-13 23:52 | P.CONS ---
History of Present Illness - Reason for Consult Consult date: 05/13/19 Medical management Requesting physician: Bobo Caldera - Chief Complaint Anxiety - History of Present Illness Consultation: This is a pleasant 63-year-old patient of visiting physicians Dr. Cabrales. Patient has known schizophrenia. Chronic stable medical conditions include schizophrenia, diabetes mellitus type 2, hyperlipidemia. Recently in the hospital with hyponatremia from excessive water intake. Patient was put on fluid restrictions, and the sodium did come up nicely. Patient now presents with being very anxious, very restless drinking a lot of water. Difficult to the history as patient rather talking rapidly and going from one to the other topic. When I came to the group he told me he'll long me to see him as a did not stab his back Review of systems: GEN.: Tired EYES: None HEENT: None NECK: None RESPIRATORY: None CARDIOVASCULAR: None GASTROINTESTINAL: None GENITOURINARY: None MUSCULOSKELETAL: None LYMPHATICS: None HEMATOLOGICAL: None PSYCHIATRY: [Extremity anxious NEUROLOGICAL: None Past medical history to include: Schizophrenia, diabetes mellitus type 2, hyperlipidemia, low sodium Social history: Smoker. Done marijuana in the past. Lives at adult foster skilled nursing Family history: Reviewed, noncontributory to presentation Physical examination: VITAL SIGNS: 98.5, 18, 16, 143 over a 68 GENERAL: BMI 22.6, laying in bed rather hyper EYES: Pupils equal. Conjunctiva normal. HEENT: External appearance of nose and ears normal, oral cavity grossly normal. NECK: JVD not raised; masses not palpable. HEART: First and second heart sounds are normal; no edema. LUNGS: Respiratory rate normal; clear to auscultation. ABDOMEN: Soft, nontender, liver spleen not palpable, no masses palpable. PSYCH: [Alert and oriented x3; mood and affect very restless l. NEUROLOGICAL: Cranial nerves grossly intact; no facial asymmetry, power and sensation grossly intact. LYMPHATICS: No lymph nodes palpable in the axilla and neck. INVESTIGATIONS, reviewed in the clinical context: White count 7.2 hemoglobin 10.4 progression 4.4 creatinine 0.55 sodium 1:30 Assessment: -Hyponatremia suspect hypoosmolar from excessive fluid intake. -Psychogenic polydipsia -Schizophrenia -Diabetes mellitus type 2 -Hyperlipidemia Plan: Home medications to continue. We'll put the patient on fluid restriction of 1800 mL a day. This was discussed with the patient. Other psychiatry medications per Dr. Caldera. Thank you Dr. Caldera Past Medical History Past Medical History: Diabetes Mellitus, Hyperlipidemia Additional Past Medical History / Comment(s): type 2 diabetes History of Any Multi-Drug Resistant Organisms: None Reported Past Surgical History: Orthopedic Surgery Additional Past Surgical History / Comment(s): Bilateral knees, right elbow surgery for osteomyelitis Past Anesthesia/Blood Transfusion Reactions: No Reported Reaction Past Psychological History: Bipolar, Schizoaffective Disorder Additional Psychological History / Comment(s): Schizophrenia Smoking Status: Current every day smoker Past Alcohol Use History: None Reported Past Drug Use History: Marijuana Medications and Allergies Home Medications Medication Instructions Recorded Confirmed Type Atorvastatin [Lipitor] 10 mg PO HS 11/25/18 05/12/19 History Tamsulosin [Flomax] 0.4 mg PO DAILY #30 cap 02/16/19 05/12/19 Rx metFORMIN HCL [Glucophage] 500 mg PO BID-W/MEALS #60 tab 02/16/19 05/12/19 Rx Benztropine Mesylate 0.5 mg PO BID 05/08/19 05/12/19 History Divalproex [Depakote] 125 mg PO DAILY 05/08/19 05/12/19 History Divalproex [Depakote] 250 mg PO HS 05/08/19 05/12/19 History Haloperidol [Haldol] 2 mg PO BID 05/08/19 05/12/19 History Glendo Carbonate [Glendo 450 mg PO BID 05/08/19 05/12/19 History Carbonate ER] Doxycycline [Vibramycin] 100 mg PO BID #14 cap 05/09/19 05/12/19 Rx Acetaminophen Tab [Tylenol Tab] 500 mg PO Q6H #30 tablet 05/12/19 05/12/19 Rx Allergies Allergy/AdvReac Type Severity Reaction Status Date / Time chlorpromazine AdvReac seizure Verified 05/12/19 20:02 [From Thorazine] Physical Exam Vitals: Vital Signs Temp Pulse Pulse Resp BP BP Pulse Ox 05/13/19 14:25 98.5 F 89 16 143/68 98 05/13/19 06:54 77 20 140/86 05/13/19 05:51 69 18 146/70 99 05/13/19 05:32 77 20 140/86 Results CBC & Chem 7: 05/13/19 06:26 05/13/19 06:26 Labs: Abnormal Lab Results - Last 24 Hours (Table) 05/13/19 05/13/19 05/13/19 Range/Units 06:26 06:26 14:12 RDW 16.7 H (11.5-15.5) % Sodium 130 L (137-145) mmol/L Chloride 96 L (98-107) mmol/L Creatinine 0.55 L (0.66-1.25) mg/dL Glucose 102 H (74-99) mg/dL POC Glucose (mg/dL) 148 H (75-99) mg/dL ALT 20 L (21-72) U/L HDL Cholesterol 67 H (40-60) mg/dL
[2019-05-14] MEDS: NICOTINE 14MG/24HR PATCH TRANSDERM SCH (07:52)
[2019-05-14] MEDS: metFORMIN 500 MG TAB PO SCH ×2 (07:52→17:29)
[2019-05-14] MEDS: HALOPERIDOL 2 MG TAB PO SCH ×2 (07:53→21:24)
[2019-05-14] MEDS: TAMSULOSIN 0.4 MG CAP.ER.24H PO SCH (07:53)
[2019-05-14] MEDS: LITHIUM CARBONATE ER 450 MG TABLET.ER PO SCH ×2 (07:53→21:24)
[2019-05-14] MEDS: DOXYCYCLINE 100 MG CAP PO SCH ×2 (07:53→21:24)
[2019-05-14] MEDS: BENZTROPINE MESYLATE 0.5 MG TAB PO SCH ×2 (07:53→21:24)
[2019-05-14] MEDS: ACETAMINOPHEN TAB 325 MG TAB PO PRN ×2 (10:46→17:54)
--- NOTE | 2019-05-14 12:06 | P.PN ---
Progress Note - Text Progress Note Date: 05/14/19 Clinical Problems: Schizoaffective disorder bipolar type, polydipsia with hyponatremia, history of ADHD secondary to Depakote Interim history: I reviewed the medical record, interviewed the patient and discuss his treatment and treatment plan during team meeting. He perseverated on not returning to [facility]" (his [facility]). He repeated the stated that "he will not go back". He is intermittently restless but not agitated and not aggressive. He requested to have his stuffed animal (a bear) and his rosary on the unit. I discussed his request with the treatment team that unfortunately these items were normal on the unit. He slept 6 hours last week and he attended to therapeutic groups and activities. Medicine consult appreciated Mental status exam: He presented as a thin elderly male who was pleasant on approach. He made eye contact and appeared to attend to the interview. He had a distressed facial expression. He showed some dyskinetic movements. His speech was spontaneous with normal rate and rhythm. His affect was labile but appropriate. He did not express suicidal ideation or wishes. He denied suicidal ideation. He did not express clear ideas reference, paranoid ideation or delusions. His thinking was concrete, disorganized and illogical. He denied hallucinations did not appear to be responding to internal stimuli. Assessment: He has intermittent restlessness and remains distressed about his residential situation. He's been compliant with medication and is posed no management problem on the unit. Specifically he has had no episodes of agitation. He has prominent cognitive symptoms and has difficulty with executive functioning. Plan: Continue inpatient hospitalization. Continue safety precautions. Medicine recommended water restriction. Continue Cogentin 0.5 twice a day and Haldol 2 mg by mouth twice a day. Continue Lithobid 450 mg by mouth twice a day and obtained a lithium level on 05/17/2019. Repeat the basic metabolic panel on 05/27/2019 Discontinue Depakote due to history of Depakote introduced SIADH. En couraged continued participation in therapeutic groups and activities. Evaluate clinical status response to treatment daily basis.
[2019-05-14] MEDS: LORazepam 1 MG TAB PO PRN ×2 (15:24→17:54)
[2019-05-14 19:35] LABS: African American GFR (CKD) >90 (>60 ml/min/1.73 sqM); Anion Gap 11 mmol/L; Blood Urea Nitrogen 19 mg/dL (9-20); Calcium 9.8 mg/dL (8.4-10.2); Carbon Dioxide 25 mmol/L (22-30); Chloride 91 mmol/L (98-107); Glucose 83 mg/dL (74-99); Non-African American GFR(CKD) >90 (>60 ml/min/1.73 sqM); Potassium 4.9 mmol/L (3.5-5.1); Sodium 127 mmol/L (137-145)
[2019-05-14] MEDS: ATORVASTATIN 10 MG TAB PO SCH (21:24)
[2019-05-15] MEDS ORDERED: SODIUM CHLORIDE 0.9% 500 ML 500 ML IV ONE (07:52)
[2019-05-15] MEDS: NICOTINE 14MG/24HR PATCH TRANSDERM SCH (07:59)
[2019-05-15] MEDS: metFORMIN 500 MG TAB PO SCH ×2 (08:00→17:01)
[2019-05-15] MEDS: BENZTROPINE MESYLATE 0.5 MG TAB PO SCH ×2 (08:00→20:45)
[2019-05-15] MEDS: DOXYCYCLINE 100 MG CAP PO SCH ×2 (08:00→20:45)
[2019-05-15] MEDS: HALOPERIDOL 2 MG TAB PO SCH ×2 (08:00→20:45)
[2019-05-15] MEDS: TAMSULOSIN 0.4 MG CAP.ER.24H PO SCH (08:01)
[2019-05-15] MEDS: ACETAMINOPHEN TAB 325 MG TAB PO PRN (08:02)
[2019-05-15] MEDS: LITHIUM CARBONATE ER 450 MG TABLET.ER PO SCH ×2 (08:06→20:45)
--- NOTE | 2019-05-15 10:51 | P.PN ---
Progress Note - Text Interval history: The patient is found in his room he follows me to an interview room. He reports his mood is "apprehensive". He indicates he slept very well last night staff recorded he slept 5 hours. Appetite stable. The patient is experiencing hyponatremia his most recent sodium level is 127. Internal medicine is following. He did receive IV therapy to address the concern and I was informed that if this does not improve he will be transferred to the medical floor for further treatment. He has been taken off of the Depakote. He is currently on Haldol scheduled and lithium. We reviewed his psychotropic medications as questions were answered. He indicates that he does not wish to return to the same long-term on [facility]. He refers to several memories pertaining to his extended hospitalization while he was under my care last time. Mental status exam: The patient is alert he is pleasant cooperative he is a disheveled appearance he ambulates slowly without ataxia. He is dressed in oversize clothing. Eye contact is appropriate. Speech is fluent spontaneous nonpressured he is directable. He demonstrates some disorganization of thought at times. He is reporting no suicidal or homicidal thoughts. He acknowledges no symptoms of psychosis although they may be present. Insight and judgment impaired. He demonstrates no verbal or physical aggressiveness. Affect is constricted for the most part. Plan: The patient will continue on his medications as written. Lab work is ordered. We will follow the sodium level. If this does not improve we expect he will be transferred to the medical floor for further treatment. He is on a fluid restriction. He requires continued psychiatric hospitalization. He is encouraged to participate fully in the milieu. Vital signs reviewed.
[2019-05-15 13:07] LABS: African American GFR (CKD) >90 (>60 ml/min/1.73 sqM); Anion Gap 9 mmol/L; Blood Urea Nitrogen 17 mg/dL (9-20); Calcium 9.8 mg/dL (8.4-10.2); Carbon Dioxide 27 mmol/L (22-30); Chloride 96 mmol/L (98-107); Glucose 68 mg/dL (74-99); Non-African American GFR(CKD) >90 (>60 ml/min/1.73 sqM); Potassium 4.8 mmol/L (3.5-5.1); Sodium 132 mmol/L (137-145)
[2019-05-15 13:39] LABS: Glucose,Whole Blood 104 mg/dL (75-99)
[2019-05-15] MEDS ORDERED: ONDANSETRON 4 MG TAB PO PRN (13:46)
[2019-05-15] MEDS: LORazepam 1 MG TAB PO PRN (19:10)
[2019-05-15] MEDS: ATORVASTATIN 10 MG TAB PO SCH (20:45)
[2019-05-16] MEDS: ACETAMINOPHEN TAB 325 MG TAB PO PRN ×2 (01:10→13:34)
[2019-05-16] MEDS: LORazepam 1 MG TAB PO PRN ×3 (02:08→18:56)
[2019-05-16] MEDS: BENZTROPINE MESYLATE 0.5 MG TAB PO SCH ×2 (07:57→21:59)
[2019-05-16] MEDS: FAMOTIDINE 20 MG TAB PO SCH (07:57)
[2019-05-16] MEDS: TAMSULOSIN 0.4 MG CAP.ER.24H PO SCH (07:57)
[2019-05-16] MEDS: HALOPERIDOL 2 MG TAB PO SCH ×2 (07:57→21:59)
[2019-05-16] MEDS: metFORMIN 500 MG TAB PO SCH ×2 (07:57→17:06)
[2019-05-16] MEDS: LITHIUM CARBONATE ER 450 MG TABLET.ER PO SCH ×2 (07:57→21:59)
[2019-05-16] MEDS: NICOTINE 14MG/24HR PATCH TRANSDERM SCH (07:57)
[2019-05-16] MEDS: DOXYCYCLINE 100 MG CAP PO SCH ×2 (07:57→21:59)
--- NOTE | 2019-05-16 13:27 | P.PN ---
Progress Note - Text Interval history: The patient's found in the hallway he follows me to an interview room. He indicates his mood is desponded. He reports feelings of dizziness. His vital signs are reviewed blood pressures within normal limits. His sodium level has risen to 132 as of yesterday. He has more lab work ordered for tomorrow morning. Ivalee level is due tomorrow morning as well. Staff report he slept 4 hours. He has been eating. He is observed ambulating on the unit in the early afternoon but not in the morning. He feels like he slept into the morning due to difficulty sleeping last night. Mental status exam: The patient is alert he ambulates slowly without ataxia. Eye contact is appropriate. He has a disheveled appearance. He has spontaneous speech he does become tangential but he is redirectable. He maintains a blunted affect. He reports no suicidal or homicidal ideation intent or plan. He describes some future oriented thinking stating that he wants to move to [place] with his sister in August. He denied is exposed any hallucinations he is reporting no specific delusions. Insight and judgment are impaired. With outstretched arms he demonstrates a fine tremor he states that has been present and is not a new finding. He demonstrates no verbal or physical aggressiveness. Plan: The patient will continue on his current medication. He is encouraged to participate in the milieu. We will continue to monitor him for safety. We will await the results of lab work to be drawn tomorrow morning. He requires continued psychiatric hospitalization. He continues to assert he will not return to the [facility] alf.
[2019-05-16] MEDS: ATORVASTATIN 10 MG TAB PO SCH (21:59)
[2019-05-17] MEDS: LORazepam 1 MG TAB PO PRN ×3 (01:06→21:14)
[2019-05-17] MEDS: DOXYCYCLINE 100 MG CAP PO SCH ×2 (08:06→21:11)
[2019-05-17] MEDS: NICOTINE 14MG/24HR PATCH TRANSDERM SCH (08:06)
[2019-05-17] MEDS: HALOPERIDOL 2 MG TAB PO SCH ×2 (08:06→21:11)
[2019-05-17] MEDS: FAMOTIDINE 20 MG TAB PO SCH (08:07)
[2019-05-17] MEDS: LITHIUM CARBONATE ER 450 MG TABLET.ER PO SCH ×2 (08:07→21:11)
[2019-05-17] MEDS: metFORMIN 500 MG TAB PO SCH ×2 (08:07→17:55)
[2019-05-17] MEDS: TAMSULOSIN 0.4 MG CAP.ER.24H PO SCH (08:07)
[2019-05-17] MEDS: BENZTROPINE MESYLATE 0.5 MG TAB PO SCH ×2 (08:07→21:11)
[2019-05-17 08:36] LABS: African American GFR (CKD) >90 (>60 ml/min/1.73 sqM); Anion Gap 7 mmol/L; Blood Urea Nitrogen 13 mg/dL (9-20); Calcium 10.1 mg/dL (8.4-10.2); Carbon Dioxide 28 mmol/L (22-30); Chloride 100 mmol/L (98-107); Glucose 113 mg/dL (74-99); Lithium 0.6 mmol/L; Non-African American GFR(CKD) >90 (>60 ml/min/1.73 sqM); Potassium 4.5 mmol/L (3.5-5.1); Sodium 135 mmol/L (137-145)
[2019-05-17] MEDS: ACETAMINOPHEN TAB 325 MG TAB PO PRN ×2 (09:14→23:44)
--- NOTE | 2019-05-17 14:52 | P.PN ---
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 He remains distressed about returning to his former [facility] home and "begged" me not to send him "back there." He is also distressed about his water restriction and pleaded with me to allow him to drink more water. He repeatedly complained that he has dehydrated at one point requested that we start an IV. [facility] is aware of his objection to returning to his former [facility] home. During team meeting with the call center support representative talked about the possibility of placement in a different home. His lithium level this morning was 0.6 serum sodium was 135 and chloride was 100. He slept 3 hours last week and he attended to therapeutic groups and activities. Mental status exam: He presented as a thin elderly male who was pleasant on approach. He made eye contact and appeared to attend to the interview. He had a distressed facial expression. He showed some dyskinetic movements. His speech was slow, short based and unsteady. His speech was spontaneous with normal rate and rhythm. His affect was labile but appropriate. He did not express suicidal ideation or wishes. He denied suicidal ideation. He did not express clear ideas reference, paranoid ideation or delusions. His thinking was concrete, disorganized and illogical. He denied hallucinations did not appear to be responding to internal stimuli. Assessment: He has intermittent restlessness and remains distressed about his residential situation. He's been compliant with medication and is posed no management problem on the unit. His serum sodium is improving and serum chloride has normalized. He has prominent cognitive symptoms and has difficulty with executive functioning. Plan: Continue inpatient hospitalization. Continue safety precautions. Medicine recommended water restriction. Continue Cogentin 0.5 twice a day and Haldol 2 mg by mouth twice a day. Continue Lithobid 450 mg by mouth twice a day. Encouraged continued participation in therapeutic groups and activities. Evaluate clinical status response to treatment daily basis.
[2019-05-17] MEDS: ATORVASTATIN 10 MG TAB PO SCH (21:11)
[2019-05-18] MEDS: LORazepam 1 MG TAB PO PRN ×3 (03:44→23:12)
[2019-05-18] MEDS: NICOTINE 14MG/24HR PATCH TRANSDERM SCH (09:28)
[2019-05-18] MEDS: metFORMIN 500 MG TAB PO SCH ×2 (09:29→16:50)
[2019-05-18] MEDS: TAMSULOSIN 0.4 MG CAP.ER.24H PO SCH (09:29)
[2019-05-18] MEDS: DOXYCYCLINE 100 MG CAP PO SCH ×2 (09:29→21:08)
[2019-05-18] MEDS: BENZTROPINE MESYLATE 0.5 MG TAB PO SCH ×2 (09:29→21:08)
[2019-05-18] MEDS: HALOPERIDOL 2 MG TAB PO SCH ×2 (09:29→21:08)
[2019-05-18] MEDS: FAMOTIDINE 20 MG TAB PO SCH (09:29)
[2019-05-18] MEDS: LITHIUM CARBONATE ER 450 MG TABLET.ER PO SCH ×2 (09:33→21:08)
--- NOTE | 2019-05-18 14:48 | P.PN ---
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 He continued to perseverated about his former [facility] home. At the team meeting the [facility] liaison informed us that he will not be returning to that home. His affect brightened after I informed him of this decision. He continues to have problems with balance and gait. Therapy staff report that he appears more sedated. Mental status exam: He presented as a thin elderly male who was pleasant on approach. He made eye contact and appeared to attend to the interview. He had a distressed facial expression. He had a resting tremor of his arms and legs but no apparent choreiform movements. His gait was slow, short based and unsteady. His speech was slightly dysarthric but spontaneous with normal rate and rhythm. His affect was stable and appropriate. He did not express suicidal ideation or wishes. He denied suicidal ideation. He did not express clear ideas reference, paranoid ideation or delusions. His thinking was concrete but organized and logical. He denied hallucinations did not appear to be responding to internal stimuli. We completed the [place] Cognitive Assessment. His total score was 23/30; a score of 25 or less is consistent with cognitive impairment. He had impaired delayed recall. He showed no impairment with visuospatial/executive of functioning, naming, attention, language or abstraction. He was fully oriented. Assessment: He has intermittent restlessness and remains distressed about his residential situation. He's been compliant with medication and is posed no management problem on the unit. His serum sodium is improving and serum chloride has normalized. He shows no impairment in executive functioning according to the [place] Cognitive Assessment. However he has impaired delayed recall. Plan: Continue inpatient hospitalization. Continue safety precautions. Medicine recommended water restriction. Reconsult medicine about his gait and balance. Continue Cogentin 0.5 twice a day and Haldol 2 mg by mouth twice a day. Continue Lithobid 450 mg by mouth twice a day. Repeat serum lithium level and basic metabolic panel. Encouraged continued participation in therapeutic groups and activities. Evaluate clinical status response to treatment daily basis.
[2019-05-18] MEDS: ACETAMINOPHEN TAB 325 MG TAB PO PRN (15:44)
--- NOTE | 2019-05-18 16:16 | P.CNNES ---
History of Present Illness Consult date: 05/18/19 Requesting physician: Bobo Caldera Reason for Consult: Unsteady short-based gait. History of Present Illness: Patient is a 63-year-old male with history of schizoaffective disorder, bipolar type, who was admitted to the hospital on 05/12/2019 for excessive thirst, aggressive behavior and anxiety. He has been admitted multiple times for polydipsia, and hyponatremia. His lowest sodium was 121 on 11/25/2018. Most r ecent sodium was 131-132. Neurology was consulted for abnormal gait, with unsteady, short-based gait. Patient states that if he is sitting down on the floor, and he tries to get up, has to push on his fingers to get up or has to use the bell to get up. He states he has suffered from falls in the past, face forward. Patient states his feet are "crunched up", pointing to the toes. He denies any constant numbness or tingling of his hands or feet, although sometimes he gets numbness of the [place] ds, or involving the balls of the feet or the tip of the toes, off and on. He states his feet gets very cold in winter. Patient states he has history of diabetes for last 6 years. He is currently on metformin although his last 2 hemoglobin A1c has been normal 5.6 and 5.7. He states he has history of for lumbar herniated discs, but never had any surgery for the back. He had bilateral knee surgery. Patient states he has history of very heavy drinking alcohol for 15 years, quit drinking 20 years ago. He also has smoked 1-4 packs per day since age 16, cutback couple years ago. Patient had a computed tomography scan of head on 11/25/2018 which is normal. Mild age-related cerebral cortical volume loss. Visualized paranasal sinuses, and external auditory canals are clear. X-ray of the right foot showed no fracture or dislocation. Severe arthropathy first MTP joint. Chronic deformit ies involving the DIP joints of the second through fourth digits. Chest x-ray showed no acute cardiopulmonary disease. Patient's B12 664 on 12/02/2018, RBC folate is normal 621. TSH normal. Total cholesterol 122, LDL 46, HDL 67 and triglycerides 43. Liver panel is normal, ammonia <9, hemoglobin A1c 5.6, ESR 30. CBC and Chem-20 normal. Review of Systems Positive for excessive thirst, polyuria, and as mentioned above in detail. Patient complains of some neck pain but denies any radicular features. Complains of knee pain, right groin pain. Also complains of abdominal pain. Past Medical History Past Medical History: Diabetes Mellitus, Hyperlipidemia Additional Past Medical History / Comment(s): type 2 diabetes History of Any Multi-Drug Resistant Organisms: None Reported Past Surgical History: Orthopedic Surgery Additional Past Surgical History / Comment(s): Bilateral knees, right elbow surgery for osteomyelitis Past Anesthesia/Blood Transfusion Reactions: No Reported Reaction Past Psychological History: Bipolar, Schizoaffective Disorder Additional Psychological History / Comment(s): Schizophrenia Smoking Status: Current every day smoker Past Alcohol Use History: None Reported Past Drug Use History: Marijuana Medications and Allergies Home Medications Medication Instructions Recorded Confirmed Type Atorvastatin [Lipitor] 10 mg PO HS 11/25/18 05/12/19 History Tamsulosin [Flomax] 0.4 mg PO DAILY #30 cap 02/16/19 05/12/19 Rx metFORMIN HCL [Glucophage] 500 mg PO BID-W/MEALS #60 tab 02/16/19 05/12/19 Rx Benztropine Mesylate 0.5 mg PO BID 05/08/19 05/12/19 History Divalproex [Depakote] 125 mg PO DAILY 05/08/19 05/12/19 History Divalproex [Depakote] 250 mg PO HS 05/08/19 05/12/19 History Haloperidol [Haldol] 2 mg PO BID 05/08/19 05/12/19 History [place] Carbonate [[place] 450 mg PO BID 05/08/19 05/12/19 History Carbonate ER] Doxycycline [Vibramycin] 100 mg PO BID #14 cap 05/09/19 05/12/19 Rx Acetaminophen Tab [Tylenol Tab] 500 mg PO Q6H #30 tablet 05/12/19 05/12/19 Rx Allergies Allergy/AdvReac Type Severity Reaction Status Date / Time chlorpromazine AdvReac seizure Verified 05/12/19 20:02 [From Thorazine] Physical Examination - Vital Signs Vital Signs: Vital Signs Temp Pulse Resp BP Pulse Ox 05/18/19 00:29 96.9 F L 65 17 125/62 98 On examination patient is an elderly male, in no distress. He is alert and awake. Speech and language functions appears normal. He has mild slurring, sometimes speaks tangential. Attention and concentration fund of knowledge. On cranial examination pupils are round and reactive to light, visual hui are full on confrontation, extraocular muscles are intact with no nystagmus. Face has mild flattening of the left nasolabial fold, tongue protrudes the midline. On muscle strength testing there is no drift and the strength is normal in the arms and legs distally and proximally. His right hip flexion was very painful at the right groin. Hip adduction, abduction, hip flexion are all normal bilaterally. Ankles and toes are normal. Reflexes are 2+ to 3 all over and plantars are possibly withdrawal versus questionable up. No ataxia for [id number] testing. Patient has mild to moderate intention tremor of both hands, no tremors with posture or rest. Tone of muscles is normal. Patient walks with a narrow base, slight stoop, slight shuffling, but with normal arm swing. Patient has significant difficulty walking on his toes, heels and tandem. Romberg is strongly positive. Sensory touch is equal bilaterally. Results - Laboratory Findings CBC and BMP: 05/13/19 06:26 05/17/19 07:52 Abnormal Lab Findings: Abnormal Labs 05/13/19 05/13/19 05/13/19 06:26 06:26 14:12 RDW 16.7 H Sodium 130 L Chloride 96 L Creatinine 0.55 L Glucose 102 H POC Glucose (mg/dL) 148 H ALT 20 L HDL Cholesterol 67 H 05/14/19 05/15/19 05/15/19 17:56 12:10 13:31 RDW Sodium 127 L 132 L Chloride 91 L 96 L Creatinine 0.55 L 0.60 L Glucose 68 L POC Glucose (mg/dL) 104 H ALT HDL Cholesterol 05/17/19 07:52 RDW Sodium 135 L Chloride Creatinine 0.59 L Glucose 113 H POC Glucose (mg/dL) ALT HDL Cholesterol Assessment and Plan Assessment: * 63-year-old male with history of schizoaffective disorder, has presented with abnormal gait and sporadic falls. Examination reveals significant gait ataxia, with positive Romberg. Patient's gait disorder is probably multifactorial. His history of heavy alcoholism, possible mild peripheral delroy ropathy, history of degenerative lumbar disc and peripheral joint disease are probably contributing to gait dysfunction. * Psychogenic polydipsia, or possible related to side effect of lithium. * Tobacco user Plan: * Patient's gait dysfunction is probably multifactorial. It could be residual effect of his previous history of heavy alcoholism. I do not see any obvious evidence of Parkinson's. Patient should continue Cogentin 0.5 mg twice a day at the current dose. * Patient's B12 is normal. We will check RPR, vitamin B6, Sjogren's antibodies, methylmalonic acid. * Suggest EMG and nerve conduction studies of bilateral lower extremities as an outpatient to evaluate for peripheral neuropathy. May consider an MRI of the cervical and lumbar spine as an outpatient.
[2019-05-18] MEDS: ATORVASTATIN 10 MG TAB PO SCH (21:08)
[2019-05-19] MEDS: ACETAMINOPHEN TAB 325 MG TAB PO PRN ×2 (04:19→10:23)
[2019-05-19] MEDS: metFORMIN 500 MG TAB PO SCH ×2 (08:01→17:37)
[2019-05-19] MEDS: BENZTROPINE MESYLATE 0.5 MG TAB PO SCH ×2 (08:01→22:16)
[2019-05-19] MEDS: NICOTINE 14MG/24HR PATCH TRANSDERM SCH (08:01)
[2019-05-19] MEDS: HALOPERIDOL 2 MG TAB PO SCH ×2 (08:02→22:17)
[2019-05-19] MEDS: DOXYCYCLINE 100 MG CAP PO SCH ×2 (08:02→22:16)
[2019-05-19] MEDS: TAMSULOSIN 0.4 MG CAP.ER.24H PO SCH (08:02)
[2019-05-19] MEDS: FAMOTIDINE 20 MG TAB PO SCH (08:02)
[2019-05-19 08:38] LABS: African American GFR (CKD) >90 (>60 ml/min/1.73 sqM); Anion Gap 11 mmol/L; Blood Urea Nitrogen 20 mg/dL (9-20); Carbon Dioxide 26 mmol/L (22-30); Chloride 102 mmol/L (98-107); Glucose 104 mg/dL (74-99); Non-African American GFR(CKD) >90 (>60 ml/min/1.73 sqM); Sodium 139 mmol/L (137-145)
[2019-05-19] MEDS: LITHIUM CARBONATE ER 450 MG TABLET.ER PO SCH ×2 (10:14→22:17)
[2019-05-19 10:21] LABS: Lithium 0.6 mmol/L
[2019-05-19] MEDS: LORazepam 1 MG TAB PO PRN ×2 (10:23→17:38)
[2019-05-19 13:08] VITALS: BMI 22.5
--- NOTE | 2019-05-19 14:28 | P.PN ---
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 He asked me if I heard anything about where he might be placed. He denied other problems or concerns. He's been compliant with medication and is posed no management problem on the unit. Neurology consult appreciated. RPR, vitamin B6, Sjogren's antibodies, methylmalonic acid pending. Sodium this morning was 139 and chloride was 102. The repeat lithium level was 0.6 Mental status exam: He presented as a thin elderly male who was pleasant on approach. He made eye contact and appeared to attend to the interview. He had a bright facial expression. He showed no tremor or choreiform movements. His gait was slow, short based and unsteady. His speech was slightly dysarthric but spontaneous with normal rate and rhythm. His affect was stable and appropriate. He did not express suicidal ideation or wishes. He denied suicidal ideation. He did not express clear ideas reference, paranoid ideation or delusions. His thinking was concrete but organized and logical. He denied hallucinations did not appear to be responding to internal stimuli. Assessment: He much less restless and less distressed about his residential situation. Serum sodium and chloride have normalized since we discontinued Depakote. The gait ataxia is probably multifactorial possibly secondary to his history of alcohol use, mild peripheral neuropathy or degenerative lumbar disc disease. Plan: Continue inpatient hospitalization. Continue safety precautions. Medicine recommended water restriction. Continue Cogentin 0.5 twice a day and Haldol 2 mg by mouth twice a day. Continue Lithobid 450 mg by mouth twice a day. Staff to schedule EMG and nerve conduction studies of bilateral lower extremities as an outpatient to evaluate for peripheral neuropathy. Encouraged continued participation in therapeutic groups and activities. Evaluate clinical status response to treatment daily basis.
--- NOTE | 2019-05-19 17:20 | P.PN ---
Subjective Progress Note Date: 05/19/19 Patient complaints of nausea. States stomach is hurting. No other complaints. Objective - Vital Signs Vital signs: Vital Signs Temp 98.3 F 05/19/19 04:08 Pulse 73 05/19/19 04:08 Resp 16 05/19/19 04:08 BP 133/64 05/19/19 04:08 Pulse Ox 98 05/18/19 00:29 Intake & Output 05/18/19 05/19/19 05/19/19 18:59 06:59 18:59 Weight 77.564 kg - Exam Patient's mental status, speech and language functions appears normal. Cranial nerves significant for mild left facial asymmetry. Muscle strength appears normal in the arms and legs. Today he is complaining of pain in the left hip flexion. Ankles and toes are normal. Reflexes are 2+ in the upper limbs, 2+ at the knees and ankles, very slightly brisker on the left, and plantars are equivocal versus withdrawal. Tone is normal in the arms. Patient walks with small shuffling steps. He does not use any device. Appeared steady while walking. - Labs CBC & Chem 7: 05/13/19 06:26 05/19/19 07:55 Labs: Abnormal Lab Results - Last 24 Hours (Table) 05/19/19 Range/Units 07:55 Creatinine 0.62 L (0.66-1.25) mg/dL Glucose 104 H (74-99) mg/dL Assessment and Plan Assessment: * 63-year-old male with history of schizoaffective disorder, has presented with abnormal gait and sporadic falls. Examination reveals significant gait ataxia, with positive Romberg. Patient's gait disorder is probably multifactorial. His history of heavy alcoholism, possible mild peripheral neuropathy, history of degenerative lumbar disc and peripheral joint disease are probably contributing to gait dysfunction. * Psychogenic polydipsia, or possible related to side effect of lithium. * Tobacco user Plan: * Patient's gait dysfunction is probably multifactorial. It could be residual effect of his previous history of heavy alcoholism. I do not see any obvious evidence of Parkinson's. Patient should continue Cogentin 0.5 mg twice a day at the current dose. * Patient's B12 is normal. RPR nonreactive. Vitamin B6, Sjogren's antibodies, methylmalonic acid are still pending. * Suggest EMG and nerve conduction studies of bilateral lower extremities as an outpatient to evaluate for peripheral neuropathy. May consider an MRI of the cervical and lumbar spine as an outpatient. * Patient neurologically clear. * Neurology will sign off.
[2019-05-19] MEDS: ATORVASTATIN 10 MG TAB PO SCH (22:17)
[2019-05-20] MEDS: ACETAMINOPHEN TAB 325 MG TAB PO PRN ×2 (01:34→11:01)
[2019-05-20] MEDS: LORazepam 1 MG TAB PO PRN ×2 (01:34→09:16)
[2019-05-20] MEDS: NICOTINE 14MG/24HR PATCH TRANSDERM SCH (08:07)
[2019-05-20] MEDS: BENZTROPINE MESYLATE 0.5 MG TAB PO SCH (08:08)
[2019-05-20] MEDS: LITHIUM CARBONATE ER 450 MG TABLET.ER PO SCH (08:08)
[2019-05-20] MEDS: FAMOTIDINE 20 MG TAB PO SCH (08:08)
[2019-05-20] MEDS: metFORMIN 500 MG TAB PO SCH (08:08)
[2019-05-20] MEDS: TAMSULOSIN 0.4 MG CAP.ER.24H PO SCH (08:08)
[2019-05-20] MEDS: HALOPERIDOL 2 MG TAB PO SCH (08:08)
[2019-05-20 09:18] VITALS: BP 120/71; PULSE 123; RESP 20; TEMP 97.4
--- NOTE | 2019-05-20 15:27 | P.DS ---
Providers Date of admission: 05/12/19 15:38 Attending physician: Bobo Caldera MD Consults: 05/13/19 11:51 Consult Physician Routine Consulting Provider: Dung Swanson Consult Reason/Comments: H and P Do you want consulting provider notified?: Yes 05/18/19 11:35 Consult Physician Routine Consulting Provider: Pacheco Okeefe Consult Reason/Comments: unsteady short based gait. Do you want consulting provider notified?: Yes Primary care physician: Stated None - Discharge Diagnosis(es) (1) Schizoaffective disorder, bipolar type Current Visit: No Status: Chronic Priority: High (2) Psychogenic polydipsia Current Visit: No Status: Resolved Priority: High (3) Ataxic gait Current Visit: Yes Status: Chronic Priority: Low (4) Diabetes type 2, controlled Current Visit: Yes Status: Chronic Priority: Low (5) BPH (benign prostatic hyperplasia) Current Visit: Yes Status: Chronic Priority: Low (6) Tobacco use Current Visit: Yes Status: Chronic Priority: Medium (7) Hyponatremia Current Visit: No Status: Resolved Priority: High (8) Hyperlipidemia Current Visit: Yes Status: Chronic Priority: Low Hospital Course: Heis 63-year-old male who has a history of a persistent and severe chronic mental illness. He is on an involuntary treatment order until August 2019. He is well known to our service from his last and lengthy admission. He was admitted in November 2018 and discharged in February 2019. Apparently he was rehospitalized at [facility] in [facility] from approximately March 13 through April 30. He complained that he did not like the [facility] home where he was placed after he lef t [facility]. He stated that he is not used to living with so many people and complained about confrontation with other residents and staff at the home. According to the information obtained by the EPS nurse, he was sent from the long term. He was aggressive at the long term. He was drinking water excessively to the point where he was vomiting. He told the EPS nurse to he came in hospital because she couldn't stop drinking water. He was talking as though he were responding to internal stimuli. His thinking was disorganized and he was unable to provide a coherent history or explanation as to the reason for this hospitalization. It is very difficult for me to describe the flow of his thinking because of the level of disorganization. However, he was pleasant and controlled and displayed no agitation or aggression. The one recurrent theme was related to his unhappiness with placement at the long term. His serum valproic acid level on admission was 34.5 and his lithium level was 0.3. His WBC was 7.2, sodium was 1:30, potassium was 96 and creatinine was 0.55. 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 We admitted him to the psychiatric unit involuntarily under the care of this radio script writer. We provided a comprehensive biopsychosocial assessment. The field service consultant winch derrick operator completed initial physical exam and medical history and diagnosed hyponatremia, psychogenic polydipsia, diabetes type 2 and hyperlipidemia. The field service consultant recommended fluid restriction of 1800 mL per day. We discontinued D epakote due to a fairly well-documented history of Depakote-induced SIADH. We continued Haldol 2 mg twice a day and Lithobid 400 mg by mouth twice a day for the treatment of the schizoaffective disorder. After discontinuing Depakote the serum sodium and chloride normalized. We consulted neurology due to his short based shuffling gait. The neurologist diagnosed gait ataxia with positive Romberg and recommended several studies including B12, RPR, vitamin B6, [place] antibodies, methylmalonic acid and suggested EMG and nerve conduction studies as an outpatient. The laboratory tests were all normal. The neurologist suspects that the gait ataxia is multifactorial and related to his history of alcohol use problems, mild peripheral neuropathy as well as degenerative lumbar disc and peripheral joint disease. During hospitalization the patient perseverated on not returning to his former [facility] home. We suspect that his agitation was related to his dissatisfaction with his living situation. We worked with [facility] for an alternate placement. At the time of discharge he was pleasant and cooperative. He is able to attend and concentrate. He has a short based, unsteady and shuffling gait. His speech was spontaneous and slightly dysarthric. His affect was stable and appropriate. He denies suicidal ideation or wishes. He did not express ideas reference, paranoid ideation or delusions. His thinking was concrete and associations were times not logical. He denied hallucinations and did not appear to be responding to internal stimuli. Patient Condition at Discharge: Stable Plan - Discharge Summary Discharge Rx Participant: No New Discharge Prescriptions: New Nicotine 14Mg/24Hr Patch [Habitrol] 1 patch TRANSDERM DAILY 14 Days #14 patch Continue Benztropine Mesylate 0.5 mg PO BID 30 Days #60 tab Tamsulosin [Flomax] 0.4 mg PO DAILY 30 Days #30 cap Haloperidol [Haldol] 2 mg PO BID 30 Days #60 tab Atorvastatin [Lipitor] 10 mg PO HS 30 Days #30 tab [place] Carbonate [[place] Carbonate ER] 450 mg PO BID 30 Days #60 tab Discontinued metFORMIN HCL [Glucophage] 500 mg PO BID-W/MEALS #60 tab Divalproex [Depakote] 250 mg PO HS Divalproex [Depakote] 125 mg PO DAILY Doxycycline [Vibramycin] 100 mg PO BID #14 cap Acetaminophen Tab [Tylenol Tab] 500 mg PO Q6H #30 tablet Discharge Medication List Atorvastatin [Lipitor] 10 mg PO HS 30 Days #30 tab 05/20/19 [Rx] Benztropine Mesylate 0.5 mg PO BID 30 Days #60 tab 05/20/19 [Rx] Haloperidol [Haldol] 2 mg PO BID 30 Days #60 tab 05/20/19 [Rx] [place] Carbonate [[place] Carbonate ER] 450 mg PO BID 30 Days #60 tab 05/20/19 [Rx] Nicotine 14Mg/24Hr Patch [Habitrol] 1 patch TRANSDERM DAILY 14 Days #14 patch 05/20/19 [Rx] Tamsulosin [Flomax] 0.4 mg PO DAILY 30 Days #30 cap 05/20/19 [Rx] Follow up Appointment(s)/Referral(s): [facility] [Outside] - 05/24/19 4:20 pm (04-24-19 at 4:[address] Hugo 04-24-19 at 10 am with Rhona Sanchez at [facility]) None,Stated [Primary Care Provider] - 1-2 days Patient Instructions/Handouts: Schizoaffective Disorder (DC) Activity/Diet/Wound Care/Special Instructions: Activity and diet as tolerated. Avoid the use of street drugs and alcohol. Take all medications as prescribed. When you are in need of refills on your medications please contact your medical provider and/or outpatient psychiatrist to have this done. Please go to scheduled outpatient appointment for aftercare treatment. If symptoms return or become worse, call the crisis line at and/or go to the nearest emergency room for evaluation. Consult from Neurologist suggest EMG and nerve conduction studies of bilateral lower extremities as an outpatient to evaluate for peripheral neuropathy. May consider an MRI of the cervical and lumber spine as an out patient. Discharge Disposition: HOME SELF-CARE
== END 2019-05-20 15:41 | disposition home or self-care (01) | DRG 885 ==
LOC: EC 10:33 → 3MHU 15:38
PROVIDERS: ADMIT Psychiatry & Neurology Psychiatry; ATTEND Psychiatry & Neurology Psychiatry
DX: F25.0 Schizoaffective disorder, bipolar type (principal); E87.1 Hypo-osmolality and hyponatremia; E11.9 Type 2 diabetes mellitus without complications; E78.5 Hyperlipidemia, unspecified; F17.200 Nicotine dependence, unspecified, uncomplicated; F41.9 Anxiety disorder, unspecified; M12.9 Arthropathy, unspecified; N40.0 Benign prostatic hyperplasia without lower urinary tract symptoms; R63.1 Polydipsia; Z79.84 Long term (current) use of oral hypoglycemic drugs; Z79.899 Other long term (current) drug therapy; Z81.8 Family history of other mental and behavioral disorders
CPT/HCPCS: 36415; 80048; 80053; 80061; 80164; 80178; 80306; 81003; 82075; 83036; 83921; 84207; 84443; 85025; 86235; 86780; 99285

== ENCOUNTER → 2019-06-07 | Outpatient (CLI) | payer MEDICARE ==
[2019-06-07 08:30] LABS: Anisocytosis Slight; Basophils % (A) 1 %; Eosinophils # (A) 0.3 k/uL (0-0.7); Eosinophils % (A) 4 %; HCT 45.6 % (39.0-53.0); HGB 14.8 gm/dL (13.0-17.5); Lymphocytes % (A) 24 %; MCH 28.2 pg (25.0-35.0); MCHC 32.4 g/dL (31.0-37.0); Mean Platelet Volume 7.2; Monocytes # (A) 0.6 k/uL (0-1.0); Monocytes % (A) 7 %; Neutrophils # (A) 5.1 k/uL (1.3-7.7); Neutrophils % (A) 62 %; Platelet Count 308 k/uL (150-450); RBC 5.24 m/uL (4.30-5.90); WBC 8.2 k/uL (3.8-10.6)
[2019-06-07 16:46] LABS: T4, Free (Free Thyroxine) 1.2 ng/dL (0.80-1.80)
[2019-06-07 16:47] LABS: African American GFR (CKD) 115.6 (60.0-200.0); Albumin 4.7 g/dL (3.80-4.90); Albumin/Globulin Ratio 2.24 (1.60-3.17); Bilirubin, Conjugated 0.3 mg/dL (0.20-0.40); Bilirubin,Unconjugated 0.8 mg/dL; Chol/HDL Ratio 2.25; Globulin 2.1 g/dL (1.6-3.3); LDL Cholesterol,Calculated 62.8 mg/dL (0.0-131.0); Lithium 0.8 mmol/L (0.5-1.2); Non-African American GFR(CKD) 99.7 (60.0-200.0); Total Bilirubin 1.1 mg/dL (0.3-1.2); Total Protein 6.8 g/dL (6.2-8.2); VLDL Calculation 21.2 mg/dL (5.00-40.00)
[2019-06-07 19:34] LABS: Hemoglobin A1C 5.8 % (4.0-6.0)
== END | disposition home or self-care (01) ==
LOC: LABWHC1 07:27
PROVIDERS: ATTEND Psychiatry & Neurology Psychiatry
DX: Z51.81 Encounter for therapeutic drug level monitoring (principal); Z79.899 Other long term (current) drug therapy
CPT/HCPCS: 36415; 80061; 80076; 80178; 82565; 82947; 83036; 84439; 84443; 84520; 85025

== ENCOUNTER 2019-06-13 11:51 | Emergency (ER) | payer MEDICARE ==
[2019-06-13 12:28] VITALS: PULSE 73
--- NOTE | 2019-06-13 12:42 | ED ---
General Adult HPI - General Chief complaint: Urogenital Stated complaint: UTI Time Seen by Provider: 06/13/19 12:20 Source: patient, RN notes reviewed, old records reviewed Mode of arrival: ambulatory Limitations: no limitations - History of Present Illness Initial comments: This is a 63-year-old male who presents emergency department with past history significant for UTIs. Patient comes in today stating he's had dysuria since yesterday and is concerned he might have urinary tract infection. Patient denies any abdominal pain. Patient denies any back pain. Patient denies any hematuria but does state he is having more frequent urination. Patient denies any vomiting or diarrhea. Patient denies any fever chills. - Related Data Previous Rx's Medication Instructions Recorded Atorvastatin [Lipitor] 10 mg PO HS 30 Days #30 tab 05/20/19 Benztropine Mesylate 0.5 mg PO BID 30 Days #60 tab 05/20/19 Haloperidol [Haldol] 2 mg PO BID 30 Days #60 tab 05/20/19 [place] Carbonate [[place] 450 mg PO BID 30 Days #60 tab 05/20/19 Carbonate ER] Nicotine 14Mg/24Hr Patch [Habitrol] 1 patch TRANSDERM DAILY 14 Days 05/20/19 #14 patch Tamsulosin [Flomax] 0.4 mg PO DAILY 30 Days #30 cap 05/20/19 Ciprofloxacin HCl [Cipro] 500 mg PO Q12HR #20 tablet 06/13/19 Allergies Allergy/AdvReac Type Severity Reaction Status Date / Time chlorpromazine AdvReac seizure Verified 06/13/19 12:23 [From Thorazine] Review of Systems ROS Statement: Those systems with pertinent positive or pertinent negative responses have been documented in the HPI. ROS Other: All systems not noted in ROS Statement are negative. Past Medical History Past Medical History: Diabetes Mellitus, Hyperlipidemia Additional Past Medical History / Comment(s): type 2 diabetes History of Any Multi-Drug Resistant Organisms: None Reported Past Surgical History: Orthopedic Surgery Additional Past Surgical History / Comment(s): Bilateral knees, right elbow surgery for osteomyelitis Past Anesthesia/Blood Transfusion Reactions: No Reported Reaction Past Psychological History: Bipolar, Schizoaffective Disorder Smoking Status: Current every day smoker Past Alcohol Use History: None Reported Past Drug Use History: Marijuana General Exam - General Exam Comments Initial Comments: GENERAL: Patient is well-developed and well-nourished. Patient is nontoxic and well- hydrated and is in mild distress. ENT: Neck is soft and supple. No significant lymphadenopathy is noted. Oropharynx is clear. Moist mucous membranes. Neck has full range of motion without eliciting any pain. EYES: The sclera were anicteric and conjunctiva were pink and moist. Extraocular movements were intact and pupils were equal round and reactive to light. Eyelids were unremarkable. PULMONARY: Unlabored respirations. Good breath sounds bilaterally. No audible rales rhonchi or wheezing was noted. CARDIOVASCULAR: There is a regular rate and rhythm without any murmurs gallops or rubs. ABDOMEN: Minimal supra pubic abdominal tenderness SKIN: Skin is clear with no lesions or rashes and otherwise unremarkable. NEUROLOGIC: Patient is alert and oriented x3. Cranial nerves II through XII are grossly intact. Motor and sensory are also intact. Normal speech, volume and content. Symmetrical smile. MUSCULOSKELETAL: Normal extremities with adequate strength and full range of motion. LYMPHATICS: No significant lymphadenopathy is noted PSYCHIATRIC: Normal psychiatric evaluation. Limitations: no limitations Course Vital Signs 06/13/19 12:19 Temperature 98.2 F Pulse Rate 73 Respiratory 20 Rate Blood Pressure 132/69 O2 Sat by Pulse 99 Oximetry Medical Decision Making - Lab Data Lab Results 06/13/19 Range/Units 12:25 Urine Color Yellow Urine Appearance Cloudy (Clear) Urine pH 6.5 (5.0-8.0) Ur Specific [place] 1.017 (1.001-1.035) Urine Protein 1+ H (Negative) Urine Glucose (UA) Negative (Negative) Urine Ketones Negative (Negative) Urine Blood Moderate H (Negative) Urine Nitrite Negative (Negative) Urine Bilirubin Negative (Negative) Urine Urobilinogen <2.0 (<2.0) mg/dL Ur Leukocyte Esterase Large H (Negative) Urine RBC >182 H (0-5) /hpf Urine WBC >182 H (0-5) /hpf Ur Squamous Epith Cells <1 (0-4) /hpf Disposition Clinical Impression: Urinary tract infection Disposition: HOME SELF-CARE Condition: Good Instructions (If sedation given, give patient instructions): Urinary Tract Infection in Men (ED) Prescriptions: Ciprofloxacin HCl [Cipro] 500 mg PO Q12HR #20 tablet Is patient prescribed a controlled substance at d/c from ED?: No Referrals: [facility] [Primary Care Provider] - 1-2 days Time of Disposition: 12:49
[2019-06-13 12:45] LABS: Appearance,Urine Cloudy (Clear); Bilirubin,Urine Negative (Negative); Blood,Urine Moderate (Negative); Color,Urine Yellow; Glucose,Urine (UA) Negative (Negative); Ketones,Urine Negative (Negative); Leukocyte Esterase,Urine Large (Negative); Nitrite,Urine Negative (Negative); PH, Urine 6.5 (5.0-8.0); Protein,Urine 1+ (Negative); RBC,Urine >182 /hpf (0-5); Specific Gravity,Urine 1.017 (1.001-1.035); Squamous Epithelial Cell,Urine <1 /hpf (0-4); Urobilinogen,Urine <2.0 mg/dL (<2.0); WBC,Urine >182 /hpf (0-5)
[2019-06-13] MEDS ORDERED: cefTRIAXone 1,000 MG VIAL (IM USE) IM STA (12:50)
[2019-06-13 13:18] VITALS: BP 117/69; RESP 18; TEMP 98.4
== END 2019-06-13 13:16 | disposition home or self-care (01) ==
LOC: EEVIPCON 11:51 → EC 11:51
DX: N39.0 Urinary tract infection, site not specified (principal); E11.9 Type 2 diabetes mellitus without complications; F17.200 Nicotine dependence, unspecified, uncomplicated; Z88.8 Allergy status to other drugs, medicaments and biological substances
CPT/HCPCS: 81001; 87086; 99284; 96372; J0696

== ENCOUNTER 2019-12-17 10:28 | Day surgery (SDC) | payer MEDICARE ==
[2019-12-17 09:39] VITALS: BMI 23.1
[~2019-12-17 10:28] MED LIST: LACTATED RINGERS 1,000 ML IV SCH; LIDOCAINE 1% (10MG/ML) FOR IV START INTRADERMA PRN; MIDAZOLAM 2 MG/2 ML VIAL IV PRN
[2019-12-17 10:53] VITALS: TEMP 97.8
[2019-12-17] MEDS ORDERED: LACTATED RINGERS 1,000 ML IV ONE ×2 (10:53)
[2019-12-17] MEDS ORDERED: NA PHOS,M-B/NA PHOS,DI-BA 133 ML ENEMA RECTAL ONE (10:53)
[2019-12-17] MEDS ORDERED: MIDAZOLAM 2 MG/2 ML VIAL IVP ONE (11:23)
[2019-12-17] MEDS ORDERED: PROPOFOL 10 MG/ML 20 ML VIAL IV ONE (12:15)
--- NOTE | 2019-12-17 12:48 | P.PCN ---
Date of Procedure: 12/17/19 Procedure(s) Performed: BRIEF HISTORY: Patient is a 64-year-old pleasant white male scheduled for an elective colonoscopy as a part of evaluation of Hemoccult-positive stool PROCEDURE PERFORMED: Colonoscopy with snare polypectomy. PREOPERATIVE DIAGNOSIS: Hemoccult-positive stool. IV sedation per Anesthesia. PROCEDURE: After informed consent was obtained, the patient, was brought into the endoscopy unit. IV sedation was administered by Anesthesia under continuous monitoring. Digital rectal examination was normal. Initially the Olympus CF-160 flexible video colonoscope was then inserted in the rectum, gradually advanced into the cecum without any difficulty. Careful examination was performed as the scope was gradually being withdrawn. Ileocecal valve and the appendiceal orifice were visualized and appeared normal. Prep was poor in some areas of the colon.. Mucosa of the cecum, ascending colon, appeared normal. In the hepatic flexure there was a 5 mm polyp that was removed by snare polypectomy. Rest of the transverse colon, descending colon, sigmoid colon, and rectum appeared normal. Retroflexion was performed in the rectum and no lesions were seen. The patient tolerated the procedure well. IMPRESSION: 5 mm hepatic flexure polyp status post polypectomy Rest of the colon appeared normal except for poor prep in some areas of the colon. RECOMMENDATIONS: Findings of this examination were discussed with the patient as well as his family. He was advised to follow with the biopsy results. He can have a repeat colonoscopy in 5 years.
[2019-12-17 12:49] VITALS: RESP 16
[2019-12-17 13:12] VITALS: BP 140/82; PULSE 71
== END 2019-12-17 13:24 | disposition home or self-care (01) ==
LOC: ORWHC2ENDO 10:28
PROVIDERS: ATTEND Internal Medicine Gastroenterology
DX: K63.5 Polyp of colon (principal); E78.5 Hyperlipidemia, unspecified; F25.9 Schizoaffective disorder, unspecified; Z88.8 Allergy status to other drugs, medicaments and biological substances; Z79.899 Other long term (current) drug therapy
CPT/HCPCS: 88305; 45385; J2250; J2704

== ENCOUNTER 2020-06-23 20:02 | Emergency (ER) | payer MEDICARE ==
[2020-06-23 20:07] VITALS: BP 150/97; PULSE 81; RESP 18; TEMP 99.4
[2020-06-23] MEDS ORDERED: SODIUM CHLORIDE 0.9% 500 ML 500 ML IV ONE (20:15)
--- NOTE | 2020-06-23 20:32 | ED ---
Male Urogenital HPI - General Chief complaint: Urogenital Stated complaint: Hematuria Time Seen by Provider: 06/23/20 20:07 Source: patient, EMS Mode of arrival: EMS Limitations: no limitations - History of Present Illness Initial comments: 64 year-old male patient presents to the emergency department for evaluation of blood in his urine. States that he noticed it about an hour ago. States a couple of days ago he did have some dysuria and difficulty starting his stream. States that he also had some sharp right lower quadrant abdominal pain last night that did resolve. He has had urinary tract infection in the past with similar symptoms. He denies use of anticoagulant or antiplatelet medication. Denies any recent injury or pain. States he does have back pain, but this is usual for him. Has a fever or chills patient denies nausea or vomiting. Denies any constipation or diarrhea. Patient denies any recent rash, cough, shortness of breath, chest pain, numbness, tingling, dizziness, weakness, headache, visual changes, or any other complaints. - Related Data Home Medications Medication Instructions Recorded Confirmed Ergocalciferol [Vitamin D2] 50,000 unit PO FR 12/15/19 06/23/20 [place] Carbonate 900 mg PO HS@2200 12/15/19 06/23/20 Baclofen 5 mg PO BID@1200,219906/23/20 06/23/20 Fluticasone Nasal [place] [Flonase 2 spr EA NOSTRIL DAILY PRN 06/23/20 06/23/20 Nasal [place]] Loratadine 10 mg PO HS@219906/23/20 06/23/20 OLANZapine [ZyPREXA] 20 mg PO HS@22006/23/20 06/23/20 Tamsulosin [Flomax] 0.4 mg PO DAILY@1200 06/23/20 06/23/20 Venlafaxine HCl ER [Effexor Xr] 150 mg PO DAILY@119906/23/20 06/23/20 Venlafaxine HCl [Effexor XR] 75 mg PO DAILY@119906/23/20 06/23/20 clonazePAM 1 mg PO TID@0600,1200,1700 06/23/20 06/23/20 clonazePAM [KlonoPIN] 2 mg PO HS@1000 06/23/20 06/23/20 Previous Rx's Medication Instructions Recorded Levofloxacin [Levaquin] 500 mg PO DAILY #8 tab 06/23/20 Allergies Allergy/AdvReac Type Severity Reaction Status Date / Time chlorpromazine AdvReac seizure Verified 06/23/20 21:08 [From Thorazine] Review of Systems ROS Statement: Those systems with pertinent positive or pertinent negative responses have been documented in the HPI. ROS Other: All systems not noted in ROS Statement are negative. Past Medical History Past Medical History: Hyperlipidemia Additional Past Medical History / Comment(s): hx of colon polyps,hx of type 2 diabetes, no longer needs any rx History of Any Multi-Drug Resistant Organisms: None Reported Past Surgical History: Orthopedic Surgery Additional Past Surgical History / Comment(s): Bilateral knees, right elbow surgery for osteomyelitis Past Anesthesia/Blood Transfusion Reactions: No Reported Reaction Past Psychological History: Bipolar, Schizoaffective Disorder Smoking Status: Current every day smoker Past Alcohol Use History: None Reported Past Drug Use History: Marijuana General Exam Limitations: no limitations General appearance: alert, in no apparent distress, other (This is a well developed, well nourished adult male patient in no acute distress. Vital signs show temperature 99.4F, pulse 81, respirations 18, blood pressure 150/97, pulse ox 99% on room air.) Respiratory exam: Present: normal lung sounds bilaterally. Absent: respiratory distress, wheezes, rales, rhonchi, stridor Cardiovascular Exam: Present: regular rate, normal rhythm, normal heart sounds. Absent: systolic murmur, diastolic murmur, rubs, gallop, clicks GI/Abdominal exam: Present: soft, normal bowel sounds. Absent: distended, tenderness, guarding, rebound, rigid Back exam: Present: CVA tenderness (R). Absent: CVA tenderness (L) Neurological exam: Present: alert, oriented X3, CN II-XII intact Psychiatric exam: Present: normal affect, normal mood Skin exam: Present: warm, dry, intact, normal color. Absent: rash Course Vital Signs 06/23/20 20:04 Temperature 99.4 F Pulse Rate 81 Respiratory 18 Rate Blood Pressure 150/97 O2 Sat by Pulse 99 Oximetry Medical Decision Making - Medical Decision Making 64-year-old male patient presents to the emergency department today for evaluation of hematuria. Patient reported mild right lower quadrant pain. Did have right CVA tenderness. Labs reviewed and did reveal white blood cell count at 12.4. Hemoglobin is 15.7. Urinalysis showed a turbid red appearance with 1+ protein, large amount of blood, large leukocyte esterase, greater than 182 red blood cells and white blood cells. This was sent for culture. CT abdomen and pelvis was obtained to rule out kidney stone or other etiologies, no hydronep hrosis was seen. Did have bilateral simple renal cysts. Also had evidence of thickening of the bladder consistent with possible cystitis. Patient does report having some testicular pain and mild swelling so we will treat with extended Levaquin for 10 days for possible epididymitis as well. He'll be discharged follow-up with urologist for re-evaluation. Is instructed to follow- up with his primary care physician for recheck in 1-2 days. Return to the emergency department for any new, worsening, or concerning symptoms. - Lab Data Result diagrams: 06/23/20 20:37 06/23/20 20:37 Lab Results 06/23/20 06/23/20 06/23/20 Range/Units 20:37 20:37 20:37 WBC 12.4 H (3.8-10.6) k/uL RBC 5.16 (4.30-5.90) m/uL Hgb 15.7 (13.0-17.5) gm/dL Hct 46.7 (39.0-53.0) % MCV 90.5 (80.0-100.0) fL MCH 30.5 (25.0-35.0) pg MCHC 33.7 (31.0-37.0) g/dL RDW 13.1 (11.5-15.5) % Plt Count 352 (150-450) k/uL MPV 6.7 Neutrophils % 65 % Lymphocytes % 19 % Monocytes % 7 % Eosinophils % 6 % Basophils % 2 % Neutrophils # 8.1 H (1.3-7.7) k/uL Lymphocytes # 2.4 (1.0-4.8) k/uL Monocytes # 0.9 (0-1.0) k/uL Eosinophils # 0.7 (0-0.7) k/uL Basophils # 0.2 (0-0.2) k/uL PT (9.0-12.0) sec INR (<1.2) APTT (22.0-30.0) sec Sodium 136 L (137-145) mmol/L Potassium 4.4 (3.5-5.1) mmol/L Chloride 104 (98-107) mmol/L Carbon Dioxide 27 (22-30) mmol/L Anion Gap 5 mmol/L BUN 12 (9-20) mg/dL Creatinine 0.62 L (0.66-1.25) mg/dL Est GFR (CKD-EPI)AfAm >90 (>60 ml/min/1.73 sqM) Est GFR (CKD-EPI)NonAf >90 (>60 ml/min/1.73 sqM) Glucose 110 H (74-99) mg/dL Calcium 9.9 (8.4-10.2) mg/dL Total Bilirubin 0.3 (0.2-1.3) mg/dL AST 24 (17-59) U/L ALT 22 (4-49) U/L Alkaline Phosphatase 63 (38-126) U/L Total Protein 6.9 (6.3-8.2) g/dL Albumin 4.1 (3.5-5.0) g/dL Lipase 204 (23-300) U/L Urine Color Red Urine Appearance Turbid (Clear) Urine pH 6.5 (5.0-8.0) Ur Specific [place] 1.018 (1.001-1.035) Urine Protein 1+ H (Negative) Urine Glucose (UA) Negative (Negative) Urine Ketones Negative (Negative) Urine Blood Large H (Negative) Urine Nitrite Negative (Negative) Urine Bilirubin Negative (Negative) Urine Urobilinogen <2.0 (<2.0) mg/dL Ur Leukocyte Esterase Large H (Negative) Urine RBC >182 H (0-5) /hpf Urine WBC >182 H (0-5) /hpf 06/23/20 Range/Units 20:37 WBC (3.8-10.6) k/uL RBC (4.30-5.90) m/uL Hgb (13.0-17.5) gm/dL Hct (39.0-53.0) % MCV (80.0-100.0) fL MCH (25.0-35.0) pg MCHC (31.0-37.0) g/dL RDW (11.5-15.5) % Plt Count (150-450) k/uL MPV Neutrophils % % Lymphocytes % % Monocytes % % Eosinophils % % Basophils % % Neutrophils # (1.3-7.7) k/uL Lymphocytes # (1.0-4.8) k/uL Monocytes # (0-1.0) k/uL Eosinophils # (0-0.7) k/uL Basophils # (0-0.2) k/uL PT 10.1 (9.0-12.0) sec INR 0.9 (<1.2) APTT 23.9 (22.0-30.0) sec Sodium (137-145) mmol/L Potassium (3.5-5.1) mmol/L Chloride (98-107) mmol/L Carbon Dioxide (22-30) mmol/L Anion Gap mmol/L BUN (9-20) mg/dL Creatinine (0.66-1.25) mg/dL Est GFR (CKD-EPI)AfAm (>60 ml/min/1.73 sqM) Est GFR (CKD-EPI)NonAf (>60 ml/min/1.73 sqM) Glucose (74-99) mg/dL Calcium (8.4-10.2) mg/dL Total Bilirubin (0.2-1.3) mg/dL AST (17-59) U/L ALT (4-49) U/L Alkaline Phosphatase (38-126) U/L Total Protein (6.3-8.2) g/dL Albumin (3.5-5.0) g/dL Lipase (23-300) U/L Urine Color Urine Appearance (Clear) Urine pH (5.0-8.0) Ur Specific [place] (1.001-1.035) Urine Protein (Negative) Urine Glucose (UA) (Negative) Urine Ketones (Negative) Urine Blood (Negative) Urine Nitrite (Negative) Urine Bilirubin (Negative) Urine Urobilinogen (<2.0) mg/dL Ur Leukocyte Esterase (Negative) Urine RBC (0-5) /hpf Urine WBC (0-5) /hpf - Radiology Data Radiology results: report reviewed, image reviewed CT abdomen and pelvis was obtained. Report was reviewed in its entirety. Impression by Dr. Cantrell shows mild urinary bladder wall thickening, correlate for possible cystitis. Otherwise no acute abnormality. Moderate stool burden. Chronic findings as above. Disposition Clinical Impression: Urinary tract infection, Epididymitis Disposition: HOME SELF-CARE Condition: Good Instructions (If sedation given, give patient instructions): Epididymitis (ED), Urinary Tract Infection in Men (ED) Additional Instructions: Complete antibiotic prescriptions in full. Follow-up with the primary care physician for recheck in 1-2 days. Follow up with urologist for further evaluation. Return to the emergency department for any new, worsening, or concerning symptoms. Prescriptions: Levofloxacin [Levaquin] 500 mg PO DAILY #8 tab Is patient prescribed a controlled substance at d/c from ED?: No Referrals: Colten Arzola MD [Primary Care Provider] - 1-2 days Luis Covington MD [STAFF PHYSICIAN] - 1-2 days Time of Disposition: 21:22
[2020-06-23 20:44] LABS: Basophils # (A) 0.2 k/uL (0-0.2); Basophils % (A) 2 %; Eosinophils # (A) 0.7 k/uL (0-0.7); Eosinophils % (A) 6 %; HCT 46.7 % (39.0-53.0); HGB 15.7 gm/dL (13.0-17.5); Lymphocytes # (A) 2.4 k/uL (1.0-4.8); Lymphocytes % (A) 19 %; MCH 30.5 pg (25.0-35.0); MCHC 33.7 g/dL (31.0-37.0); MCV 90.5 fL (80.0-100.0); Mean Platelet Volume 6.7; Monocytes # (A) 0.9 k/uL (0-1.0); Monocytes % (A) 7 %; Neutrophils # (A) 8.1 k/uL (1.3-7.7); Neutrophils % (A) 65 %; Platelet Count 352 k/uL (150-450); RBC 5.16 m/uL (4.30-5.90); RDW 13.1 % (11.5-15.5); WBC 12.4 k/uL (3.8-10.6)
[2020-06-23 20:52] LABS: ALT 22 U/L (4-49); AST 24 U/L (17-59); African American GFR (CKD) >90 (>60 ml/min/1.73 sqM); Albumin 4.1 g/dL (3.5-5.0); Alkaline Phosphatase 63 U/L (38-126); Anion Gap 5 mmol/L; Blood Urea Nitrogen 12 mg/dL (9-20); Calcium 9.9 mg/dL (8.4-10.2); Carbon Dioxide 27 mmol/L (22-30); Chloride 104 mmol/L (98-107); Glucose 110 mg/dL (74-99); Lipase 204 U/L (23-300); Non-African American GFR(CKD) >90 (>60 ml/min/1.73 sqM); Potassium 4.4 mmol/L (3.5-5.1); Sodium 136 mmol/L (137-145); Total Bilirubin 0.3 mg/dL (0.2-1.3); Total Protein 6.9 g/dL (6.3-8.2)
[2020-06-23 20:53] LABS: Appearance,Urine Turbid (Clear); Bilirubin,Urine Negative (Negative); Blood,Urine Large (Negative); Color,Urine Red; Glucose,Urine (UA) Negative (Negative); Ketones,Urine Negative (Negative); Leukocyte Esterase,Urine Large (Negative); Nitrite,Urine Negative (Negative); PH, Urine 6.5 (5.0-8.0); Protein,Urine 1+ (Negative); RBC,Urine >182 /hpf (0-5); Specific Gravity,Urine 1.018 (1.001-1.035); Urobilinogen,Urine <2.0 mg/dL (<2.0); WBC,Urine >182 /hpf (0-5)
[2020-06-23 20:57] LABS: INR 0.9 (<1.2); Partial Thromboplastin Time 23.9 sec (22.0-30.0); Prothrombin Time 10.1 sec (9.0-12.0)
--- NOTE | 2020-06-23 21:02 | CT ---
EXAMINATION TYPE: CT abdomen pelvis wo con DATE OF EXAM: 06/23/2020 COMPARISON: 02/11/2019. HISTORY: RLQ pain, hematuria CT DLP: 657.4 mGycm Automated exposure control for dose reduction was used. TECHNIQUE: Helical acquisition of images was performed from the lung bases through the pelvis. FINDINGS: LUNG BASES: No significant abnormality is appreciated. LIVER/GB: No significant abnormality is appreciated. PANCREAS: No acute abnormality is seen. Moderate pancreatic calcifications, consistent with chronic p ancreatitis. SPLEEN: No significant abnormality is seen. ADRENALS: No significant abnormality is seen. KIDNEYS: No bilateral hydronephrosis or nephrolithiasis. Multiple bilateral simple appearing renal cy sts with the largest measuring 5.2 cm. FREE AIR: No free air is visualized RETROPERITONEAL ADENOPATHY: None visualized REPRODUCTIVE ORGANS: No significant abnormality is seen URINARY BLADDER: Mild urinary bladder wall thickening. PELVIC ADENOPATHY: None visualized. OSSEOUS STRUCTURES: Moderate to severe lumbar spondylosis with grade 1 anterolisthesis of L3 on L4. BOWEL: No bowel obstruction, free air or fluid. Moderate amount of stool. Normal appendix. OTHER: No ne IMPRESSION: Mild urinary bladder wall thickening, correlate for possible cystitis. OTHERWISE NO ACUTE ABNORMALITY. MODERATE STOOL BURDEN. CHRONIC FINDINGS ABOVE.
[2020-06-23] MEDS ORDERED: cefTRIAXone IN SWFI 1,000 MG/10 ML SYRINGE IVP STA (21:10)
[2020-06-23] MEDS ORDERED: LEVOFLOXACIN 500 MG TAB PO STA ×2 (21:18→21:22)
== END 2020-06-23 21:43 | disposition home or self-care (01) ==
LOC: EC 20:02 → SUPCPDRO 20:02 → EC 21:43
DX: N39.0 Urinary tract infection, site not specified (principal); N45.1 Epididymitis; F31.9 Bipolar disorder, unspecified; F25.9 Schizoaffective disorder, unspecified; F17.200 Nicotine dependence, unspecified, uncomplicated; Z79.899 Other long term (current) drug therapy; Z88.8 Allergy status to other drugs, medicaments and biological substances
CPT/HCPCS: 36415; 80053; 83690; 85025; 85610; 85730; 81001; 87086; 74176; 99284; 96374; 96361; J0696

== ENCOUNTER 2021-08-22 17:41 | Emergency (ER) | payer MEDICARE, OTHER ==
[2021-08-22] MEDS ORDERED: SODIUM CHLORIDE 0.9% 1,000 ML IV STA (19:48)
--- NOTE | 2021-08-22 20:20 | ED ---
Abdominal Pain HPI - General Chief Complaint: Abdominal Pain Stated Complaint: Lower abd pain, sent by Time Seen by Provider: 08/22/21 19:35 Source: patient, RN notes reviewed Mode of arrival: ambulatory Limitations: no limitations - History of Present Illness Initial Comments: This is a pleasant 65-year-old male with a history of hyperlipidemia, type 2 diabetes, and colonic polyps. Patient no longer takes any treatment for diabetes. Apparently over the past 3 days or so patient has developed intermittent right lower quadrant abdominal pain. He is describing a sharp pain which is very fleeting. Current pain. No testicular pain. Also states he is having increased urinary frequency. Apparently the patient was sent in by his visiting physician after plain film x-rays were done which showed some sort of abnormality. No headache, no fever or chills, no changes in vision or hearing, no sore throat or difficulty with speech, no neck pain, no chest pain or shortness of breath, no nausea or vomiting, no changes bowel movements, no numbness or tingling, no extremity pain, no skin rashes or lesions. - Related Data Home Medications Medication Instructions Recorded Confirmed Ergocalciferol [Vitamin D2] 50,000 unit PO FR 12/15/19 08/22/21 [place] Carbonate 900 mg PO HS@232912/15/19 08/22/21 Baclofen 10 mg PO BID@1000,232906/23/20 08/22/21 Fluticasone Nasal [place] [Flonase 2 spr EA NOSTRIL DAILY PRN 06/23/20 08/22/21 Nasal [place]] Loratadine 10 mg PO HS@232906/23/20 08/22/21 OLANZapine [ZyPREXA] 20 mg PO HS@232906/23/20 08/22/21 Tamsulosin [Flomax] 0.4 mg PO BID@1000,232906/23/20 08/22/21 Venlafaxine HCl ER [Effexor Xr] 150 mg PO DAILY@1000 06/23/20 08/22/21 Venlafaxine HCl [Effexor XR] 75 mg PO DAILY@1000 06/23/20 08/22/21 Acetaminophen Tab [Tylenol Tab] 1,000 mg PO BID@1000,232908/22/21 08/22/21 Atorvastatin Calcium [Lipitor] 10 mg PO HS@2330 08/22/21 08/22/21 Meloxicam [Mobic] 7.5 mg PO DAILY PRN 08/22/21 08/22/21 Nystatin 100,000 Unit/gm Powd 1 applic TOPICAL BID PRN 08/22/21 08/22/21 [Mycostatin Powder] Sennosides/Docusate Sodium [Senna 2 cap PO HS@2330 08/22/21 08/22/21 Plus 8.6-50 mg Softgel] clonazePAM [KlonoPIN] 0.5 mg PO BID@1000,1430 08/22/21 08/22/21 clonazePAM [KlonoPIN] 1 mg PO HS@2330 08/22/21 08/22/21 glyBURIDE [Diabeta] 5 mg PO BID@1000,1730 08/22/21 08/22/21 metFORMIN HCL ER [Glucophage XR] 500 mg PO DAILY@1000 08/22/21 08/22/21 Allergies Allergy/AdvReac Type Severity Reaction Status Date / Time chlorpromazine AdvReac seizure Verified 08/22/21 21:31 [From Thorazine] Review of Systems ROS Statement: Those systems with pertinent positive or pertinent negative responses have been documented in the HPI. ROS Other: All systems not noted in ROS Statement are negative. Past Medical History Past Medical History: Hyperlipidemia Additional Past Medical History / Comment(s): hx of colon polyps,hx of type 2 diabetes, no longer needs any rx History of Any Multi-Drug Resistant Organisms: None Reported Past Surgical History: Orthopedic Surgery Additional Past Surgical History / Comment(s): Bilateral knees, right elbow surgery for osteomyelitis Past Anesthesia/Blood Transfusion Reactions: No Reported Reaction Past Psychological History: Bipolar, Schizoaffective Disorder Smoking Status: Current every day smoker Past Alcohol Use History: None Reported Past Drug Use History: Marijuana General Exam - General Exam Comments Initial Comments: Elderly male who appears to be deconditioned. Does not appear to be in any significant distress. Limitations: no limitations General appearance: alert, in no apparent distress Head exam: Present: atraumatic, normocephalic, normal inspection Eye exam: Present: normal appearance, PERRL, EOMI. Absent: scleral icterus, conjunctival injection, periorbital swelling ENT exam: Present: normal exam, mucous membranes moist Neck exam: Present: normal inspection. Absent: tenderness, meningismus, lymphadenopathy Respiratory exam: Present: normal lung sounds bilaterally. Absent: respiratory distress, wheezes, rales, rhonchi, stridor Cardiovascular Exam: Present: regular rate, normal rhythm, normal heart sounds. Absent: systolic murmur, diastolic murmur, rubs, gallop, clicks GI/Abdominal exam: Present: soft, distended, tenderness (Very mild tenderness in the lower abdomen. No rebound or percussion tenderness.), normal bowel sounds. Absent: guarding, rebound, rigid Extremities exam: Present: normal inspection, full ROM, normal capillary refill. Absent: tenderness, pedal edema, joint swelling, calf tenderness Back exam: Present: normal inspection Neurological exam: Present: alert, oriented X3, CN II-XII intact Psychiatric exam: Present: normal affect, normal mood Skin exam: Present: warm, dry, intact, normal color. Absent: rash Course Vital Signs 08/22/21 08/22/21 17:54 21:20 Temperature 99.8 F H 98.6 F Pulse Rate 92 79 Respiratory 18 16 Rate Blood Pressure 144/92 157/90 O2 Sat by Pulse 95 97 Oximetry - Reevaluation(s) Reevaluation #1: 08/22/21 21:23 Medical record is reviewed Symptoms are unchanged Patient is informed of results and questions answered Patient in no distress Medical Decision Making - Medical Decision Making Patient presents with fleeting lower abdominal pain and a distended abdomen which according to both the patient and his son has been that way for years. Patient denying any liver problems or kidney problems. No current pain. Fairly had abnormal plain film x-rays ordered by the visiting physician. Abdominal/cardiac workup initiated. The case was discussed in detail with ED attending physician. Presentation, findings, treatment plan discussed in detail. Liver cyst and left renal cyst noted. No other acute changes on computed tomography scan. Minimal elevation of the patient's calcium. Mild hyperglycemia. However the patient is asymptomatic. Patient was told to return to the ER for any signs or symptoms worsen. Told to return immediately if any other problems arise. All questions answered. Treatment plan discussed. Patient in agreement Every effort has been made to ensure accuracy of this dictation. However, due to the limitations of electronic medical records and dictation devices, errors in charting still occur. All findings discussed with the patient and his son. All questions answered. - Lab Data Result diagrams: 08/22/21 19:48 08/22/21 19:48 Lab Results 08/22/21 08/22/21 08/22/21 Range/Units 19:48 19:48 19:48 WBC 9.8 (3.8-10.6) k/uL RBC 4.99 (4.30-5.90) m/uL Hgb 15.3 (13.0-17.5) gm/dL Hct 45.5 (39.0-53.0) % MCV 91.2 (80.0-100.0) fL MCH 30.7 (25.0-35.0) pg MCHC 33.6 (31.0-37.0) g/dL RDW 13.8 (11.5-15.5) % Plt Count 344 (150-450) k/uL MPV 7.4 Neutrophils % 66 % Lymphocytes % 19 % Monocytes % 7 % Eosinophils % 5 % Basophils % 1 % Neutrophils # 6.4 (1.3-7.7) k/uL Lymphocytes # 1.9 (1.0-4.8) k/uL Monocytes # 0.7 (0-1.0) k/uL Eosinophils # 0.5 (0-0.7) k/uL Basophils # 0.1 (0-0.2) k/uL Sodium 136 L (137-145) mmol/L Potassium 4.2 (3.5-5.1) mmol/L Chloride 101 (98-107) mmol/L Carbon Dioxide 22 (22-30) mmol/L Anion Gap 13 mmol/L BUN 14 (9-20) mg/dL Creatinine 0.76 (0.66-1.25) mg/dL Est GFR (CKD-EPI)AfAm >90 (>60 ml/min/1.73 sqM) Est GFR (CKD-EPI)NonAf >90 (>60 ml/min/1.73 sqM) Glucose 211 H (74-99) mg/dL Calcium 10.3 H (8.4-10.2) mg/dL Total Bilirubin 0.6 (0.2-1.3) mg/dL AST 29 (17-59) U/L ALT 29 (4-49) U/L Alkaline Phosphatase 64 (38-126) U/L Troponin I (0.000-0.034) ng/mL Total Protein 7.6 (6.3-8.2) g/dL Albumin 4.8 (3.5-5.0) g/dL Lipase 84 (23-300) U/L Urine Color Yellow Urine Appearance Clear (Clear) Urine pH 6.0 (5.0-8.0) Ur Specific [place] 1.017 (1.001-1.035) Urine Protein 1+ H (Negative) Urine Glucose (UA) 2+ H (Negative) Urine Ketones Negative (Negative) Urine Blood Negative (Negative) Urine Nitrite Negative (Negative) Urine Bilirubin Negative (Negative) Urine Urobilinogen <2.0 (<2.0) mg/dL Ur Leukocyte Esterase Negative (Negative) Urine RBC 1 (0-5) /hpf Urine WBC 1 (0-5) /hpf Hyaline Casts 1 (0-2) /lpf Urine Mucus Rare H (None) /hpf Coronavirus (PCR) (Not Detectd) 08/22/21 08/22/21 Range/Units 19:48 20:13 WBC (3.8-10.6) k/uL RBC (4.30-5.90) m/uL Hgb (13.0-17.5) gm/dL Hct (39.0-53.0) % MCV (80.0-100.0) fL MCH (25.0-35.0) pg MCHC (31.0-37.0) g/dL RDW (11.5-15.5) % Plt Count (150-450) k/uL MPV Neutrophils % % Lymphocytes % % Monocytes % % Eosinophils % % Basophils % % Neutrophils # (1.3-7.7) k/uL Lymphocytes # (1.0-4.8) k/uL Monocytes # (0-1.0) k/uL Eosinophils # (0-0.7) k/uL Basophils # (0-0.2) k/uL Sodium (137-145) mmol/L Potassium (3.5-5.1) mmol/L Chloride (98-107) mmol/L Carbon Dioxide (22-30) mmol/L Anion Gap mmol/L BUN (9-20) mg/dL Creatinine (0.66-1.25) mg/dL Est GFR (CKD-EPI)AfAm (>60 ml/min/1.73 sqM) Est GFR (CKD-EPI)NonAf (>60 ml/min/1.73 sqM) Glucose (74-99) mg/dL Calcium (8.4-10.2) mg/dL Total Bilirubin (0.2-1.3) mg/dL AST (17-59) U/L ALT (4-49) U/L Alkaline Phosphatase (38-126) U/L Troponin I <0.012 (0.000-0.034) ng/mL Total Protein (6.3-8.2) g/dL Albumin (3.5-5.0) g/dL Lipase (23-300) U/L Urine Color Urine Appearance (Clear) Urine pH (5.0-8.0) Ur Specific [place] (1.001-1.035) Urine Protein (Negative) Urine Glucose (UA) (Negative) Urine Ketones (Negative) Urine Blood (Negative) Urine Nitrite (Negative) Urine Bilirubin (Negative) Urine Urobilinogen (<2.0) mg/dL Ur Leukocyte Esterase (Negative) Urine RBC (0-5) /hpf Urine WBC (0-5) /hpf Hyaline Casts (0-2) /lpf Urine Mucus (None) /hpf Coronavirus (PCR) Not Detected (Not Detectd) - EKG Data EKG Comments: EKG done at 2112 and read by the ED attending physician reveals sinus rhythm with a rate of 78. Right bundle branch block with a QRS duration 161 ms. Remainder of the intervals are normal. Left axis deviation, left anterior fascicular block, no evidence of ST elevation. - Radiology Data Radiology results: image reviewed Disposition Clinical Impression: Abdominal pain, right lower quadrant, Liver cyst, Renal cyst Narrative: Note that the patient had no symptoms while he was here in the ER. Disposition: HOME SELF-CARE Condition: Stable Instructions (If sedation given, give patient instructions): Abdominal Pain (ED) Additional Instructions: Follow-up with your regular physician as directed. Return to the ER immediately if any symptoms worsen, new symptoms arise, or any other problems develop. Is patient prescribed a controlled substance at d/c from ED?: No Referrals: Sudarshan Cabrales MD [REFERRING] - 1-2 days Time of Disposition: 21:44
[2021-08-22 20:23] LABS: Basophils # (A) 0.1 k/uL (0-0.2); Basophils % (A) 1 %; Eosinophils # (A) 0.5 k/uL (0-0.7); Eosinophils % (A) 5 %; HCT 45.5 % (39.0-53.0); HGB 15.3 gm/dL (13.0-17.5); Lymphocytes # (A) 1.9 k/uL (1.0-4.8); Lymphocytes % (A) 19 %; MCH 30.7 pg (25.0-35.0); MCHC 33.6 g/dL (31.0-37.0); MCV 91.2 fL (80.0-100.0); Mean Platelet Volume 7.4; Monocytes # (A) 0.7 k/uL (0-1.0); Monocytes % (A) 7 %; Neutrophils # (A) 6.4 k/uL (1.3-7.7); Neutrophils % (A) 66 %; Platelet Count 344 k/uL (150-450); RBC 4.99 m/uL (4.30-5.90); RDW 13.8 % (11.5-15.5); WBC 9.8 k/uL (3.8-10.6)
[2021-08-22 20:24] LABS: Appearance,Urine Clear (Clear); Bilirubin,Urine Negative (Negative); Blood,Urine Negative (Negative); Color,Urine Yellow; Glucose,Urine (UA) 2+ (Negative); Hyaline Casts,Urine 1 /lpf (0-2); Ketones,Urine Negative (Negative); Leukocyte Esterase,Urine Negative (Negative); Mucus,Urine Rare /hpf; Nitrite,Urine Negative (Negative); Protein,Urine 1+ (Negative); RBC,Urine 1 /hpf (0-5); Specific Gravity,Urine 1.017 (1.001-1.035); Urobilinogen,Urine <2.0 mg/dL (<2.0); WBC,Urine 1 /hpf (0-5)
[2021-08-22 20:34] LABS: ALT 29 U/L (4-49); AST 29 U/L (17-59); African American GFR (CKD) >90 (>60 ml/min/1.73 sqM); Albumin 4.8 g/dL (3.5-5.0); Alkaline Phosphatase 64 U/L (38-126); Anion Gap 13 mmol/L; Blood Urea Nitrogen 14 mg/dL (9-20); Calcium 10.3 mg/dL (8.4-10.2); Carbon Dioxide 22 mmol/L (22-30); Chloride 101 mmol/L (98-107); Glucose 211 mg/dL (74-99); Lipase 84 U/L (23-300); Non-African American GFR(CKD) >90 (>60 ml/min/1.73 sqM); Potassium 4.2 mmol/L (3.5-5.1); Sodium 136 mmol/L (137-145); Total Bilirubin 0.6 mg/dL (0.2-1.3); Total Protein 7.6 g/dL (6.3-8.2)
--- NOTE | 2021-08-22 20:50 | XR ---
EXAMINATION TYPE: XR chest 1V DATE OF EXAM: 08/22/2021 COMPARISON: 05/09/2019 HISTORY: Bone pain TECHNIQUE: FINDINGS: Heart and mediastinum are normal. Lungs are clear. Diaphragm is normal. Bony thorax appears normal. IMPRESSION: Normal chest. No change.
[2021-08-22 21:24] VITALS: BP 157/90; PULSE 79; RESP 16; TEMP 98.6
--- NOTE | 2021-08-22 21:30 | CT ---
EXAMINATION TYPE: CT abdomen pelvis w con DATE OF EXAM: 08/22/2021 COMPARISON: 06/23/2020 HISTORY: Lower abdominal pain, sent by family dr. RENDON DLP: 1391.5 mGycm Automated exposure control for dose reduction was used. CONTRAST: Performed with IV Contrast, patient injected with 100 mL of Isovue 300. The lung bases are clear of infiltrate. Heart size is normal. There is no pericardial effusion. There is no pleural effusion. There is 1.5 cm cyst in the anterior right lobe of the liver. Bile ducts are not dilated. Spleen is n ormal. There is no pancreatic mass. There are some pancreatic calcifications consistent with chronic pancreatitis. The stomach is intact. Gallbladder appears normal. There is no adrenal mass. Kidneys show satisfactory contrast opacification. There is no hydronephrosi s. There are left-sided renal cortical cysts that measure up to 5 cm. No evidence of a solid renal ma ss. There is no retroperitoneal adenopathy. The ureters are not dilated. Delayed images show normal r enal excretion. Bladder distends smoothly. There is no inguinal hernia. No free fluid in the pelvis. There is some mild prostate calcification. There is no mesenteric edema. There is no ascites or free air. There is no bowel obstruction. Appendi x is lateral and appears normal. Lumbar vertebrae have fairly normal alignment. There is multilevel vacuum disc and mild sclerosis. Th ere is no compression fracture. There is minimal L3-4 subluxation. No spondylolysis. The bony pelvis is intact. IMPRESSION: No acute abnormality in the abdomen and pelvis. No adverse change compared to old exam. Normal append ix. Changes of chronic pancreatitis appears stable compared to old exam.
== END 2021-08-22 22:01 | disposition home or self-care (01) ==
LOC: EC 17:41 → EEVIPCON 17:41 → EC 22:01
DX: N28.1 Cyst of kidney, acquired (principal); K76.89 Other specified diseases of liver; E78.5 Hyperlipidemia, unspecified; E11.9 Type 2 diabetes mellitus without complications; F31.9 Bipolar disorder, unspecified; F25.9 Schizoaffective disorder, unspecified; F17.200 Nicotine dependence, unspecified, uncomplicated; F12.90 Cannabis use, unspecified, uncomplicated; Z79.84 Long term (current) use of oral hypoglycemic drugs; Z88.1 Allergy status to other antibiotic agents; Z86.010 Personal history of colon polyps; Z20.822 Contact with and (suspected) exposure to COVID-19
CPT/HCPCS: 99284; 96360; 36415; 93005; 80053; 83690; 84484; 85025; 81001; 87635; 71045; 74177; Q9967

== ENCOUNTER 2022-02-26 11:06 | Observation (INO) | payer MEDICARE, OTHER ==
[2022-02-26] MEDS ORDERED: ACETAMINOPHEN TAB 500 MG TAB PO STA (12:27)
--- NOTE | 2022-02-26 12:36 | ED ---
General Adult HPI - General Chief complaint: Extremity Injury, Lower Stated complaint: bilat leg pain, weakness Time Seen by Provider: 02/26/22 12:03 Source: patient Mode of arrival: ambulatory Limitations: no limitations - History of Present Illness Initial comments: Dictation was produced using [employer] dictation software. please excuse any grammatical, word or spelling errors. Chief Complaint: 66-year-old male presents emergency department for acute weakness History of Present Illness: 66-year-old male presents emergency department for acute weakness. Patient has history of baseline debility. Patient states that over the last 48 hours that he's been having lower extremity weakness and difficulty ambulating. He lives at home by himself is having difficulty performing his activities of daily living due to his pain and lower extremity weakness. Patient states she's been crawling around his house. He presents with his brother. Patient denies any chest pain or shortness of breath. Denies any constitutional symptoms. Patient states that he has myalgias to his bilateral thighs and calf areas. The ROS documented in this emergency department record has been reviewed and confirmed by me. Those systems with pertinent positive or negative responses have been documented in the HPI. All other systems are other negative and/or noncontributory. PHYSICAL EXAM: General Impression: Alert and oriented x3, not in acute distress HEENT: Normocephalic atraumatic, extra-ocular movements intact, pupils equal and reactive to light bilaterally, mucous membranes moist. Cardiovascular: Heart regular rate and rhythm Chest: Able to complete full sentences, no retractions, no tachypnea Abdomen: abdomen soft, non-tender, non-distended, no organomegaly Musculoskeletal: Pulses present and equal in all extremities, no peripheral edema Motor: no focal deficits noted Neurological: CN II-XII grossly intact, no focal motor or sensory deficits noted Skin: Intact with no visualized rashes Psych: Normal affect and mood ED course: 66-year-old male presents emergency department for weakness, lower extremity myalgias. vital signs as upon arrival shows temperature 101, rest of vital signs within acceptable limits. Laboratory evaluation obtained. CBC, coag panel, metabolic panel is obtained. There is a mild lactic acidosis of 3.3. 4 panel viral PCR is positive for COVID-19. Disposition options were discussed patient wanted be discharged. Agreement was made to give patient IV fluids and recheck a lactic acid level. Patient given IV fluids with lactic acidosis that increased to 3.8. At this point patient does not appear to be significantly dehydrated. This may be secondary to metformin use. However it's unclear. Patient reevaluated at bedside finally stable medical condition. He is agreeable for admission for medical monitoring and IV fluids with lactic acidosis monitoring. EKG interpretation: Ventricular rate 89, sinus rhythm,. A 161, care is 152, QTc 413. No SD prolongation, no QTC prolongation, no ST or T-wave changes noted. EKG compared to 08/22/2021 showing no changes. Overall, this EKG is u nremarkable - Related Data Home Medications Medication Instructions Recorded Confirmed [place] Carbonate 900 mg PO HS 12/15/19 02/26/22 Baclofen 10 mg PO BID 06/23/20 02/26/22 Fluticasone Nasal [place] [Flonase 2 spr EA NOSTRIL DAILY PRN 06/23/20 02/26/22 Nasal [place]] OLANZapine [ZyPREXA] 20 mg PO HS 06/23/20 02/26/22 Tamsulosin [Flomax] 0.4 mg PO BID 06/23/20 02/26/22 Venlafaxine HCl ER [Effexor Xr] 150 mg PO DAILY 06/23/20 02/26/22 Venlafaxine HCl [Effexor XR] 75 mg PO DAILY 06/23/20 02/26/22 Acetaminophen Tab [Tylenol Tab] 1,000 mg PO HS 08/22/21 02/26/22 Atorvastatin Calcium [Lipitor] 10 mg PO HS 08/22/21 02/26/22 clonazePAM [KlonoPIN] 0.5 mg PO BID 08/22/21 02/26/22 glyBURIDE [Diabeta] 5 mg PO BID 08/22/21 02/26/22 Losartan Potassium [Cozaar] 25 mg PO DAILY 02/26/22 02/26/22 metFORMIN HCL 1,000 mg PO BID 02/26/22 02/26/22 Allergies Allergy/AdvReac Type Severity Reaction Status Date / Time chlorpromazine AdvReac seizure Verified 02/26/22 13:44 [From Thorazine] Review of Systems ROS Statement: Those systems with pertinent positive or pertinent negative responses have been documented in the HPI. ROS Other: All systems not noted in ROS Statement are negative. Past Medical History Past Medical History: Hyperlipidemia Additional Past Medical History / Comment(s): hx of colon polyps,hx of type 2 diabetes, no longer needs any rx History of Any Multi-Drug Resistant Organisms: None Reported Past Surgical History: Orthopedic Surgery Additional Past Surgical History / Comment(s): Bilateral knees, right elbow surgery for osteomyelitis Past Anesthesia/Blood Transfusion Reactions: No Reported Reaction Past Psychological History: Bipolar, Schizoaffective Disorder Smoking Status: Former smoker Past Alcohol Use History: None Reported Past Drug Use History: Marijuana General Exam Limitations: no limitations Course Vital Signs 02/26/22 11:21 Temperature 101 F H Pulse Rate 100 Respiratory 20 Rate Blood Pressure 140/70 O2 Sat by Pulse 97 Oximetry Medical Decision Making - Lab Data Result diagrams: 02/26/22 12:49 02/26/22 12:49 Lab Results 02/26/22 02/26/22 02/26/22 Range/Units 12:49 12:49 12:49 WBC 6.9 (3.8-10.6) k/uL RBC 4.75 (4.30-5.90) m/uL Hgb 14.3 (13.0-17.5) gm/dL Hct 43.5 (39.0-53.0) % MCV 91.5 (80.0-100.0) fL MCH 30.0 (25.0-35.0) pg MCHC 32.8 (31.0-37.0) g/dL RDW 14.0 (11.5-15.5) % Plt Count 265 (150-450) k/uL MPV 7.5 Neutrophils % 70 % Lymphocytes % 6 % Monocytes % 17 % Eosinophils % 1 % Basophils % 3 % Neutrophils # 4.8 (1.3-7.7) k/uL Lymphocytes # 0.4 L (1.0-4.8) k/uL Monocytes # 1.1 H (0-1.0) k/uL Eosinophils # 0.1 (0-0.7) k/uL Basophils # 0.2 (0-0.2) k/uL PT 11.2 (9.0-12.0) sec INR 1.0 (<1.2) APTT 25.5 (22.0-30.0) sec Sodium 136 L (137-145) mmol/L Potassium 4.0 (3.5-5.1) mmol/L Chloride 98 (98-107) mmol/L Carbon Dioxide 22 (22-30) mmol/L Anion Gap 16 mmol/L BUN 15 (9-20) mg/dL Creatinine 0.84 (0.66-1.25) mg/dL Est GFR (CKD-EPI)AfAm >90 (>60 ml/min/1.73 sqM) Est GFR (CKD-EPI)NonAf >90 (>60 ml/min/1.73 sqM) Glucose 171 H (74-99) mg/dL Plasma Lactic Acid Bhavin (0.7-2.0) mmol/L Calcium 9.3 (8.4-10.2) mg/dL Magnesium 2.0 (1.6-2.3) mg/dL Creatine Kinase 102 (55-170) U/L Influenza Type A (PCR) (Not Detectd) Influenza Type B (PCR) (Not Detectd) RSV (PCR) (Not Detectd) SARS-CoV-2 (PCR) (Not Detectd) 02/26/22 02/26/22 02/26/22 Range/Units 12:49 12:49 14:36 WBC (3.8-10.6) k/uL RBC (4.30-5.90) m/uL Hgb (13.0-17.5) gm/dL Hct (39.0-53.0) % MCV (80.0-100.0) fL MCH (25.0-35.0) pg MCHC (31.0-37.0) g/dL RDW (11.5-15.5) % Plt Count (150-450) k/uL MPV Neutrophils % % Lymphocytes % % Monocytes % % Eosinophils % % Basophils % % Neutrophils # (1.3-7.7) k/uL Lymphocytes # (1.0-4.8) k/uL Monocytes # (0-1.0) k/uL Eosinophils # (0-0.7) k/uL Basophils # (0-0.2) k/uL PT (9.0-12.0) sec INR (<1.2) APTT (22.0-30.0) sec Sodium (137-145) mmol/L Potassium (3.5-5.1) mmol/L Chloride (98-107) mmol/L Carbon Dioxide (22-30) mmol/L Anion Gap mmol/L BUN (9-20) mg/dL Creatinine (0.66-1.25) mg/dL Est GFR (CKD-EPI)AfAm (>60 ml/min/1.73 sqM) Est GFR (CKD-EPI)NonAf (>60 ml/min/1.73 sqM) Glucose (74-99) mg/dL Plasma Lactic Acid Bhavin 3.3 H* 3.8 H* (0.7-2.0) mmol/L Calcium (8.4-10.2) mg/dL Magnesium (1.6-2.3) mg/dL Creatine Kinase (55-170) U/L Influenza Type A (PCR) Not Detected (Not Detectd) Influenza Type B (PCR) Not Detected (Not Detectd) RSV (PCR) Not Detected (Not Detectd) SARS-CoV-2 (PCR) Detected A (Not Detectd) Disposition Clinical Impression: Lactic acidosis Disposition: ADMITTED IP TO THIS HOSP Condition: Fair Referrals: Michael Alarcon NPC [REFERRING] - 1-2 days Forms: Community Resources, Help In The Home Decision Time: 15:10
[2022-02-26 12:55] LABS: Basophils # (A) 0.2 k/uL (0-0.2); Basophils % (A) 3 %; Eosinophils # (A) 0.1 k/uL (0-0.7); Eosinophils % (A) 1 %; HCT 43.5 % (39.0-53.0); HGB 14.3 gm/dL (13.0-17.5); Lymphocytes # (A) 0.4 k/uL (1.0-4.8); Lymphocytes % (A) 6 %; MCHC 32.8 g/dL (31.0-37.0); MCV 91.5 fL (80.0-100.0); Mean Platelet Volume 7.5; Monocytes # (A) 1.1 k/uL (0-1.0); Monocytes % (A) 17 %; Neutrophils # (A) 4.8 k/uL (1.3-7.7); Neutrophils % (A) 70 %; Platelet Count 265 k/uL (150-450); RBC 4.75 m/uL (4.30-5.90); WBC 6.9 k/uL (3.8-10.6)
[2022-02-26 13:08] LABS: African American GFR (CKD) >90 (>60 ml/min/1.73 sqM); Anion Gap 16 mmol/L; Blood Urea Nitrogen 15 mg/dL (9-20); Calcium 9.3 mg/dL (8.4-10.2); Carbon Dioxide 22 mmol/L (22-30); Chloride 98 mmol/L (98-107); Creatine Kinase 102 U/L (55-170); Glucose 171 mg/dL (74-99); Non-African American GFR(CKD) >90 (>60 ml/min/1.73 sqM); Sodium 136 mmol/L (137-145)
[2022-02-26 13:10] LABS: Partial Thromboplastin Time 25.5 sec (22.0-30.0); Prothrombin Time 11.2 sec (9.0-12.0)
[2022-02-26] MEDS ORDERED: SODIUM CHLORIDE 0.9% 1,000 ML IV STA (13:53)
[2022-02-26] MEDS ORDERED: NALOXONE 0.4 MG/ML 1 ML VIAL IV PRN (15:07)
[2022-02-26] MEDS ORDERED: ACETAMINOPHEN TAB 325 MG TAB PO PRN (15:07)
[2022-02-26] MEDS ORDERED: FLUTICASONE 50MCG/SPRAY NASAL 16GM EA NOSTRIL PRN (17:21)
[2022-02-26] MEDS ORDERED: SODIUM CHLORIDE 0.9% 1,000 ML IV ONE (17:25)
--- NOTE | 2022-02-26 17:28 | P.HPIM ---
History of Present Illness H&P Date: 02/26/22 Chief Complaint: Generalized weakness Patient is a 66-year-old male with a past medical history of schizophrenia diabetes hyperlipidemia and BPH who presents to the ED with weakness. Patient also states that he was having a scratchy throat and felt as if he is going have a cold. Patient states that today he was crawling around the house. He is also complaining of myalgias in bilateral thighs. In the ED patient was unable fever 101 and he was also positive for COVID-19. He is also found to have a lactic acid 3.3. Patient is given 1 L of fluid bolus and his lactic acid still went up to 3.8. So patient was referred for admission. Patient is hemodynamically stable. He is satting well on room air. Review of Systems 10 ROS reviewed and are negative except as noted in HPI Past Medical History Past Medical History: Hyperlipidemia Additional Past Medical History / Comment(s): hx of colon polyps,hx of type 2 d iabetes, no longer needs any rx History of Any Multi-Drug Resistant Organisms: None Reported Past Surgical History: Orthopedic Surgery Additional Past Surgical History / Comment(s): Bilateral knees, right elbow surgery for osteomyelitis Past Anesthesia/Blood Transfusion Reactions: No Reported Reaction Past Psychological History: Bipolar, Schizoaffective Disorder Smoking Status: Former smoker Past Alcohol Use History: None Reported Past Drug Use History: Marijuana Medications and Allergies Home Medications Medication Instructions Recorded Confirmed Type Blain Carbonate 900 mg PO HS 12/15/19 02/26/22 History Baclofen 10 mg PO BID 06/23/20 02/26/22 History Fluticasone Nasal [place] [Flonase 2 spr EA NOSTRIL DAILY PRN 06/23/20 02/26/22 History Nasal [place]] OLANZapine [ZyPREXA] 20 mg PO HS 06/23/20 02/26/22 History Tamsulosin [Flomax] 0.4 mg PO BID 06/23/20 02/26/22 History Venlafaxine HCl ER [Effexor Xr] 150 mg PO DAILY 06/23/20 02/26/22 History Venlafaxine HCl [Effexor XR] 75 mg PO DAILY 06/23/20 02/26/22 History Acetaminophen Tab [Tylenol Tab] 1,000 mg PO HS 08/22/21 02/26/22 History Atorvastatin Calcium [Lipitor] 10 mg PO HS 08/22/21 02/26/22 History clonazePAM [KlonoPIN] 0.5 mg PO BID 08/22/21 02/26/22 History glyBURIDE [Diabeta] 5 mg PO BID 08/22/21 02/26/22 History Losartan Potassium [Cozaar] 25 mg PO DAILY 02/26/22 02/26/22 History metFORMIN HCL 1,000 mg PO BID 02/26/22 02/26/22 History Allergies Allergy/AdvReac Type Severity Reaction Status Date / Time chlorpromazine AdvReac seizure Verified 02/26/22 13:44 [From Thorazine] Physical Exam Osteopathic Statement: *. No significant issues noted on an osteopathic structural exam other than those noted in the History and Physical/Consult. Vitals: Vital Signs Temp Pulse Resp BP Pulse Ox 02/26/22 16:41 99.9 F H 82 18 110/57 94 L 02/26/22 11:21 101 F H 100 20 140/70 97 Intake and Output 02/26/22 02/26/22 02/26/22 06:59 14:59 22:59 Other: Weight 87.543 kg General: [Alert and oriented, well nourished, no acute distress, appears chronically debilitated]. Eye: [PERRL, EOMI, normal conjunctiva]. HENT: [Normocephalic, clear tympanic membranes, normal hearing, dry oral mucosa, no scleral icterus, no sinus tenderness]. Neck: [Supple, non-tender, no carotid bruits, no JVD, no lymphadenopathy]. Lungs: [Clear to auscultation and percussion, non-labored respiration]. Heart: [Normal rate, regular rhythm, no murmur, gallop or edema]. Abdomen: [Soft, non-tender, non-distended, normal bowel sounds, no masses]. Musculoskeletal: [Normal range of motion and strength, no tenderness or swelling]. Skin: [Skin is warm, dry and pink, no rashes or lesions]. Neurologic: [Awake, alert, and oriented X3, CN II-XII intact]. Psychiatric: [Cooperative, appropriate mood and affect]. Results CBC & Chem 7: 02/26/22 12:49 02/26/22 12:49 Labs: Abnormal Lab Results - Last 24 Hours (Table) 02/26/22 02/26/22 02/26/22 Range/Units 12:49 12:49 12:49 Lymphocytes # 0.4 L (1.0-4.8) k/uL Monocytes # 1.1 H (0-1.0) k/uL Sodium 136 L (137-145) mmol/L Glucose 171 H (74-99) mg/dL Plasma Lactic Acid Bhavin 3.3 H* (0.7-2.0) mmol/L SARS-CoV-2 (PCR) (Not Detectd) 02/26/22 02/26/22 02/26/22 Range/Units 12:49 14:36 15:36 Lymphocytes # (1.0-4.8) k/uL Monocytes # (0-1.0) k/uL Sodium (137-145) mmol/L Glucose (74-99) mg/dL Plasma Lactic Acid Bhavin 3.8 H* 4.0 H* (0.7-2.0) mmol/L SARS-CoV-2 (PCR) Detected A (Not Detectd) Assessment and Plan Assessment: Lactic acidosis likely due to dehydration and also metformin Hold metformin Continue with normal saline fluids at 130 cc an hour Trend lactic acid Asymptomatic COVID-19 Patient has only had one time vaccine of the [employer] Patient satting well on room air Generalized weakness Secondary to COVID-19 Schizophrenia Resume home medications Diabetes mellitus Sliding-scale insulin. Hyperlipidemia Resume statin DVT prophylaxis: Lovenox
[2022-02-26] MEDS ORDERED: DEXTROSE 50% SYRINGE 50 ML IVP PRN ×2 (17:54)
[2022-02-26] MEDS: SODIUM CHLORIDE 0.9% 1,000 ML IV SCH (18:51)
[2022-02-26 19:59] LABS: Glucose,Whole Blood 106 mg/dL (70-110)
[2022-02-26 20:49] LABS: Glucose,Whole Blood 118 mg/dL (70-110)
[2022-02-26] MEDS ORDERED: OLANZapine 10 MG TAB PO SCH (21:00)
[2022-02-26] MEDS ORDERED: LITHIUM CARBONATE 300 MG CAP PO SCH (21:00)
[2022-02-26] MEDS ORDERED: ATORVASTATIN 10 MG TAB PO SCH (21:00)
[2022-02-26] MEDS: INSULIN DETEMIR (LEVEMIR) 100 UNIT/ML SYR SQ SCH (22:28)
[2022-02-26] MEDS: TAMSULOSIN 0.4 MG CAP.ER.24H PO SCH (22:29)
[2022-02-26] MEDS: clonazePAM 0.5 MG TAB PO PRN (22:36)
[2022-02-27] MEDS: SODIUM CHLORIDE 0.9% 1,000 ML IV SCH ×2 (00:04→09:58)
[2022-02-27 08:01] LABS: Glucose,Whole Blood 123 mg/dL (70-110)
[2022-02-27] MEDS: TAMSULOSIN 0.4 MG CAP.ER.24H PO SCH (08:50)
[2022-02-27] MEDS: INSULIN ASPART (NovoLOG) 100 UNIT/ML VIAL SQ SCH ×2 (08:51→13:33)
[2022-02-27] MEDS: INSULIN DETEMIR (LEVEMIR) 100 UNIT/ML SYR SQ SCH (08:52)
[2022-02-27] MEDS: clonazePAM 0.5 MG TAB PO PRN (08:56)
[2022-02-27] MEDS ORDERED: VENLAFAXINE HCL ER 75 MG CAP PO SCH (09:00)
[2022-02-27] MEDS ORDERED: VENLAFAXINE HCL ER 150 MG CAP PO SCH (09:00)
[2022-02-27] MEDS ORDERED: LOSARTAN 25 MG TAB PO SCH (09:00)
[2022-02-27] MEDS ORDERED: polyethylene glycoL 3350 17 GM POWD.PACK PO STA (09:52)
--- NOTE | 2022-02-27 10:51 | XR ---
EXAMINATION TYPE: XR chest 1V portable DATE OF EXAM: 02/27/2022 COMPARISON: chest x-ray 08/22/2021 HISTORY: Tachypnea, cough, Covid positive TECHNIQUE: Single frontal view of the chest is obtained. FINDINGS: Lung volumes are low. Question some patchy basilar density, no pneumothorax or pleural effu martir is evident. The cardiac silhouette size is within normal limits. The osseous structures are in tact. There are overlying leads. Technique somewhat apical lordotic. Surgical clip is present overlyi ng. IMPRESSION: Expiratory exam. Consider follow-up PA and lateral chest x-ray for better evaluation as indicated. Possible basilar atelectasis, difficult to exclude pneumonia.
[2022-02-27 13:00] LABS: Glucose,Whole Blood 169 mg/dL (70-110)
[2022-02-27 13:11] VITALS: BP 112/70; PULSE 78; RESP 24; TEMP 98.5
--- NOTE | 2022-02-27 14:51 | P.DS ---
Providers Date of admission: 02/26/22 15:07 Expected date of discharge: 02/27/22 Attending physician: Kenia Trevino MD Primary care physician: Colten Arzola MD Hospital Course: Discharge Diagnosis: Lactic acidosis likely due to dehydration and metformin Asymptomatic COVID-19 Generalized weakness Schizophrenia Diabetes mellitus Hyperlipidemia Hospital Course: Patient is a 66-year-old male with a past medical history of schizophrenia diabetes hyperlipidemia and BPH who presents to the ED with weakness. Patient also states that he was having a scratchy throat and felt as if he is going have a cold. Patient states that today he was crawling around the house. He is also complaining of myalgias in bilateral thighs. In the ED patient had a fever of 101 and he was also positive for COVID-19. He is also found to have a lactic acid 3.3. Patient is given 1 L of fluid bolus and his lactic acid still went up to 3.8. So patient was referred for admission. Patient is hemodynamically stable. He is satting well on room air. Patient was given fluids overnight. His lactic acid normalized. The following day patient said he was still feeling weak. However he said he will go home if he is able to walk with his walker. After her physical therapy patient states that he wants to go home. At the time of discharge patient was satting well on room air. He was deemed stable for discharge. Patient states that his neighbor can help take care of him. I'll discontinue patient's metformin as it could also be contributing to his lactic acidosis Patient seen and examined at bedside.[] Vital signs reviewed and stable. 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 Patient Condition at Discharge: Fair Plan - Discharge Summary Discharge Rx Participant: No New Discharge Prescriptions: Continue [place] Carbonate 900 mg PO HS Baclofen 10 mg PO BID Fluticasone Nasal [place] [Flonase Nasal [place]] 2 spr EA NOSTRIL DAILY PRN PRN Reason: Allergy Symptoms Venlafaxine HCl [Effexor XR] 75 mg PO DAILY OLANZapine [ZyPREXA] 20 mg PO HS Venlafaxine HCl ER [Effexor XR] 150 mg PO DAILY Tamsulosin [Flomax] 0.4 mg PO BID Acetaminophen Tab [Tylenol] 1,000 mg PO HS clonazePAM [KlonoPIN] 0.5 mg PO BID Atorvastatin Calcium [Lipitor] 10 mg PO HS glyBURIDE [Diabeta] 5 mg PO BID Losartan Potassium [Cozaar] 25 mg PO DAILY Discontinued metFORMIN HCL 1,000 mg PO BID Discharge Medication List [place]bo Carbonate 900 mg PO HS 12/15/19 [History] Baclofen 10 mg PO BID 06/23/20 [History] Fluticasone Nasal [place] [Flonase Nasal [place]] 2 spr EA NOSTRIL DAILY PRN 06/23/20 [History] OLANZapine [ZyPREXA] 20 mg PO HS 06/23/20 [History] Tamsulosin [Flomax] 0.4 mg PO BID 06/23/20 [History] Venlafaxine HCl ER [Effexor XR] 150 mg PO DAILY 06/23/20 [History] Venlafaxine HCl [Effexor XR] 75 mg PO DAILY 06/23/20 [History] Acetaminophen Tab [Tylenol] 1,000 mg PO HS 08/22/21 [History] Atorvastatin Calcium [Lipitor] 10 mg PO HS 08/22/21 [History] clonazePAM [KlonoPIN] 0.5 mg PO BID 08/22/21 [History] glyBURIDE [Diabeta] 5 mg PO BID 08/22/21 [History] Losartan Potassium [Cozaar] 25 mg PO DAILY 02/26/22 [History] Follow up Appointment(s)/Referral(s): Michael Alarcon [facility] [REFERRING] - 1-2 days Discharge/Stand Alone Forms: Community Resources, Help In The Home Discharge Disposition: HOME SELF-CARE
== END 2022-02-27 15:40 | disposition home or self-care (01) ==
LOC: EC 11:06 → 6NMEDSUR 15:07
PROVIDERS: ADMIT Internal Medicine; ATTEND Internal Medicine
DX: U07.1 COVID-19 (principal); E86.0 Dehydration; E87.2 Acidosis; E78.5 Hyperlipidemia, unspecified; E11.9 Type 2 diabetes mellitus without complications; F25.9 Schizoaffective disorder, unspecified; F31.9 Bipolar disorder, unspecified; N40.0 Benign prostatic hyperplasia without lower urinary tract symptoms; Z87.891 Personal history of nicotine dependence; Z79.899 Other long term (current) drug therapy; Z79.84 Long term (current) use of oral hypoglycemic drugs
CPT/HCPCS: 99285; 36415; 93005; 97162; 80048; 82550; 83605; 83735; 85025; 85610; 85730; 83036; 87636; 71045; G0378 ×2

== ENCOUNTER → 2024-10-06 | Outpatient (CLI) | payer MEDICARE, OTHER | END | disposition home or self-care (01) | LOC: LABPAT 08:58 | PROVIDERS: ATTEND Orthopaedic Surgery Adult Reconstructive Orthopaedic Surgery | DX: Z01.818 Encounter for other preprocedural examination (principal) | CPT/HCPCS: 93005 ==

== ENCOUNTER → 2024-12-02 | Outpatient (CLI) | payer MEDICARE, OTHER ==
--- NOTE | 2024-12-02 10:08 | US ---
EXAMINATION TYPE: US venous doppler duplex LE LT DATE OF EXAM: 12/02/2024 9:55 AM COMPARISON: NONE CLINICAL INDICATION: Male, 69 years old with history of R60.0 EDEMA M79.662 PAIN IN LEFT LOWER LEG; R ecent left knee replacement TECHNIQUE: The lower extremity deep venous system is examined utilizing real time linear array sonog anshul with graded compression, color doppler sonography, and spectral doppler. SIDE PERFORMED: Left FINDINGS: VESSELS IMAGED: Common Femoral Vein Deep Femoral Vein Greater Saphenous Vein * Femoral Vein Popliteal Vein Small Saphenous Vein * Proximal Calf Veins (* superficial vessels) Left Leg: Appears negative for DVT IMPRESSION: No evidence for DVT within the left lower extremity imaged from the groin to the upper calf. [facility], , 12/02/2024 10:06 AM
== END | disposition home or self-care (01) ==
LOC: RADUSWWP 09:32
PROVIDERS: ATTEND Orthopaedic Surgery Adult Reconstructive Orthopaedic Surgery
DX: R60.0 Localized edema (principal); Z47.1 Aftercare following joint replacement surgery; Z96.652 Presence of left artificial knee joint